=== PATIENT | male | born 1965 | race Caucasian/White ===

== ENCOUNTER → 2019-01-29 14:25 | Outpatient (CLI) | payer OTHER, SELFPAY ==
[2019-01-29 14:20] VITALS: BMI 21.7
--- NOTE | 2019-01-29 14:26 | RAD_ITS ---
STUDY: X-RAY - LEFT HAND REASON FOR EXAM: Pain. TECHNIQUE: 3 view(s) of the hand. COMPARISON: None. FINDINGS: Normal radiocarpal articulation. Normal distal radioulnar joint. Normal visualized carpal bones. Normal carpal articulations Normal carpometacarpal articulation of the thumb. Normal second through fifth carpometacarpal joints. There is chronic healed fracture deformity of the fourth metacarpal diaphysis. Normal metacarpophalangeal joint of the thumb. Normal interphalangeal joint of the thumb. Normal proximal and distal phalanges of the thumb. Normal metacarpophalangeal joints of the second through fifth fingers. Normal proximal and distal interphalangeal joints of the second through fifth fingers. Normal phalanges of the second through fifth fingers. The soft tissue structures are unremarkable. RAD/Hand Min 3 Views IMPRESSION: Chronic healed fracture deformity of the fourth metacarpal. Otherwise, unremarkable x-ray examination of the left hand. Electronically Signed: Diony Chanel MD at 16:00 EDT Tel , Service support ,
--- NOTE | 2019-01-29 14:26 | RAD_ITS ---
STUDY: X-RAY - RIGHT HAND REASON FOR EXAM: Pain. TECHNIQUE: 3 view(s) of the hand. COMPARISON: None. FINDINGS: Normal radiocarpal articulation. Normal distal radioulnar joint. Normal visualized carpal bones. Normal carpal articulations There is moderate joint space narrowing of the carpometacarpal articulation of the thumb. Normal second through fifth carpometacarpal joints. Normal metacarpi. Normal metacarpophalangeal joint of the thumb. Normal interphalangeal joint of the thumb. Normal proximal and distal phalanges of the thumb. Normal metacarpophalangeal joints of the second through fifth fingers. Normal proximal and distal interphalangeal joints of the second through fifth fingers. Normal phalanges of the second through fifth fingers. The soft tissue structures are unremarkable. RAD/Hand Min 3 Views IMPRESSION: Arthrosis of the first carpometacarpal joint. Electronically Signed: Diony Chanel MD at 15:44 EDT Tel , Service support ,
== END ==
PROVIDERS: Family Provider Internal Medicine; PCP Internal Medicine; Referring Provider Orthopaedic Surgery; Visit Provider Orthopaedic Surgery
DX: M79.644 Pain in right finger(s) (principal); M79.645 Pain in left finger(s)
CPT/HCPCS: 73130

== ENCOUNTER → 2019-10-17 09:12 | Outpatient (CLI) | payer OTHER, SELFPAY ==
[2019-10-08 16:40] VITALS: BMI 22.3
--- NOTE | 2019-10-17 09:33 | RAD_ITS ---
STUDY: X-RAY CHEST REASON FOR EXAM: Male, 54 years old. COUGH TECHNIQUE: PA and lateral views of the chest. COMPARISON: 06/22/2014 FINDINGS: The lungs are clear and expanded. There is no demonstrated pleural abnormality. Normal size heart. Normal mediastinum and yordan. Normal visualized pulmonary arteries. Normal visualized aortic arch and descending thoracic aorta. Normal visualized thoracic spine. Normal visualized ribs, clavicles, and shoulders. There is no demonstrated abnormality of the visualized soft tissue structures of the upper abdomen. RAD/Chest PA and Lateral IMPRESSION: Normal x-ray examination of the chest. Electronically Signed: Yariel Dowell MD at 17:27 EST Tel , Service support ,
[2019-10-17 09:40] LABS: Absolute Neutrophil Count 1.7 X10^3/uL (2.0-7.7); Basophil# 0.02 X10^3/uL; Basophil% 0.5 % (0-1); Eosinophil# 0.17 X10^3/uL; Hematocrit 46.2 % (40-54); Hemoglobin 15.5 g/dL (13.0-16.5); Lymphocyte % 44.3 % (19-41); Mean Corp Hgb Conc 33.5 g/dL (32-36); Mean Corpuscular Hgb 28.8 pg (27.0-32.0); Mean Corpuscular Volume 85.7 fL (80-94); Mean Platelet Vol. 9.3 fl (6.2-12.0); Monocyte# 0.49 X10^3/uL; Monocyte% 11.4 % (0-10); NRBC Flagged by Analyzer 0 % (0-5); Neutrophil % 39.6 % (47-70); Platelet Count 238 K/mm3 (150-450); RBC Distribution Width CV 12.2 % (11.6-14.6); RBC Distribution Width SD 38.3 fl (35.1-43.9); Red Blood Count 5.39 M/mm3 (4.6-6.2); White Blood Count 4.3 K/mm3 (4.4-11.0)
[2019-10-17 11:04] LABS: ALB/GLOB Ratio 0.9 RATIO (0.9-2.4); AST(SGOT) 17 U/L (15-37); Alanine Aminotransfer ALT/SGPT 27 U/L (16-61); Albumin, Serum 3.7 g/dL (3.2-5.0); Alkaline Phosphatase 80 U/L (45-117); Anion Gap 3 (5-15); BUN 22 mg/dL (7-18); BUN/Creat Ratio 24.1 RATIO (10-20); Calcium,Total 9.1 mg/dL (8.5-10.1); Chloride 106 mmol/L (98-107); Cholesterol 199 mg/dL (200); Creatinine, Serum 0.91 mg/dL (0.70-1.30); EST Glomerular Filtration Rate 91 mL/min (>60); Est Glom Filt Rate - Afr Amer 111 mL/min (>60); Glucose 89 mg/dL (74-106); High Density Lipoprotein 70 mg/dL; PSA,Total - Annual Screen 0.43 ng/mL (0.00-4.00); Potassium 4.1 mmol/L (3.5-5.1); Protein, Total 7.7 g/dL (6.4-8.2); Sodium Level 138 mmol/L (136-145); Triglycerides 68 mg/dL; Very Low Density Lipoprotein 14 mg/dL (5-40)
== END ==
PROVIDERS: PCP Internal Medicine; Referring Provider Internal Medicine; Visit Provider Internal Medicine
DX: Z00.00 Encounter for general adult medical examination without abnormal findings (principal); Z12.5 Encounter for screening for malignant neoplasm of prostate; M19.90 Unspecified osteoarthritis, unspecified site; G24.9 Dystonia, unspecified; I10 Essential (primary) hypertension; R05 Cough
CPT/HCPCS: 36415; 71046; 80053; 80061; 84153; 85025; G0103

== ENCOUNTER → 2020-02-17 10:53 | Outpatient (CLI) | payer OTHER, SELFPAY ==
[2019-10-08 16:40] VITALS: BMI 22.3
--- NOTE | 2020-02-17 12:57 | NEURO ---
NCS and/or EMG Patient Report DATE OF SERVICE: 02/17/20 Lito Vu is a 54-year-old male presents for electrodiagnostic testing of the upper limbs. He reports numbness and tingling in the hands for the past 18 months. Electrodiagnostic findings: Median motor nerve demonstrates prolonged distal latency with normal amplitude and conduction velocity bilaterally. Normal ulnar motor response bilaterally, including conduction across the elbow. Prolonged median sensory latency at the wrist bilaterally. Prolonged bilateral median palmar latency. On needle EMG, all muscles tested in the upper limb showed no evidence of denervation with normal motor unit action potentials. Electrodiagnostic impression: This is an abnormal study in the upper limbs 1. Electrodiagnostic findings demonstrate bilateral median mononeuropathy. This consistent with a moderate bilateral carpal tunnel syndrome. If there are any further questions, please do not hesitate to contact me
== END ==
PROVIDERS: PCP Internal Medicine
DX: G56.03 Carpal tunnel syndrome, bilateral upper limbs (principal)
CPT/HCPCS: 95886; 95912

== ENCOUNTER → 2020-05-02 15:48 | Outpatient (CLI) | payer OTHER, SELFPAY ==
[2020-05-02 15:09] VITALS: BMI 22.3
--- NOTE | 2020-05-02 15:49 | RAD_ITS ---
STUDY: X-RAY - RIGHT SHOULDER REASON FOR EXAM: Male, 55 years old. Right shoulder pain TECHNIQUE: 4 view(s) of the shoulder. COMPARISON: None. FINDINGS: Normal glenohumeral articulation. Normal acromioclavicular joint. Normal acromion. Normal humeral head and visualized proximal humerus. The soft tissue structures are unremarkable. Normal visualized pulmonary apex. RAD/Shoulder min 2 Views IMPRESSION: Normal x-ray examination of the shoulder. Electronically Signed: Raymond Mi DO at 23:24 EDT Tel [phone], Service support ,
== END ==
PROVIDERS: PCP Internal Medicine; Referring Provider Internal Medicine; Visit Provider Internal Medicine
DX: M25.511 Pain in right shoulder (principal)
CPT/HCPCS: 73030

== ENCOUNTER → 2020-11-05 08:35 | Outpatient (CLI) | payer OTHER, SELFPAY ==
[2020-10-20 17:07] VITALS: BMI 21.4
[2020-11-05 09:06] LABS: Absolute Lymphocyte Count 2.09 X10^3/uL (0.83-4.51); Absolute Neutrophil Count 1.8 X10^3/uL (2.0-7.7); Basophil# 0.04 X10^3/uL; Basophil% 0.9 % (0-1); Eosinophil# 0.26 X10^3/uL; Eosinophils% 5.6 % (0-5); Hematocrit 48.8 % (40-54); Hemoglobin 15.7 g/dL (13.0-16.5); Lymphocyte # 2.09 X10^3/ul (4.0); Lymphocyte % 45.2 % (19-41); Mean Corp Hgb Conc 32.2 g/dL (32-36); Mean Corpuscular Hgb 28.5 pg (27.0-32.0); Mean Corpuscular Volume 88.6 fL (80-94); Mean Platelet Vol. 9.6 fl (6.2-12.0); Monocyte% 8.7 % (0-10); NRBC Flagged by Analyzer 0 % (0-5); Neutrophil # 1.82 X10^3/uL (2.7-7.7); Neutrophil % 39.4 % (47-70); Platelet Count 251 K/mm3 (150-450); RBC Distribution Width CV 12.3 % (11.6-14.6); RBC Distribution Width SD 40.1 fl (35.1-43.9); Red Blood Count 5.51 M/mm3 (4.6-6.2); White Blood Count 4.6 K/mm3 (4.4-11.0)
[2020-11-05 09:15] LABS: Erythrocyte Sedimentation Rate 7 mm/hr (0-20)
[2020-11-05 09:40] LABS: Cholesterol 224 mg/dL (200); High Density Lipoprotein 79 mg/dL; Triglycerides 69 mg/dL; Very Low Density Lipoprotein 14 mg/dL (5-40)
[2020-11-05 09:51] LABS: ALB/GLOB Ratio 1.1 RATIO (0.9-2.4); AST(SGOT) 20 U/L (15-37); Alanine Aminotransfer ALT/SGPT 25 U/L (16-61); Alkaline Phosphatase 94 U/L (45-117); Anion Gap 5 (5-15); BUN 17 mg/dL (7-18); BUN/Creat Ratio 20.9 RATIO (10-20); CRP < 2.90 mg/L (0.0-3.0); Calcium,Total 9.2 mg/dL (8.5-10.1); Chloride 102 mmol/L (98-107); Creatinine, Serum 0.82 mg/dL (0.70-1.30); EST Glomerular Filtration Rate 104 mL/min (>60); Est Glom Filt Rate - Afr Amer 126 mL/min (>60); Globulin 3.8 g/dL (2.2-4.2); Glucose 86 mg/dL (74-106); Potassium 3.7 mmol/L (3.5-5.1); Protein, Total 7.8 g/dL (6.4-8.2); Sodium Level 138 mmol/L (136-145)
[2020-11-07 09:20] LABS: Hepatitis B Surface Antibody Non-Reactive; Hepatitis B Surface Antigen Non-Reactive (Nonreactive); Hepatitis C Antibody Non-Reactive (Nonreactive)
[2020-11-07 15:53] LABS: ANTINUCLEAR ANTIBODIES DIRECT Negative (Negative)
[2020-11-08 15:04] LABS: CCP IgG Antibodies 23 units (0-19)
== END ==
PROVIDERS: PCP Internal Medicine; Referring Provider Internal Medicine Rheumatology; Visit Provider Internal Medicine Rheumatology
DX: M06.4 Inflammatory polyarthropathy (principal); G24.9 Dystonia, unspecified; I10 Essential (primary) hypertension
CPT/HCPCS: 36415; 80053; 80061; 85025; 85652; 86038; 86140; 86200; 86431; 86706; 86803; 87340

== ENCOUNTER 2020-11-20 18:35 | Emergency (ER) | payer OTHER, SELFPAY ==
[2020-10-20 17:07] VITALS: BMI 21.4
[2020-11-20 18:37] VITALS: BP 128/87; PULSE 82; RESP 14; TEMP 36.4; O2SAT 100; BMI 20.5
--- NOTE | 2020-11-20 18:48 | RAD_ITS ---
STUDY: X-RAY CHEST REASON FOR EXAM: Male, 55 years old. cough TECHNIQUE: Frontal view of the chest COMPARISON: 17 October 2019 FINDINGS: The lungs are clear and hyper expanded. There is no demonstrated pleural abnormality. Normal size heart. Normal mediastinum and yordan. Normal visualized pulmonary arteries. Normal visualized aortic arch and descending thoracic aorta. Normal visualized thoracic spine. Normal visualized ribs, clavicles, and shoulders. There is no demonstrated abnormality of the visualized soft tissue structures of the upper abdomen. Appearance is stable since prior. RAD/Chest 1 View (Portable) IMPRESSION: No acute findings. [id number] emphysema. Electronically Signed: Inna Hennessy MD at 19:12 EDT Tel , Service support ,
--- NOTE | 2020-11-20 18:50 | ED.DCSUM_ITS ---
- ER Visit Summary Date of Service: 11/20/20 Chief Complaint: Cough History of Present Illness: The patient is a 55 M history of dystonia and prior aspiration and rheumatoid arthritis. States that he has had thick phlegm since . With recent chills. No fever. No shortness of breath. No nausea, v omiting or diarrhea. No dysuria. No chest pain. No abdominal pain. He and family want to make sure he did not develop a pneumonia. Physical Examination: Middle-aged male no acute distress. Vital signs stable afebrile. Pulse ox 100%. Family present at bedside. HEENT exam moist mucous membranes. Posterior pharynx unremarkable. No stridor. No drooling. He does have dystonia with facial twitches. Neck nontender no lymphadenopathy. Lungs clear to auscultation bilaterally. Heart regular rhythm rate about 80 no murmur. Abdomen soft nontender normal bowel sounds no peritoneal signs. Patient moving all 4 extremities. Calves are nontender without edema. Neurologically patient is awake alert with no focal motor deficits. Test Results: Portable chest x-ray 1 view interpreted by myself shows shows no acute abnormality. Chronic changes. No infiltrate. Also read by the radiologist who agrees. Repeat exam at 7:40 PM patient is doing well. I discussed chest x-ray results of both he and his significant other. He will be discharged home. Emergency Department Course and Treatment: Middle-aged male with dystonia with increased phlegm and cough. Clinically does not look septic and is afebrile. Chest x-ray being obtained. Treatment Plan: Plenty of fluids. Follow-up with his primary care physician if not improving. Return if worse. Disposition: discharge Impression: Viral URI History of dystonia History of rheumatoid arthritis This note was generated with [employer] dictation software. It may contain incorrect words, spelling, and punctuation that were not noted in review of the chart prior to signing ED Disposition - Plan for ED Patient: Referrals: Adeel Tam MD [Primary Care Provider] -
--- NOTE | 2020-11-20 19:41 | ED.DEP ---
ED Disposition - Plan for ED Patient: Disposition: Home or Assisted Living Instructions: ED Viral Syndrome (Adult) Referrals: Adeel Tam MD [Primary Care Provider] - 3-5 Days if not improving Additional Instructions: Yourr chest x-ray today was unremarkable. Follow-up use doctor if not improving. Return to emergency department feeling worse.
[2020-11-20 20:18] VITALS: BP 128/87; PULSE 82; RESP 14; RESP 16; TEMP 36.4; O2SAT 100
== END 2020-11-20 20:19 | disposition home or self-care (01) ==
PROVIDERS: Emergency Provider Emergency Medicine; PCP Internal Medicine
DX: J06.9 Acute upper respiratory infection, unspecified (principal); J43.9 Emphysema, unspecified; G24.9 Dystonia, unspecified; M06.9 Rheumatoid arthritis, unspecified
CPT/HCPCS: 71045; 99282

== ENCOUNTER → 2021-02-07 16:27 | Outpatient (CLI) | payer OTHER, SELFPAY ==
[2021-02-07 17:43] LABS: Absolute Lymphocyte Count 1.72 X10^3/uL (0.83-4.51); Absolute Neutrophil Count 2.8 X10^3/uL (2.0-7.7); Basophil# 0.03 X10^3/uL; Basophil% 0.6 % (0-1); Eosinophil# 0.13 X10^3/uL; Eosinophils% 2.5 % (0-5); Hematocrit 44.8 % (40-54); Hemoglobin 14.8 g/dL (13.0-16.5); Lymphocyte # 1.72 X10^3/ul (0.83-4.51); Lymphocyte % 32.5 % (19-41); Mean Corpuscular Hgb 28.7 pg (27.0-32.0); Mean Platelet Vol. 9.8 fl (6.2-12.0); Monocyte# 0.57 X10^3/uL; Monocyte% 10.8 % (0-10); NRBC Flagged by Analyzer 0 % (0-5); Neutrophil # 2.84 X10^3/uL (2.7-7.7); Neutrophil % 53.4 % (47-70); Platelet Count 262 K/mm3 (150-450); RBC Distribution Width CV 12.2 % (11.6-14.6); Red Blood Count 5.15 M/mm3 (4.6-6.2); White Blood Count 5.3 K/mm3 (4.4-11.0)
[2021-02-07 18:24] LABS: AST(SGOT) 16 U/L (15-37); Alanine Aminotransfer ALT/SGPT 25 U/L (16-61); Albumin, Serum 3.7 g/dL (3.2-5.0); Alkaline Phosphatase 78 U/L (45-117); Anion Gap 4 (5-15); BUN 25 mg/dL (7-18); BUN/Creat Ratio 21.4 RATIO (10-20); Chloride 108 mmol/L (98-107); Creatinine, Serum 1.17 mg/dL (0.70-1.30); EST Glomerular Filtration Rate 68 mL/min (>60); Est Glom Filt Rate - Afr Amer 83 mL/min (>60); Globulin 3.7 g/dL (2.2-4.2); Glucose 85 mg/dL (74-106); Potassium 4.2 mmol/L (3.5-5.1); Protein, Total 7.4 g/dL (6.4-8.2); Sodium Level 142 mmol/L (136-145)
== END ==
PROVIDERS: PCP Internal Medicine; Referring Provider Internal Medicine Rheumatology; Visit Provider Internal Medicine Rheumatology
DX: M06.4 Inflammatory polyarthropathy (principal); G24.9 Dystonia, unspecified
CPT/HCPCS: 36415; 80053; 85025

== ENCOUNTER → 2021-07-31 16:10 | Outpatient (CLI) | payer OTHER, SELFPAY ==
[2021-07-31 18:00] LABS: Absolute Lymphocyte Count 2.06 X10^3/uL (0.83-4.51); Basophil# 0.04 X10^3/uL; Basophil% 0.6 % (0-1); Eosinophil# 0.24 X10^3/uL; Eosinophils% 3.5 % (0-5); Hematocrit 44.7 % (40-54); Lymphocyte # 2.06 X10^3/ul (0.83-4.51); Lymphocyte % 29.6 % (19-41); Mean Corp Hgb Conc 33.6 g/dL (32-36); Mean Corpuscular Volume 86.3 fL (80-94); Monocyte% 8.6 % (0-10); NRBC Flagged by Analyzer 0 % (0-5); Neutrophil # 3.99 X10^3/uL (2.7-7.7); Neutrophil % 57.4 % (47-70); Platelet Count 264 K/mm3 (150-450); RBC Distribution Width CV 12.2 % (11.6-14.6); RBC Distribution Width SD 38.5 fl (35.1-43.9); Red Blood Count 5.18 M/mm3 (4.6-6.2)
[2021-07-31 18:14] LABS: ALB/GLOB Ratio 0.9 RATIO (0.9-2.4); AST(SGOT) 15 U/L (15-37); Alanine Aminotransfer ALT/SGPT 23 U/L (16-61); Albumin, Serum 3.6 g/dL (3.2-5.0); Alkaline Phosphatase 87 U/L (45-117); Anion Gap 5 (5-15); BUN 26 mg/dL (7-18); BUN/Creat Ratio 27.5 RATIO (10-20); Calcium,Total 10.2 mg/dL (8.5-10.1); Chloride 105 mmol/L (98-107); Creatinine, Serum 0.95 mg/dL (0.70-1.30); EST Glomerular Filtration Rate 87 mL/min (>60); Est Glom Filt Rate - Afr Amer 105 mL/min (>60); Globulin 4.1 g/dL (2.2-4.2); Glucose 78 mg/dL (74-106); Protein, Total 7.7 g/dL (6.4-8.2); Sodium Level 141 mmol/L (136-145)
== END ==
PROVIDERS: PCP Internal Medicine; Referring Provider Internal Medicine Rheumatology; Visit Provider Internal Medicine Rheumatology
DX: M06.4 Inflammatory polyarthropathy (principal); G24.9 Dystonia, unspecified; Z79.899 Other long term (current) drug therapy
CPT/HCPCS: 36415; 80053; 85025

== ENCOUNTER 2021-10-02 16:11 | Outpatient (CLI) | payer OTHER, SELFPAY ==
[2021-10-02 18:13] LABS: Absolute Lymphocyte Count 2.03 X10^3/uL (0.83-4.51); Absolute Neutrophil Count 3.5 X10^3/uL (2.0-7.7); Basophil# 0.02 X10^3/uL; Basophil% 0.3 % (0-1); Eosinophils% 4.7 % (0-5); Hematocrit 42.1 % (40-54); Hemoglobin 14.2 g/dL (13.0-16.5); Lymphocyte # 2.03 X10^3/ul (0.83-4.51); Lymphocyte % 31.8 % (19-41); Mean Corp Hgb Conc 33.7 g/dL (32-36); Mean Corpuscular Hgb 29.3 pg (27.0-32.0); Mean Platelet Vol. 9.8 fl (6.2-12.0); Monocyte# 0.52 X10^3/uL; Monocyte% 8.1 % (0-10); NRBC Flagged by Analyzer 0 % (0-5); Neutrophil # 3.49 X10^3/uL (2.7-7.7); Neutrophil % 54.6 % (47-70); Platelet Count 259 K/mm3 (150-450); RBC Distribution Width CV 12.5 % (11.6-14.6); RBC Distribution Width SD 39.4 fl (35.1-43.9); Red Blood Count 4.84 M/mm3 (4.6-6.2); White Blood Count 6.4 K/mm3 (4.4-11.0)
[2021-10-02 19:53] LABS: ALB/GLOB Ratio 0.9 RATIO (0.9-2.4); AST(SGOT) 19 U/L (15-37); Alanine Aminotransfer ALT/SGPT 23 U/L (16-61); Albumin, Serum 3.6 g/dL (3.2-5.0); Alkaline Phosphatase 73 U/L (45-117); Anion Gap 5 (5-15); BUN 21 mg/dL (7-18); BUN/Creat Ratio 25.4 RATIO (10-20); Calcium,Total 9.1 mg/dL (8.5-10.1); Chloride 105 mmol/L (98-107); Creatinine, Serum 0.83 mg/dL (0.70-1.30); EST Glomerular Filtration Rate 102 mL/min (>60); Est Glom Filt Rate - Afr Amer 123 mL/min (>60); Globulin 3.8 g/dL (2.2-4.2); Glucose 79 mg/dL (74-106); Potassium 3.7 mmol/L (3.5-5.1); Protein, Total 7.4 g/dL (6.4-8.2); Sodium Level 140 mmol/L (136-145)
== END 2021-10-02 23:59 | disposition short-term general hospital (02) ==
LOC: MTLAB 16:13
PROVIDERS: PCP Internal Medicine; Referring Provider Internal Medicine Rheumatology; Visit Provider Internal Medicine Rheumatology
DX: M06.4 Inflammatory polyarthropathy (principal); G24.9 Dystonia, unspecified; Z79.899 Other long term (current) drug therapy
CPT/HCPCS: 36415; 80053; 85025

== ENCOUNTER 2021-10-16 15:24 | Outpatient (CLI) | payer OTHER, SELFPAY ==
[2021-10-16 15:26] LABS: Bacteria 0 SEEN /hpf (None Seen); Mucous, Urine 0 SEEN /hpf (<or=2+); Red Blood Cells-Urine 0 SEEN /hpf (0-5); Squamous Epithelial Cells - UA 0 SEEN /hpf (0-5); White Blood Cells 0 SEEN /hpf (0-5)
[2021-10-16 16:41] LABS: Color, Urine Yellow (Yellow); Glucose, Dipstick Normal (Normal); Ketone-Dipstick Negative (Negative); Leukocyte Esterase-Dipstick Negative /ul (Negative); Nitrite-Dipstick Negative (Negative); Occult Blood-Urine Negative /ul (Negative); Protein-Dipstick Negative (Negative); Specific Gravity, Urine 1.025 (1.002-1.030); Urine Bilirubin Dipstick Negative (Negative); Urine Clarity Clear (Clear); Urine Urobilinogen Normal (Normal)
== END 2021-10-16 23:59 | disposition home or self-care (01) ==
LOC: LABSPEC 15:25
PROVIDERS: PCP Internal Medicine; Referring Provider Physician Assistant; Visit Provider Physician Assistant
DX: R31.9 Hematuria, unspecified (principal); R30.0 Dysuria
CPT/HCPCS: 81001; 87086

== ENCOUNTER 2021-11-11 09:31 | Outpatient (CLI) | payer OTHER, SELFPAY ==
[2021-11-11 10:11] LABS: Cholesterol 187 mg/dL (200); High Density Lipoprotein 74 mg/dL; PSA,Total - Annual Screen 0.43 ng/mL (0.00-4.00); Triglycerides 51 mg/dL; Very Low Density Lipoprotein 10 mg/dL (5-40)
== END 2021-11-11 23:59 | disposition home or self-care (01) ==
LOC: LAB 09:33
PROVIDERS: PCP Internal Medicine; Visit Provider Internal Medicine
DX: Z00.00 Encounter for general adult medical examination without abnormal findings (principal); Z12.5 Encounter for screening for malignant neoplasm of prostate; I10 Essential (primary) hypertension
CPT/HCPCS: 36415; 80061; 84153; G0103

== ENCOUNTER → 2021-12-21 | Outpatient (CLI) | payer OTHER, SELFPAY ==
[2021-12-21 17:50] LABS: Absolute Lymphocyte Count 2.06 X10^3/uL (0.83-4.51); Absolute Neutrophil Count 2.8 X10^3/uL (2.0-7.7); Basophil# 0.04 X10^3/uL; Basophil% 0.7 % (0-1); Eosinophil# 0.23 X10^3/uL; Hematocrit 43.6 % (40-54); Hemoglobin 14.5 g/dL (13.0-16.5); Lymphocyte # 2.06 X10^3/ul (0.83-4.51); Lymphocyte % 35.6 % (19-41); Mean Corp Hgb Conc 33.3 g/dL (32-36); Mean Corpuscular Hgb 29.3 pg (27.0-32.0); Mean Corpuscular Volume 88.1 fL (80-94); Mean Platelet Vol. 9.6 fl (6.2-12.0); Monocyte# 0.67 X10^3/uL; Monocyte% 11.6 % (0-10); NRBC Flagged by Analyzer 0 % (0-5); Neutrophil # 2.78 X10^3/uL (2.7-7.7); Neutrophil % 47.9 % (47-70); Platelet Count 256 K/mm3 (150-450); RBC Distribution Width CV 12.4 % (11.6-14.6); RBC Distribution Width SD 39.5 fl (35.1-43.9); Red Blood Count 4.95 M/mm3 (4.6-6.2); White Blood Count 5.8 K/mm3 (4.4-11.0)
[2021-12-21 18:29] LABS: ALB/GLOB Ratio 1.1 RATIO (0.9-2.4); AST(SGOT) 20 U/L (15-37); Alanine Aminotransfer ALT/SGPT 28 U/L (16-61); Albumin, Serum 3.8 g/dL (3.2-5.0); Alkaline Phosphatase 74 U/L (45-117); Anion Gap 3 (5-15); BUN 25 mg/dL (7-18); BUN/Creat Ratio 26.5 RATIO (10-20); Calcium,Total 8.8 mg/dL (8.5-10.1); Chloride 104 mmol/L (98-107); Creatinine, Serum 0.94 mg/dL (0.70-1.30); EST Glomerular Filtration Rate 87 mL/min (>60); Est Glom Filt Rate - Afr Amer 106 mL/min (>60); Globulin 3.5 g/dL (2.2-4.2); Glucose 80 mg/dL (74-106); Protein, Total 7.3 g/dL (6.4-8.2); Sodium Level 140 mmol/L (136-145)
== END | disposition home or self-care (01) ==
LOC: MTLAB 16:13
PROVIDERS: PCP Internal Medicine; Referring Provider Internal Medicine Rheumatology; Visit Provider Internal Medicine Rheumatology
DX: M06.4 Inflammatory polyarthropathy (principal); G24.9 Dystonia, unspecified; Z79.899 Other long term (current) drug therapy
CPT/HCPCS: 36415; 80053; 85025

== ENCOUNTER → 2022-01-16 | Outpatient (CLI) | payer OTHER, SELFPAY ==
--- NOTE | 2022-01-16 | CYSPIN_PTH ---
PATIENT: CHRIS JACKSON LOC: [facility] U#:[id number] AGE/SX: 56/M ROOM: RE01/16/[address]: Dr. Aung Loomis MD : 1965 BED: DIS: 01/16/2022 SPEC #: [id number] RECD: 01/17/22 08:41 STATUS: FANI TAMIKO #: [id number] KALEN: 01/16/22 00:[address]: Aung Loomis DEPT: CYTOLOGY RECD BY: Ramo Boyd ENTERED: 01/17/22 08:41 SP TYPE: CYSPIN FL OTHR DR: Dr. Adeel Tam MD Tissues: Urine Procedures: Pap Stain (control) Special Stain Group II Cytospin Fluid HEADER OPERATION: Not noted PRE-OP DIAGNOSIS: Hematuria TISSUE SUBMITTED: Urine for cytology DIAGNOSIS CYTOLOGY Urine for cytology (cytospin): Negative for malignant cells. See comment. SJ:cleopatra 01/17/2022 COMMENT Degenerated urothelial cells are noted. Clinical correlation and appropriate follow up are necessary. CYTOLOGY STUDY Slides are reviewed. CYTOLOGY GROSS Received is 60 ml of yellow cloudy fluid labeled with the patient's name and and designated per the requisition as urine. Submitted for cytology preparation. / cleopatra 01/16/2022 TC:5 CPT: 35016
[2022-01-16 17:01] LABS: Cytology, Body Fluid / CSF SEE PATHOLOGY REPORT
== END | disposition home or self-care (01) ==
LOC: LABSPEC 16:46
PROVIDERS: PCP Internal Medicine; Referring Provider Urology; Visit Provider Urology
DX: R31.9 Hematuria, unspecified (principal)
CPT/HCPCS: 88108; 88313

== ENCOUNTER → 2022-01-19 | Outpatient (CLI) | payer OTHER, SELFPAY ==
--- NOTE | 2022-01-19 14:50 | CT_ITS ---
STUDY: CT ABDOMEN AND PELVIS WITHOUT CONTRAST REASON FOR EXAM: Male, 56 years old. GROSS HEMATURIA RADIATION DOSAGE (If Supplied By Facility): CTDIvol = ( 5.90 ) mGy, DLP = ( 284.72 ) mGycm TECHNIQUE: Transaxial images were obtained from the dome of the diaphragm to the symphysis pubis without oral contrast, and without intravenous contrast. Sagittal and coronal images were reconstructed. Individualized dose optimization techniques were used for this CT. COMPARISON: None. FINDINGS: Mild degree of groundglass appearance in the right lower lobe. This may represent early inflammatory changes. Clinical correlation recommended. The visualized portions of the heart are within normal limits. 4.8 mm cyst in the posterior aspect of the right lobe of the liver. Tiny cyst is also seen in the anterior medial aspect of the right lobe of liver. Normal gallbladder and extrahepatic biliary system. Normal spleen. Normal pancreas. Normal bilateral adrenal glands. Normal right kidney. Punctate calculus in the upper pole calyx of the left kidney. Normal visualized stomach. Normal small intestine. Normal colon. The appendix is visualized and appears normal. There is scattered atherosclerotic calcification of the abdominal aorta, without a demonstrated aneurysm. Normal inferior vena cava. Normal retroperitoneum. Normal urinary bladder. There is enlargement of the prostate gland. It measures 3.9 cm x 4.8 cm. Central prostatic calcification is seen. Normal abdominal wall. There is retrolisthesis of L2 on L3. Heterogeneous appearance of the L2 vertebrae. This may represent hemangioma. CT/Abdomen/Pelvis without Cont IMPRESSION: Punctate calculus in the upper pole calyx of the left kidney. Prostatic calcification and enlargement. Retrolisthesis of L2 on L3 with abnormal appearance of the L2 vertebra most likely representing hemangioma. Electronically Signed: Jacob Beckman MD at 15:17 EDT ,
== END | disposition home or self-care (01) ==
LOC: CT 14:49
PROVIDERS: PCP Internal Medicine; Referring Provider Urology; Visit Provider Urology
DX: N20.0 Calculus of kidney (principal); N40.0 Benign prostatic hyperplasia without lower urinary tract symptoms; R31.0 Gross hematuria
CPT/HCPCS: 74176

== ENCOUNTER → 2022-02-14 | Outpatient (CLI) | payer OTHER, SELFPAY ==
[2022-02-14 17:31] LABS: Absolute Lymphocyte Count 2.14 X10^3/uL (0.83-4.51); Absolute Neutrophil Count 3.7 X10^3/uL (2.0-7.7); Basophil# 0.03 X10^3/uL; Basophil% 0.5 % (0-1); Eosinophil# 0.24 X10^3/uL; Eosinophils% 3.6 % (0-5); Hematocrit 43.2 % (40-54); Hemoglobin 14.6 g/dL (13.0-16.5); Lymphocyte # 2.14 X10^3/ul (0.83-4.51); Lymphocyte % 32.3 % (19-41); Mean Corp Hgb Conc 33.8 g/dL (32-36); Mean Corpuscular Hgb 30.2 pg (27.0-32.0); Mean Corpuscular Volume 89.3 fL (80-94); Mean Platelet Vol. 9.8 fl (6.2-12.0); Monocyte# 0.53 X10^3/uL; NRBC Flagged by Analyzer 0 % (0-5); Neutrophil # 3.67 X10^3/uL (2.7-7.7); Neutrophil % 55.3 % (47-70); Platelet Count 277 K/mm3 (150-450); RBC Distribution Width CV 12.2 % (11.6-14.6); RBC Distribution Width SD 39.8 fl (35.1-43.9); Red Blood Count 4.84 M/mm3 (4.6-6.2); White Blood Count 6.6 K/mm3 (4.4-11.0)
[2022-02-14 17:56] LABS: ALB/GLOB Ratio 1.1 RATIO (0.9-2.4); AST(SGOT) 19 U/L (15-37); Alanine Aminotransfer ALT/SGPT 29 U/L (16-61); Albumin, Serum 3.8 g/dL (3.2-5.0); Alkaline Phosphatase 78 U/L (45-117); Anion Gap 5 (5-15); BUN 23 mg/dL (7-18); Chloride 105 mmol/L (98-107); EST Glomerular Filtration Rate 82 mL/min (>60); Est Glom Filt Rate - Afr Amer 99 mL/min (>60); Globulin 3.6 g/dL (2.2-4.2); Glucose 94 mg/dL (74-106); Protein, Total 7.4 g/dL (6.4-8.2); Sodium Level 140 mmol/L (136-145)
== END | disposition home or self-care (01) ==
LOC: MTLAB 16:30
PROVIDERS: PCP Internal Medicine; Referring Provider Internal Medicine Rheumatology; Visit Provider Internal Medicine Rheumatology
DX: M06.4 Inflammatory polyarthropathy (principal); G24.9 Dystonia, unspecified; Z79.899 Other long term (current) drug therapy
CPT/HCPCS: 36415; 80053; 85025

== ENCOUNTER 2022-04-20 17:28 | Emergency (ER) | payer OTHER, SELFPAY ==
[2022-04-20 17:29] VITALS: BP 142/95; PULSE 85; RESP 18; TEMP 36.8; O2SAT 98; BMI 46.7
--- NOTE | 2022-04-20 18:45 | RAD_ITS ---
STUDY: X-RAY CHEST REASON FOR EXAM: Male, 57 years old. CHEST PAIN cough TECHNIQUE: XR Chest 1 View COMPARISON: 11/20/2020 FINDINGS: There is no demonstrated pleural abnormality. Normal size heart. Normal mediastinum and yordan. Normal visualized pulmonary arteries. Normal visualized aortic arch and descending thoracic aorta. Normal visualized thoracic spine. Normal visualized ribs, clavicles, and shoulders. There is no demonstrated abnormality of the visualized soft tissue structures of the upper abdomen. RAD/Chest 1 View (Portable) IMPRESSION: There are no acute findings. Electronically Signed: Jc Reyez MD at 19:24 EDT ,
[2022-04-20 19:02] VITALS: BP 135/87; PULSE 75; RESP 16; TEMP 36.4; O2SAT 98
[2022-04-20 19:07] VITALS: O2SAT 98
[2022-04-20] MEDS: Amox/Clavulanate 875 MG Tablet PO (20:11)
[2022-04-20 20:12] VITALS: BP 131/89; PULSE 74; RESP 15; O2SAT 98
--- NOTE | 2022-04-20 20:23 | ED.VIS.DYS ---
HPI History of Present Illness Chief Complaint: Cough Informant: patient and family Narrative Narrative: Patient is a 57-year-old male with history of dystonia and aspiration pneumonia presenting after an episode of aspiration this morning. He was trying to take a dissolvable ibuprofen when he aspirated one of the pills. Throughout the day he had increased phlegm and coughing. He has some discomfort on the right side of his chest. Denies any shortness of breath or difficulty breathing. Initially went to urgent care however they were concerned that he might have retained foreign body in his esophagus or trachea so they sent him to the emergency room. Patient has eaten and drink since this episode of aspiration. He has no other complaints at this time. Denies any fever or chills. [facility] Medical History Arthritis Dystonia Health care maintenance Localized swelling on hand Preventative health care Rheumatoid arthritis Home Medications ascorbic acid (vitamin C) 500 mg capsule,extended release 500 mg PO DAILY 11/03/18 [History Last Taken Unknown] turmeric root extract 500 mg capsule 500 mg PO DAILY 11/03/18 [History Last Taken Unknown] zinc 50 mg tablet 50 mg PO DAILY 11/03/18 [History Last Taken Unknown] bee pollen 550 mg capsule 2 cap PO DAILY 05/02/20 [History Last Taken Unknown] polyethylene glycol 3350 17 gram/dose oral powder (Miralax) 17 g PO .prn 10/20/20 [History Last Taken Unknown] glucosamine 750 mu-fznefrmyoou-ywq no1 644 mg-C 30 mg-santos 1 mg tablet 1 each PO DAILY 11/20/20 [History Last Taken Unknown] hydroxychloroquine 200 mg tablet 300 mg PO DAILYCM 11/20/20 [History Last Taken Unknown] trihexyphenidyl 2 mg tablet 2 mg PO .QID #360 tabs 05/11/21 [Rx Last Taken Unknown] baclofen 10 mg tablet 10 mg PO Q6H dystonia #480 tabs 08/17/21 [Rx Last Taken Unknown] amoxicillin 875 mg-potassium clavulanate 125 mg tablet 1 tab PO Q12H #14 tabs 04/20/22 [Rx Last Taken Unknown] Allergy/AdvReac Type Severity Reaction Status Date / Time No Known Allergies Allergy Verified 04/20/22 19:09 Family History Mother Cancer melanoma Hypertension Hyperlipemia Sister Breast cancer Surgical History History of carpal tunnel surgery of right wrist History of colonoscopy Hx of hemorrhoidectomy right thumb replacment Social History Smoking Status: Never smoker alcohol intake: never substance use type: does not use what type of physical activity do you participate in: bicycling frequency: 3-4 times per week ROS ROS ED Constitutional Constitutional ED: Denies chills or fever(s) Eyes Eyes: Denies change in vision ENT ENT ED: Denies rhinorrhea or sore throat Cardiovascular Cardiovascular: Denies chest pain or palpitations Respiratory/Chest Respiratory/Chest: Reports cough; Denies dyspnea or dyspnea on exertion Gastrointestinal Gastrointestinal: Denies abdominal pain, nausea or vomiting Musculoskeletal Musculoskeletal: Denies arthralgias or myalgias Integumentary Denies rash Neurologic Neurologic: Denies headache(s) or weakness Psychiatric Psychiatric: Denies anxiety Hematologic/Lymphatic Hematologic/Lymphatic: Denies easy bleeding or easy bruising EXAM Physical Exam Const Vital Signs: 04/20/22 17:29 04/20/22 19:02 04/20/22 19:07 Temperature 98.2 F 97.5 F L Temperature Source Temporal Temporal Pulse Rate 85 75 Respiratory Rate 18 16 Respiratory Effort Normal Non-Labored Respiratory Depth Normal Respiratory Pattern Normal Blood Pressure 142/95 H 135/87 H Blood Pressure Mean 110 103 Pulse Ox 98 98 Oxygen Delivery Method Room Air Room Air Room Air 04/20/22 20:12 Temperature Temperature Source Pulse Rate 74 Respiratory Rate 15 Respiratory Effort Respiratory Depth Respiratory Pattern Blood Pressure 131/89 H Blood Pressure Mean Pulse Ox 98 Oxygen Delivery Method Positive well nourished and well developed General Appearance ED: well developed and NAD HEENT Reports moist mucous membranes atraumatic Eyes PERRL and EOMs intact bilaterally Neck no lymphadenopathy and supple Resp normal respiratory effort Resp Narrative: Coarse breath sounds and rhonchi at the right base more pronounced on the left Cardio regular rate, regular rhythm and no murmurs GI non-tender and non-distended Auscultation: normoactive bowel sounds Back/Spine no CVA tenderness Neuro oriented x3 Neuro Narrative: Patient has abnormal tone and abnormal muscle movements consistent with his history of dystonia. No acute process appreciated. Sensorium / Orientation: alert Speech: Negative for speech normal Psych mental status grossly normal Skin no wounds and skin turgor normal MDM MDM MDM Narrative Medical decision making narrative: Patient is evaluated after an aspiration event. He has some increased phlegm production and chest tightness on the right side. This was a dissolvable tablet that he aspirated. He is eating and drink since. I do not think this is a retained esophageal foreign body. This does not sound like globus hystericus. Chest x-ray was read as normal however on my interpretation I do see changes concerning for right lower lobe infiltrate. Patient be covered for aspiration pneumonia. Given first dose in the emergency room. Prescription is sent. Family is agreeable this. They will follow-up with primary care doctor next week. They are given return precautions. Patient has normal O2 saturation and is afebrile. I do not think further work-up is indicated at this time. Radiography Diagnostic Testing: Clinical Impression(s) from Imaging Studies Chest X-Ray 04/20/22 18:45 IMPRESSION: There are no acute findings. Electronically Signed: Jc Reyez MD at 19:24 EDT , Discharge Plan Triage Chief Complaint: Cough ED Provider: Joelle Quintana Dx/Rx/DC Orders Clinical Impression: Aspiration pneumonia, Cough Instructions: Dysphagia Aspiration, ED Pneumonia (Adult) Prescriptions: New amoxicillin-pot clavulanate 875-125 mg tablet 1 tab PO Q12H Qty: 14 0RF No Action turmeric root extract 500 mg capsule 500 mg PO DAILY zinc 50 mg tablet 50 mg PO DAILY ascorbic acid (vitamin C) 500 mg capsule, extended release 500 mg PO DAILY bee pollen 550 mg capsule 2 cap PO DAILY polyethylene glycol 3350 [Miralax] 17 gram/dose powder 17 g PO .prn hydroxychloroquine 200 MG tablet 300 mg PO DAILYCM [id number]-santos-bosw 1 EACH tablet 1 each PO DAILY trihexyphenidyl 2 mg tablet 2 mg PO .QID Qty: 360 3RF baclofen 10 mg tablet 10 mg PO Q6H Qty: 480 2RF Rx Instructions: take 2 tablets PO every 6 hours Primary Care Provider: Eze Mon Referrals: Eze Mon DO [Primary Care Provider] - Disposition Disposition: Home, Self Care Discharge Date/Time: 04/20/22 20:13
== END 2022-04-20 20:13 | disposition home or self-care (01) ==
LOC: ED 19:58
PROVIDERS: Emergency Provider Emergency Medicine; PCP Family Medicine; Visit Provider Emergency Medicine
DX: J69.0 Pneumonitis due to inhalation of food and vomit (principal)
CPT/HCPCS: 71045; 99283

== ENCOUNTER → 2022-05-21 | Outpatient (CLI) | payer OTHER, SELFPAY ==
[2022-05-21 18:49] LABS: Absolute Lymphocyte Count 2.15 X10^3/uL (0.83-4.51); Absolute Neutrophil Count 5.8 X10^3/uL (2.0-7.7); Basophil# 0.04 X10^3/uL; Basophil% 0.4 % (0-1); Eosinophil# 0.33 X10^3/uL; Eosinophils% 3.7 % (0-5); Hematocrit 44.4 % (40-54); Hemoglobin 15.3 g/dL (13.0-16.5); Lymphocyte # 2.15 X10^3/ul (0.83-4.51); Lymphocyte % 24.2 % (19-41); Mean Corp Hgb Conc 34.5 g/dL (32-36); Mean Corpuscular Hgb 30.2 pg (27.0-32.0); Mean Corpuscular Volume 87.6 fL (80-94); Mean Platelet Vol. 9.8 fl (6.2-12.0); Monocyte# 0.57 X10^3/uL; Monocyte% 6.4 % (0-10); NRBC Flagged by Analyzer 0 % (0-5); Neutrophil # 5.77 X10^3/uL (2.7-7.7); Neutrophil % 64.9 % (47-70); Platelet Count 248 K/mm3 (150-450); RBC Distribution Width CV 12.2 % (11.6-14.6); RBC Distribution Width SD 38.6 fl (35.1-43.9); Red Blood Count 5.07 M/mm3 (4.6-6.2); White Blood Count 8.9 K/mm3 (4.4-11.0)
[2022-05-21 20:20] LABS: AST(SGOT) 26 U/L (15-37); Alanine Aminotransfer ALT/SGPT 31 U/L (16-61); Albumin, Serum 3.8 g/dL (3.2-5.0); Alkaline Phosphatase 84 U/L (45-117); Anion Gap 7 (5-15); BUN 31 mg/dL (7-18); BUN/Creat Ratio 35.6 RATIO (10-20); Calcium,Total 9.1 mg/dL (8.5-10.1); Chloride 102 mmol/L (98-107); Creatinine, Serum 0.87 mg/dL (0.70-1.30); EST Glomerular Filtration Rate 96 mL/min (>60); Est Glom Filt Rate - Afr Amer 116 mL/min (>60); Globulin 3.9 g/dL (2.2-4.2); Glucose 83 mg/dL (74-106); Potassium 3.8 mmol/L (3.5-5.1); Protein, Total 7.7 g/dL (6.4-8.2); Sodium Level 138 mmol/L (136-145)
== END | disposition home or self-care (01) ==
LOC: MTLAB 16:52
PROVIDERS: PCP Family Medicine; Referring Provider Internal Medicine Rheumatology; Visit Provider Internal Medicine Rheumatology
DX: M06.4 Inflammatory polyarthropathy (principal); G24.9 Dystonia, unspecified; Z79.899 Other long term (current) drug therapy
CPT/HCPCS: 36415; 80053; 85025

== ENCOUNTER → 2022-07-24 | Outpatient (CLI) | payer OTHER, SELFPAY ==
--- NOTE | 2022-07-24 16:41 | RAD_ITS ---
INDICATION: BACK PAIN EXAMINATION/TECHNIQUE: X-RAY - XR Spine Lumbar Min 4 Views COMPARISON: None. FINDINGS: VERTEBRAE: Vertebral body height is maintained without evidence of fracture, there is moderate multilevel degenerative change with marginal osteophyte formation. There is degenerative retrolisthesis of L2 on L3. Disc space narrowing is present at L2-3. No fracture destructive bony process. Mild facet hypertrophic changes. DISCS: Mild disc space narrowing at L2-3 with mild retrolisthesis. INCLUDED ABDOMEN: Included bowel gas pattern is non-obstructive. RAD/L/S Spine Min 4 Views IMPRESSION: 1. Mild discogenic changes most notable at L2-3. Minimal retrolisthesis L2 on L3. 2. No evidence of fracture, focal acute bony or paraspinous soft tissue abnormality. Electronically Signed: Yariel Ortega MD at 17:33 EST ,
== END | disposition home or self-care (01) ==
LOC: MTRAD 16:40
PROVIDERS: PCP Family Medicine; Referring Provider Family Medicine; Visit Provider Family Medicine
DX: M54.50 Low back pain, unspecified (principal)
CPT/HCPCS: 72110

== ENCOUNTER → 2022-08-14 | Outpatient (CLI) | payer OTHER, SELFPAY ==
[2022-08-14 18:00] LABS: Absolute Lymphocyte Count 1.88 X10^3/uL (0.83-4.51); Absolute Neutrophil Count 5.2 X10^3/uL (2.0-7.7); Basophil# 0.05 X10^3/uL; Basophil% 0.6 % (0-1); Eosinophil# 0.25 X10^3/uL; Eosinophils% 3.2 % (0-5); Hematocrit 43.2 % (40-54); Hemoglobin 14.8 g/dL (13.0-16.5); Lymphocyte # 1.88 X10^3/ul (0.83-4.51); Lymphocyte % 23.9 % (19-41); Mean Corp Hgb Conc 34.3 g/dL (32-36); Mean Corpuscular Volume 87.6 fL (80-94); Mean Platelet Vol. 9.4 fl (6.2-12.0); Monocyte# 0.54 X10^3/uL; Monocyte% 6.9 % (0-10); NRBC Flagged by Analyzer 0 % (0-5); Neutrophil # 5.15 X10^3/uL (2.7-7.7); Neutrophil % 65.3 % (47-70); Platelet Count 240 K/mm3 (150-450); RBC Distribution Width CV 12.4 % (11.6-14.6); RBC Distribution Width SD 39.7 fl (35.1-43.9); Red Blood Count 4.93 M/mm3 (4.6-6.2); White Blood Count 7.9 K/mm3 (4.4-11.0)
[2022-08-14 18:12] LABS: ALB/GLOB Ratio 1.2 RATIO (0.9-2.4); AST(SGOT) 21 U/L (15-37); Alanine Aminotransfer ALT/SGPT 27 U/L (16-61); Albumin, Serum 3.8 g/dL (3.2-5.0); Alkaline Phosphatase 81 U/L (45-117); Anion Gap 6 (5-15); BUN 25 mg/dL (7-18); BUN/Creat Ratio 26.3 RATIO (10-20); Calcium,Total 9.1 mg/dL (8.5-10.1); Chloride 104 mmol/L (98-107); Creatinine, Serum 0.95 mg/dL (0.70-1.30); EST Glomerular Filtration Rate 86 mL/min (>60); Est Glom Filt Rate - Afr Amer 105 mL/min (>60); Globulin 3.3 g/dL (2.2-4.2); Glucose 90 mg/dL (74-106); Potassium 4.1 mmol/L (3.5-5.1); Protein, Total 7.1 g/dL (6.4-8.2); Sodium Level 140 mmol/L (136-145)
== END | disposition home or self-care (01) ==
LOC: MTLAB 16:26
PROVIDERS: PCP Family Medicine; Referring Provider Internal Medicine Rheumatology; Visit Provider Internal Medicine Rheumatology
DX: M06.4 Inflammatory polyarthropathy (principal); G24.9 Dystonia, unspecified; Z79.899 Other long term (current) drug therapy
CPT/HCPCS: 36415; 80053; 85025

== ENCOUNTER 2022-10-13 06:30 | Emergency (ER) | payer OTHER, SELFPAY ==
[2022-10-13 06:30] VITALS: BP 139/81; PULSE 88; RESP 18; TEMP 36; O2SAT 98
[2022-10-13 06:31] VITALS: BP 139/81; PULSE 88; RESP 18; TEMP 36; O2SAT 95; BMI 20.8
--- NOTE | 2022-10-13 07:04 | EKG12_ITS ---
Test Reason : PALPITATIONS Blood Pressure : / mmHG Vent. Rate : 089 BPM Atrial Rate : 089 BPM P-R Int : 154 ms QRS Dur : 086 ms QT Int : 362 ms P-R-T Axes : 066 057 044 degrees QTc Int : 440 ms Normal sinus rhythm Normal ECG Confirmed by ANASTASIA YBARRA, SANDIE ([id number]), video effects editor KRISTOPHER ALCALA ([id number]) on 10/15/2022 12:24:35 PM Referred By: Confirmed By:SANDIE OCONNOR MD
--- NOTE | 2022-10-13 07:18 | EX.ED.DYSGE1 ---
HPI History of Present Illness Chief Complaint: Palpitations Informant: patient and family Onset/Context/Timing Onset: Yesterday Context: Sudden Onset Timing: Intermittent Quality: Heart racing all night long Location: Chest Current Severity: Gone Maximum Severity: Moderate Worsened by: Nothing Relieved by: Nothing Associated Symptoms Associated Symptoms: Nothing Narrative Narrative: Patient is a 57-year-old male with past medical history of segmental dystonia, lower GI bleed, rheumatoid arthritis, chronic bilateral low back pain without sciatica who presents because his heart rate has been racing all night long. His was recently diagnosed with COVID. He has no upper respiratory tract infectious symptoms. He has had no new medications or change in doses of medications. He denies headache, visual, ocular auditory symptoms. He does complain of congestion. The congestion is chronic. He denies sore throat. He denies trouble with speech compared to baseline and denies problems swallowing. He denies cardiac or respiratory symptoms other than the heart rate racing all night long. He denies abdominal pain, nausea, vomiting or diarrhea. He denies change in bowel habitus. He denies urologic symptoms. He denies history of VTE. He denies leg pain, swelling or discoloration. He denies rash. He denies myalgias or arthralgias. He is on Plaquenil for his rheumatoid arthritis. He states Dr. Henderson is no longer his physician. Dr. Eze Mon is his physician. Outside records from [facility] were reviewed. Patient had a lipid profile performed by Dr. Santiago January 18, 2018. His LDH was slightly elevated at 121. His LDL to HDL ratio is 1.89-1. Patient had a colonoscopy performed June 2011 and revealed source of lower GI bleed to be internal hemorrhoids. [facility] Medical History Arthritis Dystonia Health care maintenance Localized swelling on hand Preventative health care Rheumatoid arthritis Home Medications ascorbic acid (vitamin C) 500 mg capsule,extended release 500 mg PO DAILY 11/03/18 [History Last Taken Unknown] turmeric root extract 500 mg capsule 500 mg PO DAILY 11/03/18 [History Last Taken Unknown] zinc 50 mg tablet 50 mg PO DAILY 11/03/18 [History Last Taken Unknown] bee pollen 550 mg capsule 2 cap PO DAILY 08/31/20 [History Last Taken Unknown] polyethylene glycol 3350 17 gram/dose oral powder (Miralax) 17 g PO .prn 10/20/20 [History Last Taken Unknown] glucosamine 750 [id number] no1 644 mg-C 30 mg-santos 1 mg tablet 1 each PO DAILY 11/20/20 [History Last Taken Unknown] hydroxychloroquine 200 mg tablet 300 mg PO DAILYCM 11/20/20 [History Last Taken Unknown] trihexyphenidyl 2 mg tablet 2 mg PO .QID #360 tabs 05/11/21 [Rx Last Taken Unknown] baclofen 10 mg tablet 10 mg PO Q6H dystonia #480 tabs 08/17/21 [Rx Last Taken Unknown] amoxicillin 875 mg-potassium clavulanate 125 mg tablet 1 tab PO Q12H #14 tabs 04/20/22 [Rx Last Taken Unknown] Allergy/AdvReac Type Severity Reaction Status Date / Time No Known Allergies Allergy Verified 04/20/22 19:09 Family History Mother Cancer melanoma Hypertension Hyperlipemia Sister Breast cancer Surgical History History of carpal tunnel surgery of right wrist History of colonoscopy Hx of hemorrhoidectomy right thumb replacment Social History (Updated 10/13/22 @ 07:[address] Maynor Werner MD) household members: spouse Smoking Status: Never smoker alcohol intake: never substance use type: does not use what type of physical activity do you participate in: bicycling frequency: 3-4 times per week ROS ROS ED Constitutional Constitutional ED: Denies chills, fever(s), subjective, sweats or weight loss Eyes Eyes: Denies blurry vision, change in vision or diplopia ENT ENT ED: Denies ear pain, rhinorrhea or sore throat Cardiovascular Cardiovascular: Reports palpitations and racing heartbeat; Denies chest pain, orthopnea or paroxysmal nocturnal dyspnea Respiratory/Chest Respiratory/Chest: Denies cough, dyspnea, dyspnea on exertion, orthopnea or paroxysmal nocturnal dyspnea Gastrointestinal Gastrointestinal: Reports diarrhea; Denies abdominal pain, melena, nausea or vomiting Genitourinary Genitourinary ED: Denies dysuria, hematuria or urinary frequency Musculoskeletal Musculoskeletal: Denies arthralgias, back pain, myalgias or neck pain Integumentary Denies abscess, Abrasions or rash Neurologic Neurologic: Denies headache(s), paresthesias or weakness Psychiatric Psychiatric: Denies anxiety or depression Endocrine Endocrinology: Denies cold intolerance or heat intolerance Hematologic/Lymphatic Hematologic/Lymphatic: Reports systems reviewed and no addt'l complaints, except as documented EXAM Physical Exam Const Vital Signs: 10/13/22 06:31 10/13/22 06:30 10/13/22 07:46 Temperature 96.8 F L 96.8 F L Temperature Source Temporal Temporal Pulse Rate 88 88 75 Respiratory Rate 18 18 18 Blood Pressure 139/81 H 139/81 H 112/72 Blood Pressure Mean 100 100 85 Pulse Ox 95 98 95 Oxygen Delivery Method Room Air Room Air Room Air Positive well nourished and well developed General Appearance ED: well developed and NAD; Negative for cyanotic, diaphoretic or pallor HEENT Reports moist mucous membranes HEENT Narrative: Head is atraumatic normocephalic. Nares patent. Posterior pharynx without erythema or exudate. Uvula is midline. There is no deviation time of protrusion. Ears are normal. Eyes PERRL and EOMs intact bilaterally General Eye ED: Negative for pale conjunctiva or scleral icterus Neck no lymphadenopathy, supple and no JVD Neck Narrative: Trachea is midline. There is no carotid bruits noted. Chest Wall inspection of chest normal and palpation of chest normal Resp normal respiratory effort and clear to auscultation bilaterally Cardio regular rate, regular rhythm, S1 normal heart sound, S2 normal heart sound and no murmurs GI normal to inspection, nondistended, normoactive bowel sounds, non-tender, non-distended and no masses; Negative for hepatosplenomegaly Back/Spine no CVA tenderness Back/Spine Narrative: Inspection of the back is normal is no tenderness palpation. Neuro oriented x3, CN's II-XII intact bilaterally and no sensory deficits noted Sensorium / Orientation: alert Psych mental status grossly normal Skin no rashes or lesions noted, no wounds and skin turgor normal General Skin Exam: elasticity normal; Negative for jaundice or pallor MDM MDM MDM Narrative Medical decision making narrative: Prior records were reviewed. There is no history of coronary disease or dysrhythmia. Patient's has not seen a handhole machine operator or had an echo cardiogram in the past. He presents with palpitations. He does have a watch that monitors heart rate however he he states its not working. Patient was placed on the monitor when he arrived. Since arrival at the time of this note 0726 patient had no tachycardia or ectopy noted i.e. PACs or PVCs. He does endorse recent diarrhea. For this reason basic metabolic panel was obtained to assess for hypokalemia which may be a cause of PACs or ventricular premature beats. TSH was obtained to evaluate/screen for hyperthyroidism as a cause of palpitations. EKG was obtained per protocol. EKG was interpreted by the evening physician as normal. The EKG was reviewed by me. EKG reveals a normal sinus rhythm rate of 89. Lab Data Attestation: I reviewed the patient's lab results. Lab results narrative: MarkableBasic metabolic panel is. BUN to creatinine ratio is elevated 25-1. This is not significant. Glucose slightly elevated 113 which is not significant. CO2 anion gap are normal. TSH is normal. Patient's monitor has been reviewed. There has been no ectopy during his entire ER stay. Labs: Laboratory Results - last 24 hr 10/13/22 06:33 Sodium 139 Potassium 3.8 Chloride 103 Carbon Dioxide 27.0 Anion Gap 9 BUN 23 H Creatinine 0.91 Estim Creat Clear Calc 92.11 Est GFR (MDRD) Af Amer 109 Est GFR (MDRD) Non-Af 90 BUN/Creatinine Ratio 25.2 H Glucose 113 H Calcium 9.2 TSH 1.88 Rhythm Strip Rhythm Strip: Sinus Rhythm Rate: 82 Ectopy: None EKG Initial EKG: Attestation: I personally reviewed and interpreted this EKG as follows: Interpretation: Sinus Rhythm (Ventricular rate is 89. The EKG is normal. [place] interval is 154 ms. QRS duration 86 ms. QT duration 362 ms. [place] is normal. There are no premature beats noted.) Discharge Plan Triage Chief Complaint: Palpitations ED Provider: Maynor Werner Dx/Rx/DC Orders Clinical Impression: Heart palpitations, Dystonia, Hx of rheumatoid arthritis, Essential hypertension Instructions: ED Palpitations Prescriptions: No Action turmeric root extract 500 mg capsule 500 mg PO DAILY zinc 50 mg tablet 50 mg PO DAILY ascorbic acid (vitamin C) 500 mg capsule, extended release 500 mg PO DAILY bee pollen 550 mg capsule 2 cap PO DAILY polyethylene glycol 3350 [Miralax] 17 gram/dose powder 17 g PO .prn hydroxychloroquine 200 MG tablet 300 mg PO DAILYCM [id number]-bosw 1 EACH tablet 1 each PO DAILY amoxicillin-pot clavulanate 875-125 mg tablet 1 tab PO Q12H Qty: 14 0RF trihexyphenidyl 2 mg tablet 2 mg PO .QID Qty: 360 3RF baclofen 10 mg tablet 10 mg PO Q6H Qty: 480 2RF Rx Instructions: take 2 tablets PO every 6 hours Primary Care Provider: Eze Mon Referrals: Eze Mon, [Primary Care Provider] - 3-5 Days if not improving Disposition Disposition: Home, Self Care
[2022-10-13 07:46] VITALS: BP 112/72; PULSE 75; RESP 18; O2SAT 95
[2022-10-13 07:46] LABS: Anion Gap 9 (5-15); BUN 23 mg/dL (7-18); BUN/Creat Ratio 25.2 RATIO (10-20); Calcium,Total 9.2 mg/dL (8.5-10.1); Chloride 103 mmol/L (98-107); Creatinine, Serum 0.91 mg/dL (0.70-1.30); EST Glomerular Filtration Rate 90 mL/min (>60); Est Glom Filt Rate - Afr Amer 109 mL/min (>60); Estimated Creatinine Clearance 92.11 ml/min; Glucose 113 mg/dL (74-106); Potassium 3.8 mmol/L (3.5-5.1); Sodium Level 139 mmol/L (136-145); Thyroid Stim Hormone (TSH) 1.88 uIU/mL (0.358-3.74)
== END 2022-10-13 08:05 | disposition home or self-care (01) ==
PROVIDERS: Emergency Provider Emergency Medicine; PCP Family Medicine; Visit Provider Emergency Medicine
DX: R00.2 Palpitations (principal); M06.9 Rheumatoid arthritis, unspecified; G24.8 Other dystonia; I10 Essential (primary) hypertension; Z79.899 Other long term (current) drug therapy
CPT/HCPCS: 80048; 84443; 93005; 99284; A4216

== ENCOUNTER → 2022-11-02 | Outpatient (CLI) | payer OTHER, SELFPAY ==
[2022-11-02 17:48] LABS: Absolute Lymphocyte Count 2.31 X10^3/uL (0.83-4.51); Absolute Neutrophil Count 3.4 X10^3/uL (2.0-7.7); Basophil# 0.04 X10^3/uL; Basophil% 0.6 % (0-1); Eosinophil# 0.24 X10^3/uL; Eosinophils% 3.6 % (0-5); Hematocrit 45.1 % (40-54); Hemoglobin 15.3 g/dL (13.0-16.5); Lymphocyte # 2.31 X10^3/ul (0.83-4.51); Lymphocyte % 34.9 % (19-41); Mean Corp Hgb Conc 33.9 g/dL (32-36); Mean Corpuscular Hgb 29.9 pg (27.0-32.0); Mean Corpuscular Volume 88.1 fL (80-94); Mean Platelet Vol. 9.9 fl (6.2-12.0); Monocyte# 0.61 X10^3/uL; Monocyte% 9.2 % (0-10); NRBC Flagged by Analyzer 0 % (0-5); Neutrophil % 51.5 % (47-70); Platelet Count 222 K/mm3 (150-450); RBC Distribution Width CV 12.4 % (11.6-14.6); RBC Distribution Width SD 39.7 fl (35.1-43.9); Red Blood Count 5.12 M/mm3 (4.6-6.2); White Blood Count 6.6 K/mm3 (4.4-11.0)
[2022-11-02 18:13] LABS: ALB/GLOB Ratio 1.1 RATIO (0.9-2.4); AST(SGOT) 17 U/L (15-37); Alanine Aminotransfer ALT/SGPT 25 U/L (16-61); Albumin, Serum 3.8 g/dL (3.2-5.0); Alkaline Phosphatase 80 U/L (45-117); Anion Gap 7 (5-15); BUN 22 mg/dL (7-18); BUN/Creat Ratio 26.4 RATIO (10-20); Calcium,Total 9.5 mg/dL (8.5-10.1); Chloride 102 mmol/L (98-107); Creatinine, Serum 0.83 mg/dL (0.70-1.30); EST Glomerular Filtration Rate 101 mL/min (>60); Est Glom Filt Rate - Afr Amer 122 mL/min (>60); Globulin 3.5 g/dL (2.2-4.2); Glucose 88 mg/dL (74-106); Potassium 3.8 mmol/L (3.5-5.1); Protein, Total 7.3 g/dL (6.4-8.2); Sodium Level 139 mmol/L (136-145)
== END | disposition home or self-care (01) ==
LOC: MTLAB 16:07
PROVIDERS: PCP Family Medicine; Referring Provider Internal Medicine Rheumatology; Visit Provider Internal Medicine Rheumatology
DX: M06.4 Inflammatory polyarthropathy (principal); Z79.899 Other long term (current) drug therapy; G24.9 Dystonia, unspecified
CPT/HCPCS: 36415; 80053; 85025

== ENCOUNTER → 2022-11-22 | Outpatient (CLI) | payer OTHER, SELFPAY ==
[2022-11-22 18:39] LABS: Absolute Lymphocyte Count 1.99 X10^3/uL (0.83-4.51); Absolute Neutrophil Count 4.4 X10^3/uL (2.0-7.7); Basophil# 0.05 X10^3/uL; Basophil% 0.7 % (0-1); Eosinophil# 0.25 X10^3/uL; Eosinophils% 3.5 % (0-5); Hematocrit 44.4 % (40-54); Hemoglobin 14.7 g/dL (13.0-16.5); Lymphocyte # 1.99 X10^3/ul (0.83-4.51); Lymphocyte % 27.8 % (19-41); Mean Corp Hgb Conc 33.1 g/dL (32-36); Mean Corpuscular Hgb 29.6 pg (27.0-32.0); Mean Corpuscular Volume 89.3 fL (80-94); Mean Platelet Vol. 10.3 fl (6.2-12.0); NRBC Flagged by Analyzer 0 % (0-5); Neutrophil # 4.35 X10^3/uL (2.7-7.7); Neutrophil % 60.9 % (47-70); Platelet Count 252 K/mm3 (150-450); RBC Distribution Width CV 12.5 % (11.6-14.6); RBC Distribution Width SD 40.7 fl (35.1-43.9); Red Blood Count 4.97 M/mm3 (4.6-6.2); White Blood Count 7.2 K/mm3 (4.4-11.0)
[2022-11-22 18:48] LABS: Erythrocyte Sedimentation Rate 8 mm/hr (0-20)
[2022-11-22 19:11] LABS: CRP < 2.90 mg/L (0.0-3.0)
== END | disposition home or self-care (01) ==
LOC: BFHLAB 16:30
PROVIDERS: PCP Family Medicine; Referring Provider Family Medicine; Visit Provider Family Medicine
DX: R19.7 Diarrhea, unspecified (principal)
CPT/HCPCS: 36415; 85025; 85652; 86140

== ENCOUNTER → 2023-02-09 | Outpatient (CLI) | payer OTHER, SELFPAY ==
[2023-02-09 10:07] LABS: Absolute Lymphocyte Count 2.09 X10^3/uL (0.83-4.51); Absolute Neutrophil Count 2.5 X10^3/uL (2.0-7.7); Basophil# 0.03 X10^3/uL; Basophil% 0.6 % (0-1); Eosinophil# 0.22 X10^3/uL; Eosinophils% 4.2 % (0-5); Hematocrit 46.2 % (40-54); Hemoglobin 15.4 g/dL (13.0-16.5); Lymphocyte # 2.09 X10^3/ul (0.83-4.51); Lymphocyte % 39.7 % (19-41); Mean Corp Hgb Conc 33.3 g/dL (32-36); Mean Corpuscular Hgb 29.5 pg (27.0-32.0); Mean Corpuscular Volume 88.5 fL (80-94); Mean Platelet Vol. 9.5 fl (6.2-12.0); Monocyte# 0.44 X10^3/uL; Monocyte% 8.4 % (0-10); NRBC Flagged by Analyzer 0 % (0-5); Neutrophil # 2.47 X10^3/uL (2.7-7.7); Neutrophil % 46.9 % (47-70); Platelet Count 255 K/mm3 (150-450); RBC Distribution Width CV 12.4 % (11.6-14.6); RBC Distribution Width SD 40.3 fl (35.1-43.9); Red Blood Count 5.22 M/mm3 (4.6-6.2); White Blood Count 5.3 K/mm3 (4.4-11.0)
[2023-02-09 10:57] LABS: ALB/GLOB Ratio 0.9 RATIO (0.9-2.4); AST(SGOT) 19 U/L (15-37); Alanine Aminotransfer ALT/SGPT 21 U/L (16-61); Albumin, Serum 3.6 g/dL (3.2-5.0); Alkaline Phosphatase 80 U/L (45-117); Anion Gap 6 (5-15); BUN 18 mg/dL (7-18); BUN/Creat Ratio 22.4 RATIO (10-20); Calcium,Total 9.1 mg/dL (8.5-10.1); Chloride 103 mmol/L (98-107); Cholesterol 193 mg/dL (200); EST Glomerular Filtration Rate 105 mL/min (>60); Est Glom Filt Rate - Afr Amer 127 mL/min (>60); Globulin 3.9 g/dL (2.2-4.2); Glucose 89 mg/dL (74-106); High Density Lipoprotein 72 mg/dL; PSA,Total - Annual Screen 0.71 ng/mL (0.00-4.00); Potassium 3.7 mmol/L (3.5-5.1); Protein, Total 7.5 g/dL (6.4-8.2); Sodium Level 138 mmol/L (136-145); Triglycerides 47 mg/dL; Very Low Density Lipoprotein 9 mg/dL (5-40)
== END | disposition home or self-care (01) ==
LOC: LAB 09:29
PROVIDERS: PCP Family Medicine; Referring Provider Family Medicine; Visit Provider Family Medicine
DX: M06.4 Inflammatory polyarthropathy (principal); G24.9 Dystonia, unspecified; Z12.5 Encounter for screening for malignant neoplasm of prostate; Z79.899 Other long term (current) drug therapy
CPT/HCPCS: 36415; 80053; 80061; 84153; 85025; G0103

== ENCOUNTER → 2023-05-02 | Outpatient (CLI) | payer OTHER, SELFPAY ==
[2023-05-02 17:46] LABS: Absolute Lymphocyte Count 2.05 X10^3/uL (0.83-4.51); Absolute Neutrophil Count 3.3 X10^3/uL (2.0-7.7); Basophil# 0.03 X10^3/uL; Basophil% 0.5 % (0-1); Eosinophil# 0.27 X10^3/uL; Eosinophils% 4.3 % (0-5); Hematocrit 43.4 % (40-54); Hemoglobin 14.6 g/dL (13.0-16.5); Lymphocyte # 2.05 X10^3/ul (0.83-4.51); Lymphocyte % 32.5 % (19-41); Mean Corp Hgb Conc 33.6 g/dL (32-36); Mean Corpuscular Hgb 29.5 pg (27.0-32.0); Mean Corpuscular Volume 87.7 fL (80-94); Mean Platelet Vol. 9.6 fl (6.2-12.0); Monocyte# 0.69 X10^3/uL; NRBC Flagged by Analyzer 0 % (0-5); Neutrophil # 3.25 X10^3/uL (2.7-7.7); Neutrophil % 51.5 % (47-70); Platelet Count 232 K/mm3 (150-450); RBC Distribution Width CV 12.4 % (11.6-14.6); RBC Distribution Width SD 39.5 fl (35.1-43.9); Red Blood Count 4.95 M/mm3 (4.6-6.2); White Blood Count 6.3 K/mm3 (4.4-11.0)
[2023-05-02 18:57] LABS: ALB/GLOB Ratio 1.1 RATIO (0.9-2.4); AST(SGOT) 19 U/L (15-37); Alanine Aminotransfer ALT/SGPT 30 U/L (16-61); Albumin, Serum 3.7 g/dL (3.2-5.0); Alkaline Phosphatase 84 U/L (45-117); Anion Gap 6 (5-15); BUN 27 mg/dL (7-18); BUN/Creat Ratio 30.8 RATIO (10-20); Calcium,Total 8.9 mg/dL (8.5-10.1); Chloride 104 mmol/L (98-107); Creatinine, Serum 0.88 mg/dL (0.70-1.30); EST Glomerular Filtration Rate 94 mL/min (>60); Est Glom Filt Rate - Afr Amer 114 mL/min (>60); Globulin 3.5 g/dL (2.2-4.2); Glucose 91 mg/dL (74-106); Protein, Total 7.2 g/dL (6.4-8.2); Sodium Level 137 mmol/L (136-145)
== END | disposition home or self-care (01) ==
LOC: MTLAB 16:21
PROVIDERS: PCP Family Medicine; Visit Provider Internal Medicine Rheumatology
DX: M06.4 Inflammatory polyarthropathy (principal); Z79.899 Other long term (current) drug therapy
CPT/HCPCS: 36415; 80053; 85025

== ENCOUNTER → 2023-07-30 | Outpatient (CLI) | payer OTHER, SELFPAY ==
[2023-07-30 17:42] LABS: Absolute Lymphocyte Count 1.83 X10^3/uL (0.83-4.51); Absolute Neutrophil Count 2.7 X10^3/uL (2.0-7.7); Basophil# 0.05 X10^3/uL; Basophil% 0.9 % (0-1); Eosinophil# 0.28 X10^3/uL; Eosinophils% 5.2 % (0-5); Hematocrit 42.9 % (40-54); Lymphocyte # 1.83 X10^3/ul (0.83-4.51); Lymphocyte % 34.1 % (19-41); Mean Corp Hgb Conc 32.6 g/dL (32-36); Mean Corpuscular Hgb 29.5 pg (27.0-32.0); Mean Corpuscular Volume 90.3 fL (80-94); Mean Platelet Vol. 9.4 fl (6.2-12.0); Monocyte# 0.53 X10^3/uL; Monocyte% 9.9 % (0-10); NRBC Flagged by Analyzer 0 % (0-5); Neutrophil # 2.67 X10^3/uL (2.7-7.7); Neutrophil % 49.7 % (47-70); Platelet Count 269 K/mm3 (150-450); RBC Distribution Width CV 12.7 % (11.6-14.6); RBC Distribution Width SD 41.8 fl (35.1-43.9); Red Blood Count 4.75 M/mm3 (4.6-6.2); White Blood Count 5.4 K/mm3 (4.4-11.0)
[2023-07-30 18:06] LABS: ALB/GLOB Ratio 0.9 RATIO (0.9-2.4); AST(SGOT) 17 U/L (15-37); Alanine Aminotransfer ALT/SGPT 28 U/L (16-61); Albumin, Serum 3.5 g/dL (3.2-5.0); Alkaline Phosphatase 84 U/L (45-117); Anion Gap 6 (5-15); BUN 21 mg/dL (7-18); BUN/Creat Ratio 17.2 RATIO (10-20); Calcium,Total 8.3 mg/dL (8.5-10.1); Chloride 108 mmol/L (98-107); Creatinine, Serum 1.22 mg/dL (0.70-1.30); EST Glomerular Filtration Rate 65 mL/min (>60); Est Glom Filt Rate - Afr Amer 78 mL/min (>60); Globulin 3.7 g/dL (2.2-4.2); Glucose 91 mg/dL (74-106); Potassium 3.7 mmol/L (3.5-5.1); Protein, Total 7.2 g/dL (6.4-8.2); Sodium Level 142 mmol/L (136-145)
== END | disposition home or self-care (01) ==
LOC: MTLAB 16:12
PROVIDERS: PCP Family Medicine; Referring Provider Internal Medicine Rheumatology; Visit Provider Internal Medicine Rheumatology
DX: M06.4 Inflammatory polyarthropathy (principal); G24.9 Dystonia, unspecified; Z79.899 Other long term (current) drug therapy
CPT/HCPCS: 36415; 80053; 85025

== ENCOUNTER → 2023-10-29 | Outpatient (CLI) | payer OTHER, SELFPAY ==
[2023-10-29 18:09] LABS: Absolute Lymphocyte Count 1.59 X10^3/uL (0.83-4.51); Basophil# 0.04 X10^3/uL; Basophil% 0.6 % (0-1); Eosinophil# 0.23 X10^3/uL; Eosinophils% 3.6 % (0-5); Hematocrit 41.7 % (40-54); Hemoglobin 14.2 g/dL (13.0-16.5); Lymphocyte # 1.59 X10^3/ul (0.83-4.51); Lymphocyte % 24.7 % (19-41); Mean Corp Hgb Conc 34.1 g/dL (32-36); Mean Corpuscular Hgb 30.3 pg (27.0-32.0); Mean Corpuscular Volume 88.9 fL (80-94); Mean Platelet Vol. 9.9 fl (6.2-12.0); Monocyte# 0.52 X10^3/uL; Monocyte% 8.1 % (0-10); NRBC Flagged by Analyzer 0 % (0-5); Neutrophil # 4.03 X10^3/uL (2.7-7.7); Neutrophil % 62.7 % (47-70); Platelet Count 248 K/mm3 (150-450); RBC Distribution Width CV 12.5 % (11.6-14.6); RBC Distribution Width SD 39.9 fl (35.1-43.9); Red Blood Count 4.69 M/mm3 (4.6-6.2); White Blood Count 6.4 K/mm3 (4.4-11.0)
[2023-10-29 18:51] LABS: ALB/GLOB Ratio 1.1 RATIO (0.9-2.4); AST(SGOT) 21 U/L (15-37); Alanine Aminotransfer ALT/SGPT 30 U/L (16-61); Albumin, Serum 3.6 g/dL (3.2-5.0); Alkaline Phosphatase 78 U/L (45-117); Anion Gap 5 (5-15); BUN 24 mg/dL (7-18); BUN/Creat Ratio 26.5 RATIO (10-20); Calcium,Total 8.9 mg/dL (8.5-10.1); Chloride 109 mmol/L (98-107); EST Glomerular Filtration Rate 91 mL/min (>60); Est Glom Filt Rate - Afr Amer 110 mL/min (>60); Globulin 3.4 g/dL (2.2-4.2); Glucose 99 mg/dL (74-106); Potassium 3.6 mmol/L (3.5-5.1); Sodium Level 141 mmol/L (136-145)
== END | disposition home or self-care (01) ==
PROVIDERS: PCP Family Medicine; Referring Provider Internal Medicine Rheumatology; Visit Provider Internal Medicine Rheumatology
DX: M06.4 Inflammatory polyarthropathy (principal); G24.9 Dystonia, unspecified; Z79.899 Other long term (current) drug therapy
CPT/HCPCS: 36415; 80053; 85025

== ENCOUNTER → 2024-02-22 | Outpatient (CLI) | payer OTHER, SELFPAY ==
[2024-02-22 09:24] LABS: Absolute Lymphocyte Count 1.77 X10^3/uL (0.83-4.51); Absolute Neutrophil Count 3.5 X10^3/uL (2.0-7.7); Basophil# 0.03 X10^3/uL; Basophil% 0.5 % (0-1); Eosinophil# 0.21 X10^3/uL; Eosinophils% 3.5 % (0-5); Hematocrit 44.7 % (40-54); Hemoglobin 14.9 g/dL (13.0-16.5); Lymphocyte # 1.77 X10^3/ul (0.83-4.51); Lymphocyte % 29.8 % (19-41); Mean Corp Hgb Conc 33.3 g/dL (32-36); Mean Corpuscular Hgb 29.9 pg (27.0-32.0); Mean Corpuscular Volume 89.8 fL (80-94); Mean Platelet Vol. 9.4 fl (6.2-12.0); Monocyte# 0.46 X10^3/uL; Monocyte% 7.8 % (0-10); NRBC Flagged by Analyzer 0 % (0-5); Neutrophil # 3.45 X10^3/uL (2.7-7.7); Neutrophil % 58.2 % (47-70); Platelet Count 250 K/mm3 (150-450); RBC Distribution Width CV 12.8 % (11.6-14.6); RBC Distribution Width SD 41.3 fl (35.1-43.9); Red Blood Count 4.98 M/mm3 (4.6-6.2); White Blood Count 5.9 K/mm3 (4.4-11.0)
[2024-02-22 10:31] LABS: AST(SGOT) 23 U/L (15-37); Alanine Aminotransfer ALT/SGPT 28 U/L (16-61); Albumin, Serum 3.6 g/dL (3.2-5.0); Alkaline Phosphatase 77 U/L (45-117); Anion Gap 7 (5-15); BUN 20 mg/dL (7-18); BUN/Creat Ratio 24.5 RATIO (10-20); Calcium,Total 9.1 mg/dL (8.5-10.1); Chloride 104 mmol/L (98-107); Cholesterol 180 mg/dL (200); Creatinine, Serum 0.82 mg/dL (0.70-1.30); EST Glomerular Filtration Rate 103 mL/min (>60); Est Glom Filt Rate - Afr Amer 124 mL/min (>60); Globulin 3.6 g/dL (2.2-4.2); Glucose 88 mg/dL (74-106); High Density Lipoprotein 71 mg/dL; PSA,Total - Annual Screen 0.55 ng/mL (0.00-4.00); Potassium 3.9 mmol/L (3.5-5.1); Protein, Total 7.2 g/dL (6.4-8.2); Sodium Level 140 mmol/L (136-145); Triglycerides 61 mg/dL; Very Low Density Lipoprotein 12 mg/dL (5-40)
== END | disposition home or self-care (01) ==
LOC: LAB 08:56
PROVIDERS: PCP Family Medicine; Referring Provider Family Medicine; Visit Provider Family Medicine
DX: Z00.00 Encounter for general adult medical examination without abnormal findings (principal); M06.4 Inflammatory polyarthropathy; Z12.5 Encounter for screening for malignant neoplasm of prostate; Z79.899 Other long term (current) drug therapy
CPT/HCPCS: 36415; 80053; 80061; 84153; 85025; G0103

== ENCOUNTER → 2024-04-01 | Outpatient (CLI) | payer OTHER, SELFPAY | END | disposition home or self-care (01) | PROVIDERS: PCP Family Medicine; Referring Provider Family Medicine; Visit Provider Family Medicine | DX: Z77.120 Contact with and (suspected) exposure to mold (toxic) (principal) | CPT/HCPCS: 36415 ==

== ENCOUNTER → 2024-05-23 | Outpatient (CLI) | payer OTHER, SELFPAY ==
[2024-05-23 10:14] LABS: Absolute Lymphocyte Count 1.49 X10^3/uL (0.83-4.51); Absolute Neutrophil Count 2.4 X10^3/uL (2.0-7.7); Basophil# 0.03 X10^3/uL; Basophil% 0.6 % (0-1); Eosinophil# 0.21 X10^3/uL; Eosinophils% 4.3 % (0-5); Hematocrit 44.3 % (40-54); Hemoglobin 14.5 g/dL (13.0-16.5); Lymphocyte # 1.49 X10^3/ul (0.83-4.51); Lymphocyte % 30.4 % (19-41); Mean Corp Hgb Conc 32.7 g/dL (32-36); Mean Corpuscular Hgb 29.8 pg (27.0-32.0); Mean Corpuscular Volume 91.2 fL (80-94); Mean Platelet Vol. 9.4 fl (6.2-12.0); Monocyte# 0.76 X10^3/uL; Monocyte% 15.5 % (0-10); NRBC Flagged by Analyzer 0 % (0-5); Platelet Count 206 K/mm3 (150-450); RBC Distribution Width CV 12.8 % (11.6-14.6); Red Blood Count 4.86 M/mm3 (4.6-6.2); White Blood Count 4.9 K/mm3 (4.4-11.0)
[2024-05-23 11:00] LABS: AST(SGOT) 22 U/L (15-37); Alanine Aminotransfer ALT/SGPT 25 U/L (16-61); Albumin, Serum 3.5 g/dL (3.2-5.0); Alkaline Phosphatase 80 U/L (45-117); Anion Gap 4 (5-15); BUN 21 mg/dL (7-18); BUN/Creat Ratio 22.5 RATIO (10-20); Calcium,Total 9.1 mg/dL (8.5-10.1); Chloride 106 mmol/L (98-107); Creatinine, Serum 0.93 mg/dL (0.70-1.30); EST Glomerular Filtration Rate 88 mL/min (>60); Est Glom Filt Rate - Afr Amer 106 mL/min (>60); Globulin 3.4 g/dL (2.2-4.2); Glucose 99 mg/dL (74-106); Potassium 3.8 mmol/L (3.5-5.1); Protein, Total 6.9 g/dL (6.4-8.2); Sodium Level 139 mmol/L (136-145)
== END | disposition home or self-care (01) ==
LOC: LAB 09:24
PROVIDERS: PCP Family Medicine; Referring Provider Internal Medicine Rheumatology; Visit Provider Internal Medicine Rheumatology
DX: M06.4 Inflammatory polyarthropathy (principal); G24.9 Dystonia, unspecified; Z79.899 Other long term (current) drug therapy
CPT/HCPCS: 36415; 80053; 85025

== ENCOUNTER → 2024-08-10 | Outpatient (CLI) | payer OTHER, SELFPAY ==
[2024-08-10 17:28] LABS: Absolute Lymphocyte Count 1.88 X10^3/uL (0.83-4.51); Absolute Neutrophil Count 5.6 X10^3/uL (2.0-7.7); Basophil# 0.04 X10^3/uL; Basophil% 0.5 % (0-1); Eosinophil# 0.29 X10^3/uL; Eosinophils% 3.3 % (0-5); Hemoglobin 13.7 g/dL (13.0-16.5); Lymphocyte # 1.88 X10^3/ul (0.83-4.51); Lymphocyte % 21.6 % (19-41); Mean Corp Hgb Conc 33.4 g/dL (32-36); Mean Corpuscular Hgb 30.4 pg (27.0-32.0); Mean Corpuscular Volume 91.1 fL (80-94); Mean Platelet Vol. 9.9 fl (6.2-12.0); Monocyte# 0.84 X10^3/uL; Monocyte% 9.6 % (0-10); NRBC Flagged by Analyzer 0 % (0-5); Neutrophil # 5.62 X10^3/uL (2.7-7.7); Neutrophil % 64.5 % (47-70); Platelet Count 253 K/mm3 (150-450); RBC Distribution Width CV 12.6 % (11.6-14.6); RBC Distribution Width SD 41.3 fl (35.1-43.9); White Blood Count 8.7 K/mm3 (4.4-11.0)
[2024-08-10 19:51] LABS: AST(SGOT) 22 U/L (15-37); Alanine Aminotransfer ALT/SGPT 32 U/L (16-61); Albumin, Serum 3.6 g/dL (3.2-5.0); Alkaline Phosphatase 80 U/L (45-117); Anion Gap 4 (5-15); BUN 25 mg/dL (7-18); BUN/Creat Ratio 27.2 RATIO (10-20); Calcium,Total 9.5 mg/dL (8.5-10.1); Chloride 110 mmol/L (98-107); Creatinine, Serum 0.92 mg/dL (0.70-1.30); EST Glomerular Filtration Rate 89 mL/min (>60); Est Glom Filt Rate - Afr Amer 108 mL/min (>60); Globulin 3.6 g/dL (2.2-4.2); Glucose 97 mg/dL (74-106); Protein, Total 7.2 g/dL (6.4-8.2); Sodium Level 141 mmol/L (136-145)
== END | disposition home or self-care (01) ==
LOC: MTLAB 16:51
PROVIDERS: PCP Family Medicine; Referring Provider Internal Medicine Rheumatology; Visit Provider Internal Medicine Rheumatology
DX: M06.4 Inflammatory polyarthropathy (principal); G24.9 Dystonia, unspecified; Z79.899 Other long term (current) drug therapy
CPT/HCPCS: 36415; 80053; 85025

== ENCOUNTER → 2024-10-12 | Outpatient (CLI) | payer OTHER, SELFPAY ==
--- NOTE | 2024-10-12 16:34 | RAD_ITS ---
PROCEDURE: Lumbar spine radiographs REASON FOR EXAM: Pain TECHNIQUE: 6 views of the lumbar spine COMPARISON: None FINDINGS: See impression RAD/L/S Spine Comp/w Bending Views IMPRESSION: Mild multilevel height loss of the superior endplates favoring chronicity. Gra de 1 retrolisthesis of L1-L2 and L2-L3. Mild dextroscoliosis. [id number] multilevel disc space narrowing, greatest at L2-L3. Moderate lower lumbar facet arthrosis. Negative for abnormal motion. Sacroiliac joints are within normal limits. Reading Location: [facility]
== END | disposition home or self-care (01) ==
LOC: MTRAD 16:32
PROVIDERS: PCP Family Medicine; Referring Provider Anesthesiology Pain Medicine; Visit Provider Anesthesiology Pain Medicine
DX: M47.817 Spondylosis without myelopathy or radiculopathy, lumbosacral region (principal)
CPT/HCPCS: 72114

== ENCOUNTER → 2024-11-06 | Outpatient (CLI) | payer OTHER, SELFPAY ==
[2024-11-06 17:37] LABS: Absolute Lymphocyte Count 2.29 X10^3/uL (0.83-4.51); Absolute Neutrophil Count 3.3 X10^3/uL (2.0-7.7); Basophil# 0.06 X10^3/uL; Basophil% 0.9 % (0-1); Eosinophil# 0.21 X10^3/uL; Eosinophils% 3.2 % (0-5); Hematocrit 43.3 % (40-54); Hemoglobin 14.5 g/dL (13.0-16.5); Lymphocyte # 2.29 X10^3/ul (0.83-4.51); Lymphocyte % 35.1 % (19-41); Mean Corp Hgb Conc 33.5 g/dL (32-36); Mean Corpuscular Hgb 30.5 pg (27.0-32.0); Mean Platelet Vol. 10.1 fl (6.2-12.0); Monocyte# 0.67 X10^3/uL; Monocyte% 10.3 % (0-10); NRBC Flagged by Analyzer 0 % (0-5); Neutrophil # 3.28 X10^3/uL (2.7-7.7); Neutrophil % 50.2 % (47-70); Platelet Count 265 K/mm3 (150-450); RBC Distribution Width CV 12.8 % (11.6-14.6); RBC Distribution Width SD 42.1 fl (35.1-43.9); Red Blood Count 4.76 M/mm3 (4.6-6.2); White Blood Count 6.5 K/mm3 (4.4-11.0)
[2024-11-06 18:19] LABS: ALB/GLOB Ratio 1.5 RATIO (0.9-2.4); AST(SGOT) 25 U/L (<=37); Alanine Aminotransfer ALT/SGPT 27 U/L (<=46); Albumin, Serum 4.2 g/dL (3.4-4.8); Alkaline Phosphatase 83 U/L (40-129); Anion Gap 9 (5-15); BUN 27 mg/dL (4-19); BUN/Creat Ratio 32.3 RATIO (10-20); Calcium,Total 9.5 mg/dL (7.6-11.0); Carbon Dioxide 26.7 mmol/L (21.0-32.0); Chloride 103 mmol/L (98-108); Creatinine, Serum 0.85 mg/dL (0.70-1.20); EST Glomerular Filtration Rate 100 (>60); Globulin 2.8 g/dL (2.2-4.2); Glucose 92 mg/dL (70-99); Potassium 4.5 mmol/L (3.3-5.1); Protein, Total 7.1 g/dL (5.9-8.4); Sodium Level 139 mmol/L (133-145); Total Bilirubin 0.34 mg/dL (0.00-1.30)
== END | disposition home or self-care (01) ==
LOC: MTLAB 16:36
PROVIDERS: PCP Family Medicine; Referring Provider Internal Medicine Rheumatology; Visit Provider Internal Medicine Rheumatology
DX: M06.4 Inflammatory polyarthropathy (principal); Z79.899 Other long term (current) drug therapy
CPT/HCPCS: 36415; 80053; 85025

== ENCOUNTER → 2025-02-06 | Outpatient (CLI) | payer OTHER, SELFPAY ==
--- OUTSIDE RECORDS SUMMARY | 2025-02-06 09:13 | XMS RPT_ITS | CCD ---
Author Organization [facility] Care Team Providers Care Broadcast Checker Name Role Phone Dr. Viktor Tam Primary Care Provider [phone] Dr. Viktor Tam Referring Provider [phone] DEBORAH Miranda Attending Provider Unavailab Dr. Viktor Hardin Attending Provider [phone] Dr. Viktor Tam Primary Care Provider [phone] Dr. Viktor Tam Referring Provider [phone] Viktor Tam MD Primary Care Provider [phone] Dr. Mignon Mon Primary Care Provider [phone] Dr. Mignon Mon Referring Provider Dr. Nigel Markham Attending Provider Dr. Mignon Mon Primary Care Provider [phone] Dr. Mignon Mon Referring Provider Dr. Nigel Markham Attending Provider Viktor Tam MD Primary Care Provider [phone] MIGNON MON Primary Care Unavailable VIKTOR TAM Primary Care Unavailable QUIRINO TAMEWONGBE B Primary Care Unavailable Mignon Mon DO Primary Care Provider Viktor Tam MD Primary Care Provider [phone] Thao Moulton Attending Unavailable Thao Moulton Referring Unavailable Mignon Mon Primary Care Unavailable Thao Moulton Attending Unavailable Thao Moulton Referring Unavailable Mignon Mon Primary Care Unavailable Thao Moulton Attending Unavailable Thao Moulton Referring Unavailable Mignon Mon Primary Care Unavailable Thao Moulton Consulting Unavailable Mignon Mon Primary Care Unavailable Mignon Mon Attending Unavailable Mignon Mon Referring Unavailable Mignon Mon Primary Care Unavailable Mignon Mon Attending Unavailable Mignon Mon Referring Unavailable Mik Melo Attending Unavailable Mik Melo Referring Unavailable Mignon Mon Primary Care Unavailable Dr. Mignon Mon DO Primary Care Provider Kenney YBARRA, Dr. Osuna Attending Provider Kenney YBARRA, Dr. Osuna Referring Provider Kameron YBARRA, Dr. Houser Attending Provider Kameron YBARRA, Dr. Houser Referring Provider Medications Current Medications Medication Drug Class(es) Dates Sig (Normalized) Sig (Original) amoxicillin 875 mg / clavulanate 125 mg oral tablet (11 sources) Penicillin-class Antibacterial Start: 05-01-2024 End: 05-08-2024 take 1 tablet by mouth twice daily amoxicillin-clav ulanate potassium (AUGMENTIN) 875-125 mg per tablet Indications: Acute cough Take 1 tablet by mouth two times a day for 7 days. 14 tablet 05/01/2024 05/08/2024 Active Start: 04-20-2022 End: 05-08-2023 Amoxicillin-Pot Clavulanate 875-125 mg tablet Discontinued 1 {tbl} PO Q12H April 20, 2022 12:00am May 08, 2023 2:23pm Start: 04-20-2022 End: 05-08-2023 take 1 tablet by mouth every twelve hours Amoxicillin-Pot Clavulanate Discontinued 1 TABLET PO Q12H 2022 11:00pm May 08, 2023 1:23pm ascorbic acid 500 mg extended release oral capsule (19 sources) Vitamin C Start: 11-03-2018 take 1 capsule by mouth once daily Ascorbic Acid (Vitamin C) 500 mg capsule, extended release Active 500 mg PO DAILY November 03, 2018 1:00am take 1 tablet by mouth once nehemias y Ascorbic Acid 1,000 mg tablet Take 1,000 mg by mouth once daily. Active Comment on above: Take 1,000 mg by mike th once daily. bee pollen 550 mg oral capsule (19 sources) Start: 05-02-2020 take 1 capsule by mouth once daily Bee Pollen 550 mg capsule Active 2 NMA PO DAILY May 02, 2020 12:00am Start: 07-14-2012 Bee Pollen 580 mg cap Take 2 caps once daily 0 07/14/2012 Active Comment on above: Take 2 caps once ananda ly biotin 1 mg oral capsule (6 sources) biotin 1 mg cap Take by mouth. Active Comment on above: Take by mouth. celecoxib 200 mg oral capsule (2 sources) Nonsteroidal Anti-inflammatory Drug Start: 04-23-20 24 take 1 capsule by mouth once celecoxib (CELEBREX) 200 mg capsule Take 1 capsule by mouth every afternoon. 04/23/2024 Active diclofenac sodium 75 mg delayed release oral tablet (6 sources) Nonsteroidal Anti-inflammatory Drug Start: 06-07-20 20 take 1 tablet by mouth twice daily for pain diclofenac, EC, (VOLTAREN) 75 mg EC tablet Indications: [facility] arthritis TAKE 1 TABLET BY MOUTH TWICE DAILY FOR PAIN 60 tablet 06/07/2020 Active Comment on above: TAKE 1 TABLET BY MIKE TWICE DAILY FOR PAIN doxycycline monohydrate 100 mg oral tablet (1 source) Tetracycline-class Drug Start: 02-02-20 24 End: 02-07-20 24 take 1 tablet by mouth twice daily doxycycline monohydrate 100 mg tablet Indications: Bacterial pneumonia Take 1 tablet by mouth two times a day for 5 days. 10 tablet 0 02/02/2024 02/07/2024 Active fluticasone propionate 0.05 mg/actuat metered dose nasal spray (6 sources) Corticosteroid Start: 04-10-20 16 take 1 spray(s) nasal route once daily fluticasone (FLONASE) 50 mcg/actuation nasal spray Indications: Rhinorrhea Use 1 [place] in each nostril once daily. 1 Bottle 0 04/10/2016 Active Comment on above: Use 1 [place] in each nostril once daily. folic acid 1 mg oral tablet (2 sources) Start: 08-07-20 21 folic acid 1 mg tablet 08/07/2021 Active Absqwerc-Pdjw-Zno5-C -Santos-Bosw (12 sources) Start: 11-21-19 21 Sixkyinw-Yzux-Fhx3- C-Santos-Bosw Active 1 EACH PO DAILY November 20, 2020 6:50pm Start: 11-20-2020 Glucosam-Kb- Qtq2-E-Aawe-Bosw Active 1 EACH PO DAILY November 19, 2020 11:00pm Start: 11-20-2020 Glucosam-Kb- Bmx5-N-Pdte-Bosw Active 1 EACH PO DAILY November 20, 2020 12:00am Rcmegoum-Olst-Kdk6-C-Santos-Hakeem sw 1 EACH tablet (1 source) Start: 11-20-2020 take 1 tablet by mouth once daily Fuwxebcp-Iztl-Vza4-C-Santos-Bosw 1 EACH tablet Active 1 NMA PO DAILY November 20, 2020 12:00am hydroxychloroquine sulfate 2 00 mg oral tablet (18 sources) Antim alari al, Antir heuma tic Agent Start: 10-18-2023 hydrOXYchloroQUINE (PLAQUENI L) 200 mg tablet 10/18/2023 Active Start: 11-20-2020 Hydroxychloroq uine 200 MG tablet Active 300 mg PO DAILY WITH MEALS November 20, 2020 12:00am Start: 11-20-2020 take 300 mg by mouth once daily at mealtime Hydroxychloroquine Active 300 MG PO DAILY WITH MEALS November 19, 2020 11:00pm methotrexate 2.5 mg oral tablet (6 sources) Folate Analog Metabolic Inhibitor Start: 02-26-2022 take 6 tablets by mouth every week methotrexate 2.5 mg tablet TAKE 6 TABLETS BY MOUTH ONCE A WEEK 02/26/2022 Active Comment on above: TAKE 6 TABLETS BY [facility] ONCE A WEEK oseltamivir 75 mg oral capsule (1 source) Neuraminidase Inhibitor Start: 10-30-2023 End: 11-04-2023 take 1 capsule by mouth twice daily oseltamivir (TAMIFLU) 75 mg capsule Take 1 capsule by mouth two times a day for 5 days. 10 capsule 0 10/30/2023 11/04/2023 Active Comment on above: Take 1 capsule by [facility] two times a day for 5 days. polyethylene glycol 3350 47474 mg powder for oral solution (13 sources) Osmotic Laxative Start: 10-20-2020 Polyethylene Glycol 3350 (Miralax) 17 gram/dose powder Active 17 g PO .prn October 20, 2020 1:00am PSYLLIUM SEED, WITH DEXTROSE, (FIBER ORAL) (6 sources) PSYLLIUM SEED, WITH DEXTROSE, (FIBER ORAL) Take by mouth. Active PSYLLIUM SEED, W ITH DEXTROSE, (FIBER ORAL) Take by mouth. 0 Active Comment on above: Take by mouth. Turmeric Root Extract (13 sources) Start: 11-03-2018 take 500 mg by mouth once daily Turmeric Root Extract Active 500 MG PO DAILY November 03, 2018 3:19pm Start: 11-03-2018 take 1 capsule by mo [facility] once daily Turmeric Root Extract 500 mg capsule Active 500 mg PO DAILY November 03, 2018 1:00am Start: 11-03-2018 take 500 mg by mouth once nehemias y Turmeric Root Extract Active 500 MG PO DAILY November 03, 2018 12:00am Start: 11-03-2018 take 500 mg by mouth once nehemias y Turmeric Root Extract Active 500 MG PO DAILY November 03, 2018 1:00am Zinc (19 sources) Start: 11-03-2018 take 50 mg by mouth once daily Zinc Active 50 MG PO DAILY November 03, 2018 3:20pm Start: 11-03-2018 take 1 tablet by mouth once da elier Zinc 50 mg tablet Active 50 mg PO DAILY November 03, 2018 1:00am Start: 11-03-2018 take 50 mg by mouth once daily Zinc Active 50 MG PO DAILY November 03, 2018 12:00am Start: 11-03-2018 take 50 mg by mouth once daily Zinc Active 50 MG PO DAILY November 03, 2018 1:00am take 1 tablet by mouth once nehemias y Zinc 50 mg tab Take 50 mg by mouth once daily. Active take 1 tablet by mouth once nehemias y Zinc 50 mg tab Take 50 mg by mouth once daily. 0 Active Comment on above: Take 50 mg by mouth once daily. Zn-Pyg Wtyl-Ajksxt-Pvi Palmet (3 sources) Start: 05-08-2023 Zn-Pyg Knam-Msolue-Plj Palmet Active CAP PO May 07, 2023 11:00pm Start: 05-08-2023 Zn-Pyg Afri-Ne ttle-Saw Palmet Active CAP PO May 08, 2023 12:00am Zn-Pyg Lugb-Caybiy-Elw Palme t capsule (1 source) Start: 05-08-2023 Zn-Pyg Afri-Ne ttle-Saw Palmet capsule Active NMA PO May 08, 2023 12:00am Completed/Discontinued Medications Medication Drug Class(es) Dates Sig (Normalized) Sig (Original) 8 hr acetaminophen 650 mg extended release oral tablet (13 sources) Start: 11-03-2018 End: 10-08-2019 take 1 tablet by mouth once Acetaminophen (Arthritis Pain Relief (Acetam)) 650 mg tablet extended release Discontinued 650 mg PO ONCE November 03, 2018 1:00am October 08, 2019 5:43pm baclofen 10 mg oral tablet (20 sources) gamma-Aminobutyr ic Acid-ergic Agonist Start: 03-30-2021 End: 08-17-2021 take 2 tablets by mouth every six hours Baclofen 10 mg tablet Discontinued 10 mg PO EVERY 6 HOURS 480 March 30, 2021 10:36am August 17, 2021 10:34am take 2 tablets PO every 6 hours Start: 03-28-2021 End: 03-30-2021 take 1 tablet by mouth twice daily as needed for muscle spasms Baclofen 20 mg tablet Discontinued 20 mg PO TWICE A DAY as needed for muscle spasm 30 March 28, 2021 11:40am March 30, 2021 8:53am Start: 11-20-2020 End: 03-28-2021 take 2 tablets by mouth three times daily Baclofen 10 MG tablet Discontinued 20 mg PO THREE TIMES A DAY November 20, 2020 6:53pm March 28, 2021 11:41am Start: 11-20-2020 End: 03-28-2021 take 20 mg by mouth three times daily Baclofen Discontinued 20 MG PO THREE TIMES A DAY November 20, 2020 5:53pm March 28, 2021 10:41am Start: 01-06-2019 End: 11-20-2020 take 2 tablets by mouth every six hours Baclofen 10 mg tablet Discontinued 20 mg PO EVERY 6 HOURS 720 90 October 19, 2019 3:57pm November 20, 2020 6:53pm Start: 01-06-2019 End: 11-20-2020 take 20 mg by mouth every six hours Baclofen Discontinued 20 MG PO EVERY 6 HOURS 720 90 October 19, 2019 2:57pm November 20, 2020 5:53pm Start: 11-03-2018 End: 01-06-2019 take 1 tablet by mouth three times daily Baclofen 10 mg tablet Discontinued 10 mg PO THREE TIMES A DAY 270 November 03, 2018 3:49pm January 06, 2019 2:35pm Start: 02-04-2018 baclofen (ROMINA ESAL) 10 mg tablet Take two(2) tablet four (4) times daily (AM, noon, 7PM and bedtime) 720 tablet 5 02/04/2018 Active Comment on above: Take two(2) tablet f our (4) times daily (AM, noon, 7PM and bedtime) Iylssoifl-Txtoqimi-Qp r-Hyalur (Move Free Ultra ([place])) 40-5-3.3 mg tablet (13 sources) Start: 11-03-2018 End: 05-02-2020 Govoeaafc-Liqlyrps-Ays-Hya lur (Move Free Ultra ([place])) 40-5-3.3 mg tablet Discontinued TABLET PO November 03, 2018 3:19pm May 02, 2020 3:07pm Start: 11-03-2018 End: 05-02-2020 Gxfskbpyv-Wzxbanop-Tvn-Hyalu r (Move Free Ultra ([place])) 40-5-3.3 mg tablet Discontinued {tbl} PO November 03, 2018 1:00am May 02, 2020 3:07pm Start: 11-03-2018 End: 05-02-2020 Hadpwjfnz-Ginqfihm-Wku-Hyalu r (Move Free Ultra ([place])) 40-5-3.3 mg tablet Discontinued TABLET PO November 03, 2018 12:00am May 02, 2020 2:07pm Start: 11-03-2018 End: 05-02-2020 Fhoanzkfg-Zgjyvher-Aan-Hyalu r (Move Free Ultra ([place])) 40-5-3.3 mg tablet Discontinued TABLET PO November 03, 2018 1:00am May 02, 2020 3:07pm Ginkgo Biloba (13 sources) Start: 11-03-2018 End: 05-02-2020 take 60 mg by mouth once daily Ginkgo Biloba Discontinued 60 MG PO DAILY November 03, 2018 3:19pm May 02, 2020 3:07pm Start: 11-03-2018 End: 05-02-2020 take 1 capsule by mouth once daily Ginkgo Biloba 60 mg capsule Discontinued 60 mg PO DAILY November 03, 2018 1:00am May 02, 2020 3:07pm Start: 11-03-2018 End: 05-02-2020 take 60 mg by mouth once daily Ginkgo Biloba Discontin ued 60 MG PO DAILY November 03, 2018 12:00am May 02, 2020 2:07pm Start: 11-03-2018 End: 05-02-2020 take 60 mg by mouth once daily Ginkgo Biloba Discontin ued 60 MG PO DAILY November 03, 2018 1:00am May 02, 2020 3:07pm meloxicam 7.5 mg oral tablet (20 sources) Nonsteroidal Anti-inflammatory Drug Start: 11-03-2018 End: 10-08-2019 take 1 tablet by mouth once daily Meloxicam 7.5 mg tablet Discontinued 7.5 mg PO DAILY November 03, 2018 1:00am November 03, 2018 3:33pm psyllium 520 mg oral capsule (13 sources) Start: 11-03-2018 End: 10-20-2020 Psyllium Husk (Daily Fiber) 0.52 gram capsule Discontinued 0.52 g PO TWICE A DAY November 03, 2018 1:00am October 20, 2020 6:05pm triamcinolone acetonide 40 mg/ml injectable suspension (10 sources) Corticosteroid Start: 06-25-2019 End: 06-25-2019 Kenalog (triamcinolone acetonide) 40 mg/mL suspension for injection Discontinued 20 MG INTRAARTIC ONCE 0.5 June 25, 2019 12:49pm June 25, 2019 1:36pm Start: 01-29-2019 End: 01-29-2019 Kenalog (triamcinolone aceto nide) 40 mg/mL suspension for injection Discontinued 20 MG INTRAARTIC ONCE 0.5 January 29, 2019 2:05pm January 29, 2019 2:57pm Start: 02-13-2016 triamcinolone acetonide (KENALOG) 0.1 % cream Apply 1 application to affected area three times daily. Apply sparingly to area for rash/itching. 60 g 0 02/13/2016 Active Comment on above: Apply 1 application to affected area three times daily. Apply sparingly to area for rash/itching. trihexyphenidyl hydrochloride 2 mg oral tablet (20 sources) Start: 018 End: take 1 tablet by mouth four times daily Trihexyphenidyl 2 mg tablet Discontinued 2 mg PO .QID 360 September 12, 2020 6:36pm May 11, 2021 3:28pm Comment on above: Take 1 tablet in AM & at noon with 2 tablets at bedtime Problems Active Problems Problem Classification Problem Date Documented Date Episodic/Chronic Aspiration pneumonitis; food/vomitus (10 sources) Aspiration pneumonia; Translations: [Pneumonitis due to inhalation of food and vomit] 04-28-2022 Episodic Cardiac dysrhythmias (8 sources) Palpitations; Translations: [Palpitations] 10-13-2022 Episodic Essential hypertension (20 sources) Hypertensive disorder; Translations: [Essential (primary) hypertension] Chronic Genitourinary symptoms and ill-defined conditions (15 sources) Blood in urine; Translations: [Hematuria, unspecified] Episodic Influenza (1 source) Influenza due to Influenza A virus; Translations: [Influenza due to other identified influenza virus with other respiratory manifestations] 10-30-2023 Episodic Osteoarthritis (20 sources) Arthritis; Translations: [Unspecified osteoarthritis, unspecified site] Onset: 06-28-2016 06-28-2016 Chronic Other connective tissue disease (8 sources) H/O: rheumatoid arthritis; Translations: [Personal history of other diseases of the musculoskeletal system and connective tissue] 10-13-2022 Episodic Other connective tissue disease (1 source) Spasm; Translations: [Other muscle spasm] 05-01-2024 Episodic Other hereditary and degenerative nervous system conditions (20 sources) Dystonia; Translations: [Dystonia, unspecified] 10-13-2022 Chronic Other hereditary and degenerative nervous system conditions (3 sources) Dystonia, unspecified; Translations: [Abnormal involuntary movements] Chronic Other hereditary and degenerative nervous system conditions (6 sources) Segmental dystonia; 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 12-19-2011 Chronic Other lower respiratory disease (13 sources) Cough; Translations: [Cough] 04-28-2022 Episodic Other skin disorders (13 sources) Swelling of hand; Translations: [Localized swelling, mass and lump, unspecified upper limb] 05-04-2021 Episodic Other skin disorders (4 sources) Sebaceous cyst of skin; Translations: [Sebaceous cyst] 04-02-2023 Episodic Other skin disorders (2 sources) Sebaceous cyst; Translations: [Sebaceous cyst] 05-08-2023 Episodic Pneumonia (except that caused by tuberculosis or sexually transmitted disease) (1 source) Bacterial pneumonia; Translations: [Unspecified bacterial pneumonia] 02-02-2024 Episodic Residual codes; unclassified (13 sources) History of vaccination; Translations: [Personal history of other drug therapy] 05-18-2021 Episodic Residual codes; unclassified (2 sources) Viral syndrome; Translations: [Other general symptoms and signs] 10-30-2023 Episodic Rheumatoid arthritis and related disease (17 sources) Rheumatoid arthritis; Translations: [Rheumatoid arthritis, unspecified] Onset: 11-19-2024 Chronic Spondylosis; intervertebral disc disorders; other back problems (1 source) Spondylosis without myelopathy or radiculopathy, lumbosacral region; Translations: [Spondylosis without myelopathy or radiculopathy, lumbosacral region] Onset: 10-28-2024 Chronic Unclassified (6 sources) NO SHOW Onset: 08-02-2011 08-02-2011 Past or Other Problems Problem Classification Problem Date Documented Da te Episodic/Chronic Gastrointestinal hemorrhage (6 sources) Lower gastrointestinal hemorrhage; Translations: [Gastrointestinal hemorrhage, unspecified] Onset: 1 06-29-2011 Episodic Hemorrhoids (6 sources) Hemorrhoids; Translations: [Unspecified hemorrhoids] Onset: 1 08-03-2011 Episodic Other connective tissue disease (18 sources) Triggering of digit; Translations: [Trigger finger, right middle finger] Onset: 6 07-30-2016 Episodic Other injuries and conditions due to external causes (7 sources) Aspiration into respiratory tract; Translations: [Unspecified foreign body in respiratory tract, part unspecified causing other injury, initial encounter] Onset: 2 Episodic Other non-traumatic joint disorders (1 source) Shoulder pain; Translations: [Pain in right shoulder] Onset: 0 06-21-2020 Episodic Other non-traumatic joint disorders (5 sources) Pain in right shoulder; Translations: [Pain in joint, shoulder region] Onset: 0 06-21-2020 Episodic Residual codes; unclassified (1 source) Other general symptoms and signs; Translations: [Flu-like symptoms] Onset: 4 Episodic Residual codes; unclassified (1 source) Contact with and (suspected) exposure to mold (toxic); Translations: [Contact with and (suspected) exposure to mold (toxic)] Onset: 4 Episodic Spondylosis; intervertebral disc disorders; other back problems (6 sources) Chronic low back pain; Translations: [Chronic bilateral low back pain without sciatica] Onset: 6 01-31-2016 Episodic Unclassified (10 sources) right thumb replacment 03-22-2022 Comment on above: 03/2020 Results Test Name Value Interpretation Reference Range Facility Absolute neutrophil countOrd ered By: Thao Moulton on 11-06-2024 Neutrophils (Bld) [#/Vol] 3.3 10*3/uL 2.0-7.7 [facility] Anion gap in Serum or Plasma Ordered By: Thao Moulton on 11-06-2024 Anion gap [Moles/Vol] 9 mmol/L 5-15 [facility] BUN/creatinine ratioOrdered By: Thao Moulton on 11-06-2024 Urea nitrogen/Creatinine [Mass ratio] 32.3 mg/mg High 10-20 [facility] Basophil percentageOrdered B y: Thao Moulton on 11-06-2024 Basophils/100 WBC (Bld) 0.9 % 0-1 [facility] Bilirubin, totalOrdered By: Thao Moulton on 11-06-2024 Bilirubin [Mass/Vol] 0.34 mg/dL 0.00-1.30 [facility] CBC W/Diff, Automatedon Absolute Lymph 2.29 X10 3/uL Normal 0.83-4.51 [facility] Comment on above: Performed By: #### L 100.0100, [id number] #### [facility] [address] [place], [address] Absolute Neut 3.3 X10 3/uL Normal 2.0-7.7 [facility] Comment on above: Performed By: #### L 100.0100, [id number] #### [facility] [address] [place], [address] Basophils/100 WBC (Bld) 0.9 % Normal 0-1 [facility] Comment on above: Performed By: #### L 100.0100, [id number] #### [facility] [address] [place], [address] Eosinophils/100 WBC (Bld) 3.2 % Normal 0-5 [facility] Comment on above: Performed By: #### L 100.0100, [id number] #### [facility] [address] [place], [address] Erythrocyte distribution width (RBC) [Ratio] 12.8 % Normal 11.6-14.6 [facility] Comment on above: Performed By: #### L 100.0100, [id number] #### [facility] [address] [place], [address] Hematocrit (Bld) [Volume fraction] 43.3 % Normal 40-54 [facility] Comment on above: Performed By: #### L 100.0100, [id number] #### [facility] [address] [place], [address] Hemoglobin (Bld) [Mass/Vol] 14.5 g/dL Normal 13.0-16.5 [facility] Comment on above: Performed By: #### L 100.0100, [id number] #### [facility] [address] [place], [address] IG% 0.300 Normal 0.0-0.9 [facility] Comment on above: Result Comment: IG% - Immature Granulocytes (promyelocytes, myelocytes and metamyelocytes) > 1% indicates that a LEFT SHIFT is Present. Performed By: #### L 100.0100, [id number] #### [facility] [address] [place], [address] Lymphocytes/100 WBC (Bld) 35.1 % Normal 19-41 [facility] Comment on above: Performed By: #### L 100.0100, [id number] #### [facility] [address] [place], [address] MCH (RBC) [Entitic mass] 30.5 pg Normal 27.0-32.0 [facility] Comment on above: Performed By: #### L 100.0100, [id number] #### [facility] [address] [place], [address] MCHC (RBC) [Mass/Vol] 33.5 g/dL Normal 32-36 [facility] Comment on above: Performed By: #### L 100.0100, [id number] #### [facility] [address] [place], [address] MCV (RBC) [Entitic vol] 91.0 fL Normal 80-94 [facility] Comment on above: Performed By: #### L 100.0100, [id number] #### [facility] [address] [place], [address] Monocytes/100 WBC (Bld) 10.3 % High 0-10 [facility] Comment on above: Performed By: #### L 100.0100, [id number] #### [facility] [address] [place], [address] Neutrophils/100 WBC (Bld) 50.2 % Normal 47-70 [facility] Comment on above: Performed By: #### L 100.0100, [id number] #### [facility] [address] [place], [address] Nucleated RBC (Bld) [#/Vol] 0 10*3/uL Normal 0-5 [facility] Comment on above: Performed By: #### L 100.0100, [id number] #### [facility] [address] [place], [address] Platelet mean volume (Bld) [Entitic vol] 10.1 fL Normal 6.2-12.0 [facility] Comment on above: Performed By: #### L 100.0100, [id number] #### [facility] [address] [place], [address] Platelets (Bld) [#/Vol] 265 10*3/uL Normal 150-450 [facility] Comment on above: Performed By: #### L 100.0100, [id number] #### [facility] [address] [place], [address] RBC (Bld) [#/Vol] 4.76 10*6/uL Normal 4.6-6.2 [facility] Comment on above: Performed By: #### L 100.0100, [id number] #### [facility] [address] [place], [address] RDW SD 42.1 fl Normal 35.1-43.9 [facility] Comment on above: Performed By: #### L 100.0100, [id number] #### [facility] [address] [place], [address] WBC (Bld) [#/Vol] 6.5 10*3/uL Normal 4.4-11.0 [facility] Comment on above: Performed By: #### L 100.0100, [id number] #### [facility] [address] [place], [address] [place] dioxide, total [Moles /volume] in Central venous bloodOrdered By: Thao Moulton on 11-06-2024 CO2 [Moles/Vol] 26.7 mmol/L 21.0-32.0 [facility] Chloride assayOrdered By: Deborah Moulton on 11-06-2024 Chloride [Moles/Vol] 103 mmol/L 98-108 [facility] Comprehensive Metabolic Prof ilon 11-06-2024 Albumin [Mass/Vol] 4.2 g/dL Normal 3.4-4.8 [facility] Comment on above: Performed By: #### L 100.0100, L500.4050 #### [facility] [address] [place], [address] Albumin/Globulin [Mass ratio] 1.5 {ratio} Normal 0.9-2.4 [facility] Comment on above: Performed By: #### L 100.0100, L500.4050 #### [facility] [address] [place], [address] ALK PHOS 83 U/L Normal 40-129 [facility] Comment on above: Performed By: #### L 100.0100, L500.4050 #### [facility] [address] [place], [address] ALT [Catalytic activity/Vol] 27 U/L Normal <=46 [facility] Comment on above: Performed By: #### L 100.0100, L500.4050 #### [facility] [address] [place], [address] AST [Catalytic activity/Vol] 25 U/L Normal <=37 [facility] Comment on above: Performed By: #### L 100.0100, L500.4050 #### [facility] [address] [place], [address] Bilirubin [Mass/Vol] 0.34 mg/dL Normal 0.00-1.30 [facility] Comment on above: Performed By: #### L 100.0100, L500.4050 #### [facility] [address] [place], [address] BUN/CRE 32.3 RATIO High 10-20 [facility] Comment on above: Performed By: #### L 100.0100, L500.4050 #### [facility] [address] [place], [address] Calcium [Mass/Vol] 9.5 mg/dL Normal 7.6-11.0 [facility] Comment on above: Performed By: #### L 100.0100, L500.4050 #### [facility] [address] [place], [address] Chloride [Moles/Vol] 103 mmol/L Normal 98-108 [facility] Comment on above: Performed By: #### L 100.0100, L500.4050 #### [facility] [address] [place], [address] CO2 [Moles/Vol] 26.7 mmol/L Normal 21.0-32.0 [facility] Comment on above: Performed By: #### L 100.0100, L500.4050 #### [facility] [address] [place], [address] Creatinine [Mass/Vol] 0.85 mg/dL Normal 0.70-1.20 [facility] Comment on above: Performed By: #### L 100.0100, L500.4050 #### [facility] [address] [place], [address] GAP 9 Normal 5-15 [facility] Comment on above: Performed By: #### L 100.0100, L500.4050 #### [facility] [address] [place], [address] GFR/1.73 sq M.predicted among non-blacks MDRD (S/P/Bld) [Vol rate/Area] 100 mL/min/{1.73_m2} Normal >60 [facility] Comment on above: Result Comment: mL/m in/1.73m2 CKD-EPI Creatinine Equation (2020) Performed By: #### L 100.0100, L500.4050 #### [facility] [address] [place], [address] Globulin (S) [Mass/Vol] 2.8 g/dL Normal 2.2-4.2 [facility] Comment on above: Performed By: #### L 100.0100, L500.4050 #### [facility] [address] [place], [address] Glucose [Mass/Vol] 92 mg/dL Normal 70-99 [facility] Comment on above: Performed By: #### L 100.0100, L500.4050 #### [facility] [address] [place], [address] Potassium [Moles/Vol] 4.5 mmol/L Normal 3.3-5.1 [facility] Comment on above: Performed By: #### L 100.0100, L500.4050 #### [facility] [address] [place], [address] Sodium [Moles/Vol] 139 mmol/L Normal 133-145 [facility] Comment on above: Performed By: #### L 100.0100, L500.4050 #### [facility] [address] [place], [address] T PROT 7.1 g/dL Normal 5.9-8.4 [facility] Comment on above: Performed By: #### L 100.0100, L500.4050 #### [facility] [address] [place], [address] Urea nitrogen [Mass/Vol] 27 mg/dL High 4-19 [facility] Comment on above: Performed By: #### L 100.0100, L500.4050 #### [facility] [address] [place], [address] Eosinophil percentageOrdered By: Thao Moulton on 11-06-2024 Eosinophils/100 WBC (Bld) 3.2 % 0-5 [facility] Erythrocyte distribution wid th ratioOrdered By: Thao Moulton on 11-06-2024 Erythrocyte distribution width (RBC) [Ratio] 12.8 % 11.6-14.6 [facility] Erythrocyte distribution wid th standard deviationOrdered By: Thao Moulton on 11-06-2024 Erythrocyte distribution width (RBC) [Entitic vol] 42.1 fL 35.1-43.9 [facility] GFR/1.73 sq M.predicted noemi g non-blacks MDRD (S/P/Bld) [Vol rate/Area]Ordered By: Thao Moulton on 11-06-2024 Estimated GFR (MDRD) Non-Af Amer 100 >60 [facility] Comment on above: mL/min/1.73m2 CKD-EP I Creatinine Equation (2020) Hematocrit Auto (Bld) [Volum e fraction]Ordered By: Thao Moulton on 11-06-2024 Hematocrit (Bld) [Volume fraction] 43.3 % 40-54 [facility] Hemoglobin measurementOrdere d By: Thao Moulton on 11-06-2024 Hemoglobin (Bld) [Mass/Vol] 14.5 g/dL 13.0-16.5 [facility] Immature granulocytes/100 WB C Auto (Bld)Ordered By: Thao Moulton on 11-06-2024 Immature granulocytes/100 WBC (Bld) 0.300 % 0.0-0.9 [facility] Comment on above: IG% - Immature Granu locytes (promyelocytes, myelocytes and metamyelocytes) > 1% indicates that a LEFT SHIFT is Present. Laboratory - Chemistry and C hemistry - challengeOrdered By: Thao Moulton on 11-06-2024 AST [Catalytic activity/Vol] 25 U/L <38 [facility] Lymphocytes Auto (Unsp spec) [#/Vol]Ordered By: Thaoliset Moulton on 11-06-2024 Lymphocytes (Bld) [#/Vol] 2.29 10*3/uL 0.83-4.51 [facility] Lymphocytes/100 WBC Auto (Un sp spec)Ordered By: Thao Moulton on 11-06-2024 Lymphocytes/100 WBC (Bld) 35.1 % 19-41 [facility] MCV (mean corpuscular volume ) determinationOrdered By: Thao Moulton on 11-06-2024 MCV (RBC) [Entitic vol] 91.0 fL 80-94 [facility] Mean corpuscular hemoglobin (MCH) determinationOrdered By: Thao Moulton on 11-06-2024 MCH (RBC) [Entitic mass] 30.5 pg 27.0-32.0 [facility] Mean corpuscular hemoglobin concentration (MCHC) determinationOrdered By: Thao Moulton on 11-06-2024 MCHC (RBC) [Mass/Vol] 33.5 g/dL 32-36 [facility] Mean platelet volume determi nationOrdered By: Thao Moulton on 11-06-2024 Platelet mean volume (Bld) [Entitic vol] 10.1 fL 6.2-12.0 [facility] Monocyte percentageOrdered B y: Thao Moulton on 11-06-2024 Monocytes/100 WBC (Bld) 10.3 % High 0-10 [facility] Neutrophil percentageOrdered By: Thao Moulton on 11-06-2024 Neutrophils/100 WBC (Bld) 50.2 % 47-70 [facility] Nucleated red blood cell per centageOrdered By: Thao Moulton on 11-06-2024 Nucleated RBC/100 WBC (Bld) [Ratio] 0 % 0-5 [facility] Platelet countOrdered By: Deborah Moulton on 11-06-2024 Platelets (Bld) [#/Vol] 265 10*3/uL 150-450 [facility] Potassium (Unsp spec) [Mass/ Vol]Ordered By: Thao Moulton on 11-06-2024 Potassium [Moles/Vol] 4.5 mmol/L 3.3-5.1 [facility] RBC Auto (Bld) [#/Vol]Ordere d By: Thao Moulton on 11-06-2024 RBC (Bld) [#/Vol] 4.76 10*6/uL 4.6-6.2 [facility] Serum creatinine measurement (mass/volume)Ordered By: Thao Moulton on 11-06-2024 Creatinine [Mass/Vol] 0.85 mg/dL 0.70-1.20 [facility] Serum globulin measurementOr dered By: Thao Moulton on 11-06-2024 Globulin (S) [Mass/Vol] 2.8 g/dL 2.2-4.2 [facility] Serum glucose measurement (m ass/volume)Ordered By: Thao Moulton on 11-06-2024 Glucose [Mass/Vol] 92 mg/dL 70-99 [facility] Serum or plasma alanine soto otransferase (ALT) measurementOrdered By: Thao Moulton on 11-06-2024 ALT [Catalytic activity/Vol] 27 U/L <47 [facility] Serum or plasma albumin luzma urement (mass/volume)Ordered By: Thao Moulton on 11-06-2024 Albumin [Mass/Vol] 4.2 g/dL 3.4-4.8 [facility] Serum or plasma albumin/glob ulin mass ratioOrdered By: Thao Moulton on 11-06-2024 Albumin/Globulin [Mass ratio] 1.5 {ratio} 0.9-2.4 [facility] Serum or plasma alkaline carlee sphatase measurementOrdered By: Thao Moulton on 11-06-2024 ALP [Catalytic activity/Vol] 83 U/L 40-129 [facility] Serum or plasma calcium luzma urement (mass/volume)Ordered By: Thao Moulton on 11-06-2024 Calcium [Mass/Vol] 9.5 mg/dL 7.6-11.0 [facility] Serum or plasma urea nitroge n measurement (mass/volume)Ordered By: Thao Moulton on 11-06-2024 Urea nitrogen [Mass/Vol] 27 mg/dL High 4-19 [facility] Sodium levelOrdered By: Jose Moulton on 11-06-2024 Sodium [Moles/Vol] 139 mmol/L 133-145 [facility] Total proteinOrdered By: Agapito Moulton on 11-06-2024 Protein [Mass/Vol] 7.1 g/dL 5.9-8.4 [facility] White blood cell (WBC) count Ordered By: Thao Moulton on 11-06-2024 WBC (Bld) [#/Vol] 6.5 10*3/uL 4.4-11.0 [facility] L/S Spine Comp/w Bending Vie wson 10-12-2024 L/S Spine Comp/w Bending Views [facility] Imaging Services [address] [address] L/S Spine Comp/w Bending Views MR#: [id number] Acct: [id number] Name: LITO VU Rep #: [id number] : 1965 M 59 From: Nigel Hernadez PCP: Dr. Mignon Mon DO Status: REG CLI Study: L/S Spine Comp/w Bending Views Date of Exam: 0 10/12/24 Exam# [id number] Ordering Dr: Mik Melo MD PROCEDURE: Lumbar spine radiographs REASON FOR EXAM: Pain TECHNIQUE: 6 views of the lumbar spine COMPARISON: None FINDINGS: See impression RAD/L/S Spine Comp/w Bending Views IMPRESSION: Mild multilevel height loss of the superior endplates favoring chronicity. Grade 1 retrolisthesis of L1-L2 and L2-L3. Mild dextroscoliosis. [id number] multilevel disc space narrowing, greatest at L2-L3. Moderate lower lumbar facet arthrosis. Negative for abnormal motion. Sacroiliac joints are within normal limits. Reading Location: [facility] CC: Dr. Mki Melo MD; Dr. Mignon Mon DO Meat Soaker: Signed Normal [facility] Absolute neutrophil countOrd ered By: Thao Moulton on 08-10-2024 Neutrophils (Bld) [#/Vol] 5.6 10*3/uL 2.0-7.7 [facility] Albumin to globulin ratioOrd ered By: Thao Moulton on 08-10-2024 Albumin/Globulin [Mass ratio] 1.0 {ratio} 0.9-2.4 [facility] Basophil percentageOrdered B y: Thao Moulton on 08-10-2024 Basophils/100 WBC (Bld) 0.5 % 0-1 [facility] Bilirubin, totalOrdered By: Thao Moulton on 08-10-2024 Bilirubin [Mass/Vol] 0.30 mg/dL 0.20-1.00 [facility] Comment on above: For patients on eltr ombopag therapy, use of Dimension [place] TBIL is not recommended. Blood urea nitrogen (BUN)/cr eatinine ratioOrdered By: Thao Moulton on 08-10-2024 Urea nitrogen/Creatinine [Mass ratio] 27.2 mg/mg High 10-20 [facility] CBC W/Diff, Automatedon 12-0 Absolute Lymph 1.88 X10 3/uL Normal 0.83-4.51 [facility] Comment on above: Performed By: #### L 100.0100, L500.4050 #### [facility] Laboratory [address] [place], [address] Absolute Neut 5.6 X10 3/uL Normal 2.0-7.7 [facility] Comment on above: Performed By: #### L 100.0100, L500.4050 #### [facility] [address] [place], [address] Basophils/100 WBC (Bld) 0.5 % Normal 0-1 [facility] Comment on above: Performed By: #### L 100.0100, L500.4050 #### [facility] [address] [place], [address] Eosinophils/100 WBC (Bld) 3.3 % Normal 0-5 [facility] Comment on above: Performed By: #### L 100.0100, L500.4050 #### [facility] [address] [place], [address] Erythrocyte distribution width (RBC) [Ratio] 12.6 % Normal 11.6-14.6 [facility] Comment on above: Performed By: #### L 100.0100, L500.4050 #### [facility] [address] [place], [address] Hematocrit (Bld) [Volume fraction] 41.0 % Normal 40-54 [facility] Comment on above: Performed By: #### L 100.0100, L500.4050 #### [facility] [address] [place], [address] Hemoglobin (Bld) [Mass/Vol] 13.7 g/dL Normal 13.0-16.5 [facility] Comment on above: Performed By: #### L 100.0100, L500.4050 #### [facility] [address] [place], [address] IG% 0.500 Normal 0.0-0.9 [facility] Comment on above: Result Comment: IG% - Immature Granulocytes (promyelocytes, myelocytes and metamyelocytes) > 1% indicates that a LEFT SHIFT is Present. Performed By: #### L 100.0100, L500.4050 #### [facility] [address] [place], [address] Lymphocytes/100 WBC (Bld) 21.6 % Normal 19-41 [facility] Comment on above: Performed By: #### L 100.0100, L500.4050 #### [facility] [address] [place], [address] MCH (RBC) [Entitic mass] 30.4 pg Normal 27.0-32.0 [facility] Comment on above: Performed By: #### L 100.0100, L500.4050 #### [facility] [address] [place], [address] MCHC (RBC) [Mass/Vol] 33.4 g/dL Normal 32-36 [facility] Comment on above: Performed By: #### L 100.0100, L500.4050 #### [facility] [address] [place], [address] MCV (RBC) [Entitic vol] 91.1 fL Normal 80-94 [facility] Comment on above: Performed By: #### L 100.0100, L500.4050 #### [facility] [address] [place], [address] Monocytes/100 WBC (Bld) 9.6 % Normal 0-10 [facility] Comment on above: Performed By: #### L 100.0100, L500.4050 #### [facility] [address] [place], [address] Neutrophils/100 WBC (Bld) 64.5 % Normal 47-70 [facility] Comment on above: Performed By: #### L 100.0100, L500.4050 #### [facility] [address] [place], [address] Nucleated RBC (Bld) [#/Vol] 0 10*3/uL Normal 0-5 [facility] Comment on above: Performed By: #### L 100.0100, L500.4050 #### [facility] [address] [place], [address] Platelet mean volume (Bld) [Entitic vol] 9.9 fL Normal 6.2-12.0 [facility] Comment on above: Performed By: #### L 100.0100, L500.4050 #### [facility] [address] [place], [address] Platelets (Bld) [#/Vol] 253 10*3/uL Normal 150-450 [facility] Comment on above: Performed By: #### L 100.0100, L500.4050 #### [facility] [address] [place], [address] RBC (Bld) [#/Vol] 4.50 10*6/uL Low 4.6-6.2 [facility] Comment on above: Performed By: #### L 100.0100, L500.4050 #### [facility] [address] [place], [address] RDW SD 41.3 fl Normal 35.1-43.9 [facility] Comment on above: Performed By: #### L 100.0100, L500.4050 #### [facility] [address] [place], [address] WBC (Bld) [#/Vol] 8.7 10*3/uL Normal 4.4-11.0 [facility] Comment on above: Performed By: #### L 100.0100, L500.4050 #### [facility] [address] [place], [address] Carbon dioxide measurementOr dered By: Thao Moulton on 08-10-2024 CO2 [Moles/Vol] 27.0 mmol/L 21.0-32.0 [facility] Chloride measurementOrdered By: Thao Moulton on 08-10-2024 Chloride [Moles/Vol] 110 mmol/L High 98-107 [facility] Comprehensive Metabolic Prof ilon 08-10-2024 Albumin [Mass/Vol] 3.6 g/dL Normal 3.2-5.0 [facility] Comment on above: Performed By: #### L 100.0100, L500.4050 #### [facility] [address] [place], [address] Albumin/Globulin [Mass ratio] 1.0 {ratio} Normal 0.9-2.4 [facility] Comment on above: Performed By: #### L 100.0100, L500.4050 #### [facility] [address] [place], [address] ALK P 80 U/L Normal 45-117 [facility] Comment on above: Performed By: #### L 100.0100, L500.4050 #### [facility] [address] [place], [address] ALT [Catalytic activity/Vol] 32 U/L Normal 16-61 [facility] Comment on above: Performed By: #### L 100.0100, L500.4050 #### [facility] [address] [place], [address] AST [Catalytic activity/Vol] 22 U/L Normal 15-37 [facility] Comment on above: Performed By: #### L 100.0100, L500.4050 #### [facility] [address] [place], [address] Bilirubin [Mass/Vol] 0.30 mg/dL Normal 0.20-1.00 [facility] Comment on above: Result Comment: For patients on eltrombopag therapy, use of Dimension [place] TBIL is not recommended. Performed By: #### L 100.0100, L500.4050 #### [facility] [address] [place], [address] BUN/CRE 27.2 RATIO High 10-20 [facility] Comment on above: Performed By: #### L 100.0100, L500.4050 #### [facility] [address] [place], [address] CA,Total 9.5 mg/dL Normal 8.5-10.1 [facility] Comment on above: Performed By: #### L 100.0100, L500.4050 #### [facility] [address] [place], [address] Chloride [Moles/Vol] 110 mmol/L High 98-107 [facility] Comment on above: Performed By: #### L 100.0100, L500.4050 #### [facility] [address] [place], [address] CO2 [Moles/Vol] 27.0 mmol/L Normal 21.0-32.0 [facility] Comment on above: Performed By: #### L 100.0100, L500.4050 #### [facility] [address] [place], [address] Creatinine [Mass/Vol] 0.92 mg/dL Normal 0.70-1.30 [facility] Comment on above: Result Comment: The validity of the calculated GFR GFRAA in patients over 70 years has not been determined. Clinical correlation is essential. Performed By: #### L 100.0100, L500.4050 #### [facility] [address] [place], [address] EST GFR - AA 108 mL/min Normal >60 [facility] Comment on above: Result Comment: Afri can [place] GFR Calc Performed By: #### L 100.0100, L500.4050 #### [facility] [address] [place], [address] GAP 4 Low 5-15 [facility] Comment on above: Performed By: #### L 100.0100, L500.4050 #### [facility] [address] [place], [address] GFR/1.73 sq M.predicted among non-blacks MDRD (S/P/Bld) [Vol rate/Area] 89 mL/min/{1.73_m2} Normal >60 [facility] Comment on above: Result Comment: Non- GFR Calc Performed By: #### L 100.0100, L500.4050 #### [facility] [address] [place], [address] Globulin (S) [Mass/Vol] 3.6 g/dL Normal 2.2-4.2 [facility] Comment on above: Performed By: #### L 100.0100, L500.4050 #### [facility] [address] [place], [address] Glucose [Mass/Vol] 97 mg/dL Normal 74-106 [facility] Comment on above: Performed By: #### L 100.0100, L500.4050 #### [facility] [address] [place], [address] Potassium [Moles/Vol] 4.0 mmol/L Normal 3.5-5.1 [facility] Comment on above: Performed By: #### L 100.0100, L500.4050 #### [facility] [address] [place], [address] Sodium [Moles/Vol] 141 mmol/L Normal 136-145 [facility] Comment on above: Performed By: #### L 100.0100, L500.4050 #### [facility] [address] [place], [address] T PROT 7.2 g/dL Normal 6.4-8.2 [facility] Comment on above: Performed By: #### L 100.0100, L500.4050 #### [facility] [address] [place], [address] Urea nitrogen [Mass/Vol] 25 mg/dL High 7-18 [facility] Comment on above: Performed By: #### L 100.0100, L500.4050 #### [facility] [address] [place], [address] Eosinophil percentageOrdered By: Thao Moulton on 08-10-2024 Eosinophils/100 WBC (Bld) 3.3 % 0-5 [facility] Erythrocyte distribution wid th ratioOrdered By: Thao Moulton on 08-10-2024 Erythrocyte distribution width (RBC) [Ratio] 12.6 % 11.6-14.6 [facility] Erythrocyte distribution wid th standard deviationOrdered By: Thao Moulton on 08-10-2024 Erythrocyte distribution width (RBC) [Entitic vol] 41.3 fL 35.1-43.9 [facility] Estimated glomerular filtrat ion rate (GFR) AmericanOrdered By: Thao Moulton on 08-10-2024 Estimated GFR (MDRD) Amer 108 mL/min >60 [facility] Comment on above: GFR Calc Glomerular filtration rate ( GFR) estimationOrdered By: Thao Moulton on 08-10-2024 Estimated GFR (MDRD) Non-Af Amer 89 mL/min >60 [facility] Comment on above: Non- GFR Calc Glucose measurementOrdered B y: Thao Moulton on 08-10-2024 Glucose [Mass/Vol] 97 mg/dL 74-106 [facility] Hematocrit Auto (Bld) [Volum e fraction]Ordered By: Thao Moulton on 08-10-2024 Hematocrit (Bld) [Volume fraction] 41.0 % 40-54 [facility] Hemoglobin measurementOrdere d By: Thao Moulton on 08-10-2024 Hemoglobin (Bld) [Mass/Vol] 13.7 g/dL 13.0-16.5 [facility] Immature granulocytes/100 WB C Auto (Bld)Ordered By: Thao Moulton on 08-10-2024 Immature granulocytes/100 WBC (Bld) 0.500 % 0.0-0.9 [facility] Comment on above: IG% - Immature Granu locytes (promyelocytes, myelocytes and metamyelocytes) > 1% indicates that a LEFT SHIFT is Present. Laboratory - Chemistry and C hemistry - challengeOrdered By: Thao Moulton on 08-10-2024 AST [Catalytic activity/Vol] 22 U/L 15-37 [facility] Lymphocytes Auto (Unsp spec) [#/Vol]Ordered By: Thao Moulton on 08-10-2024 Lymphocytes (Bld) [#/Vol] 1.88 10*3/uL 0.83-4.51 [facility] Lymphocytes/100 WBC Auto (Un sp spec)Ordered By: Thao Moulton on 08-10-2024 Lymphocytes/100 WBC (Bld) 21.6 % 19-41 [facility] MCV (mean corpuscular volume ) determinationOrdered By: Thao Moulton on 08-10-2024 MCV (RBC) [Entitic vol] 91.1 fL 80-94 [facility] Mean corpuscular hemoglobin (MCH) determinationOrdered By: Thao Moulton on 08-10-2024 MCH (RBC) [Entitic mass] 30.4 pg 27.0-32.0 [facility] Mean corpuscular hemoglobin concentration (MCHC) determinationOrdered By: Thao Moulton on 08-10-2024 MCHC (RBC) [Mass/Vol] 33.4 g/dL 32-36 [facility] Mean platelet volume determi nationOrdered By: Thao Moulton on 08-10-2024 Platelet mean volume (Bld) [Entitic vol] 9.9 fL 6.2-12.0 [facility] Monocyte percentageOrdered B y: Thao Moulton on 08-10-2024 Monocytes/100 WBC (Bld) 9.6 % 0-10 [facility] Neutrophil percentageOrdered By: Thao Moulton on 08-10-2024 Neutrophils/100 WBC (Bld) 64.5 % 47-70 [facility] Nucleated red blood cell per centageOrdered By: Thao Moulton on 08-10-2024 Nucleated RBC/100 WBC (Bld) [Ratio] 0 % 0-5 [facility] Platelet countOrdered By: Deborah Moulton on 08-10-2024 Platelets (Bld) [#/Vol] 253 10*3/uL 150-450 [facility] Potassium measurementOrdered By: Thao Moulton on 08-10-2024 Potassium [Moles/Vol] 4.0 mmol/L 3.5-5.1 [facility] RBC Auto (Bld) [#/Vol]Ordere d By: Thao Moulton on 08-10-2024 RBC (Bld) [#/Vol] 4.50 10*6/uL Low 4.6-6.2 [facility] Serum anion gap measurementO rdered By: Thao Moulton on 08-10-2024 Anion gap [Moles/Vol] 4 mmol/L Low 5-15 [facility] Serum globulin measurementOr dered By: Thao Moulton on 08-10-2024 Globulin (S) [Mass/Vol] 3.6 g/dL 2.2-4.2 [facility] Serum or plasma alanine soto otransferase (ALT) measurementOrdered By: Thao Moulton on 08-10-2024 ALT [Catalytic activity/Vol] 32 U/L 16-61 [facility] Serum or plasma albumin luzma urement (mass/volume)Ordered By: Thao Moulton on 08-10-2024 Albumin [Mass/Vol] 3.6 g/dL 3.2-5.0 [facility] Serum or plasma alkaline carlee sphatase measurementOrdered By: Thao Moulton on 08-10-2024 ALP [Catalytic activity/Vol] 80 U/L 45-117 [facility] Serum or plasma calcium luzma urement (mass/volume)Ordered By: Thao Moulton on 08-10-2024 Calcium [Mass/Vol] 9.5 mg/dL 8.5-10.1 [facility] Serum or plasma creatinine m easurement (mass/volume)Ordered By: Thao Moulton on 08-10-2024 Creatinine [Mass/Vol] 0.92 mg/dL 0.70-1.30 [facility] Comment on above: The validity of the calculated GFR & GFRAA in patients over 70 years has not been determined. Clinical correlation is essential. Serum or plasma urea nitroge n measurement (mass/volume)Ordered By: Thao Moulton on 08-10-2024 Urea nitrogen [Mass/Vol] 25 mg/dL High 7-18 [facility] Sodium levelOrdered By: Jose Moulton on 08-10-2024 Sodium [Moles/Vol] 141 mmol/L 136-145 [facility] Total proteinOrdered By: Agapito Moulton on 08-10-2024 Protein [Mass/Vol] 7.2 g/dL 6.4-8.2 [facility] White blood cell (WBC) count Ordered By: Thao Moulton on 08-10-2024 WBC (Bld) [#/Vol] 8.7 10*3/uL 4.4-11.0 [facility] CBC W/Diff, Automatedon 05-04 Absolute Lymph 1.49 X10 3/uL Normal 0.83-4.51 [facility] Comment on above: Performed By: #### L 500.4050, L100.0100 #### [facility] Laboratory [address] [place], [address] Absolute Neut 2.4 X10 3/uL Normal 2.0-7.7 [facility] Comment on above: Performed By: #### L 500.4050, L100.0100 #### [facility] Laboratory [address] [place], [address] Basophils/100 WBC (Bld) 0.6 % Normal 0-1 [facility] Comment on above: Performed By: #### L 500.4050, L100.0100 #### [facility] Laboratory [address] [place], [address] Eosinophils/100 WBC (Bld) 4.3 % Normal 0-5 [facility] Comment on above: Performed By: #### L 500.4050, L100.0100 #### [facility] Laboratory [address] [place], [address] Erythrocyte distribution width (RBC) [Ratio] 12.8 % Normal 11.6-14.6 [facility] Comment on above: Performed By: #### L 500.4050, L100.0100 #### [facility] Laboratory [address] [place], [address] Hematocrit (Bld) [Volume fraction] 44.3 % Normal 40-54 [facility] Comment on above: Performed By: #### L 500.4050, L100.0100 #### [facility] Laboratory [address] [place], [address] Hemoglobin (Bld) [Mass/Vol] 14.5 g/dL Normal 13.0-16.5 [facility] Comment on above: Performed By: #### L 500.4050, L100.0100 #### [facility] Laboratory [address] [place], [address] IG% 0.200 Normal 0.0-0.9 [facility] Comment on above: Result Comment: IG% - Immature Granulocytes (promyelocytes, myelocytes and metamyelocytes) > 1% indicates that a LEFT SHIFT is Present. Performed By: #### L 500.4050, L100.0100 #### [facility] Laboratory [address] [place], [address] Lymphocytes/100 WBC (Bld) 30.4 % Normal 19-41 [facility] Comment on above: Performed By: #### L 500.4050, L100.0100 #### [facility] Laboratory [address] [place], [address] MCH (RBC) [Entitic mass] 29.8 pg Normal 27.0-32.0 [facility] Comment on above: Performed By: #### L 500.4050, L100.0100 #### [facility] Laboratory [address] [place], [address] MCHC (RBC) [Mass/Vol] 32.7 g/dL Normal 32-36 [facility] Comment on above: Performed By: #### L 500.4050, L100.0100 #### [facility] Laboratory [address] [place], [address] MCV (RBC) [Entitic vol] 91.2 fL Normal 80-94 [facility] Comment on above: Performed By: #### L 500.4050, L100.0100 #### [facility] Laboratory [address], [address] Monocytes/100 WBC (Bld) 15.5 % High 0-10 [facility] Comment on above: Performed By: #### L 500.4050, L100.0100 #### [facility] Laboratory [address], [address] Neutrophils/100 WBC (Bld) 49.0 % Normal 47-70 [facility] Comment on above: Performed By: #### L 500.4050, L100.0100 #### [facility] Laboratory [address] [place], [address] Nucleated RBC (Bld) [#/Vol] 0 10*3/uL Normal 0-5 [facility] Comment on above: Performed By: #### L 500.4050, L100.0100 #### [facility] Laboratory [address] [place], [address] Platelet mean volume (Bld) [Entitic vol] 9.4 fL Normal 6.2-12.0 [facility] Comment on above: Performed By: #### L 500.4050, L100.0100 #### [facility] Laboratory [address] [place], [address] Platelets (Bld) [#/Vol] 206 10*3/uL Normal 150-450 [facility] Comment on above: Performed By: #### L 500.4050, L100.0100 #### [facility] Laboratory [address] [place], [address] RBC (Bld) [#/Vol] 4.86 10*6/uL Normal 4.6-6.2 [facility] Comment on above: Performed By: #### L 500.4050, L100.0100 #### [facility] Laboratory [address] [place], [address] RDW SD 42.0 fl Normal 35.1-43.9 [facility] Comment on above: Performed By: #### L 500.4050, L100.0100 #### [facility] Laboratory [address] [place], [address] WBC (Bld) [#/Vol] 4.9 10*3/uL Normal 4.4-11.0 [facility] Comment on above: Performed By: #### L 500.4050, L100.0100 #### [facility] Laboratory [address] [place], [address] Comprehensive Metabolic Prof ilon 05-23-2024 Albumin [Mass/Vol] 3.5 g/dL Normal 3.2-5.0 [facility] Comment on above: Performed By: #### L 500.4050, L100.0100 #### [facility] Laboratory [address] [place], [address] Albumin/Globulin [Mass ratio] 1.0 {ratio} Normal 0.9-2.4 [facility] Comment on above: Performed By: #### L 500.4050, L100.0100 #### [facility] Laboratory [address] [place], [address] ALK P 80 U/L Normal 45-117 [facility] Comment on above: Performed By: #### L 500.4050, L100.0100 #### [facility] Laboratory [address] [place], [address] ALT [Catalytic activity/Vol] 25 U/L Normal 16-61 [facility] Comment on above: Performed By: #### L 500.4050, L100.0100 #### [facility] Laboratory [address] [place], [address] AST [Catalytic activity/Vol] 22 U/L Normal 15-37 [facility] Comment on above: Performed By: #### L 500.4050, L100.0100 #### [facility] Laboratory [address] [place], [address] Bilirubin [Mass/Vol] 0.60 mg/dL Normal 0.20-1.00 [facility] Comment on above: Result Comment: For patients on eltrombopag therapy, use of Dimension [place] TBIL is not recommended. Performed By: #### L 500.4050, L100.0100 #### [facility] Laboratory [address] [place], [address] BUN/CRE 22.5 RATIO High 10-20 [facility] Comment on above: Performed By: #### L 500.4050, L100.0100 #### [facility] Laboratory [address] [place], [address] CA,Total 9.1 mg/dL Normal 8.5-10.1 [facility] Comment on above: Performed By: #### L 500.4050, L100.0100 #### [facility] Laboratory [address] [place], [address] Chloride [Moles/Vol] 106 mmol/L Normal 98-107 [facility] Comment on above: Performed By: #### L 500.4050, L100.0100 #### [facility] Laboratory [address] [place], [address] CO2 [Moles/Vol] 29.0 mmol/L Normal 21.0-32.0 [facility] Comment on above: Performed By: #### L 500.4050, L100.0100 #### [facility] Laboratory [address] [place], [address] Creatinine [Mass/Vol] 0.93 mg/dL Normal 0.70-1.30 [facility] Comment on above: Result Comment: The validity of the calculated GFR GFRAA in patients over 70 years has not been determined. Clinical correlation is essential. Performed By: #### L 500.4050, L100.0100 #### [facility] Laboratory [address] [place], [address] EST GFR - AA 106 mL/min Normal >60 [facility] Comment on above: Result Comment: Afri can [place] GFR Calc Performed By: #### L 500.4050, L100.0100 #### [facility] Laboratory [address] [place], [address] GAP 4 Low 5-15 [facility] Comment on above: Performed By: #### L 500.4050, L100.0100 #### [facility] Laboratory [address] [place], [address] GFR/1.73 sq M.predicted among non-blacks MDRD (S/P/Bld) [Vol rate/Area] 88 mL/min/{1.73_m2} Normal >60 [facility] Comment on above: Result Comment: Non- GFR Calc Performed By: #### L 500.4050, L100.0100 #### [facility] Laboratory [address] [place], [address] Globulin (S) [Mass/Vol] 3.4 g/dL Normal 2.2-4.2 [facility] Comment on above: Performed By: #### L 500.4050, L100.0100 #### [facility] Laboratory [address] [place], [address] Glucose [Mass/Vol] 99 mg/dL Normal 74-106 [facility] Comment on above: Performed By: #### L 500.4050, L100.0100 #### [facility] Laboratory [address] [place], [address] Potassium [Moles/Vol] 3.8 mmol/L Normal 3.5-5.1 [facility] Comment on above: Performed By: #### L 500.4050, L100.0100 #### [facility] Laboratory [address] [place], [address] Sodium [Moles/Vol] 139 mmol/L Normal 136-145 [facility] Comment on above: Performed By: #### L 500.4050, L100.0100 #### [facility] Laboratory [address] [place], [address] T PROT 6.9 g/dL Normal 6.4-8.2 [facility] Comment on above: Performed By: #### L 500.4050, L100.0100 #### [facility] Laboratory [address] [place], [place], [address] Urea nitrogen [Mass/Vol] 21 mg/dL High 7-18 [facility] Comment on above: Performed By: #### L 500.4050, L100.0100 #### [facility] Laboratory [address] [place], [address] XR Chest PA and Lateralon IMPRESSION: No acute radiographic abnormality. Meat Soaker: PSCB Transcribe Date/Time: May 01 2024 10:07A Dictated by : GALO SHANKS MD This examination was interpreted and the report reviewed and electronically signed by: GALO SHANKS MD on May 01 2024 10:09AM [facility] DIVISION OF RADIOLOGY * * *Final Report* * * DATE OF EXAM: May 01 2024 10:02AM [id number] - XR CHEST 2V FRONTAL/LAT / PROCEDURE REASON: Acute cough * * * * Physician Interpretation * * * * EXAMINATION: CHEST RADIOGRAPH (2 VIEW FRONTAL & LATERAL) CLINICAL HISTORY: Acute cough MQ: XC2_6 EXAM DATE/TIME: 05/01/2024 10:02 AM COMPARISON: Chest x-ray 10/30/2023 RESULT: Lines, tubes, and devices: None. Lungs and pleura: No consolidation. No lung mass. No pleural effusion. No pneumothorax. Cardiomediastinal silhouette: Normal cardiomediastinal silhouette. Bones and soft tissues: Unremarkable. DIVISION OF RADIOLOGY Provider, [facility] - 05/01/2024 * * *Final Report* * * DATE OF EXAM: May 01 2024 10:02AM [id number] - XR CHEST 2V FRONTAL/LAT / PROCEDURE REASON: Acute cough * * * * Physician Interpretation * * * * EXAMINATION: CHEST RADIOGRAPH (2 VIEW FRONTAL & LATERAL) CLINICAL HISTORY: Acute cough MQ: XC2_6 EXAM DATE/TIME: 05/01/2024 10:02 AM COMPARISON: Chest x-ray 10/30/2023 RESULT: Lines, tubes, and devices: None. Lungs and pleura: No consolidation. No lung mass. No pleural effusion. No pneumothorax. Cardiomediastinal silhouette: Normal cardiomediastinal silhouette. Bones and soft tissues: Unremarkable. IMPRESSION IMPRESSION: No acute radiographic abnormality. Meat Soaker: PSCB Transcribe Date/Time: May 01 2024 10:07A Dictated by : GALO SHANKS MD This examination was interpreted and the report reviewed and electronically signed by: GALO SHANKS MD on May 01 2024 10:09AM EST [facility] Radiology Study observation (narrative) [facility] XR Chest PA and LateralOrder ed By: [facility] Provider on 05-01-2024 [facility] Miscellaneous Lab Procedureo n 04-09-2024 [facility] Normal [facility] Comment on above: Order Comment: DR.ST DOBBS ORDERED PSA, LIPID ORDERED CMP, CBCD Result Comment: TEST RESULTS LIMITS Allergen Profile, Mold Class Description: Levels of Specific IgE Class Description of Class ----- < 0.10 0 Negative 0.10 - 0.31 0/I Equivocal/Low 0.32 - 0.55 I Low 0.56 - 1.40 II Moderate 1.41 - 3.90 III High 3.91 - 19.00 IV Very High 19.01 - 100.00 V Very High >100.00 Very High [id number] Penicillium chrysogen <0.10 kU/L Class 0 K938-[id number] Cladosporium herbarum <0.10 kU/L Class 0 X391-QpQ Aspergillus fumigatus <0.10 kU/L Class 0 J572-ZlX Mucor racemosus <0.10 kU/L Class 0 U296-AcY Robyn albicans <0.10 kU/L Class 0 N855-AcX Alternaria alternata <0.10 kU/L Class 0 Q905-RcP Setomelanomma rostrat <0.10 kU/L Class 0 G288-UuR Fusarium proliferatum <0.10 kU/L Class 0 N367-BjD Aureobasidi pullulans <0.10 kU/L Class 0 O037-IsW Phoma betae <0.10 kU/L Class 0 T248-ErC Epicoccum purpur <0.10 kU/L Class 0 D057-TpS Stemphylium herbarum <0.10 kU/L Class 0 TESTING PERFORMED AT [facility]. ORIGINAL REPORT ON FILE IN LAB CONTAINS ADDITIONAL TEST SITE INFORMATION. Performed By: #### L 100.0100, L500.4100, L501.9910, L500.4050 #### [facility] Laboratory [address], [address] CBC W/Diff, Automatedon 02-01 Absolute Lymph 1.77 X10 3/uL Normal 0.83-4.51 [facility] Comment on above: Order Comment: DR.ST DOBBS ORDERED PSA, LIPID ORDERED CMP, CBCD Performed By: #### L 100.0100, L500.4100, L501.9910, L500.4050 #### [facility] Laboratory [address] [place], [address] Absolute Neut 3.5 X10 3/uL Normal 2.0-7.7 [facility] Comment on above: Order Comment: DR.ST DOBBS ORDERED PSA, LIPID ORDERED CMP, CBCD Performed By: #### L 100.0100, L500.4100, L501.9910, L500.4050 #### [facility] Laboratory [address] [place], [address] Basophils/100 WBC (Bld) 0.5 % Normal 0-1 [facility] Comment on above: Order Comment: DR.ST DOBBS ORDERED PSA, LIPID ORDERED CMP, CBCD Performed By: #### L 100.0100, L500.4100, L501.9910, L500.4050 #### [facility] Laboratory [address] [place], [address] Eosinophils/100 WBC (Bld) 3.5 % Normal 0-5 [facility] Comment on above: Order Comment: DR.ST DOBBS ORDERED PSA, LIPID ORDERED CMP, CBCD Performed By: #### L 100.0100, L500.4100, L501.9910, L500.4050 #### [facility] Laboratory [address] [place], [address] Erythrocyte distribution width (RBC) [Ratio] 12.8 % Normal 11.6-14.6 [facility] Comment on above: Order Comment: DR.ST DOBBS ORDERED PSA, LIPID ORDERED CMP, CBCD Performed By: #### L 100.0100, L500.4100, L501.9910, L500.4050 #### [facility] Laboratory [address] [place], [address] Hematocrit (Bld) [Volume fraction] 44.7 % Normal 40-54 [facility] Comment on above: Order Comment: DR.ST DOBBS ORDERED PSA, LIPID ORDERED CMP, CBCD Performed By: #### L 100.0100, L500.4100, L501.9910, L500.4050 #### [facility] Laboratory [address] [place], [address] Hemoglobin (Bld) [Mass/Vol] 14.9 g/dL Normal 13.0-16.5 [facility] Comment on above: Order Comment: DR.ST DOBBS ORDERED PSA, LIPID ORDERED CMP, CBCD Performed By: #### L 100.0100, L500.4100, L501.9910, L500.4050 #### [facility] Laboratory [address] [place], [address] IG% 0.200 Normal 0.0-0.9 [facility] Comment on above: Order Comment: DR.ST DOBBS ORDERED PSA, LIPID ORDERED CMP, CBCD Result Comment: IG% - Immature Granulocytes (promyelocytes, myelocytes and metamyelocytes) > 1% indicates that a LEFT SHIFT is Present. Performed By: #### L 100.0100, L500.4100, L501.9910, L500.4050 #### [facility] Laboratory [address] [place], [address] Lymphocytes/100 WBC (Bld) 29.8 % Normal 19-41 [facility] Comment on above: Order Comment: DR.ST DOBBS ORDERED PSA, LIPID ORDERED CMP, CBCD Performed By: #### L 100.0100, L500.4100, L501.9910, L500.4050 #### [facility] Laboratory [address] [place], [address] MCH (RBC) [Entitic mass] 29.9 pg Normal 27.0-32.0 [facility] Comment on above: Order Comment: DR.ST DOBBS ORDERED PSA, LIPID ORDERED CMP, CBCD Performed By: #### L 100.0100, L500.4100, L501.9910, L500.4050 #### [facility] Laboratory [address] [place], [address] MCHC (RBC) [Mass/Vol] 33.3 g/dL Normal 32-36 [facility] Comment on above: Order Comment: DR.ST DOBBS ORDERED PSA, LIPID ORDERED CMP, CBCD Performed By: #### L 100.0100, L500.4100, L501.9910, L500.4050 #### [facility] [address] [place], [address] MCV (RBC) [Entitic vol] 89.8 fL Normal 80-94 [facility] Comment on above: Order Comment: DR.ST DOBBS ORDERED PSA, LIPID ORDERED CMP, CBCD Performed By: #### L 100.0100, L500.4100, L501.9910, L500.4050 #### [facility] Laboratory [address] [place], [address] Monocytes/100 WBC (Bld) 7.8 % Normal 0-10 [facility] Comment on above: Order Comment: DR.ST DOBBS ORDERED PSA, LIPID ORDERED CMP, CBCD Performed By: #### L 100.0100, L500.4100, L501.9910, L500.4050 #### [facility] Laboratory [address] [place], [address] Neutrophils/100 WBC (Bld) 58.2 % Normal 47-70 [facility] Comment on above: Order Comment: DR.ST DOBBS ORDERED PSA, LIPID ORDERED CMP, CBCD Performed By: #### L 100.0100, L500.4100, L501.9910, L500.4050 #### [facility] [address] [place], [address] Nucleated RBC (Bld) [#/Vol] 0 10*3/uL Normal 0-5 [facility] Comment on above: Order Comment: DR.ST DOBBS ORDERED PSA, LIPID ORDERED CMP, CBCD Performed By: #### L 100.0100, L500.4100, L501.9910, L500.4050 #### [facility] [address] [place], [address] Platelet mean volume (Bld) [Entitic vol] 9.4 fL Normal 6.2-12.0 [facility] Comment on above: Order Comment: DR.ST DOBBS ORDERED PSA, LIPID ORDERED CMP, CBCD Performed By: #### L 100.0100, L500.4100, L501.9910, L500.4050 #### [facility] [address], [address] Platelets (Bld) [#/Vol] 250 10*3/uL Normal 150-450 [facility] Comment on above: Order Comment: DR.ST DOBBS ORDERED PSA, LIPID ORDERED CMP, CBCD Performed By: #### L 100.0100, L500.4100, L501.9910, L500.4050 #### [facility] [address], [address] RBC (Bld) [#/Vol] 4.98 10*6/uL Normal 4.6-6.2 [facility] Comment on above: Order Comment: DR.ST DOBBS ORDERED PSA, LIPID ORDERED CMP, CBCD Performed By: #### L 100.0100, L500.4100, L501.9910, L500.4050 #### [facility] [address] [place], [address] RDW SD 41.3 fl Normal 35.1-43.9 [facility] Comment on above: Order Comment: DR.ST DOBBS ORDERED PSA, LIPID ORDERED CMP, CBCD Performed By: #### L 100.0100, L500.4100, L501.9910, L500.4050 #### [facility] [address], [address] WBC (Bld) [#/Vol] 5.9 10*3/uL Normal 4.4-11.0 [facility] Comment on above: Order Comment: DR.ST DOBBS ORDERED PSA, LIPID ORDERED CMP, CBCD Performed By: #### L 100.0100, L500.4100, L501.9910, L500.4050 #### [facility] [address], [address] Comprehensive Metabolic Prof [facility] 06-22-2024 Albumin [Mass/Vol] 3.6 g/dL Normal 3.2-5.0 [facility] Comment on above: Order Comment: DR.ST DOBBS ORDERED PSA, LIPID ORDERED CMP, CBCD Performed By: #### L 100.0100, L500.4100, L501.9910, L500.4050 #### [facility] [address] [place], [address] Albumin/Globulin [Mass ratio] 1.0 {ratio} Normal 0.9-2.4 [facility] Comment on above: Order Comment: DR.ST DOBBS ORDERED PSA, LIPID ORDERED CMP, CBCD Performed By: #### L 100.0100, L500.4100, L501.9910, L500.4050 #### [facility] [address] [place], [address] ALK P 77 U/L Normal 45-117 [facility] Comment on above: Order Comment: DR.ST DOBBS ORDERED PSA, LIPID ORDERED CMP, CBCD Performed By: #### L 100.0100, L500.4100, L501.9910, L500.4050 #### [facility] [address] [place] [place], [address] ALT [Catalytic activity/Vol] 28 U/L Normal 16-61 [facility] Comment on above: Order Comment: DR.ST DOBBS ORDERED PSA, LIPID ORDERED CMP, CBCD Performed By: #### L 100.0100, L500.4100, L501.9910, L500.4050 #### [facility] [address], [address] AST [Catalytic activity/Vol] 23 U/L Normal 15-37 [facility] Comment on above: Order Comment: DR.ST DOBBS ORDERED PSA, LIPID ORDERED CMP, CBCD Performed By: #### L 100.0100, L500.4100, L501.9910, L500.4050 #### [facility] [address], [address] Bilirubin [Mass/Vol] 0.90 mg/dL Normal 0.20-1.00 [facility] Comment on above: Order Comment: DR.ST DOBBS ORDERED PSA, LIPID ORDERED CMP, CBCD Result Comment: For patients on eltrombopag therapy, use of Dimension [place] TBIL is not recommended. Performed By: #### L 100.0100, L500.4100, L501.9910, L500.4050 #### [facility] [address] [place], [address] BUN/CRE 24.5 RATIO High 10-20 [facility] Comment on above: Order Comment: DR.ST DOBBS ORDERED PSA, LIPID ORDERED CMP, CBCD Performed By: #### L 100.0100, L500.4100, L501.9910, L500.4050 #### [facility] [address] [place], [address] CA,Total 9.1 mg/dL Normal 8.5-10.1 [facility] Comment on above: Order Comment: DR.ST DOBBS ORDERED PSA, LIPID ORDERED CMP, CBCD Performed By: #### L 100.0100, L500.4100, L501.9910, L500.4050 #### [facility] [address] [place], [address] Chloride [Moles/Vol] 104 mmol/L Normal 98-107 [facility] Comment on above: Order Comment: DR.ST DOBBS ORDERED PSA, LIPID ORDERED CMP, CBCD Performed By: #### L 100.0100, L500.4100, L501.9910, L500.4050 #### [facility] [address] [place], [address] CO2 [Moles/Vol] 29.0 mmol/L Normal 21.0-32.0 [facility] Comment on above: Order Comment: DR.ST DOBBS ORDERED PSA, LIPID ORDERED CMP, CBCD Performed By: #### L 100.0100, L500.4100, L501.9910, L500.4050 #### [facility] [address] [place], [address] Creatinine [Mass/Vol] 0.82 mg/dL Normal 0.70-1.30 [facility] Comment on above: Order Comment: DR.ST DOBBS ORDERED PSA, LIPID ORDERED CMP, CBCD Result Comment: The validity of the calculated GFR GFRAA in patients over 70 years has not been determined. Clinical correlation is essential. Performed By: #### L 100.0100, L500.4100, L501.9910, L500.4050 #### [facility] [address] [place], [address] EST GFR - AA 124 mL/min Normal >60 [facility] Comment on above: Order Comment: DR.ST DOBBS ORDERED PSA, LIPID ORDERED CMP, CBCD Result Comment: Afri can [place]i GFR Calc Performed By: #### L 100.0100, L500.4100, L501.9910, L500.4050 #### [facility] [address] [place], [address] GAP 7 Normal 5-15 [facility] Comment on above: Order Comment: DR.ST DOBBS ORDERED PSA, LIPID ORDERED CMP, CBCD Performed By: #### L 100.0100, L500.4100, L501.9910, L500.4050 #### [facility] [address] [place], [address] GFR/1.73 sq M.predicted among non-blacks MDRD (S/P/Bld) [Vol rate/Area] 103 mL/min/{1.73_m2} Normal >60 [facility] Comment on above: Order Comment: DR.ST DOBBS ORDERED PSA, LIPID ORDERED CMP, CBCD Result Comment: Non- GFR Calc Performed By: #### L 100.0100, L500.4100, L501.9910, L500.4050 #### [facility] [address] [place], [address] Globulin (S) [Mass/Vol] 3.6 g/dL Normal 2.2-4.2 [facility] Comment on above: Order Comment: DR.ST DOBBS ORDERED PSA, LIPID ORDERED CMP, CBCD Performed By: #### L 100.0100, L500.4100, L501.9910, L500.4050 #### [facility] [address] [place], [address] Glucose [Mass/Vol] 88 mg/dL Normal 74-106 [facility] Comment on above: Order Comment: DR.ST DOBBS ORDERED PSA, LIPID ORDERED CMP, CBCD Performed By: #### L 100.0100, L500.4100, L501.9910, L500.4050 #### [facility] [address] [place], [address] Potassium [Moles/Vol] 3.9 mmol/L Normal 3.5-5.1 [facility] Comment on above: Order Comment: DR.ST DOBBS ORDERED PSA, LIPID ORDERED CMP, CBCD Performed By: #### L 100.0100, L500.4100, L501.9910, L500.4050 #### [facility] [address] [place], [address] Sodium [Moles/Vol] 140 mmol/L Normal 136-145 [facility] Comment on above: Order Comment: DR.ST DOBBS ORDERED PSA, LIPID ORDERED CMP, CBCD Performed By: #### L 100.0100, L500.4100, L501.9910, L500.4050 #### [facility] [address] [place], [address] T PROT 7.2 g/dL Normal 6.4-8.2 [facility] Comment on above: Order Comment: DR.ST DOBBS ORDERED PSA, LIPID ORDERED CMP, CBCD Performed By: #### L 100.0100, L500.4100, L501.9910, L500.4050 #### [facility] [address] [place], [address] Urea nitrogen [Mass/Vol] 20 mg/dL High 7-18 [facility] Comment on above: Order Comment: DR.ST DOBBS ORDERED PSA, LIPID ORDERED CMP, CBCD Performed By: #### L 100.0100, L500.4100, L501.9910, L500.4050 #### [facility] [address] [place], [address] Lipid Profileon 02-22-2024 Cholesterol [Mass/Vol] 180 mg/dL Normal 200 [facility] Comment on above: Order Comment: DR.ST DOBBS ORDERED PSA, LIPID ORDERED CMP, CBCD Result Comment: <200 mg/dL Desirable 200-240 mg/dL Borderline >240 mg/dL High Risk Performed By: #### L 100.0100, L500.4100, L501.9910, L500.4050 #### [facility] [address] [place], [address] Cholesterol in HDL [Mass/Vol] 71 mg/dL Normal [facility] Comment on above: Order Comment: DR.ST DOBBS ORDERED PSA, LIPID ORDERED CMP, CBCD Result Comment: The drugs N-Acetylcysteine and Metamizole may falsely depress this assay. Reference Range HDL <40 mg/dL Low HDL Cholesterol HDL >or= 60 mg/dL High HDL Cholesterol Performed By: #### L 100.0100, L500.4100, L501.9910, L500.4050 #### [facility] [address] [place], [address] Cholesterol in LDL [Mass/Vol] 97 mg/dL Normal 0-130 [facility] Comment on above: Order Comment: DR.ST DOBBS ORDERED PSA, LIPID ORDERED CMP, CBCD Performed By: #### L 100.0100, L500.4100, L501.9910, L500.4050 #### [facility] [address] [place], [address] Cholesterol in VLDL [Mass/Vol] 12 mg/dL Normal 5-40 [facility] Comment on above: Order Comment: DR.ST DOBBS ORDERED PSA, LIPID ORDERED CMP, CBCD Performed By: #### L 100.0100, L500.4100, L501.9910, L500.4050 #### [facility] [address] [place], [address] Triglyceride [Mass/Vol] 61 mg/dL Normal W [facility] Comment on above: Order Comment: DR.ST DOBBS ORDERED PSA, LIPID ORDERED CMP, CBCD Result Comment: The drugs N-Acetylcysteine and Metamizole may falsely depress this assay. Serum Triglycerides Reference Interval Normal <150 mg/dL Borderline high 150 - 199 mg/dL High 200 - 499 mg/dL Very High > or = 500 mg/dL Performed By: #### L 100.0100, L500.4100, L501.9910, L500.4050 #### [facility] [address] [place], [address] PSA,Total - Annual Screenon 02-22-2024 PSA,TOT SCREEN 0.55 ng/mL Normal 0.00-4.00 [facility] Comment on above: Order Comment: DR.ST DOBBS ORDERED PSA, LIPID ORDERED CMP, CBCD Result Comment: This test was performed using the TPSA assay method for the [employer] chemistry system. Values obtained with different assay methods cannot be used interchangably. When changing PSA assays in the course of monitoring a patient, additional sequential testing should be carried out to confirm baseline values. Performed By: #### L 100.0100, L500.4100, L501.9910, L500.4050 #### [facility] [address] [place], [address] CNOVon 02-02-2024 CNOV Office Visit ([facility] ) LITO VU ([id number]) 1965 M Date Time Provider Department 02/02/24 11:45 AM MARICEL CARSON [facility] During your visit today, we recorded the following information about you: Temperature Pulse Respiration Blood pressure 97.3 degrees 88/minute 16/minute 158/76 Weight 73 kg Maricel Carsno APRN.BLASTING WORKER 02/02/2024 11:59 AM Signed This note was created using [employer]. Subjective Lito Vu is a 58 year old male. HPI Chest congestion and cough for the last two weeks. Symptoms seem to be worsening. Pt taking OTC meds with no relief. Review of Systems Constitutional: Positive for fatigue. Negative for fever. HENT: Positive for congestion and sore throat. Respiratory: Positive for cough. Neurological: Positive for headaches. Objective BP 158/76 Pulse 88 Temp 36.3 ?C (97.3 ?F) Resp 16 Wt 73 kg (160 lb 15 oz) SpO2 98% BMI 20.66 kg/m? Physical Exam Vitals and nursing note reviewed. Constitutional: General: He is not in acute distress. Appearance: Normal appearance. He is not ill-appearing. HENT: Head: Normocephalic. Mouth/Throat: Mouth: Mucous membranes are moist. Eyes: Conjunctiva/sclera: Conjunctivae normal. Cardiovascular: Rate and Rhythm: Normal rate and regular rhythm. Pulmonary: Effort: Pulmonary effort is normal. No respiratory distress. Breath sounds: Rhonchi and rales present. Musculoskeletal: General: Normal range of motion. Cervical back: Normal range of motion. Skin: General: Skin is warm and dry. Neurological: General: No focal deficit present. Mental Status: He is alert. Psychiatric: Mood and Affect: Mood normal. Behavior: Behavior normal. Assessment and Plan ASSESSMENT/PLAN: 1. Bacterial pneumonia - ICD9: 482.9, ICD10: J15.9 As patient has coarse lung sounds and 2 weeks of worsening symptoms I am concerned about possible pneumonia. As we do not have x-ray available today patient was started on a course of doxycycline and instructed to follow-up with PCP for further evaluation and to ensure resolution of symptoms. Patient comfortable with plan. - DOXYCYCLINE MONOHYDRATE 100 MG TABLET Maricel Carson APRN.NELI Allergies As of Date: 02/02/2024 (No Known Allergies) Date Reviewed: 02/02/2024 Reviewed by: Maricel Carson APRN.BLASTING WORKER - Fully Assessed Reason for Visit: Cough [28] Cmt: Congestion x2 weeks Primary Visit Diagnosis:Bacterial pneumonia [J15.9] Order(s):doxycycline monohydrate 100 mg tabletTake 1 tablet by mouth two times a day for 5 days.Disp: 10 tabletRfl: 0 Prescriptions as of 02/02/2024 - doxycycline monohydrate 100 mg tablet Take 1 tablet by mouth two times a day for 5 days. - hydrOXYchloroQUINE (PLAQUENIL) 200 mg tablet - methotrexate 2.5 mg tablet TAKE 6 TABLETS BY MOUTH ONCE A WEEK - biotin 1 mg cap Take by mouth. - diclofenac, EC, (VOLTAREN) 75 mg EC tablet TAKE 1 TABLET BY MOUTH TWICE DAILY FOR PAIN - Zinc 50 mg tab Take 50 mg by mouth once daily. - baclofen (LIORESAL) 10 mg tablet Take two(2) tablet four (4) times daily (AM, noon, 7PM and bedtime) - trihexyphenidyl (ARTANE) 2 mg tablet Take 1 tablet in AM AND at noon with 2 tablets at bedtime - fluticasone (FLONASE) 50 mcg/actuation nasal spray Use 1 [place] in each nostril once daily. - PSYLLIUM SEED, WITH DEXTROSE, (FIBER ORAL) Take by mouth. - triamcinolone acetonide (KENALOG) 0.1 % cream Apply 1 application to affected area three times daily. Apply sparingly to area for rash/itching. - Ascorbic Acid 1,000 mg tablet Take 1,000 mg by mouth once daily. 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 Encounter Status:Closed by MARICEL CARSON on 02/02/24 [facility] CNOVon 10-30-2023 CNOV Office Visit ([facility] ) LITO VU ([id number]) 1965 M Date Time Provider Department 10/30/23 1:45 PM VALERIA HOOD [facility] During your visit today, we recorded the following information about you: Temperature Pulse Respiration Blood pressure 101.3 degrees 106/minute 19/minute 140/70 Weight 74.6 kg Valeria Hood PA 10/30/2023 2:49 PM Signed This note was created using [employer]. Subjective Lito Vu is a 58 year old male. HPI 58-year-old male presents for cough, chest congestion, fevers. Patient got up this morning and had a little bit of congestion and cough. Throughout the day at work, patient symptoms have gotten worse. His states that he has dystonia, so has difficulty coughing up phlegm. He does have history of aspiration pneumonia after choking on a pill. Patient does not recall aspirating any food or medications. He developed a fever this afternoon after work. No sick contacts. No vomiting or diarrhea. Still eating and drinking. PAST MEDICAL HISTORY Diagnosis Date Aspiration pneumonia (HCC) 2013 External hemorrhoids without mention of complication Hemorrhage of gastrointestinal tract, unspecified Segmental dystonia PAST SURGICAL HISTORY Procedure Laterality Date ARTHRP INTERPOS INTERCARPAL/METACARPAL JOINTS Right 04/15/2020 Right thumb CMC arthroplasty with LRTI and Right CTR COLONOSCOPY FLX DX W/COLLJ SPEC WHEN PFRMD 07/06/11 HEMORRHOIDECTOMY multiple PAST SURGICAL HISTORY OF Left 06/2014 excision cyst, flank ALLERGIES Patient has no known allergies. MEDICATIONS hydrOXYchloroQUINE (PLAQUENIL) 200 mg tablet methotrexate 2.5 mg tablet TAKE 6 TABLETS BY MOUTH ONCE A WEEK biotin 1 mg cap Take by mouth. Zinc 50 mg tab Take 50 mg by mouth once daily. baclofen (LIORESAL) 10 mg tablet Take two(2) tablet four (4) times daily (AM, noon, 7PM and bedtime) trihexyphenidyl (ARTANE) 2 mg tablet Take 1 tablet in AM AND at noon with 2 tablets at bedtime fluticasone (FLONASE) 50 mcg/actuation nasal spray Use 1 [place] in each nostril once daily. PSYLLIUM SEED, WITH DEXTROSE, (FIBER ORAL) Take by mouth. triamcinolone acetonide (KENALOG) 0.1 % cream Apply 1 application to affected area three times daily. Apply sparingly to area for rash/itching. Ascorbic Acid 1,000 mg tablet Take 1,000 mg by mouth once daily. Bee Pollen 580 mg cap Take 2 caps once daily diclofenac, EC, (VOLTAREN) 75 mg EC tablet TAKE 1 TABLET BY MOUTH TWICE DAILY FOR PAIN (Patient not taking: Reported on 08/22/2020 ) FAMILY HISTORY Problem Relation Age of Onset other (restless legs) Mother Social History Tobacco Use Smoking status: Never Smokeless tobacco: Never Vaping Use Vaping Use: Never used Substance Use Topics Alcohol use: No Drug use: No Review of Systems Constitutional: Positive for chills and fever. HENT: Positive for congestion. Negative for sore throat. Respiratory: Positive for cough. Negative for shortness of breath and wheezing. Gastrointestinal: Negative for diarrhea and vomiting. Objective BP 140/70 Pulse 106 Temp (!) 38.5 ?C (101.3 ?F) Resp 19 Wt 74.6 kg (164 lb 6.4 oz) SpO2 96% BMI 21.11 kg/m? Physical Exam Vitals and nursing note reviewed. Constitutional: General: He is not in acute distress. Appearance: Normal appearance. He is not toxic-appearing. HENT: Right Ear: Tympanic membrane and ear canal normal. Left Ear: Tympanic membrane and ear canal normal. Nose: Congestion present. Mouth/Throat: Mouth: Mucous membranes are moist. Eyes: Conjunctiva/sclera: Conjunctivae normal. Cardiovascular: Rate and Rhythm: Normal rate and regular rhythm. Pulmonary: Effort: Pulmonary effort is normal. Breath sounds: Examination of the right-lower field reveals rales. Examination of the left-lower field reveals rales. Rales present. Skin: General: Skin is warm and dry. Neurological: Mental Status: He is alert. Assessment and Plan ASSESSMENT/PLAN: 1. Acute cough - ICD9: 786.2, ICD10: R05.1 (primary diagnosis) -Chest x-ray no acute abnormality 2. Flu-like symptoms - ICD9: 780.99, ICD10: R68.89 - XR CHEST 2V FRONTAL/LAT-no acute abnormality - INFLUENZA AANDB MOLECULAR (POC)-positive for influenza A 3. Influenza A - ICD9: 487.1, ICD10: J10.1 -Rx for Tamiflu. -Tylenol, Motrin, fluids, rest. -If patient develops any chest pain, shortness of breath, go to ER. Diagnosis and treatment plan were discussed and questions were answered to the patient's satisfaction. Pt acknowledged understanding of concepts and follow up plan. Specific signs and symptoms that would indicate the need for higher level of care were discussed in detail warranting prompt ER evaluation. DEBORAH Rene Krislyn P, PA 10/30/2023 2:19 PM Signed [facility] PATIENT INFO INFLUENZA INTRODUCTION Influenza (commonly called the flu) (more content not included)... Normal [facility] INFLUENZA A&B MOLECULAR (POC )on 10-30-2023 Flu A (POCT) Positive Abnormal Negative [facility] Procedural Control Valid [facility] XR CHEST 2V FRONTAL/LATon XR CHEST 2V FRONTAL/LAT * * *Final Repor t* * * DATE OF EXAM: Oct 30 2023 2:33PM WOX [id number] - XR CHEST 2V FRONTAL/LAT / PROCEDURE REASON: Flu-like symptoms * * * * Physician Interpretation * * * * EXAMINATION: CHEST RADIOGRAPH (2 VIEW FRONTAL and LATERAL) CLINICAL HISTORY: Flu-like symptoms MQ: XC2_6 EXAM DATE/TIME: 10/30/2023 2:33 PM COMPARISON: Chest x-ray dated December 30, 2017 RESULT: Lines, tubes, and devices: None. Lungs and pleura: No consolidation. No lung mass. No pleural effusion. No pneumothorax. Mild elevation of the left hemidiaphragm, not substantially changed. Cardiomediastinal silhouette: Normal cardiomediastinal silhouette. Bones and soft tissues: Mild degenerative changes. IMPRESSION: No acute radiographic abnormality. Meat Soaker: ROBSON Transcribe Date/Time: Oct 30 2023 2:39P Dictated by : DAVID DEVRIES MD This examination was interpreted and the report reviewed and electronically signed by: DAVID DEVRIES MD on Oct 30 2023 2:43PM EST [id number] Normal [facility] XR Chest PA and Lateralon IMPRESSION: No acute radiographic abnormality. Meat Soaker: PSCB Transcribe Date/Time: Oct 30 2023 2:39P Dictated by : DAVID DEVRIES MD This examination was interpreted and the report reviewed and electronically signed by: DAVID DEVRIES MD on Oct 30 2023 2:43PM EST DIVISION OF RADIOLOGY * * *Final Report* * * DATE OF EXAM: Oct 30 2023 2:33PM WOX [id number] - XR CHEST 2V FRONTAL/LAT / PROCEDURE REASON: Flu-like symptoms * * * * Physician Interpretation * * * * EXAMINATION: CHEST RADIOGRAPH (2 VIEW FRONTAL & LATERAL) CLINICAL HISTORY: Flu-like symptoms MQ: XC2_6 EXAM DATE/TIME: 10/30/2023 2:33 PM COMPARISON: Chest x-ray dated December 30, 2017 RESULT: Lines, tubes, and devices: None. Lungs and pleura: No consolidation. No lung mass. No pleural effusion. No pneumothorax. Mild elevation of the left hemidiaphragm, not substantially changed. Cardiomediastinal silhouette: Normal cardiomediastinal silhouette. Bones and soft tissues: Mild degenerative changes. DIVISION OF RADIOLOGY Provider, Samanta Caitlin [facility] - 10/30/2023 * * *Final Report* * * DATE OF EXAM: Oct 30 2023 2:33PM WOX [id number] - XR CHEST 2V FRONTAL/LAT / PROCEDURE REASON: Flu-like symptoms * * * * Physician Interpretation * * * * EXAMINATION: CHEST RADIOGRAPH (2 VIEW FRONTAL & LATERAL) CLINICAL HISTORY: Flu-like symptoms MQ: XC2_6 EXAM DATE/TIME: 10/30/2023 2:33 PM COMPARISON: Chest x-ray dated December 30, 2017 RESULT: Lines, tubes, and devices: None. Lungs and pleura: No consolidation. No lung mass. No pleural effusion. No pneumothorax. Mild elevation of the left hemidiaphragm, not substantially changed. Cardiomediastinal silhouette: Normal cardiomediastinal silhouette. Bones and soft tissues: Mild degenerative changes. IMPRESSION IMPRESSION: No acute radiographic abnormality. Meat Soaker: PSCB Transcribe Date/Time: Oct 30 2023 2:39P Dictated by : DAVID DEVRIES MD This examination was interpreted and the report reviewed and electronically signed by: DAVID DEVRIES MD on Oct 30 2023 2:43PM [facility] Radiology Study observation (narrative) Gerda an [facility] [facility] XR Chest PA and LateralOrder ed By: [facility]cf Provider on 10-30-2023 [facility] Absolute lymphocyte countOrd ered By: Thao Moulton on 10-29-2023 Lymphocytes Auto (Unsp spec) [#/Vol] 1.59 10*3/uL 0.83-4.51 [facility] Automated lymphocyte count a s percentage of total leukocytesOrdered By: Thao Moulton on 10-29-2023 Lymphocytes/100 WBC Auto (Unsp spec) 24.7 % 19-41 [facility] Basophil percentageOrdered B y: Thao Moulton on 10-29-2023 Basophils/100 WBC (Bld) 0.6 % 0-1 [facility] Bilirubin [Mass/Vol] 0.50 mg/dL 0.20-1.00 [facility] Comment on above: For patients on eltr ombopag therapy, use of Dimension [place] TBIL is not recommended. Chloride [Moles/Vol] 109 mmol/L 98-107 [facility] Eosinophils/100 WBC (Bld) 3.6 % 0-5 [facility] Glucose [Mass/Vol] 99 mg/dL 74-106 [facility] Hemoglobin (Bld) [Mass/Vol] 14.2 g/dL 13.0-16.5 [facility] Monocytes/100 WBC (Bld) 8.1 % 0-10 [facility] Neutrophils (Bld) [#/Vol] 4.0 10*3/uL 2.0-7.7 [facility] Neutrophils/100 WBC (Bld) 62.7 % 47-70 [facility] Potassium [Moles/Vol] 3.6 mmol/L 3.5-5.1 [facility] Protein [Mass/Vol] 7.0 g/dL 6.4-8.2 [facility] Sodium [Moles/Vol] 141 mmol/L 136-145 [facility] WBC (Bld) [#/Vol] 6.4 10*3/uL 4.4-11.0 [facility] Determination of erythrocyte mean corpuscular volume (MCV)Ordered By: Thao Moulton on 10-29-2023 MCV (RBC) [Entitic vol] 88.9 fL 80-94 [facility] Erythrocyte distribution wid th ratioOrdered By: Thao Moulton on 10-29-2023 Erythrocyte distribution width (RBC) [Ratio] 12.5 % 11.6-14.6 [facility] Erythrocyte distribution wid th standard deviationOrdered By: Thao Moulton on 10-29-2023 Erythrocyte distribution width (RBC) [Entitic vol] 39.9 fL 35.1-43.9 [facility] Hematocrit Auto (Bld) [Volum e fraction]Ordered By: Thao Moulton on 10-29-2023 Hematocrit (Bld) [Volume fraction] 41.7 % 40-54 [facility] Immature granulocytes/100 WB C Auto (Bld)Ordered By: Thaoliset Moulton on 10-29-2023 Immature granulocytes/100 WBC (Bld) 0.300 % 0.0-0.9 [facility] Comment on above: IG% - Immature Granu locytes (promyelocytes, myelocytes and metamyelocytes) > 1% indicates that a LEFT SHIFT is Present. Laboratory - Chemistry and C hemistry - challengeOrdered By: [facility] Kenney on 10-29-2023 Albumin/Globulin [Mass ratio] 1.1 {ratio} 0.9-2.4 [facility] ALP [Catalytic activity/Vol] 78 U/L 45-117 [facility] ALT [Catalytic activity/Vol] 30 U/L 16-61 [facility] CO2 [Moles/Vol] 27.0 mmol/L 21.0-32.0 [facility] Globulin (S) [Mass/Vol] 3.4 g/dL 2.2-4.2 [facility] Urea nitrogen/Creatinine [Mass ratio] 26.5 mg/mg 10-20 [facility] Laboratory - Hematology and Cell countsOrdered By: Thaoliset Moulton on 10-29-2023 MCH (RBC) [Entitic mass] 30.3 pg 27.0-32.0 [facility] MCHC (RBC) [Mass/Vol] 34.1 g/dL 32-36 [facility] Nucleated RBC/100 WBC (Bld) [Ratio] 0 % 0-5 [facility] Platelet mean volume (Bld) [Entitic vol] 9.9 fL 6.2-12.0 [facility] Platelets (Bld) [#/Vol] 248 10*3/uL 150-450 [facility] No Panel InformationOrdered By: Thao Moulton on 10-29-2023 Estimated GFR (MDRD) Amer 110 mL/min >60 [facility] Comment on above: GFR Calc Estimated GFR (MDRD) Non-Af Amer 91 mL/min >60 [facility] Comment on above: Non- GFR Calc RBC Auto (Bld) [#/Vol]Ordere d By: Thao Moulton on 10-29-2023 RBC (Bld) [#/Vol] 4.69 10*6/uL 4.6-6.2 [facility] Serum or plasma calcium luzma urement (mass/volume)Ordered By: Thao Moulton on 10-29-2023 Calcium [Mass/Vol] 8.9 mg/dL 8.5-10.1 [facility] Serum or plasma creatinine m easurement (mass/volume)Ordered By: Thao Moulton on 10-29-2023 Creatinine [Mass/Vol] 0.90 mg/dL 0.70-1.30 [facility] Comment on above: The validity of the calculated GFR & GFRAA in patients over 70 years has not been determined. Clinical correlation is essential. Serum or plasma urea nitroge n measurement (mass/volume)Ordered By: Thao Moulton on 10-29-2023 Urea nitrogen [Mass/Vol] 24 mg/dL 7-18 [facility] Thin prep Papanicolaou smear with manual screeningOrdered By: Thao Moulton on 10-29-2023 Thin prep Papanicolaou smear with manual screening 3.6 g/dL 3.2-5.0 [facility] Thin prep Papanicolaou smear with manual screening 21 U/L 15-37 [facility] Thin prep Papanicolaou smear with manual screening 5 5-15 [facility] Absolute lymphocyte countOrd ered By: Thao Moulton on 07-30-2023 Lymphocytes Auto (Unsp spec) [#/Vol] 1.83 10*3/uL 0.83-4.51 [facility] Basophil percentageOrdered B y: Thao Moulton on 07-30-2023 Basophils/100 WBC (Bld) 0.9 % 0-1 [facility] Bilirubin [Mass/Vol] 0.30 mg/dL 0.20-1.00 [facility] Comment on above: For patients on eltr ombopag therapy, use of Dimension [place] TBIL is not recommended. Chloride [Moles/Vol] 108 mmol/L 98-107 [facility] Eosinophils/100 WBC (Bld) 5.2 % 0-5 [facility] Glucose [Mass/Vol] 91 mg/dL 74-106 [facility] Neutrophils (Bld) [#/Vol] 2.7 10*3/uL 2.0-7.7 [facility] Neutrophils/100 WBC (Bld) 49.7 % 47-70 [facility] Potassium [Moles/Vol] 3.7 mmol/L 3.5-5.1 [facility] Protein [Mass/Vol] 7.2 g/dL 6.4-8.2 [facility] Sodium [Moles/Vol] 142 mmol/L 136-145 [facility] WBC (Bld) [#/Vol] 5.4 10*3/uL 4.4-11.0 [facility] Blood erythrocytes count (nu mber/volume)Ordered By: Thao Moulton on 07-30-2023 RBC (Bld) [#/Vol] 4.75 10*6/uL 4.6-6.2 [facility] Blood hemoglobin measurement (mass/volume)Ordered By: Thao Moulton on 07-30-2023 Hemoglobin (Bld) [Mass/Vol] 14.0 g/dL 13.0-16.5 [facility] Blood lymphocytes/100 leukoc ytesOrdered By: Thao Moulton on 07-30-2023 Lymphocytes/100 WBC (Bld) 34.1 % 19-41 [facility] Blood monocytes/100 leukocyt esOrdered By: Thao Moulton on 07-30-2023 Monocytes/100 WBC (Bld) 9.9 % 0-10 [facility] Blood platelet mean volumeOr dered By: Thao Moulton on 07-30-2023 Platelet mean volume (Bld) [Entitic vol] 9.4 fL 6.2-12.0 [facility] Determination of erythrocyte mean corpuscular volume (MCV)Ordered By: Thao Moulton on 07-30-2023 MCV (RBC) [Entitic vol] 90.3 fL 80-94 [facility] Hematocrit Auto (Bld) [Volum e fraction]Ordered By: Thao Moulton on 07-30-2023 Hematocrit (Bld) [Volume fraction] 42.9 % 40-54 [facility] Laboratory - Chemistry and C hemistry - challengeOrdered By: Thao Moulton on 07-30-2023 ALP [Catalytic activity/Vol] 84 U/L 45-117 [facility] ALT [Catalytic activity/Vol] 28 U/L 16-61 [facility] CO2 [Moles/Vol] 28.0 mmol/L 21.0-32.0 [facility] Globulin (S) [Mass/Vol] 3.7 g/dL 2.2-4.2 [facility] Urea nitrogen/Creatinine [Mass ratio] 17.2 mg/mg 10-20 [facility] Laboratory - Hematology and Cell countsOrdered By: Thao Moulton on 07-30-2023 Erythrocyte distribution width (RBC) [Entitic vol] 41.8 fL 35.1-43.9 [facility] Erythrocyte distribution width (RBC) [Ratio] 12.7 % 11.6-14.6 [facility] Immature granulocytes/100 WBC (Bld) 0.200 % 0.0-0.9 [facility] Comment on above: IG% - Immature Granu locytes (promyelocytes, myelocytes and metamyelocytes) > 1% indicates that a LEFT SHIFT is Present. MCH (RBC) [Entitic mass] 29.5 pg 27.0-32.0 [facility] Nucleated RBC/100 WBC (Bld) [Ratio] 0 % 0-5 [facility] MCHC Auto (RBC) [Mass/Vol]Or dered By: Thao Moulton on 07-30-2023 MCHC (RBC) [Mass/Vol] 32.6 g/dL 32-36 [facility] No Panel InformationOrdered By: Thao Moulton on 07-30-2023 Estimated GFR (MDRD) Amer 78 mL/min >60 [facility] Comment on above: GFR Calc Estimated GFR (MDRD) Non-Af Amer 65 mL/min >60 [facility] Comment on above: Non- GFR Calc Platelets bldOrdered By: Agapito Moulton on 07-30-2023 Platelets (Bld) [#/Vol] 269 10*3/uL 150-450 [facility] Serum or plasma albumin luzma urement (mass/volume)Ordered By: Thao Moulton on 07-30-2023 Albumin [Mass/Vol] 3.5 g/dL 3.2-5.0 [facility] Serum or plasma albumin/glob ulin mass ratioOrdered By: Thao Moulton on 07-30-2023 Albumin/Globulin [Mass ratio] 0.9 {ratio} 0.9-2.4 [facility] Serum or plasma calcium luzma urement (mass/volume)Ordered By: Thao Moulton on 07-30-2023 Calcium [Mass/Vol] 8.3 mg/dL 8.5-10.1 [facility] Serum or plasma creatinine m easurement (mass/volume)Ordered By: Thao Moulton on 07-30-2023 Creatinine [Mass/Vol] 1.22 mg/dL 0.70-1.30 [facility] Comment on above: The validity of the calculated GFR & GFRAA in patients over 70 years has not been determined. Clinical correlation is essential. Serum or plasma urea nitroge n measurement (mass/volume)Ordered By: Thao Moulton on 07-30-2023 Urea nitrogen [Mass/Vol] 21 mg/dL 7-18 [facility] Thin prep Papanicolaou smear with manual screeningOrdered By: Thao Moulton on 07-30-2023 Thin prep Papanicolaou smear with manual screening 17 U/L 15-37 [facility] Thin prep Papanicolaou smear with manual screening 6 5-15 [facility] Absolute lymphocyte countOrd ered By: Thao Moulton on 05-02-2023 Lymphocytes Auto (Unsp spec) [#/Vol] 2.05 10*3/uL 0.83-4.51 [facility] Basophil percentageOrdered B y: Thao Moulton on 05-02-2023 Basophils/100 WBC (Bld) 0.5 % 0-1 [facility] Bilirubin [Mass/Vol] 0.40 mg/dL 0.20-1.00 [facility] Comment on above: For patients on eltr ombopag therapy, use of Dimension [place] TBIL is not recommended. Chloride [Moles/Vol] 104 mmol/L 98-107 [facility] Eosinophils/100 WBC (Bld) 4.3 % 0-5 [facility] Glucose [Mass/Vol] 91 mg/dL 74-106 [facility] Neutrophils (Bld) [#/Vol] 3.3 10*3/uL 2.0-7.7 [facility] Neutrophils/100 WBC (Bld) 51.5 % 47-70 [facility] Potassium [Moles/Vol] 4.0 mmol/L 3.5-5.1 [facility] Protein [Mass/Vol] 7.2 g/dL 6.4-8.2 [facility] Sodium [Moles/Vol] 137 mmol/L 136-145 [facility] WBC (Bld) [#/Vol] 6.3 10*3/uL 4.4-11.0 [facility] Blood erythrocytes count (nu mber/volume)Ordered By: Thao Moulton on 05-02-2023 RBC (Bld) [#/Vol] 4.95 10*6/uL 4.6-6.2 [facility] Blood hemoglobin measurement (mass/volume)Ordered By: Thao Moulton on 05-02-2023 Hemoglobin (Bld) [Mass/Vol] 14.6 g/dL 13.0-16.5 [facility] Blood lymphocytes/100 leukoc ytesOrdered By: Thao Moulton on 05-02-2023 Lymphocytes/100 WBC (Bld) 32.5 % 19-41 [facility] Blood monocytes/100 leukocyt esOrdered By: Thao Moulton on 05-02-2023 Monocytes/100 WBC (Bld) 11.0 % 0-10 [facility] Blood platelet mean volumeOr dered By: Thao Moulton on 05-02-2023 Platelet mean volume (Bld) [Entitic vol] 9.6 fL 6.2-12.0 [facility] Determination of erythrocyte mean corpuscular volume (MCV)Ordered By: Thao Moulton on 05-02-2023 MCV (RBC) [Entitic vol] 87.7 fL 80-94 [facility] Hematocrit Auto (Bld) [Volum e fraction]Ordered By: Thao Moulton on 05-02-2023 Hematocrit (Bld) [Volume fraction] 43.4 % 40-54 [facility] Laboratory - Chemistry and C hemistry - challengeOrdered By: Thao Moulton on 05-02-2023 ALP [Catalytic activity/Vol] 84 U/L 45-117 [facility] ALT [Catalytic activity/Vol] 30 U/L 16-61 [facility] CO2 [Moles/Vol] 27.0 mmol/L 21.0-32.0 [facility] Globulin (S) [Mass/Vol] 3.5 g/dL 2.2-4.2 [facility] Urea nitrogen/Creatinine [Mass ratio] 30.8 mg/mg 10-20 [facility] Laboratory - Hematology and Cell countsOrdered By: Thao Moulton on 05-02-2023 Erythrocyte distribution width (RBC) [Entitic vol] 39.5 fL 35.1-43.9 [facility] Erythrocyte distribution width (RBC) [Ratio] 12.4 % 11.6-14.6 [facility] Immature granulocytes/100 WBC (Bld) 0.200 % 0.0-0.9 [facility] Comment on above: IG% - Immature Granu locytes (promyelocytes, myelocytes and metamyelocytes) > 1% indicates that a LEFT SHIFT is Present. MCH (RBC) [Entitic mass] 29.5 pg 27.0-32.0 [facility] Nucleated RBC/100 WBC (Bld) [Ratio] 0 % 0-5 [facility] MCHC Auto (RBC) [Mass/Vol]Or dered By: Thao Moulton on 05-02-2023 MCHC (RBC) [Mass/Vol] 33.6 g/dL 32-36 [facility] No Panel InformationOrdered By: Thao Moulton on 05-02-2023 Estimated GFR (MDRD) Amer 114 mL/min >60 [facility] Comment on above: GFR Calc Estimated GFR (MDRD) Non-Af Amer 94 mL/min >60 [facility] Comment on above: Non- GFR Calc Platelets bldOrdered By: Agapito Moulton on 05-02-2023 Platelets (Bld) [#/Vol] 232 10*3/uL 150-450 [facility] Serum or plasma albumin luzma urement (mass/volume)Ordered By: Thao Moulton on 05-02-2023 Albumin [Mass/Vol] 3.7 g/dL 3.2-5.0 [facility] Serum or plasma albumin/glob ulin mass ratioOrdered By: Thao Moulton on 05-02-2023 Albumin/Globulin [Mass ratio] 1.1 {ratio} 0.9-2.4 [facility] Serum or plasma calcium luzma urement (mass/volume)Ordered By: Thao Moulton on 05-02-2023 Calcium [Mass/Vol] 8.9 mg/dL 8.5-10.1 [facility] Serum or plasma creatinine m easurement (mass/volume)Ordered By: Thao Moulton on 05-02-2023 Creatinine [Mass/Vol] 0.88 mg/dL 0.70-1.30 [facility] Comment on above: The validity of the calculated GFR & GFRAA in patients over 70 years has not been determined. Clinical correlation is essential. Serum or plasma urea nitroge n measurement (mass/volume)Ordered By: Thao Moulton on 05-02-2023 Urea nitrogen [Mass/Vol] 27 mg/dL 7-18 [facility] Thin prep Papanicolaou smear with manual screeningOrdered By: Thao Moulton on 05-02-2023 Thin prep Papanicolaou smear with manual screening 19 U/L 15-37 [facility] Thin prep Papanicolaou smear with manual screening 6 5-15 [facility] Absolute lymphocyte countOrd ered By: Dr. Mon on 02-09-2023 Lymphocytes Auto (Unsp spec) [#/Vol] 2.09 10*3/uL 0.83-4.51 [facility] Basophil percentageOrdered B y: Dr. Mon on 02-09-2023 Basophils/100 WBC (Bld) 0.6 % 0-1 [facility] Bilirubin [Mass/Vol] 0.70 mg/dL 0.20-1.00 [facility] Comment on above: For patients on eltr ombopag therapy, use of Dimension [place] TBIL is not recommended. Chloride [Moles/Vol] 103 mmol/L 98-107 [facility] Cholesterol [Mass/Vol] 193 mg/dL <200 [facility] Comment on above: <200 mg/dL Desirable 200-240 mg/dL Borderline >240 mg/dL High Risk Eosinophils/100 WBC (Bld) 4.2 % 0-5 [facility] Glucose [Mass/Vol] 89 mg/dL 74-106 [facility] Neutrophils (Bld) [#/Vol] 2.5 10*3/uL 2.0-7.7 [facility] Neutrophils/100 WBC (Bld) 46.9 % 47-70 [facility] Potassium [Moles/Vol] 3.7 mmol/L 3.5-5.1 [facility] Protein [Mass/Vol] 7.5 g/dL 6.4-8.2 [facility] Sodium [Moles/Vol] 138 mmol/L 136-145 [facility] Triglyceride [Mass/Vol] 47 mg/dL <199 [facility] Comment on above: The drugs N-Acetylcy steine and Metamizole may falsely depress this assay.Serum Triglycerides Reference Interval Normal <150 mg/dL Borderline high 150 - 199 mg/dL High 200 - 499 mg/dL Very High > or = 500 mg/dL WBC (Bld) [#/Vol] 5.3 10*3/uL 4.4-11.0 [facility] Blood erythrocytes count (nu mber/volume)Ordered By: Dr. Mon on 02-09-2023 RBC (Bld) [#/Vol] 5.22 10*6/uL 4.6-6.2 [facility] Blood hemoglobin measurement (mass/volume)Ordered By: Dr. Mon on 02-09-2023 Hemoglobin (Bld) [Mass/Vol] 15.4 g/dL 13.0-16.5 [facility] Blood lymphocytes/100 leukoc ytesOrdered By: Dr. Mon on 02-09-2023 Lymphocytes/100 WBC (Bld) 39.7 % 19-41 [facility] Blood monocytes/100 leukocyt esOrdered By: Dr. Mon on 02-09-2023 Monocytes/100 WBC (Bld) 8.4 % 0-10 [facility] Blood platelet mean volumeOr dered By: Dr. Mon on 02-09-2023 Platelet mean volume (Bld) [Entitic vol] 9.5 fL 6.2-12.0 [facility] Determination of erythrocyte mean corpuscular volume (MCV)Ordered By: Dr. Mon on 02-09-2023 MCV (RBC) [Entitic vol] 88.5 fL 80-94 [facility] Hematocrit Auto (Bld) [Volum e fraction]Ordered By: Dr. Mon on 02-09-2023 Hematocrit (Bld) [Volume fraction] 46.2 % 40-54 [facility] Laboratory - Chemistry and C hemistry - challengeOrdered By: Dr. Mon on 02-09-2023 ALP [Catalytic activity/Vol] 80 U/L 45-117 [facility] ALT [Catalytic activity/Vol] 21 U/L 16-61 [facility] CO2 [Moles/Vol] 29.0 mmol/L 21.0-32.0 [facility] Globulin (S) [Mass/Vol] 3.9 g/dL 2.2-4.2 [facility] Urea nitrogen/Creatinine [Mass ratio] 22.4 mg/mg 10-20 [facility] Laboratory - Hematology and Cell countsOrdered By: Dr. Mon on 02-09-2023 Erythrocyte distribution width (RBC) [Entitic vol] 40.3 fL 35.1-43.9 [facility] Erythrocyte distribution width (RBC) [Ratio] 12.4 % 11.6-14.6 [facility] Immature granulocytes/100 WBC (Bld) 0.200 % 0.0-0.9 [facility] Comment on above: IG% - Immature Granu locytes (promyelocytes, myelocytes and metamyelocytes) > 1% indicates that a LEFT SHIFT is Present. MCH (RBC) [Entitic mass] 29.5 pg 27.0-32.0 [facility] Nucleated RBC/100 WBC (Bld) [Ratio] 0 % 0-5 [facility] MCHC Auto (RBC) [Mass/Vol]Or dered By: Dr. Mon on 02-09-2023 MCHC (RBC) [Mass/Vol] 33.3 g/dL 32-36 [facility] No Panel InformationOrdered By: Dr. Mon on 02-09-2023 Estimated GFR (MDRD) Amer 127 mL/min >60 [facility] Comment on above: GFR Calc Estimated GFR (MDRD) Non-Af Amer 105 mL/min >60 [facility] Comment on above: Non- GFR Calc Prostate Specific Antigen Screen 0.71 ng/mL 0.00-4.00 [facility] Comment on above: This test was perfor med using the TPSA assay method for [email or web address] chemistry system. Values obtained with differentassay methods cannot be used interchangably.When changing PSA assays in the course of monitoring apatient, additional sequential testing should be carriedout to confirm baseline values. Platelets bldOrdered By: Dr. Mon on 02-09-2023 Platelets (Bld) [#/Vol] 255 10*3/uL 150-450 [facility] Serum or plasma albumin luzma urement (mass/volume)Ordered By: Dr. Mon on 02-09-2023 Albumin [Mass/Vol] 3.6 g/dL 3.2-5.0 [facility] Serum or plasma albumin/glob ulin mass ratioOrdered By: Dr. Mon on 02-09-2023 Albumin/Globulin [Mass ratio] 0.9 {ratio} 0.9-2.4 [facility] Serum or plasma calcium luzma urement (mass/volume)Ordered By: Dr. Mon on 02-09-2023 Calcium [Mass/Vol] 9.1 mg/dL 8.5-10.1 [facility] Serum or plasma cholesterol in HDL measurement (mass/volume)Ordered By: Dr. Mon on 02-09-2023 Cholesterol in HDL [Mass/Vol] 72 mg/dL >40 [facility] Comment on above: The drugs N-Acetylcy steine and Metamizole may falsely depress this assay. Reference Range HDL <40 mg/dL Low HDL Cholesterol HDL >or= 60 mg/dL High HDL Cholesterol Serum or plasma cholesterol in VLDL measurement (mass/volume)Ordered By: Dr. Mon on 02-09-2023 Cholesterol in VLDL [Mass/Vol] 9 mg/dL 5-40 [facility] Serum or plasma creatinine m easurement (mass/volume)Ordered By: Dr. Mon on 02-09-2023 Creatinine [Mass/Vol] 0.80 mg/dL 0.70-1.30 [facility] Comment on above: The validity of the calculated GFR & GFRAA in patients over 70 years has not been determined. Clinical correlation is essential. Serum or plasma low density lipoprotein (LDL) cholesterol measurement (mass/volume)Ordered By: Dr. Mon on 02-09-2023 Cholesterol in LDL [Mass/Vol] 112 mg/dL 0-130 [facility] Serum or plasma urea nitroge n measurement (mass/volume)Ordered By: Dr. Mon on 02-09-2023 Urea nitrogen [Mass/Vol] 18 mg/dL 7-18 [facility] Thin prep Papanicolaou smear with manual screeningOrdered By: Dr. Mon on 02-09-2023 Thin prep Papanicolaou smear with manual screening 19 U/L 15-37 [facility] Thin prep Papanicolaou smear with manual screening 6 5-15 [facility] Absolute lymphocyte countOrd ered By: Dr. Mon on 11-22-2022 Lymphocytes Auto (Unsp spec) [#/Vol] 1.99 10*3/uL 0.83-4.51 [facility] Basophil percentageOrdered B y: Dr. Mon on 11-22-2022 Basophils/100 WBC (Bld) 0.7 % 0-1 [facility] Eosinophils/100 WBC (Bld) 3.5 % 0-5 [facility] Neutrophils (Bld) [#/Vol] 4.4 10*3/uL 2.0-7.7 [facility] Neutrophils/100 WBC (Bld) 60.9 % 47-70 [facility] WBC (Bld) [#/Vol] 7.2 10*3/uL 4.4-11.0 [facility] Blood erythrocytes count (nu mber/volume)Ordered By: Dr. Mon on 11-22-2022 RBC (Bld) [#/Vol] 4.97 10*6/uL 4.6-6.2 [facility] Blood hemoglobin measurement (mass/volume)Ordered By: Dr. Mon on 11-22-2022 Hemoglobin (Bld) [Mass/Vol] 14.7 g/dL 13.0-16.5 [facility] Blood lymphocytes/100 leukoc ytesOrdered By: Dr. Mon on 11-22-2022 Lymphocytes/100 WBC (Bld) 27.8 % 19-41 [facility] Blood monocytes/100 leukocyt esOrdered By: Dr. Mon on 11-22-2022 Monocytes/100 WBC (Bld) 7.0 % 0-10 [facility] Blood platelet mean volumeOr dered By: Dr. Mon on 11-22-2022 Platelet mean volume (Bld) [Entitic vol] 10.3 fL 6.2-12.0 [facility] Determination of erythrocyte mean corpuscular volume (MCV)Ordered By: Dr. Mon on 11-22-2022 MCV (RBC) [Entitic vol] 89.3 fL 80-94 [facility] Erythrocyte sedimentation ra teOrdered By: Dr. Mon on 11-22-2022 ESR (Bld) [Velocity] 8 mm/h 0-20 [facility] Hematocrit Auto (Bld) [Volum e fraction]Ordered By: Dr. Mon on 11-22-2022 Hematocrit (Bld) [Volume fraction] 44.4 % 40-54 [facility] Laboratory - Hematology and Cell countsOrdered By: Dr. Mon on 11-22-2022 Erythrocyte distribution width (RBC) [Entitic vol] 40.7 fL 35.1-43.9 [facility] Erythrocyte distribution width (RBC) [Ratio] 12.5 % 11.6-14.6 [facility] Immature granulocytes/100 WBC (Bld) 0.100 % 0.0-0.9 [facility] Comment on above: IG% - Immature Granu locytes (promyelocytes, myelocytes and metamyelocytes) > 1% indicates that a LEFT SHIFT is Present. MCH (RBC) [Entitic mass] 29.6 pg 27.0-32.0 [facility] Nucleated RBC/100 WBC (Bld) [Ratio] 0 % 0-5 [facility] MCHC Auto (RBC) [Mass/Vol]Or dered By: Dr. Mon on 11-22-2022 MCHC (RBC) [Mass/Vol] 33.1 g/dL 32-36 [facility] Platelets bldOrdered By: Dr. Mon on 11-22-2022 Platelets (Bld) [#/Vol] 252 10*3/uL 150-450 [facility] Serum or plasma C reactive p rotein measurement (mass/volume)Ordered By: Dr. Mon on 11-22-2022 CRP [Mass/Vol] mg/L 0.0-3.0 [facility] Comment on above: C-Reactive Protein ( CRP) provides useful information for thediagnosis, therapy and monitoring of inflammatory processesand associated diseases. For the evaluation of Relative Riskfor Cardiovascular Disease, a High Sensitivity CRP (HSCRP)should be ordered. Absolute lymphocyte countOrd ered By: Dr. Moulton on 11-02-2022 Lymphocytes Auto (Unsp spec) [#/Vol] 2.31 10*3/uL 0.83-4.51 [facility] Basophil percentageOrdered B y: Dr. Moulton on 11-02-2022 Basophils/100 WBC (Bld) 0.6 % 0-1 [facility] Bilirubin [Mass/Vol] 0.40 mg/dL 0.20-1.00 [facility] Comment on above: For patients on eltr ombopag therapy, use of Dimension [place] TBIL is not recommended. Chloride [Moles/Vol] 102 mmol/L 98-107 [facility] Eosinophils/100 WBC (Bld) 3.6 % 0-5 [facility] Glucose [Mass/Vol] 88 mg/dL 74-106 [facility] Neutrophils (Bld) [#/Vol] 3.4 10*3/uL 2.0-7.7 [facility] Neutrophils/100 WBC (Bld) 51.5 % 47-70 [facility] Potassium [Moles/Vol] 3.8 mmol/L 3.5-5.1 [facility] Protein [Mass/Vol] 7.3 g/dL 6.4-8.2 [facility] Sodium [Moles/Vol] 139 mmol/L 136-145 [facility] WBC (Bld) [#/Vol] 6.6 10*3/uL 4.4-11.0 [facility] Blood erythrocytes count (nu mber/volume)Ordered By: Dr. Moulton on 11-02-2022 RBC (Bld) [#/Vol] 5.12 10*6/uL 4.6-6.2 [facility] Blood hemoglobin measurement (mass/volume)Ordered By: Dr. Moulton on 11-02-2022 Hemoglobin (Bld) [Mass/Vol] 15.3 g/dL 13.0-16.5 [facility] Blood lymphocytes/100 leukoc ytesOrdered By: Dr. Moulton on 11-02-2022 Lymphocytes/100 WBC (Bld) 34.9 % 19-41 [facility] Blood monocytes/100 leukocyt esOrdered By: Dr. Moulton on 11-02-2022 Monocytes/100 WBC (Bld) 9.2 % 0-10 [facility] Blood platelet mean volumeOr dered By: Dr. Moulton on 11-02-2022 Platelet mean volume (Bld) [Entitic vol] 9.9 fL 6.2-12.0 [facility] Determination of erythrocyte mean corpuscular volume (MCV)Ordered By: Dr. Moulton on 11-02-2022 MCV (RBC) [Entitic vol] 88.1 fL 80-94 [facility] Hematocrit Auto (Bld) [Volum e fraction]Ordered By: Dr. Moulton on 11-02-2022 Hematocrit (Bld) [Volume fraction] 45.1 % 40-54 [facility] Laboratory - Chemistry and C hemistry - challengeOrdered By: Dr. Moulton on 11-02-2022 ALP [Catalytic activity/Vol] 80 U/L 45-117 [facility] ALT [Catalytic activity/Vol] 25 U/L 16-61 [facility] CO2 [Moles/Vol] 30.0 mmol/L 21.0-32.0 [facility] Globulin (S) [Mass/Vol] 3.5 g/dL 2.2-4.2 [facility] Urea nitrogen/Creatinine [Mass ratio] 26.4 mg/mg 10-20 [facility] Laboratory - Hematology and Cell countsOrdered By: Dr. Moulton on 11-02-2022 Erythrocyte distribution width (RBC) [Entitic vol] 39.7 fL 35.1-43.9 [facility] Erythrocyte distribution width (RBC) [Ratio] 12.4 % 11.6-14.6 [facility] Immature granulocytes/100 WBC (Bld) 0.200 % 0.0-0.9 [facility] Comment on above: IG% - Immature Granu locytes (promyelocytes, myelocytes and metamyelocytes) > 1% indicates that a LEFT SHIFT is Present. MCH (RBC) [Entitic mass] 29.9 pg 27.0-32.0 [facility] Nucleated RBC/100 WBC (Bld) [Ratio] 0 % 0-5 [facility] MCHC Auto (RBC) [Mass/Vol]Or dered By: Dr. Moulton on 11-02-2022 MCHC (RBC) [Mass/Vol] 33.9 g/dL 32-36 [facility] No Panel InformationOrdered By: Dr. Moulton on 11-02-2022 Estimated GFR (MDRD) Amer 122 mL/min >60 [facility] Comment on above: GFR Calc Estimated GFR (MDRD) Non-Af Amer 101 mL/min >60 [facility] Comment on above: Non- GFR Calc Platelets bldOrdered By: Dr. Moulton on 11-02-2022 Platelets (Bld) [#/Vol] 222 10*3/uL 150-450 [facility] Serum or plasma albumin luzma urement (mass/volume)Ordered By: Dr. Moulton on 11-02-2022 Albumin [Mass/Vol] 3.8 g/dL 3.2-5.0 [facility] Serum or plasma albumin/glob ulin mass ratioOrdered By: Dr. Moulton on 11-02-2022 Albumin/Globulin [Mass ratio] 1.1 {ratio} 0.9-2.4 [facility] Serum or plasma calcium luzma urement (mass/volume)Ordered By: Dr. Moulton on 11-02-2022 Calcium [Mass/Vol] 9.5 mg/dL 8.5-10.1 [facility] Serum or plasma creatinine m easurement (mass/volume)Ordered By: Dr. Moulton on 11-02-2022 Creatinine [Mass/Vol] 0.83 mg/dL 0.70-1.30 [facility] Comment on above: The validity of the calculated GFR & GFRAA in patients over 70 years has not been determined. Clinical correlation is essential. Serum or plasma urea nitroge n measurement (mass/volume)Ordered By: Dr. Moulton on 11-02-2022 Urea nitrogen [Mass/Vol] 22 mg/dL 7-18 [facility] Thin prep Papanicolaou smear with manual screeningOrdered By: Dr. Moulton on 11-02-2022 Thin prep Papanicolaou smear with manual screening 17 U/L 15-37 [facility] Thin prep Papanicolaou smear with manual screening 7 5-15 [facility] Basophil percentageOrdered B y: Dr. Werner on 10-13-2022 Chloride [Moles/Vol] 103 mmol/L 98-107 [facility] Glucose [Mass/Vol] 113 mg/dL 74-106 [facility] Comment on above: Fasting Glucose resu lt from 100 to 125 mg/dL suggests IMPAIRED HOMEOSTASIS per A.D.A. criteria. Potassium [Moles/Vol] 3.8 mmol/L 3.5-5.1 [facility] Sodium [Moles/Vol] 139 mmol/L 136-145 [facility] Laboratory - Chemistry and C hemistry - challengeOrdered By: Dr. Werner on 10-13-2022 CO2 [Moles/Vol] 27.0 mmol/L 21.0-32.0 [facility] Urea nitrogen/Creatinine [Mass ratio] 25.2 mg/mg 10-20 [facility] No Panel InformationOrdered By: Dr. Werner on 10-13-2022 Estimated Creatinine Clearance Calc 92.11 ml/min [facility] Estimated GFR (MDRD) Amer 109 mL/min >60 [facility] Comment on above: GFR Calc Estimated GFR (MDRD) Non-Af Amer 90 mL/min >60 [facility] Comment on above: Non- GFR Calc Thyroid Stimulating Hormone (TSH) 1.88 uIU/mL 0.358-3.74 [facility] Serum or plasma calcium luzma urement (mass/volume)Ordered By: Dr. Werner on 10-13-2022 Calcium [Mass/Vol] 9.2 mg/dL 8.5-10.1 [facility] Serum or plasma creatinine m easurement (mass/volume)Ordered By: Dr. Werner on 10-13-2022 Creatinine [Mass/Vol] 0.91 mg/dL 0.70-1.30 [facility] Comment on above: The validity of the calculated GFR & GFRAA in patients over 70 years has not been determined. Clinical correlation is essential. Serum or plasma urea nitroge n measurement (mass/volume)Ordered By: Dr. Werner on 10-13-2022 Urea nitrogen [Mass/Vol] 23 mg/dL 7-18 [facility] Thin prep Papanicolaou smear with manual screeningOrdered By: Dr. Werner on 10-13-2022 Thin prep Papanicolaou smear with manual screening 9 5-15 [facility] Absolute lymphocyte countOrd ered By: Dr. Moulton on 08-14-2022 Lymphocytes Auto (Unsp spec) [#/Vol] 1.88 10*3/uL 0.83-4.51 [facility] Basophil percentageOrdered B y: Dr. Moulton on 08-14-2022 Basophils/100 WBC (Bld) 0.6 % 0-1 [facility] Bilirubin [Mass/Vol] 0.40 mg/dL 0.20-1.00 [facility] Comment on above: For patients on eltr ombopag therapy, use of Dim[place] TBIL is not recommended. Chloride [Moles/Vol] 104 mmol/L 98-107 [facility] Eosinophils/100 WBC (Bld) 3.2 % 0-5 [facility] Glucose [Mass/Vol] 90 mg/dL 74-106 [facility] Neutrophils (Bld) [#/Vol] 5.2 10*3/uL 2.0-7.7 [facility] Neutrophils/100 WBC (Bld) 65.3 % 47-70 [facility] Potassium [Moles/Vol] 4.1 mmol/L 3.5-5.1 [facility] Protein [Mass/Vol] 7.1 g/dL 6.4-8.2 [facility] Sodium [Moles/Vol] 140 mmol/L 136-145 [facility] WBC (Bld) [#/Vol] 7.9 10*3/uL 4.4-11.0 [facility] Blood erythrocytes count (nu mber/volume)Ordered By: Dr. Moulton on 08-14-2022 RBC (Bld) [#/Vol] 4.93 10*6/uL 4.6-6.2 [facility] Blood hemoglobin measurement (mass/volume)Ordered By: Dr. Moulton on 08-14-2022 Hemoglobin (Bld) [Mass/Vol] 14.8 g/dL 13.0-16.5 [facility] Blood lymphocytes/100 leukoc ytesOrdered By: Dr. Moutlon on 08-14-2022 Lymphocytes/100 WBC (Bld) 23.9 % 19-41 [facility] Blood monocytes/100 leukocyt esOrdered By: Dr. Moulton on 08-14-2022 Monocytes/100 WBC (Bld) 6.9 % 0-10 [facility] Blood platelet mean volumeOr dered By: Dr. Moulton on 08-14-2022 Platelet mean volume (Bld) [Entitic vol] 9.4 fL 6.2-12.0 [facility] Determination of erythrocyte mean corpuscular volume (MCV)Ordered By: Dr. Moulton on 08-14-2022 MCV (RBC) [Entitic vol] 87.6 fL 80-94 [facility] Hematocrit Auto (Bld) [Volum e fraction]Ordered By: Dr. Moulton on 08-14-2022 Hematocrit (Bld) [Volume fraction] 43.2 % 40-54 [facility] Laboratory - Chemistry and C hemistry - challengeOrdered By: Dr. Moulton on 08-14-2022 ALP [Catalytic activity/Vol] 81 U/L 45-117 [facility] ALT [Catalytic activity/Vol] 27 U/L 16-61 [facility] CO2 [Moles/Vol] 30.0 mmol/L 21.0-32.0 [facility] Globulin (S) [Mass/Vol] 3.3 g/dL 2.2-4.2 [facility] Urea nitrogen/Creatinine [Mass ratio] 26.3 mg/mg 10-20 [facility] Laboratory - Hematology and Cell countsOrdered By: Dr. Moulton on 08-14-2022 Erythrocyte distribution width (RBC) [Entitic vol] 39.7 fL 35.1-43.9 [facility] Erythrocyte distribution width (RBC) [Ratio] 12.4 % 11.6-14.6 [facility] Immature granulocytes/100 WBC (Bld) 0.100 % 0.0-0.9 [facility] Comment on above: IG% - Immature Granu locytes (promyelocytes, myelocytes and metamyelocytes) > 1% indicates that a LEFT SHIFT is Present. MCH (RBC) [Entitic mass] 30.0 pg 27.0-32.0 [facility] Nucleated RBC/100 WBC (Bld) [Ratio] 0 % 0-5 [facility] MCHC Auto (RBC) [Mass/Vol]Or dered By: Dr. Moulton on 08-14-2022 MCHC (RBC) [Mass/Vol] 34.3 g/dL 32-36 [facility] No Panel InformationOrdered By: Dr. Moulton on 08-14-2022 Estimated GFR (MDRD) Amer 105 mL/min >60 [facility] Comment on above: GFR Calc Estimated GFR (MDRD) Non-Af Amer 86 mL/min >60 [facility] Comment on above: Non- GFR Calc Platelets bldOrdered By: Dr. Moulton on 08-14-2022 Platelets (Bld) [#/Vol] 240 10*3/uL 150-450 [facility] Serum or plasma albumin luzma urement (mass/volume)Ordered By: Dr. Moulton on 08-14-2022 Albumin [Mass/Vol] 3.8 g/dL 3.2-5.0 [facility] Serum or plasma albumin/glob ulin mass ratioOrdered By: Dr. Moulton on 08-14-2022 Albumin/Globulin [Mass ratio] 1.2 {ratio} 0.9-2.4 [facility] Serum or plasma calcium luzma urement (mass/volume)Ordered By: Dr. Moulton on 08-14-2022 Calcium [Mass/Vol] 9.1 mg/dL 8.5-10.1 [facility] Serum or plasma creatinine m easurement (mass/volume)Ordered By: Dr. Moulton on 08-14-2022 Creatinine [Mass/Vol] 0.95 mg/dL 0.70-1.30 [facility] Comment on above: The validity of the calculated GFR & GFRAA in patients over 70 years has not been determined. Clinical correlation is essential. Serum or plasma urea nitroge n measurement (mass/volume)Ordered By: Dr. Moulton on 08-14-2022 Urea nitrogen [Mass/Vol] 25 mg/dL 7-18 [facility] Thin prep Papanicolaou smear with manual screeningOrdered By: Dr. Moulton on 08-14-2022 Thin prep Papanicolaou smear with manual screening 21 U/L 15-37 [facility] Thin prep Papanicolaou smear with manual screening 6 5-15 [facility] Absolute lymphocyte counton 05-21-2022 Lymphocytes Auto (Unsp spec) [#/Vol] 2.15 10*3/uL 0.83-4.51 [facility] Work Phone: Basophil percentageon 2021 Basophils/100 WBC (Bld) 0.4 % 0-1 [facility] Work Phone: Bilirubin [Mass/Vol] 0.50 mg/dL 0.20-1.00 [facility] Work Phone: Comment on above: For patients on eltr ombopag therapy, use of Dim[place] TBIL is not recommended. Chloride [Moles/Vol] 102 mmol/L 98-107 [facility] Work Phone: Eosinophils/100 WBC (Bld) 3.7 % 0-5 [facility] Work Phone: Glucose [Mass/Vol] 83 mg/dL 74-106 [facility] Work Phone: Neutrophils (Bld) [#/Vol] 5.8 10*3/uL 2.0-7.7 [facility] Work Phone: Neutrophils/100 WBC (Bld) 64.9 % 47-70 [facility] Work Phone: Potassium [Moles/Vol] 3.8 mmol/L 3.5-5.1 [facility] Work Phone: Protein [Mass/Vol] 7.7 g/dL 6.4-8.2 [facility] Work Phone: Sodium [Moles/Vol] 138 mmol/L 136-145 [facility] Work Phone: WBC (Bld) [#/Vol] 8.9 10*3/uL 4.4-11.0 [facility] Work Phone: Blood erythrocytes count (nu mber/volume)on 05-21-2022 RBC (Bld) [#/Vol] 5.07 10*6/uL 4.6-6.2 [facility] Work Phone: Blood hemoglobin measurement (mass/volume)on 05-21-2022 Hemoglobin (Bld) [Mass/Vol] 15.3 g/dL 13.0-16.5 [facility] Work Phone: Blood lymphocytes/100 leukoc yteson 05-21-2022 Lymphocytes/100 WBC (Bld) 24.2 % 19-41 [facility] Work Phone: Blood monocytes/100 leukocyt eson 05-21-2022 Monocytes/100 WBC (Bld) 6.4 % 0-10 [facility] Work Phone: Blood platelet mean volumeon 05-21-2022 Platelet mean volume (Bld) [Entitic vol] 9.8 fL 6.2-12.0 [facility] Work Phone: Determination of erythrocyte mean corpuscular volume (MCV)on 05-21-2022 MCV (RBC) [Entitic vol] 87.6 fL 80-94 [facility] Work Phone: Hematocrit Auto (Bld) [Volum e fraction]on 05-21-2022 Hematocrit (Bld) [Volume fraction] 44.4 % 40-54 [facility] Work Phone: Laboratory - Chemistry and C hemistry - challengeon 05-21-2022 ALP [Catalytic activity/Vol] 84 U/L 45-117 [facility] Work Phone: [phone] ALT [Catalytic activity/Vol] 31 U/L 16-61 [facility] Work Phone: [phone] [Moles/Vol] 29.0 mmol/L 21.0-32.0 [facility] Work Phone: [phone] Globulin (S) [Mass/Vol] 3.9 g/dL 2.2-4.2 [facility] Work Phone: [phone] Urea nitrogen/Creatinine [Mass ratio] 35.6 mg/mg 10-20 [facility] Work Phone: [phone] Laboratory - Hematology and Cell countson 05-21-2022 Erythrocyte distribution width (RBC) [Entitic vol] 38.6 fL 35.1-43.9 [facility] Work Phone: [phone] Erythrocyte distribution width (RBC) [Ratio] 12.2 % 11.6-14.6 [facility] Work Phone: [phone] Immature granulocytes/100 WBC (Bld) 0.400 % 0.0-0.9 [facility] Work Phone: [phone] Comment on above: IG% - Immature Granu locytes (promyelocytes, myelocytes and metamyelocytes) > 1% indicates that a LEFT SHIFT is Present. MCH (RBC) [Entitic mass] 30.2 pg 27.0-32.0 [facility] Work Phone: [phone] Nucleated RBC/100 WBC (Bld) [Ratio] 0 % 0-5 [facility] Work Phone: [phone] MCHC Auto (RBC) [Mass/Vol]on 05-21-2022 MCHC (RBC) [Mass/Vol] 34.5 g/dL 32-36 [facility] Work Phone: [phone] No Panel Informationon 05-21 Estimated GFR (MDRD) Amer 116 mL/min >60 [facility] Work Phone: Comment on above: GFR Calc Estimated GFR (MDRD) Non-Af Amer 96 mL/min >60 [facility] Work Phone: Comment on above: Non- GFR Calc Platelets bldon 05-21-2022 Platelets (Bld) [#/Vol] 248 10*3/uL 150-450 [facility] Work Phone: Serum or plasma albumin luzma urement (mass/volume)on 05-21-2022 Albumin [Mass/Vol] 3.8 g/dL 3.2-5.0 [facility] Work Phone: Serum or plasma albumin/glob ulin mass ratioon 05-21-2022 Albumin/Globulin [Mass ratio] 1.0 {ratio} 0.9-2.4 [facility] Work Phone: Serum or plasma calcium luzma urement (mass/volume)on 05-21-2022 Calcium [Mass/Vol] 9.1 mg/dL 8.5-10.1 [facility] Work Phone: Serum or plasma creatinine m easurement (mass/volume)on 05-21-2022 Creatinine [Mass/Vol] 0.87 mg/dL 0.70-1.30 [facility] Work Phone: Comment on above: The validity of the calculated GFR & GFRAA in patients over 70 years has not been determined. Clinical correlation is essential. Serum or plasma urea nitroge n measurement (mass/volume)on 05-21-2022 Urea nitrogen [Mass/Vol] 31 mg/dL 7-18 [facility] Work Phone: Thin prep Papanicolaou smear with manual screeningon 05-21-2022 Thin prep Papanicolaou smear with manual screening 26 U/L 15-37 [facility] Work Phone: Thin prep Papanicolaou smear with manual screening 7 5-15 [facility] Work Phone: Absolute lymphocyte counton 02-14-2022 Lymphocytes Auto (Unsp spec) [#/Vol] 2.14 10*3/uL 0.83-4.51 [facility] Work Phone: Basophil percentageon 2021 Basophils/100 WBC (Bld) 0.5 % 0-1 [facility] Work Phone: Bilirubin [Mass/Vol] 0.40 mg/dL 0.20-1.00 [facility] Work Phone: Comment on above: For patients on eltr ombopag therapy, use of Dimension [place] TBIL is not recommended. Chloride [Moles/Vol] 105 mmol/L 98-107 [facility] Work Phone: Eosinophils/100 WBC (Bld) 3.6 % 0-5 [facility] Work Phone: Glucose [Mass/Vol] 94 mg/dL 74-106 [facility] Work Phone: Neutrophils (Bld) [#/Vol] 3.7 10*3/uL 2.0-7.7 [facility] Work Phone: Neutrophils/100 WBC (Bld) 55.3 % 47-70 [facility] Work Phone: Potassium [Moles/Vol] 4.0 mmol/L 3.5-5.1 [facility] Work Phone: Protein [Mass/Vol] 7.4 g/dL 6.4-8.2 [facility] Work Phone: Sodium [Moles/Vol] 140 mmol/L 136-145 [facility] Work Phone: WBC (Bld) [#/Vol] 6.6 10*3/uL 4.4-11.0 [facility] Work Phone: Blood erythrocytes count (nu mber/volume)on 02-14-2022 RBC (Bld) [#/Vol] 4.84 10*6/uL 4.6-6.2 [facility] Work Phone: Blood hemoglobin measurement (mass/volume)on 02-14-2022 Hemoglobin (Bld) [Mass/Vol] 14.6 g/dL 13.0-16.5 [facility] Work Phone: Blood lymphocytes/100 leukoc yteson 02-14-2022 Lymphocytes/100 WBC (Bld) 32.3 % 19-41 [facility] Work Phone: Blood monocytes/100 leukocyt eson 02-14-2022 Monocytes/100 WBC (Bld) 8.0 % 0-10 [facility] Work Phone: Blood platelet mean volumeon 02-14-2022 Platelet mean volume (Bld) [Entitic vol] 9.8 fL 6.2-12.0 [facility] Work Phone: Determination of erythrocyte mean corpuscular volume (MCV)on 02-14-2022 MCV (RBC) [Entitic vol] 89.3 fL 80-94 [facility] Work Phone: Hematocrit Auto (Bld) [Volum e fraction]on 02-14-2022 Hematocrit (Bld) [Volume fraction] 43.2 % 40-54 [facility] Work Phone: Laboratory - Chemistry and C hemistry - challengeon 02-14-2022 ALP [Catalytic activity/Vol] 78 U/L 45-117 [facility] Work Phone: ALT [Catalytic activity/Vol] 29 U/L 16-61 [facility] Work Phone: CO2 [Moles/Vol] 30.0 mmol/L 21.0-32.0 [facility] Work Phone: [phone] Globulin (S) [Mass/Vol] 3.6 g/dL 2.2-4.2 [facility] Work Phone: [phone] Urea nitrogen/Creatinine [Mass ratio] 23.0 mg/mg 10-20 [facility] Work Phone: Laboratory - Hematology and Cell countson 02-14-2022 Erythrocyte distribution width (RBC) [Entitic vol] 39.8 fL 35.1-43.9 [facility] Work Phone: [phone] Erythrocyte distribution width (RBC) [Ratio] 12.2 % 11.6-14.6 [facility] Work Phone: [phone] Immature granulocytes/100 WBC (Bld) 0.300 % 0.0-0.9 [facility] Work Phone: [phone] Comment on above: IG% - Immature Granu locytes (promyelocytes, myelocytes and metamyelocytes) > 1% indicates that a LEFT SHIFT is Present. MCH (RBC) [Entitic mass] 30.2 pg 27.0-32.0 [facility] Work Phone: [phone] Nucleated RBC/100 WBC (Bld) [Ratio] 0 % 0-5 [facility] Work Phone: [phone] MCHC Auto (RBC) [Mass/Vol]on 02-14-2022 MCHC (RBC) [Mass/Vol] 33.8 g/dL 32-36 [facility] Work Phone: [phone] Panel Informationon 02-14 Estimated GFR (MDRD) Amer 99 mL/min >60 [facility] Work Phone: [phone] Comment on above: GFR Calc Estimated GFR (MDRD) Non-Af Amer 82 mL/min >60 [facility] Work Phone: [phone] Comment on above: Non- GFR Calc Platelets bldon 02-14-2022 Platelets (Bld) [#/Vol] 277 10*3/uL 150-450 [facility] Work Phone: [phone] Serum or plasma albumin luzma urement (mass/volume)on 02-14-2022 Albumin [Mass/Vol] 3.8 g/dL 3.2-5.0 [facility] Work Phone: [phone] Serum or plasma albumin/glob ulin mass ratioon 02-14-2022 Albumin/Globulin [Mass ratio] 1.1 {ratio} 0.9-2.4 [facility] Work Phone: [phone] Serum or plasma calcium luzma urement (mass/volume)on 02-14-2022 Calcium [Mass/Vol] 9.0 mg/dL 8.5-10.1 [facility] Work Phone: Serum or plasma creatinine m easurement (mass/volume)on 02-14-2022 Creatinine [Mass/Vol] 1.00 mg/dL 0.70-1.30 [facility] Work Phone: Comment on above: The validity of the calculated GFR & GFRAA in patients over 70 years has not been determined. Clinical correlation is essential. Serum or plasma urea nitroge n measurement (mass/volume)on 02-14-2022 Urea nitrogen [Mass/Vol] 23 mg/dL 7-18 [facility] Work Phone: [phone] Thin prep Papanicolaou smear with manual screeningon 02-14-2022 Thin prep Papanicolaou smear with manual screening 19 U/L 15-37 [facility] Work Phone: [phone] Thin prep Papanicolaou smear with manual screening 5 5-15 [facility] Work Phone: [phone] Cytology report of Body flui d Cyto stainon 01-16-2022 Cytology report Cyto stain Doc (Body fld) SEE PATHOLOGY REPORT [facility] Work Phone: [phone] Comment on above: Specimen submitted t o Anatomical Pathology Department for testing. Absolute lymphocyte counton 12-21-2021 Lymphocytes Auto (Unsp spec) [#/Vol] 2.06 10*3/uL 0.83-4.51 [facility] Work Phone: Basophil percentageon 2021 Basophils/100 WBC (Bld) 0.7 % 0-1 [facility] Work Phone: [phone] Bilirubin [Mass/Vol] 0.40 mg/dL 0.20-1.00 [facility] Work Phone: [phone] Comment on above: For patients on eltr ombopag therapy, use of Dimension [place] TBIL is not recommended. Chloride [Moles/Vol] 104 mmol/L 98-107 [facility] Work Phone: Eosinophils/100 WBC (Bld) 4.0 % 0-5 [facility] Work Phone: Glucose [Mass/Vol] 80 mg/dL 74-106 [facility] Work Phone: Neutrophils (Bld) [#/Vol] 2.8 10*3/uL 2.0-7.7 [facility] Work Phone: Neutrophils/100 WBC (Bld) 47.9 % 47-70 [facility] Work Phone: Potassium [Moles/Vol] 4.0 mmol/L 3.5-5.1 [facility]: Protein [Mass/Vol] 7.3 g/dL 6.4-8.2 [facility] Work Phone: [phone] Sodium [Moles/Vol] 140 mmol/L 136-145 [facility] Work Phone: WBC (Bld) [#/Vol] 5.8 10*3/uL 4.4-11.0 [facility] Work Phone: Blood erythrocytes count (nu mber/volume)on 12-21-2021 RBC (Bld) [#/Vol] 4.95 10*6/uL 4.6-6.2 [facility] Work Phone: Blood hemoglobin measurement (mass/volume)on 12-21-2021 Hemoglobin (Bld) [Mass/Vol] 14.5 g/dL 13.0-16.5 [facility] Work Phone: [phone] Blood lymphocytes/100 leukoc yteson 12-21-2021 Lymphocytes/100 WBC (Bld) 35.6 % 19-41 [facility] Work Phone: Blood monocytes/100 leukocyt eson 12-21-2021 Monocytes/100 WBC (Bld) 11.6 % 0-10 [facility] Work Phone: Blood platelet mean volumeon 12-21-2021 Platelet mean volume (Bld) [Entitic vol] 9.6 fL 6.2-12.0 [facility] Work Phone: Determination of erythrocyte mean corpuscular volume (MCV)on 12-21-2021 MCV (RBC) [Entitic vol] 88.1 fL 80-94 [facility] Work Phone: [phone] Hematocrit Auto (Bld) [Volum e fraction]on 12-21-2021 Hematocrit (Bld) [Volume fraction] 43.6 % 40-54 [facility] Work Phone: [phone] Laboratory - Chemistry and C hemistry - challengeon 12-21-2021 ALP [Catalytic activity/Vol] 74 U/L 45-117 [facility] Work Phone: [phone] ALT [Catalytic activity/Vol] 28 U/L 16-61 [facility] Work Phone: [phone] CO2 [Moles/Vol] 33.0 mmol/L 21.0-32.0 [facility] Work Phone: [phone] Globulin (S) [Mass/Vol] 3.5 g/dL 2.2-4.2 [facility] Work Phone: [phone] Urea nitrogen/Creatinine [Mass ratio] 26.5 mg/mg 10-20 [facility] Work Phone: [phone] Laboratory - Hematology and Cell countson 12-21-2021 Erythrocyte distribution width (RBC) [Entitic vol] 39.5 fL 35.1-43.9 [facility] Work Phone: [phone] Erythrocyte distribution width (RBC) [Ratio] 12.4 % 11.6-14.6 [facility] Work Phone: [phone] Immature granulocytes/100 WBC (Bld) 0.200 % 0.0-0.9 [facility] Work Phone: [phone] Comment on above: IG% - Immature Granu locytes (promyelocytes, myelocytes and metamyelocytes) > 1% indicates that a LEFT SHIFT is Present. MCH (RBC) [Entitic mass] 29.3 pg 27.0-32.0 [facility] Work Phone: Nucleated RBC/100 WBC (Bld) [Ratio] 0 % 0-5 [facility] Work Phone: MCHC Auto (RBC) [Mass/Vol]on 12-21-2021 MCHC (RBC) [Mass/Vol] 33.3 g/dL 32-36 [facility] Work Phone: No Panel Informationon 12-21 Estimated GFR (MDRD) Amer 106 mL/min >60 [facility] Work Phone: [phone] Comment on above: GFR Calc Estimated GFR (MDRD) Non-Af Amer 87 mL/min >60 [facility] Work Phone: [phone] Comment on above: Non- GFR Calc Platelets bldon 12-21-2021 Platelets (Bld) [#/Vol] 256 10*3/uL 150-450 [facility] Work Phone: [phone] Serum or plasma albumin luzma urement (mass/volume)on 12-21-2021 Albumin [Mass/Vol] 3.8 g/dL 3.2-5.0 [facility] Work Phone: [phone] Serum or plasma albumin/glob ulin mass ratioon 12-21-2021 Albumin/Globulin [Mass ratio] 1.1 {ratio} 0.9-2.4 [facility] Work Phone: [phone] Serum or plasma calcium luzma urement (mass/volume)on 12-21-2021 Calcium [Mass/Vol] 8.8 mg/dL 8.5-10.1 [facility] Work Phone: [phone] Serum or plasma creatinine m easurement (mass/volume)on 12-21-2021 Creatinine [Mass/Vol] 0.94 mg/dL 0.70-1.30 [facility] Work Phone: Comment on above: The validity of the calculated GFR & GFRAA in patients over 70 years has not been determined. Clinical correlation is essential. Serum or plasma urea nitroge n measurement (mass/volume)on 12-21-2021 Urea nitrogen [Mass/Vol] 25 mg/dL 7-18 [facility] Work Phone: Thin prep Papanicolaou smear with manual screeningon 12-21-2021 Thin prep Papanicolaou smear with manual screening 20 U/L 15-37 [facility] Work Phone: [phone] Thin prep Papanicolaou smear with manual screening 3 5-15 [facility] Work Phone: Basophil percentageon 2021 Cholesterol [Mass/Vol] 187 mg/dL <200 [facility] Work Phone: [phone] Comment on above: <200 mg/dL Desirable 200-240 mg/dL Borderline >240 mg/dL High Risk Triglyceride [Mass/Vol] 51 mg/dL <199 [facility] Work Phone: [phone] Comment on above: The drugs N-Acetylcy steine and Metamizole may falsely depress this assay.Serum Triglycerides Reference Interval Normal <150 mg/dL Borderline high 150 - 199 mg/dL High 200 - 499 mg/dL Very High > or = 500 mg/dL No Panel Informationon 11-11 Prostate Specific Antigen Screen 0.43 ng/mL 0.00-4.00 [facility] Work Phone: [phone] Comment on above: This test was perfor med using the TPSA assay method for [email or web address] chemistry system. Values obtained with differentassay methods cannot be used interchangably.When changing PSA assays in the course of monitoring apatient, additional sequential testing should be carriedout to confirm baseline values. Serum or plasma cholesterol in HDL measurement (mass/volume)on 11-11-2021 Cholesterol in HDL [Mass/Vol] 74 mg/dL >40 [facility] Work Phone: [phone] Comment on above: The drugs N-Acetylcy steine and Metamizole may falsely depress this assay. Reference Range HDL <40 mg/dL Low HDL Cholesterol HDL >or= 60 mg/dL High HDL Cholesterol Serum or plasma cholesterol in VLDL measurement (mass/volume)on 11-11-2021 Cholesterol in VLDL [Mass/Vol] 10 mg/dL 5-40 [facility] Work Phone: [phone] Serum or plasma low density lipoprotein (LDL) cholesterol measurement (mass/volume)on 11-11-2021 Cholesterol in LDL [Mass/Vol] 103 mg/dL 0-130 [facility] Work Phone: Basophil percentageon 2021 Basophil percentage 0 SEEN /hpf [facility] Work Phone: Bilirubin Test strip Ql (U)o n 10-16-2021 Bilirubin Ql (U) Negative Negative [facility] Work Phone: Culture, urineon 10-16-2021 Bacteria identified Cx Nom (U) Culture exhibits no growth. [facility] Work Phone: Ketones Test strip Ql (U)on 10-16-2021 Ketones Ql (U) Negative Negative [facility] Work Phone: Laboratory - Chemistry and C hemistry - challengeon 10-16-2021 Glucose Ql (U) Negative [facility] Work Phone: Ketones Ql (U) Negative [facility] Work Phone: pH (U) 5.0 [pH] [facility] Work Phone: Specific gravity (U) [Rel density] 1.010 [facility] Work Phone: Urobilinogen (U) [Mass/Vol] 0.7489981 mg/dL [facility] Work Phone: Laboratory - Hematology and Cell countson 10-16-2021 Hemoglobin Ql (U) Negative [facility] Work Phone: Laboratory - Specimen inform ationon 10-16-2021 Clarity (U) Clear [facility] Work Phone: Color (U) YELLOW [facility] Work Phone: Laboratory - Urinalysison Nitrite Ql (U) Negative [facility] Work Phone: Protein Ql (U) Negative [facility] Work Phone: Mucus LM Ql (Urine sed)on Mucus Ql (Urine sed) 0 SEEN /hpf [facility] Work Phone: Nitrite Test strip Ql (U)on 10-16-2021 Nitrite Ql (U) Negative Negative [facility] Work Phone: No Panel Informationon 10-16 Urine Leukocytes Negatve [facility] Work Phone: Protein Test strip Ql (U)on 10-16-2021 Protein Ql (U) Negative Negative [facility] Work Phone: Squamous epithelial cells de tection in urine sediment by light microscopyon 10-16-2021 Epithelial cells.squamous LM Ql (Urine sed) 0 SEEN /hpf [facility] Work Phone: Urine blood detectionon 10-03 RBC Ql (U) Negative Negative [facility] Work Phone: RBC Ql (U) 0 SEEN /hpf [facility] Work Phone: Urine clarityon 10-16-2021 Clarity (U) Clear Clear [facility] Work Phone: Urine color determinationon 10-16-2021 Color (U) Yellow Yellow [facility] Work Phone: Urine glucose detectionon Glucose Ql (U) Normal mg/dl Normal [facility] Work Phone: Urine leukocyte esterase det ection by dipstickon 10-16-2021 Leukocyte esterase Test strip Ql (U) Negative Negative [facility] Work Phone: Urine pHon 10-16-2021 pH (U) 5.0 [pH] [facility] Work Phone: Urine sediment bacteria coun t by microscopy (number/high power field)on 10-16-2021 Bacteria LM.HPF (Urine sed) [#/Area] 0 /[HPF] None Seen [facility] Work Phone: Urine specific gravity measu rementon 10-16-2021 Specific gravity (U) [Rel density] 1.025 [facility] Work Phone: Urobilinogen Auto test strip Ql (U)on 10-16-2021 Urobilinogen Ql (U) Normal mg/dl Normal [facility] Work Phone: Absolute lymphocyte counton 10-02-2021 Lymphocytes Auto (Unsp spec) [#/Vol] 2.03 10*3/uL 0.83-4.51 [facility] Work Phone: Basophil percentageon 2021 Basophils/100 WBC (Bld) 0.3 % 0-1 [facility] Work Phone: Bilirubin [Mass/Vol] 0.30 mg/dL 0.20-1.00 [facility] Work Phone: Comment on above: For patients on eltr ombopag therapy, use of Dimension [place] TBIL is not recommended. Chloride [Moles/Vol] 105 mmol/L 98-107 [facility] Work Phone: Eosinophils/100 WBC (Bld) 4.7 % 0-5 [facility] Work Phone: Glucose [Mass/Vol] 79 mg/dL 74-106 [facility] Work Phone: Neutrophils (Bld) [#/Vol] 3.5 10*3/uL 2.0-7.7 [facility] Work Phone: Neutrophils/100 WBC (Bld) 54.6 % 47-70 [facility] Work Phone: Potassium [Moles/Vol] 3.7 mmol/L 3.5-5.1 [facility] Work Phone: Protein [Mass/Vol] 7.4 g/dL 6.4-8.2 [facility] Work Phone: Sodium [Moles/Vol] 140 mmol/L 136-145 [facility] Work Phone: WBC (Bld) [#/Vol] 6.4 10*3/uL 4.4-11.0 [facility] Work Phone: Blood erythrocytes count (nu mber/volume)on 10-02-2021 RBC (Bld) [#/Vol] 4.84 10*6/uL 4.6-6.2 [facility] Work Phone: Blood hemoglobin measurement (mass/volume)on 10-02-2021 Hemoglobin (Bld) [Mass/Vol] 14.2 g/dL 13.0-16.5 [facility] Work Phone: [phone] Blood lymphocytes/100 leukoc yteson 10-02-2021 Lymphocytes/100 WBC (Bld) 31.8 % 19-41 [facility] Work Phone: [phone] Blood monocytes/100 leukocyt eson 10-02-2021 Monocytes/100 WBC (Bld) 8.1 % 0-10 [facility] Work Phone: [phone] Blood platelet mean volumeon 10-02-2021 Platelet mean volume (Bld) [Entitic vol] 9.8 fL 6.2-12.0 [facility] Work Phone: [phone] Determination of erythrocyte mean corpuscular volume (MCV)on 10-02-2021 MCV (RBC) [Entitic vol] 87.0 fL 80-94 [facility] Work Phone: [phone] Hematocrit Auto (Bld) [Volum e fraction]on 10-02-2021 Hematocrit (Bld) [Volume fraction] 42.1 % 40-54 [facility] Work Phone: [phone] Laboratory - Chemistry and C hemistry - challengeon 10-02-2021 ALP [Catalytic activity/Vol] 73 U/L 45-117 [facility] Work Phone: [phone] ALT [Catalytic activity/Vol] 23 U/L 16-61 [facility] Work Phone: [phone] CO2 [Moles/Vol] 30.0 mmol/L 21.0-32.0 [facility] Work Phone: [phone] Globulin (S) [Mass/Vol] 3.8 g/dL 2.2-4.2 [facility] Work Phone: [phone] Urea nitrogen/Creatinine [Mass ratio] 25.4 mg/mg 10-20 [facility] Work Phone: [phone] Laboratory - Hematology and Cell countson 10-02-2021 Erythrocyte distribution width (RBC) [Entitic vol] 39.4 fL 35.1-43.9 [facility] Work Phone: [phone] Erythrocyte distribution width (RBC) [Ratio] 12.5 % 11.6-14.6 [facility] Work Phone: [phone] Immature granulocytes/100 WBC (Bld) 0.500 % 0.0-0.9 [facility] Work Phone: [phone] Comment on above: IG% - Immature Granu locytes (promyelocytes, myelocytes and metamyelocytes) > 1% indicates that a LEFT SHIFT is Present. MCH (RBC) [Entitic mass] 29.3 pg 27.0-32.0 [facility] Work Phone: [phone] Nucleated RBC/100 WBC (Bld) [Ratio] 0 % 0-5 [facility] Work Phone: [phone] MCHC Auto (RBC) [Mass/Vol]on 10-02-2021 MCHC (RBC) [Mass/Vol] 33.7 g/dL 32-36 [facility] Work Phone: [phone] Panel Informationon 10-02 Estimated GFR (MDRD) Amer 123 mL/min >60 [facility] Work Phone: [phone] Comment on above: GFR Calc Estimated GFR (MDRD) Non-Af Amer 102 mL/min >60 [facility] Work Phone: [phone] Comment on above: Non- GFR Calc Platelets bldon 10-02-2021 Platelets (Bld) [#/Vol] 259 10*3/uL 150-450 [facility] Work Phone: [phone] Serum or plasma albumin luzma urement (mass/volume)on 10-02-2021 Albumin [Mass/Vol] 3.6 g/dL 3.2-5.0 [facility] Work Phone: [phone] Serum or plasma albumin/glob ulin mass ratioon 10-02-2021 Albumin/Globulin [Mass ratio] 0.9 {ratio} 0.9-2.4 [facility] Work Phone: [phone] Serum or plasma calcium luzma urement (mass/volume)on 10-02-2021 Calcium [Mass/Vol] 9.1 mg/dL 8.5-10.1 [facility] Work Phone: Serum or plasma creatinine m easurement (mass/volume)on 10-02-2021 Creatinine [Mass/Vol] 0.83 mg/dL 0.70-1.30 [facility] Work Phone: Comment on above: The validity of the calculated GFR & GFRAA in patients over 70 years has not been determined. Clinical correlation is essential. Serum or plasma urea nitroge n measurement (mass/volume)on 10-02-2021 Urea nitrogen [Mass/Vol] 21 mg/dL 7-18 [facility] Work Phone: Thin prep Papanicolaou smear with manual screeningon 10-02-2021 Thin prep Papanicolaou smear with manual screening 19 U/L 15-37 [facility] Work Phone: Thin prep Papanicolaou smear with manual screening 5 5-15 [facility] Work Phone: US ASP/INJ SHOULDER JT/BURSA RTon 01-03-2021 US ASP/INJ SHOULDER JT/BURSA RT * * *Final Report* * * DATE OF EXAM: Jan 03 2021 10:03AM U 1163 - US ASP/INJ SHOULDER JT/BURSA RT / PROCEDURE REASON: multiple diagnoses * * * * Physician Interpretation * * * * TECHNIQUE: US ASP/INJ SHOULDER JT/BURSA RT COMPARISON: MRI from 11/29/2020 CLINICAL INDICATION: Chronic right shoulder pain Chronic right shoulder pain PROCEDURE NOTE: After written informed consent for the procedure was obtained, the patient was placed in a supine position on the ultrasound table and the procedure site was localized with ultrasound imaging. After appropriate cleansing and draping, local lidocaine anesthesia was administered, using a 25-gauge needle and ultrasound guidance, access to the subacromial subdeltoid bursa was obtained. Approximately 2 cc of a mixture of 0.25% and 80 mg Kenalog were injected into the subacromial subdeltoid bursa. Needle was removed and pressure was held on the procedure site. There were no immediate complications from the procedure. Patient tolerated the procedure well. IMPRESSION: 1. Subacromial steroid injection. Meat Soaker: ROBSON Transcribe Date/Time: Jan 03 2021 10:06A Dictated by : LAWRENCE HAYDEN MD This examination was interpreted and the report reviewed and electronically signed by: LAWRENCE HAYDEN MD on Jan 03 2021 10:11AM EST [id number] [facility] CNTHERAPYon 06-02-2020 CNTHERAPY OT/PT/Speech Visit ([facility]) LITO VU ([id number]) 1965 M Date Time Provider Department 06/02/20 3:45 PM ROSEMARY WYNNE [facility] Date Time Provider Department Center 06/02/2020 3:45 PM [id number] WYNNE [facility] Reason for Visit: Occupational Therapy [504] OT Discharge [750] Primary Visit Diagnosis:Primary osteoarthritis of right hand [M19.041] Allergies As of Date: 06/02/2020 (No Known Allergies) Date Reviewed: 05/12/2020 Reviewed by: Kelvin Valdivia - Fully Assessed Prescriptions as of 06/02/2020 Sig: ZINC 50 MG TABLET Take 50 mg by mouth once nehemias* X DICLOFENAC SODIUM 75 MG TABLE* Take 1 tablet by mouth twice * Patient not taking: Reported on 06/06/2020 BACLOFEN 10 MG TABLET Take two(2) tablet four (4) t* TRIHEXYPHENIDYL 2 MG TABLET Take 1 tablet in AM AND at noon* FLUTICASONE PROPIONATE 50 MCG* Use 1 [place] in each nostril o* FIBER ORAL Take by mouth. TRIAMCINOLONE ACETONIDE 0.1 %* Apply 1 application to affect* ASCORBIC ACID (VITAMIN C) 1,0* Take 1,000 mg by mouth once d* * BEE POLLEN 580 MG CAPSULE Take 2 caps once daily Progress Notes: Rosemary Wynne 06/02/2020 4:29 PM Signed Episode Visit Count: 2 Therapist That Will Oversee The Plan Of Care: Roderick Riley Start of Care Date: 05/12/20 Onset Date: 04/15/20 Plan of Care Certification Date: 05/12/20 Next Certification Due Date: 08/11/20 Patient Identified by Name and Date of : Yes REHABILITATION AND SPORTS THERAPY OCCUPATIONAL THERAPY TREATMENT NOTE ASSESSMENT: Lito Vu demonstrated difficulty with strength and heavier use of hand. The patient will continue to benefit from continued skilled occupational therapy for exercises, modalities manual techniques PLAN FOR NEXT VISIT: progressive to more aggressive exercises as needed SUBJECTIVE: Pt reporting he does still get some soreness states he is ready to return to full duty at work Pain: Pain Pain Level: 3 Post Treatment Pain Post Treatment Pain Level: 3 OBJECTIVE MEASURES WITH LEVEL OF FUNCTION: Hand Wrist AROM: Right Limitation Strength: Drilling Rig Operator Position 2 Hand Strength R Drilling Rig Operator Position 2 (lbs): 45 lbs L Drilling Rig Operator Position 2 (lbs): 105 lbs UE AROM R Wrist Extension: 45 Degrees R Wrist Flexion: 55 Degrees Hand AROM R Thumb MP Flexion : 51 Degrees R Thumb IP Flexion : 52 Degrees TREATMENT: Therapeutic Exercise: 1: wrist flex ext deviation 2: tendon gliding 3: thumb flex ext and opposition 4: fabricated hand based thumb splint instructed in wear schedule and precautions 5: with medium soft putty household appliance mechanic, digit extension roll and digit flexion and tripod pinch 6: pt instructed to wean out of forearm splint into hand based and further out of that as able recommended splint wear continue at work 7: scar massage Skilled Intervention: Patient was educated in proper exercise technique and purpose for exercises. Provided written instruction for home exercise program to facilitate proper performance and compliance. Custom orthosis: L 3913 HFO custom w/o joints (oppon/ hand hurtado/ hand trigger/ other) Custom orthosis to provide immobilization, protection and support of Thumb CMC to promote healing and Pt practiced orthosis application, donning on/off while under OT's supervision.. Patient was instructed in care of orthosis and wearing schedule Protection only outdoors / heavy use.. Skilled Intervention: Clinical knowledge and skills required for custom orthotic fabrication and wearing schedule Billing: Dai: Therapeutic Exercise (88416): 1:1 time:35 minutes (2 units: 23-37 mins) Orthosis: Custom: L3913 HFO custom w/o joints (oppon/ hand hurtado/ hand trigger/ other) Total time / Length of visit: 40 minutes Rosemary Wynne OT/LC CHELO Silva 01/02/2021 11:46 AM Signed 01/02/2021 REHABILITATION AND SPORTS THERAPY OCCUPATIONAL THERAPY DISCONTINUANCE OF CARE Plan of Care Period: Start of Care Date: 05/12/20 Last Visit Date: 06/02/2020 Therapy Program: The following is a summary of the interventions provided for this episode of care; Therapeutic exercise, Manual therapy and Self-fci management Assessment: Based on most recent visit, patient was progressing as expected toward functional goals based on documented subjective information on progress. Unable to formally assess goal achievement due to non-compliance with therapy plan of care. Reason for Discontinuation of Care: Patient has not returned to therapy or scheduled additional follow-up appointments. CHELO Silva Annotated image of OT HAND THERAPUTTY EXERCISES PG 1 last updated by CHELO Silva on 06/02/2020 4:16 PM Annotated image of OT HAND THERAPUTTY EXERCISES PG 2 last updated by CHELO Silva on 1 (more content not included)... [facility] CNTHERAPYon 05-12-2020 CNTHERAPY OT/PT/Speech Visit (OTM[facility]) LITO VU ([id number]) 1965 M Date Time Provider Department 05/12/20 11:00 AM [facility] Provider Department Center 05/12/2020 11:00 AM [id number] WYNNE *[facility] Reason for Visit: OT EVAL [748] Primary Visit Diagnosis:Arthritis of carpometacarpal (CMC) joint of right thumb [M18.11] Allergies As of Date: 05/12/2020 (No Known Allergies) Date Reviewed: 05/12/2020 Reviewed by: Kelvin Valdivia - Fully Assessed Prescriptions as of 05/12/2020 Sig: ZINC 50 MG TABLET Take 50 mg by mouth once nehemias* DICLOFENAC SODIUM 75 MG TABLE* Take 1 tablet by mouth twice * BACLOFEN 10 MG TABLET Take two(2) tablet four (4) t* TRIHEXYPHENIDYL 2 MG TABLET Take 1 tablet in AM AND at noon* FLUTICASONE PROPIONATE 50 MCG* Use 1 [place] in each nostril o* FIBER ORAL Take by mouth. TRIAMCINOLONE ACETONIDE 0.1 %* Apply 1 application to affect* ASCORBIC ACID (VITAMIN C) 1,0* Take 1,000 mg by mouth once d* * BEE POLLEN 580 MG CAPSULE Take 2 caps once daily Progress Notes: Rosemary Wynne OT/Cesia 05/12/2020 12:30 PM Signed Episode Visit Count: 1 Therapist That Will Oversee The Plan Of Care: Roderick Riley Start of Care Date: 05/12/20 Onset Date: 04/15/20 Plan of Care Certification Date: 05/12/20 Next Certification Due Date: 08/11/20 Patient Identified by Name and Date of : Yes [facility] REHABILITATION AND SPORTS THERAPY OCCUPATIONAL THERAPY EVALUATION PLAN OF CARE: Assessment: Lito Vu presents with the diagnosis of CTR release and CMC arthroplasty. He presents with impairments of edema AROM and strength. He may benefit from skilled occupational therapy services to improve function. Prognosis: Good Good due to: current objective clinical presentation Goals for Episode of Care created on 05/12/20 through 08/11/20 Patient will report a good understanding of diagnosis and OT recommendations for progression of program. Patient will increase AROM of Right wrist , hand and finger to WNL in order to be able to improve function for basic self-care tasks and light functional tasks. Patient will independently demonstrate correct application of CUSTOM orthosis and verbalize understanding of proper wear/care. Patient will report a good understanding of edema control, scar / wound management throughout therapy plan of care to promote non-adherent / non-tender soft tissue. Planned Interventions, Frequency, and Duration: Current Frequency: 1x every other week Duration: 12 weeks Total Number of Visits Planned: 6 Planned Treatment Interventions: Custom orthosis fabrication;Prefabrica richa orthosis fitting;Therapeutic exercise;Manual therapy;Modalities;[place] f-fci managementFluidotherap y PLAN FOR NEXT VISIT: wean splint trial fluido soft sponge Patient demonstrates good understanding of plan of care and treatment. The above goals and plan of care were discussed and agreed upon by patient/family. SUBJECTIVE: Lito Vu is a 55 year old male seen today for s/p hand surgery Functional Limitations: weight bearing;gripping;pinch ing Prior Level of Function: Independent without limitations Intake Information: Prescription present Previous Treatment: None Falls Interview: No positive findings with falls interview Pain: Pain Pain Level: 6 Pain Location: Hand - Right;Wrist - Right Description: Aching Frequency: Intermittent Post Treatment Pain Post Treatment Pain Level: 4 Post Treatment Pain Location: Hand - Right;Wrist - Right Post Treatment Pain Description: Aching PROMIS Scales Higher is Better 01/31/2016 08/07/2016 GH Physical - Percentile 53 % 41 % GH Mental - Percentile 34 % 34 % T-scores: mean of general population = 50. 5 points is clinically meaningfully difference Percentiles provide an indication of how the patient's score ranks in relation to the general population. Higher percentile rankings indicate better function/quality of life. 50th percentile is the average of the general population and indicates half of respondents had a worse score. T-scores: mean of general population = 50. 5 points is clinically meaningfully difference Percentiles provide an indication of how the patient's score ranks in relation to the general population. Higher percentile rankings indicate better function/quality of life. 50th percentile is the average of the general population and indicates half of respondents had a worse score. OBJECTIVE MEASURES WITH LEVEL OF FUNCTION: Hand Skin / Wound: Scar Scar: Tender;Mild adherance Edema Location: right hand Edema Description: Mild Edema Measurements: Wrist (DWC) (cm) R Wrist (DWC) (cm): 18.8 L Wrist (DWC) (cm): 17 Wrist AROM: Right Limitation Right Hand AROM: WFL Thumb AROM: Right Limitation Sensation: Denies tingling or (more content not included)... Normal [facility] ANES POSTPROC EVALon 020 ANES POSTPROC EVAL HNO ID: [id number] Author: Gold Gomez Service: ? Author Type: Anesthesiologist Type: Anesthesia Postprocedure Evaluation Filed: 04/15/2020 5:15 PM Note Text: POST ANESTHESIA EVALUATION NOTE : 1965 Procedure Summary Date: 04/15/20 Room / Location: [place] [address] / [place] Anesthesia Start: 1453 Anesthesia Stop: 1648 Procedures: ARTHROPLASTY CARPOMETACARPAL JOINTS (Right Hand) DECOMPRESSION NERVE MEDIAN CARPAL TUNNEL (Right Wrist) Diagnosis: Primary localized osteoarthrosis of right hand Carpal tunnel syndrome on right Surgeons: Kelvin Valdivia Responsible Provider: Gold Gomez Anesthesia Type: MAC ASA Status: 3 Anesthesia Type: MAC Last vitals Vitals Value Taken Time BP 113/69 04/15/20 1700 Temp 36 ?C (96.8 ?F) 04/15/20 1700 Pulse 46 04/15/20 1700 Resp 12 04/15/20 1713 SpO2 99 % 04/15/20 1700 Post Anesthesia Patient Status Patient Evaluation: PACU. PACU/ICU Patient Condition: stable. Anticipated Disposition: phase 2 then home. Neurological Status: aware and responsive. Pulmonary Status: breathing comfortably on room air Airway Control: returned to baseline unsupported. Cardiovascular Status: stable. Pain Management: clinically adequate - multimodal analgesia pain management approach Postoperative Hydration: acceptable. Intraoperative Events: no significant anesthesia events Post Operative Nausea/Vomiting Status: Anesthetic Observations: no significant anesthetic observations Recommendation: continue current plan of care. SIGNATURE: Gold Gomez MD PATIENT NAME: Lito Vu DATE: April 15, 2020 TIME: 5:13 PM CSN: [id number] [facility] ANES PRE-OPon 04-15-2020 ANES PRE-OP HNO ID: [id number] Author: Johann Anderson Service: ? Author Type: Anesthesiologist Type: Anesthesia Preprocedure Evaluation Filed: 04/15/2020 2:44 PM Note Text: ANESTHESIOLOGY DAY OF SURGERY NOTE : 1965 Procedure(s) (LRB): ARTHROPLASTY CARPOMETACARPAL JOINTS (Right) DECOMPRESSION NERVE MEDIAN CARPAL TUNNEL (Right) Surgeon(s): Kelvin Valdivia Estimated body mass index is 21.06 kg/m? as calculated from the following: Height as of this encounter: 188 cm (6' 2). Weight as of this encounter: 74.4 kg (164 lb). Most recent hematocrit and potassium results: Hematocrit 46.7 01/18/2018 Potassium 4.3 01/18/2018 Relevant Problems CARDIO (+) Hemorrhoids Other (+) Arthritis I - PHYSICAL EVALUATION AIRWAY Patient intubated: No. Tracheostomy tube not present Mallampati: II. TM distance: >3 FB. Neck ROM: full ROM without neurological symptoms. Mouth opening: adequate. Additional exam findings: no II - ANESTHESIA PLAN ASA Score: 3 Anesthetic Plan: MAC NPO Status: adequate Monitoring plan: standard ASA. Postoperative analgesic plan: parenteral or oral opioids and multimodal analgesia. Anesthetic Risks, Benefits, Alternatives, Personnel Discussed. Consent obtained from: patient. Patient / Surrogate agrees to blood products: blood products not planned Significant changes in the patient condition since the History and Physical, not otherwise documented in primary service progress note: no. Vitals Value Taken Time BP 147/85 04/15/20 1226 Pulse Resp 16 04/15/20 1226 Temp 36.2 ?C (97.2 ?F) 04/15/20 1226 SpO2 97 % 04/15/20 1226 Facility-Administered Medications as of 04/15/2020 Medication Dose Route Frequency - lidocaine 10 mg/mL (1 %) 1-2 mg injection (XYLOCAINE) 0.1-0.2 mL INTRADERMAL PRN - lactated ringers infusion 5-30 mL/hr INTRAVENOUS CONTINUOUS - ceFAZolin iv piggyback 2 g in D5W (iso-osmotic) 100 mL (ANCEF) 2 g INTRAVENOUS Pre-Op Once - [COMPLETED] midazolam (PF) 2 mg injection (VERSED) 2 mg INTRAVENOUS ONCE Outpatient Medications as of 04/15/2020 Medication Sig - diclofenac, EC, (VOLTAREN) 75 mg EC tablet Take 1 tablet by mouth twice daily. FOR PAIN - baclofen (LIORESAL) 10 mg tablet Take two(2) tablet four (4) times daily (AM, noon, 7PM and bedtime) - trihexyphenidyl (ARTANE) 2 mg tablet Take 1 tablet in AM AND at noon with 2 tablets at bedtime - fluticasone (FLONASE) 50 mcg/actuation nasal spray Use 1 [place] in each nostril once daily. - PSYLLIUM SEED, WITH DEXTROSE, (FIBER ORAL) Take by mouth. - triamcinolone acetonide (KENALOG) 0.1 % cream Apply 1 application to affected area three times daily. Apply sparingly to area for rash/itching. - Ascorbic Acid (VITAMIN C) 1,000 mg tablet Take 1,000 mg by mouth once daily. - Bee Pollen 580 mg cap Take 2 caps once daily I have interviewed and examined the patient. I have reviewed the medical record and/or the pre-anesthesia evaluation, pertinent labs, and test results. This contains updated information obtained within 48 hours of Surgery/Procedure. SIGNATURE: Johann Anderson MD PATIENT NAME: Lito Vu DATE: April 15, 2020 TIME: 2:44 PM CSN: [id number] [facility] NURSING PROGon 04-15-2020 NURSING PROG HNO ID: [id number] Author: Alma (Rn) TOM Junior Service: ? Author Type: Registered Nurse Type: Nursing Progress Note Filed: 04/15/2020 2:53 PM Note Text: @ 1407 Pt received to PACU, via cart, for pre-op block. Placed on monitors AND O2 @ 3 liters - will observe. @ 6198 - 7804 Right infraclavicular nerve block doneb y Dr. Anderson - well tolerated by pt. VS stable. @ 1495 @ bedside - pt to OR via cart. [facility] OPERATIVE NOon 04-15-2020 OPERATIVE NO HNO ID: [id number] Author: Kelvin Valdivia Service: Orthopaedic Surgery Author Type: Physician Type: Operative Report Filed: 2020 9:37 AM Note Text: OPERATIVE/PROCEDURE REPORT LOG ID: [id number] SURGERY/PROCEDURE DATE: 04/15/2020 INCISION/PROCEDURE START TIME: 3:12 PM INCISION CLOSE/PROCEDURE END TIME: 4:40 PM SURGEON(S)/PROCEDURALI ST(S) AND PRIMARY PRODUCTS INSPECTORS(S): Surgeon(s) and Role: * Kelvin Valdivia - Primary Physician Line Maintenance: Bri Grayson SURGERY/PROCEDURE(S): 1. Right thumb, carpalmetacarpal arthroplasty with ligament reconstruction and tendon interposition. 2. Right carpal tunnel release. ANESTHESIA: Block Regional - Extremity Upper SURGERY/PROCEDURE DETAILS: PROCEDURE:? On 04/15/2020, the patient was identified in the preoperative area and? marked on the Right thumb and palm accordingly.?Patient had a regional block placed per? the anesthetic team.? Pt. Received 2 g of Ancef within one hour of incision or tourniquet. Patient was placed in a supine position and placed an arm? board on the effected limb.? A well padded tourniquet was applied and set at 250 mmHg.? An appropriate time out was conducted and all were in agreement. Signed?consent form was on the chart and images were available for viewing. The upper extremity was then exsanguinated with an Esmarch bandage and the? tourniquet was applied at 250 mmHg.? A longitudinal incision was made with in line with the third web space from 1 cm distal of the wrist crease to Reeves's cardinal line. I used Racheal Rakes to retract the soft tissues. Bipolar electrocautery was used for hemostasis. I bluntly dissected down with Littler scissors to distal edge of the transverse carpal ligament until a flash of fat was noted. I directly divided distal edge of the transverse carpal ligament with a #15 blade. Attention was then focused on the proximal portion and I used Littler scissors to bluntly dissect off the volar surface of the transverse carpal ligament. A carpal tunnel and median nerve protection guide was slid directly under the ligament for dilation and a second time for appropriate positioning, this was passed freely without any resistance. Subsequently, I selected a mini meniscotome [place] blade and slid this in the protective guide, completely dividing the transverse carpal ligament. Racheal rakes were used to view up the wound to visualize for complete release and a [place] elevator was used to palpate for complete release. I placed 2 horizontal mattress sutures for skin closure and moved to the thumb. Next, A longitudinal incision was identified over? the dorsal portion of the CMC joint.? I made the incision approximately 3 cm, centered over this.? Furthermore, an incision was marked over the FCR tendon at thelevel of the forearm. Superficial skin incision was made with a 15 blade and this was? then bluntly dissected with Littler scissors.? I was able to identify the branches of the radial? sensory nerve and these were identified and protected with retraction throughout? the case.? I then came down through the interval of the APL and EPB tendons and? came directly down to the periosteum and divided the capsule over the top of the? joint, coming down on the trapezium.? The radial artery was identified clearly in? the proximal portion of the incision and protected throughout the case with a? Ragnell retractor.? I then painstakingly dissected the soft tissues off the? trapezium and identified all the borders of the bone including the surrounding? joint spaces.? The CMC joint showed no cartilage and sclerotic surface, bone on bone appearance. Large osteophyte in the gutter between first and second metacarpal heads as well as a large piece on the most radial side of the bone. Once the soft tissues were appropriately released from the? trapezium protecting the adjacent cartilage and soft tissues, I used a? reciprocating saw to place a scored cross in the bone quartering it.? I then? finished the osteotomies with a 1/4-inch osteotome.? I then removed, in a? piecemeal fashion, the trapezium while protecting the underlying FCR tendon.? This? was identified and shown to be in continuity.? I placed a 3-0 Tevdek suture? through the volar capsule.? I then focused my attention on preparing? the site for the tendon graft.? Starting on the dorsal surface of the thumb with? my exiting point just slightly on the volar side of the base of the metacarpal,? sequential drill bits were used to fashion the tunnel for the graft and to re-create the beak ligament.? The? positioning was to my liking and the tunnel and the joint were copiously irrigated? to remove any bony debris.? I then measured 7 cm from the wrist crease over the FCR tendon and made a 1 cm incision proximally in the forearm. I dissected out the FCR tendon to be able to get a right angle retractor beneath it and separate it away from some of the mus (more content not included)... [facility] PT EDon 04-15-2020 PT ED HNO ID: [id number] Author: Ivan (Rn) TOM Zhu Service: Nursing Author Type: Registered Nurse Type: Patient Education Filed: 04/15/2020 12:36 PM Note Text: PRE OP LEARNING ASSESSMENT PROCEDURE/SURGERY: SURGERY: READINESS TO LEARN COGNITIVE ABILITY: Alert and oriented MOTIVATION TO LEARN: Interested FAMILY SUPPORT: High - Very involved in pt care PATIENT LEARNS BEST BY: Verbal Instruction FACTORS AFFECTING LEARNING: None PHYSICAL LIMITATIONS AFFECTING LEARNING: None Electronically Signed By: Ivan Zhu RN In Department: [facility] SURGERY [facility] NURSING PROGon 04-14-2020 NURSING PROG HNO ID: [id number] Author: Mary (Rn) TOM Watt Service: ? Author Type: Registered Nurse Type: Nursing Progress Note Filed: 04/14/2020 9:44 AM Note Text: PACC Nurse Progress Note History AND Physical: PACC Visit Date: 04/13/2020 Original HANDP Date: N/A ED visit Date: N/A Outside HANDP Scanned Date: N/A Labs Within Last 6 Months: Covid 04/13/2020 negative Imaging Within Last 12 Months: See chart Cardiac Testing: N/A BMI Percentile (PEDS): N/A Risk Assessment: N/A Anesthesia Review: N/A Narrative: N/A Pre-op Consideration Segmental dystonia Chart Check: COMPLETED Mary Watt RN April 14, 2020 9:42 AM [facility] HOSPon 04-07-2020 HOSP Patient:Parag Vu MRN: Height:6' 2(1.88 m) Weight:164 lb (74.39 kg) Outpatient Medications as of 04/15/20: Zinc 50 mg tab diclofenac, EC, (VOLTAREN) 75 mg EC tablet baclofen (LIORESAL) 10 mg tablet trihexyphenidyl (ARTANE) 2 mg tablet fluticasone (FLONASE) 50 mcg/actuation nasal spray PSYLLIUM SEED, WITH DEXTROSE, (FIBER ORAL) triamcinolone acetonide (KENALOG) 0.1 % cream Ascorbic Acid (VITAMIN C) 1,000 mg tablet Bee Pollen 580 mg cap Admission/Clinic Administered Medications as of 04/15/20: lidocaine 10 mg/mL (1 %) 1-2 mg injection (XYLOCAINE) lactated ringers infusion ceFAZolin iv piggyback 2 g in D5W (iso-osmotic) 100 mL (ANCEF) Problem List: LGI bleed [K92.2] NO SHOW [683689] Hemorrhoids [K64.9] 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 Surgical request completed. Madison, Please place order for COVID testing. Madison Ames PA-C 04/07/2020 2:09 PM Signed COVID test ordered. Ana Lee Ma 04/07/2020 3:19 PM Signed Patient's aware of COVID testing appointment for 04/13. Surgery confirmation letter and post op appointments mailed to patient. [facility] 04/08/2020 8:36 AM Signed Noted in [facility]. Emily Monreal Ma 04/08/2020 9:22 AM Signed Surgery and all appointments have been scheduled as requested. Progress Notes ([facility]): Sara Goetz RN 04/07/2020 9:34 AM Sign when Signing Visit AMB ROOMING INTAKE FLOWSHEET DATA Risk Screening Do you have concerns about personal safety or safety in the home?: No Pain Pain Level: 8 Pain Location: Hand-Right Description: Aching, Numbness Duration Amount of Time: 3 Duration Units: Years Frequency: Intermittent Intervention: Splinting, Medication Patient presents with: Right Hand - Follow Up Left Hand - Follow Up Discuss surgery: EMG results Pt. presents with . He continues to have pain in right hand. He works at [employer] and does shoveling and lifting. Pt. also having pain base of right thumb and wants to discuss CMC arthroplasty. He is right hand dominant. Kelvin Valdivia MD 04/07/2020 10:01 AM Sign when Signing Visit Kelvin Valdivia MD Department of Orthopaedics Orthopaedics [address] [facility] [address] Dept: [phone] Dept April 07, 2020 CHIEF COMPLAINT: Follow Up of the Right Hand, Follow Up of the Left Hand, and Discuss surgery (EMG results) HPI ASSESSMENT: M19.049 CMC arthritis (primary encounter diagnosis) G56.01 Carpal tunnel syndrome of right wrist PLAN: Mr. Lito Vu was advised as to contrast therapies and/or to take analgesics/anti-inflam matories as needed and all contraindications were reviewed. OBJECTIVE: Mr. Lito Vu is a pleasant 54 year old in no apparent distress. Gen:There were no vitals taken for this visit. nl development, {OBESE:07074::}, no deformities ENT: Normocephalic, normal hearing, moist mucosa CV: Pulses:{BP PULSES:008949}, capillary refill < 2 secs, no peripheral edema/varicosities Skin: no rash, bruising or lesions. Good turgor. Psych: cooperative and appropriate, alert and oriented x 3, good mood and affect. Musculoskeletal: Imaging: Supporting Subjective Information Below: Past Surgical History: PAST SURGICAL HISTORY Procedure Laterality Date - COLONOSCOP W/ OR W/O [facility] SPEC 07/06/11 - HEMORRHOIDECTOMY multiple - PAST SURGICAL HISTORY OF Left 06/2014 excision cyst, flank Medications: Current Outpatient Medications Medication Sig - Zinc 50 mg tab Take 50 mg by mouth once daily. - diclofenac, EC, (VOLTAREN) 75 mg EC tablet Take 1 tablet by mouth twice daily. FOR PAIN - baclofen (LIORESAL) 10 mg tablet Take two(2) tablet four (4) times daily (AM, noon, 7PM and bedtime) - trihexyphenidyl (ARTANE) 2 mg tablet Take 1 tablet in AM AND at noon with 2 tablets at bedtime - fluticasone (FLONASE) 50 mcg/actuation nasal spray Use 1 [place] in each nostril once daily. - PSYLLIUM SEED, WITH DEXTROSE, (FIBER ORAL) Take by mouth. - triamcinolone acetonide (KENALOG) 0.1 % cream Apply 1 application to affected area three times daily. Apply sparingly to area for rash/itching. - Ascorbic Acid (VITAMIN C) 1,000 mg tablet Take 1,000 mg by mouth once daily. - Bee Pollen 580 mg cap Take 2 caps once daily No current facility-administered medications for this visit. Allergies: Patient has no known bel (more content not included)... [facility] Vital Signs Date Time Vital Sign Value Performing Clinician Facility 05-01-2024 09:28-0400 Body mass index (BMI) [Ratio] 20.15 kg/m2 Sharon Stiles APRN.BLASTING WORKER Work Phone: [facility] 05-01-2024 09:28-0400 Body temperature 97.3 [degF] Sharon Stiles APRN.BLASTING WORKER Work Phone: [facility] 05-01-2024 09:28-0400 Body weight 71.2 kg Sharon Stiles APRN.BLASTING WORKER Work Phone: [facility] 05-01-2024 09:28-0400 Diastolic blood pressure 82 mm[Hg] Sharon Stiles APRN.BLASTING WORKER Work Phone: [facility] 05-01-2024 09:28-0400 Heart rate 61 /min Sharon Stiles APRN.BLASTING WORKER Work Phone: [facility] 05-01-2024 09:28-0400 Respiratory rate 18 /min Sharon Stiles APRN.BLASTING WORKER Work Phone: [facility] 05-01-2024 09:28-0400 SaO2% (BldA) [Mass fraction] 99 % Sharon Stiles APRN.BLASTING WORKER Work Phone: [facility] 05-01-2024 09:28-0400 Systolic blood pressure 142 mm[Hg] Sharon Stiles APRN.BLASTING WORKER Work Phone: [facility] 02-02-2024 11:45-0400 Body mass index (BMI) [Ratio] 20.66 kg/m2 Maricel Moomapiedad COLLET MAKING MACHINE OPERATOR.BLASTING WORKER Work Phone: [facility] 02-02-2024 11:45-0400 Body temperature 97.3 [degF] Maricel Kelomaw COLLET MAKING MACHINE OPERATOR.BLASTING WORKER Work Phone: [facility] 02-02-2024 11:45-0400 Body weight 73 kg Maricel Moomaw COLLET MAKING MACHINE OPERATOR.BLASTING WORKER Work Phone: [facility] 02-02-2024 11:45-0400 Diastolic blood pressure 76 mm[Hg] Maricel Moomaw COLLET MAKING MACHINE OPERATOR.BLASTING WORKER Work Phone: [facility] 02-02-2024 11:45-0400 Heart rate 88 /min Maricel Moomaw COLLET MAKING MACHINE OPERATOR.BLASTING WORKER Work Phone: [facility] 02-02-2024 11:45-0400 Respiratory rate 16 /min Maricel Moomaw COLLET MAKING MACHINE OPERATOR.BLASTING WORKER Work Phone: [facility] 02-02-2024 11:45-0400 SaO2% (BldA) [Mass fraction] 98 % Maricel Moomaw COLLET MAKING MACHINE OPERATOR.BLASTING WORKER Work Phone: [facility] 02-02-2024 11:45-0400 Systolic blood pressure 158 mm[Hg] Maricel Moomaw COLLET MAKING MACHINE OPERATOR.BLASTING WORKER Work Phone: [facility] 10-30-2023 13:43-0500 Body temperature 101.3 [degF] Krislyn Aberegg PA Work Phone: [facility] 10-30-2023 13:43-0500 Body weight 74.57 kg Krislyn Aberegg PA Work Phone: [facility] 10-30-2023 13:43-0500 Diastolic blood pressure 70 mm[Hg] Krislyn Aberegg PA Work Phone: [facility] 10-30-2023 13:43-0500 Heart rate 106 /min Krislyn Aberegg PA Work Phone: [facility] 10-30-2023 13:43-0500 Respiratory rate 19 /min Krislyn Aberegg PA Work Phone: [facility] 10-30-2023 13:43-0500 SaO2% (BldA) [Mass fraction] 96 % Krislyn Aberegg PA Work Phone: [facility] 10-30-2023 13:43-0500 Systolic blood pressure 140 mm[Hg] Krislyn Aberegg PA Work Phone: [facility] 05-08-2023 14:21-0400 Body height 187.[address] Mignon Mon Work Phone: [facility] 05-08-2023 14:21-0400 Body mass index (BMI) [Ratio] 20.5 kg/m2 Dr. Mignon Mon Work Phone: [facility] 05-08-2023 14:21-0400 Body weight 72.[address] Mignon Mon Work Phone: [facility] 05-08-2023 14:21-0400 Diastolic blood pressure 87 mm[Hg] Dr. Mignon Mon Work Phone: [facility] 05-08-2023 14:21-0400 Heart rate 77 /min Dr. Mignon Mon Work Phone: [facility] 05-08-2023 14:21-0400 Respiratory rate 17 /min Dr. Mignon Mon Work Phone: [facility] 05-08-2023 14:21-0400 Systolic blood pressure 128 mm[Hg] Dr. Mignon Mon Work Phone: [facility] 10-13-2022 07:46-0500 Diastolic blood pressure 72 mm[Hg] [facility] 10-13-2022 07:46-0500 Heart rate 75 /min [facility] 10-13-2022 07:46-0500 Respiratory rate 18 /min [facility] 10-13-2022 07:46-0500 SaO2% (BldA) [Mass fraction] 95 % [facility] 10-13-2022 07:46-0500 Systolic blood pressure 112 mm[Hg] [facility] 10-13-2022 06:31-0500 Body height 187.96 cm [facility] 10-13-2022 06:31-0500 Body mass index (BMI) [Ratio] 20.8 kg/m2 [facility] 10-13-2022 06:31-0500 Body temperature 96.8 [degF] [facility] 10-13-2022 06:31-0500 Body weight 73.6 kg [facility] 04-20-2022 20:12-0400 Diastolic blood pressure 89 mm[Hg] [facility] Work Phone: 04-20-2022 20:12-0400 Heart rate 74 /min [facility] Work Phone: 04-20-2022 20:12-0400 Respiratory rate 15 /min [facility] Work Phone: 04-20-2022 20:12-0400 SaO2% (BldA) [Mass fraction] 98 % [facility] Work Phone: 04-20-2022 20:12-0400 Systolic blood pressure 131 mm[Hg] [facility] Work Phone: 04-20-2022 19:02-0400 Body temperature 97.5 [degF] [facility] Work Phone: 04-20-2022 17:29-0400 Body height 187.96 cm [facility] Work Phone: 04-20-2022 17:29-0400 Body mass index (BMI) [Ratio] 46.7 kg/m2 [facility] Work Phone: 04-20-2022 17:29-0400 Body weight 165 kg [facility] Work Phone: 04-20-2022 16:53-0400 Body temperature 98.4 [degF] Donita Kay COLLET MAKING MACHINE OPERATOR.BLASTING WORKER Work Phone: [facility] 04-20-2022 16:53-0400 Body weight 74.12 kg Donita Kay COLLET MAKING MACHINE OPERATOR.BLASTING WORKER Work Phone: [facility] 04-20-2022 16:53-0400 Diastolic blood pressure 78 mm[Hg] Donita Kay COLLET MAKING MACHINE OPERATOR.BLASTING WORKER Work Phone: [facility] 04-20-2022 16:53-0400 Heart rate 71 /min Donita Kay COLLET MAKING MACHINE OPERATOR.BLASTING WORKER Work Phone: [facility] 04-20-2022 16:53-0400 Respiratory rate 18 /min Donita Kay COLLET MAKING MACHINE OPERATOR.BLASTING WORKER Work Phone: [facility] 04-20-2022 16:53-0400 SaO2% (BldA) [Mass fraction] 100 % Donita Kay COLLET MAKING MACHINE OPERATOR.BLASTING WORKER Work Phone: [facility] 04-20-2022 16:53-0400 Systolic blood pressure 126 mm[Hg] Donita Kay COLLET MAKING MACHINE OPERATOR.BLASTING WORKER Work Phone: [facility] 11-02-2021 17:05-0500 Body height 187.[address] Viktor Tam Work Phone: [facility] Work Phone: 11-02-2021 17:05-0500 Body mass index (BMI) [Ratio] 20.9 kg/m2 Dr. Viktor Tam Work Phone: [facility] Work Phone: 11-02-2021 17:05-0500 Body temperature 98 [degF] Dr. Viktor Tam Work Phone: [facility] Work Phone: 11-02-2021 17:05-0500 Body weight 73.[address] Viktor Tam Work Phone: [facility] Work Phone: 11-02-2021 17:05-0500 Diastolic blood pressure 94 mm[Hg] Dr. Viktor Tam Work Phone: [facility] Work Phone: 11-02-2021 17:05-0500 Heart rate 69 /min Dr. Viktor Tam Work Phone: [facility] Work Phone: 11-02-2021 17:05-0500 Respiratory rate 14 /min Dr. Viktor Tam Work Phone: [facility] Work Phone: 11-02-2021 17:05-0500 SaO2% (BldA) [Mass fraction] 98 % Dr. Viktor Tam Work Phone: [facility] Work Phone: 11-02-2021 17:05-0500 Systolic blood pressure 142 mm[Hg] Dr. Viktor Tam Work Phone: [facility] Work Phone: 11-02-2021 16:05-0500 Body height 187.[address] Viktor Tam Work Phone: [facility] Work Phone: 11-02-2021 16:05-0500 Body mass index (BMI) [Ratio] 20.9 kg/m2 Dr. Viktor Tam Work Phone: [facility] Work Phone: 11-02-2021 16:05-0500 Body temperature 98 [degF] Dr. Viktor Tam Work Phone: [facility] Work Phone: 11-02-2021 16:05-0500 Body weight 73.[address] Viktor Tam Work Phone: [facility] Work Phone: 11-02-2021 16:05-0500 Diastolic blood pressure 94 mm[Hg] Dr. Viktor Tam Work Phone: [facility] Work Phone: 11-02-2021 16:05-0500 Heart rate 69 /min Dr. Viktor Tam Work Phone: [facility] Work Phone: 11-02-2021 16:05-0500 Respiratory rate 14 /min Dr. Viktor Tam Work Phone: [facility] Work Phone: 11-02-2021 16:05-0500 SaO2% (BldA) [Mass fraction] 98 % Dr. Viktor Tam Work Phone: [facility] Work Phone: 11-02-2021 16:05-0500 Systolic blood pressure 142 mm[Hg] Dr. Viktor Tam Work Phone: [facility] Work Phone: 10-16-2021 13:43-0500 Body temperature 97.1 [degF] Dr. Viktor Tam Work Phone: [facility] Work Phone: 10-16-2021 13:43-0500 Body weight 74.[address] Viktor Tam Work Phone: [facility] Work Phone: 10-16-2021 13:43-0500 Diastolic blood pressure 100 mm[Hg] Dr. Viktor Tam Work Phone: [facility] Work Phone: 10-16-2021 13:43-0500 Heart rate 83 /min Dr. Viktor Tam Work Phone: [facility] Work Phone: 10-16-2021 13:43-0500 Respiratory rate 16 /min Dr. Vkitor Tam Work Phone: [facility] Work Phone: 10-16-2021 13:43-0500 SaO2% (BldA) [Mass fraction] 98 % Dr. iVktor Tam Work Phone: [facility] Work Phone: 10-16-2021 13:43-0500 Systolic blood pressure 140 mm[Hg] Dr. Viktor Tam Work Phone: [facility] Work Phone: Encounters Encounter Date Encounter Type Care Provider Facility Start: 11-06-2024 End: 11-06-[address] Mignon Mon DO Work Phone: [facility] Work Phone: Start: 11-06-2024 End: 11-06-[address] Thao Moulton MD -Laboratory, [place] Work Phone: Start: 11-06-2024 End: 11-06-2024 ambulatory [facility] Facility:[facility] Start: 10-12-2024 End: 10-12-[address] Mik Melo MD -Radiology, [place] Work Phone: Start: 10-12-2024 End: 10-12-2024 ambulatory Mik Melo Facility:[facility] Start: 08-10-2024 End: 08-10-[address] Thao Moulton MD -Laboratory, [place] Work Phone: Start: 08-10-2024 End: 08-10-2024 ambulatory [facility] Facility:[facility] Start: 05-23-2024 End: 05-23-2024 ambulatory [facility] Facility:[facility] Start: 05-01-2024 End: 05-01-2024 Subsequent hospital visit by physician [facility] Work Phone: Radiology Comment on above: Acute cough [R05.1] Start: 05-01-2024 End: 05-01-2024 Patient encounter procedure Sharon Stiles APRN.CNP Work Phone: [facility] Comment on above: Muscle spasm (Primar y Dx); Acute cough Start: 04-01-2024 End: 04-01-2024 ambulatory Mignon Mon Facility:[facility] Start: 03-04-2024 Encounter for genera l adult medical examination without abnormal findings Mignon Mon [facility] Start: 02-22-2024 End: 02-22-2024 ambulatory [facility] Facility:[facility] Start: 02-02-2024 End: 02-02-2024 ambulatory MIGNON MON Facility:[facility] Start: 02-02-2024 End: 02-02-2024 Patient encounter procedure Maricel Carson APRNAlhajiNELI Work Phone: [facility] Comment on above: Bacterial pneumonia (Primary Dx) Start: 10-30-2023 End: 10-30-2023 Subsequent hospital visit by physician [facility] Work Phone: Radiology Comment on above: Flu-like symptoms [R 68.89] Start: 10-30-2023 End: 10-30-2023 ambulatory VIKTOR AGUILARGERARDOZunilda Facility:[facility] Start: 10-30-2023 End: 10-30-2023 Patient encounter procedure Valeria Hood PA Work Phone: [facility] Comment on above: Acute cough (Primary Dx); Flu-like symptoms; Influenza A Start: 10-29-2023 End: 10-29-2023 ambulatory [facility] Work Phone: Start: 10-29-2023 End: 10-29-2023 Patient encounter procedure [facility] Work Phone: Start: 07-30-2023 End: 07-30-[address] Mignon Mon Work Phone: [facility] Work Phone: Start: 07-30-2023 End: 07-30-[address] Mignon Mon Work Phone: [facility] Work Phone: Start: 05-08-2023 End: 05-08-[address] Mignon Mon Work Phone: [facility] Work Phone: Start: 05-02-2023 End: 05-02-[address] Mignon Mon Work Phone: [facility] Work Phone: Start: 05-02-2023 End: 05-02-[address] Mignon Mon Work Phone: [facility] Work Phone: Start: 02-09-2023 End: 02-09-2023 ambulatory [facility] Work Phone: Start: 02-09-2023 End: 02-09-2023 [facility] Start: 11-22-2022 End: 11-22-2022 ambulatory [facility] Work Phone: Start: 11-22-2022 End: 11-22-2022 [facility] Start: 11-02-2022 End: 11-02-2022 ambulatory [facility] Work Phone: Start: 11-02-2022 End: 11-02-2022 Patient encounter procedure [facility] Start: 10-13-2022 End: 10-13-2022 Emergency department patient visit [facility]Emergency Department Start: 08-14-2022 End: 08-14-2022 ambulatory [facility] Work Phone: Start: 08-14-2022 End: 08-14-2022 Patient encounter procedure [facility] Start: 07-24-2022 End: 07-24-2022 ambulatory [facility] Work Phone: Start: 07-24-2022 End: 07-24-2022 [facility] Start: 05-21-2022 End: 05-21-2022 [facility] Start: 04-20-2022 End: 04-20-2022 [facility] Start: 04-20-2022 End: 04-20-2022 [facility] Work Phone: [phone] [place] [address] Comment on above: Aspiration into airw ay, initial encounter Start: 02-14-2022 End: 02-14-[address] Viktor Tam Work Phone: [facility] Start: 01-19-2022 End: 01-19-[address] Viktor Tam Work Phone: [facility] Start: 01-16-2022 End: 01-16-[address] Viktor Tam Work Phone: [facility] Start: 12-21-2021 End: 12-21-[address] Viktor Tam Work Phone: [facility] Start: 11-11-2021 End: 11-11-[address] Viktor Tam Work Phone: [facility] Start: 11-02-[address] Viktor Tam Work Phone: [facility] Start: 11-02-2021 End: 11-02-2021 Encounter for general adult medical examination without abnormal findings Dr. Viktor Tam Work Phone: [facility] Start: 11-02-2021 End: 11-02-[address] Viktor Tam Work Phone: [facility] Start: 10-16-2021 End: 10-16-[address] Viktor Tam Work Phone: [facility] Start: 10-02-2021 End: 10-02-[address] Viktor Tam Work Phone: [facility] Start: 05-04-[address] Viktor Tam Work Phone: [facility] Procedures Date Procedure Procedure Detail Performing Clinician Start: 10-12-2024 Complete x-ray serie s of lumbosacral spine including bending views Dr. Mignon Mon DO Work Phone: Start: 05-01-2024 Radiologic exam ches t 2 views Sharon Stiles COLLET MAKING MACHINE OPERATOR.BLASTING WORKER Work Phone: Start: 10-30-2023 Radiologic exam ches t 2 views Valeria CABRERA Work Phone: Start: 10-30-2023 INFLUENZA A&B MOLECU LAR (POC) Valeria CABRERA Work Phone: Start: 07-24-2022 X-ray of lumbosacral spine Start: 04-20-2022 Plain chest X-ray Start: 01-19-2022 CT of abdomen and pe lvis without contrast Dr. Viktor Tam Work Phone: Start: 10-16-[address] Catarina Tam Work Phone: Start: 01-18-2018 Lipid 1996 panel - S ana or Plasma Valeria CABRERA Work Phone: Start: 12-30-2017 Adult depression scr eening assessment Donita Kay COLLET MAKING MACHINE OPERATOR.BLASTING WORKER Work Phone: Start: 07-06-2011 Colonoscopy Donita marshall COLLET MAKING MACHINE OPERATOR.BLASTING WORKER Work Phone: Plan of Treatment Date Care Activity Detail Author Start: 05-03-2024 Influenza vaccination [facility] Start: 2024 RSV Vaccine (1 - 1-dose 60+ series) RSV Vaccine (1 - 1-dose 60+ series) [facility] Start: 09-02-2023 Behavioral Health Screening Behavioral Health Screening [facility] Start: 09-02-2023 Depression Assessment Depression Assessment [facility] Start: 05-03-2023 Influenza vaccination Influenza Vaccine (#1) [facility] Start: 01-18-2023 Lipid panel Lipid Screening [facility] Start: 01-18-2023 LIPID SCREEN LIPID SCREEN [facility] Start: 05-03-2022 Influenza vaccination INFLUENZA (#1) [facility] Start: 07-06-2021 Colonoscopy COLONOSCOPY [facility] Start: 07-06-2021 COLORECTAL CANCER SCREENING COLORECTAL CANCER SCREENING [facility] Start: 07-06-2021 Screening for malignant neoplasm of colon [facility] Start: 02-15-2021 COVID-19 VACCINE (2 - Ju risk series) COVID-19 VACCINE (2 - Ju risk series) [facility] Start: 01-18-2021 DIABETES SCREEN DIABETES SCREEN [facility] Start: 01-18-2021 Diabetes Screening Diabetes Screening [facility] Start: 2019 PROSTATE CANCER SCREENING DISCUSSION PROSTATE CANCER SCREENING DISCUSSION [facility] Start: 2019 Prostate specific antigen measurement Prostate Cancer Screening Discussion [facility] Start: 12-30-2018 Adult depression screening assessment DEPRESSION SCREENING [facility] Start: 2009 COLOGUARD (FIT-DNA) COLOGUARD (FIT-DNA) [facility] Start: [address] COLONOGRAPHY [facility] Start: 2009 FECAL OCCULT BLOOD FECAL OCCULT BLOOD [facility] Start: 2009 Screening for malignant neoplasm of colon [facility] Start: 2009 SIGMOIDOSCOPY SIGMOIDOSCOPY [facility] Start: 1983 SHINGRIX VACCINE (1 of 2) SHINGRIX VACCINE (1 of 2) [facility] Start: 1983 Urine microalbumin profile [facility] Start: 1982 Anxiety Screening Anxiety Screening [facility] Start: 1982 Depression Screening Depression Screening [facility] Start: 1982 HEPATITIS C SCREENING HEPATITIS C SCREENING [facility] Start: 1982 Hepatitis C screening Hepatitis C Screening [facility] Start: 1982 HIV SCREENING HIV SCREENING [facility] Start: 1982 HIV screening HIV Screening [facility] Start: 1970 PNEUMOCOCCAL (1 - PCV) PNEUMOCOCCAL (1 - PCV) [facility] Start: 1970 Pneumococcal vaccination Pneumococcal Vaccine (1 of 2 - PCV) [facility] Start: 1964 HEPATITIS B (1 of 3 - 3-dose series) HEPATITIS B (1 of 3 - 3-dose series) [facility] Patient Education [facility] Work Phone: Patient referral [facility] Work Phone: Immunizations Immunization Date Immunization Notes Care Provider Fa liliana 01-13-2021 Lucretia (Lymbix) Dr. Viktor Tam Work Phone: [facility] 07-01-2017 influenza virus vaccine, unspecified formulation Valeria CABRERA Work Phone: [facility] Payers Date Payer Category Payer Self-pay 2019 Unknown [id number] 2019 Unknown [id number] Self-pay SELF PAY INSURANCE [id number] Unknown [id number] Unknown [id number] [id number] Unknown [id number] Unknown [id number] [id number] Unknown [id number] [id number] Unknown [id number] [id number] Unknown [id number] [id number] Social History Date Type Detail Facility Start: 11-02-2021 End: 05-08-2023 Tobacco smoking status NHIS Unknown if ever smoked [facility] Start: 1965 Sex Assigned At Male W [facility] Start: 07-30-2016 End: 05-08-2023 Tobacco smoking status NHIS Never smoked tobacco [facility] Start: 07-30-2016 Tobacco use and exposure Smokeless tobacco non-user [facility] Start: 04-20-2022 End: 10-30-2023 Alcohol intake Current non-drinker of alcohol (finding) [facility] Start: 1965 Sex Assigned At Not on file [facility] Start: 04-10-2022 End: 04-20-2022 Exposure to SARS-CoV-2 (event) Not sure [facility] Start: 08-07-2020 End: 10-30-2023 History of Social function [facility] Start: 08-07-2020 End: 10-30-2023 Tobacco use panel [facility] Adult Depression Screening Assessment 0 [facility] Start: 11-19-2024 Sex Male (finding) [facility] Mental Status Date Assessment Result Facility 10-13-2022 Cognitive function Level Of Cons ciousness Awake;Alert;Appropriate;Follow s Commands [facility] Work Phone: Clinical Notes 04-15-2020 to 05-01-2024 Nayana Renee RT(R) - 05/01/2024 10:00 AM Sharon Dumont APRN.BLASTING WORKER - 05/01/2024 9:38 AM Maricel Jernigan APRN.BLASTING WORKER - 02/02/2024 11:50 AM Nayana Jim RT(R) - 10/30/2023 2:40 PM EST Note Date & Type Note Facility 05-01-2024 History of Present illness Narrative Radiology Service Progress Note PATIENT NAME: Lito Vu DATE OF SERVICE: May 01, 2024 TIME: 9:51 AM PATIENT IDENTITY VERIFICATION COMPLETED USING TWO (2) IDENTIFIERS: Name and Date of confirmed by patient verbally. FALL SCREENING: Has the patient had 2 falls in the last year or 1 fall with injury or currently using an Ambulatory Assistive Device (Walker, Cane, Wheelchair, Crutches, etc.)? No PATIENT GENDER DATA: Male PATIENT RELEVANT IMPLANT DATA REVIEWED: Yes PATIENT PRESENTS WITH AN IMPLANTABLE OR ATTACHED RELIGION INSTRUCTOR: No RADIOLOGY DEPARTMENT: General X-ray: Exam(s) Completed: Chest X-Ray PERIPHERAL IV DATA: Not applicable SIGNED BY: RT Dhara(R) May 01, 2024 9:51 AM documented in this encounter [facility] 05-01-2024 History of Present illness Narrative Patient came in with complaints of possible aspiration of a pill. Patient's had this happen before. Patient has had pneumonia from this in the past. Patient has dystonia so that does cause it sometimes. Patient does have a slight cough. Is also experiencing back spasms. Physical Exam Constitutional: Appearance: Normal appearance. Cardiovascular: Rate and Rhythm: Normal rate and regular rhythm. Pulmonary: Effort: Pulmonary effort is normal. Breath sounds: Wheezing (bilateral lower bases.) present. Neurological: Mental Status: He is alert. 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 MEDICATIONS celecoxib (CELEBREX) 200 mg capsule Take 1 capsule by mouth every afternoon. folic acid 1 mg tablet hydrOXYchloroQUINE (PLAQUENIL) 200 mg tablet methotrexate 2.5 mg tablet TAKE 6 TABLETS BY MOUTH ONCE A WEEK biotin 1 mg cap Take by mouth. diclofenac, EC, (VOLTAREN) 75 mg EC tablet TAKE 1 TABLET BY MOUTH TWICE DAILY FOR PAIN Zinc 50 mg tab Take 50 mg by mouth once daily. baclofen (LIORESAL) 10 mg tablet Take two(2) tablet four (4) times daily (AM, noon, 7PM and bedtime) trihexyphenidyl (ARTANE) 2 mg tablet Take 1 tablet in AM & at noon with 2 tablets at bedtime fluticasone (FLONASE) 50 mcg/actuation nasal spray Use 1 [place] in each nostril once daily. PSYLLIUM SEED, WITH DEXTROSE, (FIBER ORAL) Take by mouth. triamcinolone acetonide (KENALOG) 0.1 % cream Apply 1 application to affected area three times daily. Apply sparingly to area for rash/itching. Ascorbic Acid 1,000 mg tablet Take 1,000 mg by mouth once daily. Bee Pollen 580 mg cap Take 2 caps once daily FAMILY HISTORY Problem Relation Age of Onset other (restless legs) Mother Social History Tobacco Use Smoking status: Never Smokeless tobacco: Never Vaping Use Vaping status: Never Used Substance Use Topics Alcohol use: No Drug use: No ASSESSMENT/PLAN: 1. Muscle spasm - ICD9: 728.85, ICD10: M62.838 (primary diagnosis) 2. Acute cough - ICD9: 786.2, ICD10: R05.1 - XR CHEST 2V FRONTAL/LAT * * * * Physician Interpretation * * * * EXAMINATION: CHEST RADIOGRAPH (2 VIEW FRONTAL & LATERAL) CLINICAL HISTORY: Acute cough MQ: [id number] EXAM DATE/TIME: 05/01/2024 10:02 AM COMPARISON: Chest x-ray 10/30/2023 RESULT: Lines, tubes, and devices: None. Lungs and pleura: No consolidation. No lung mass. No pleural effusion. No pneumothorax. Cardiomediastinal silhouette: Normal cardiomediastinal silhouette. Bones and soft tissues: Unremarkable. IMPRESSION IMPRESSION: No acute radiographic abnormality. Meat Soaker: ROBSON Transcribe Date/Time: May 01 2024 10:07A Dictated by : GALO SHANKS MD Augmentin bid for 7 days Patient will call prescribing physician for the methotrexate and ask about holding it during the duration of the Augmentin. Spoke with patient's . Prescription instructions reviewed with patient as applicable. Potential red flag symptoms discussed with the patient. Reviewed appropriate action plan to take if red flag symptoms occur. Patient agreeable to treatment plan. Sharon Stiles APRN.NELI documented in this encounter [facility] 02-02-2024 Note HNO ID: [id number] Author: MARICEL CARSON APRN.CNP Service: ? Author Type: Nurse Practitioner Type: Progress Notes Filed: 02/02/2024 11:59 Note Text: This note was created using [employer]. Subjective Lito Vu is a 58 year old male. HPI Chest congestion and cough for the last two weeks. Symptoms seem to be worsening. Pt taking OTC meds with no relief. Review of Systems Constitutional: Positive for fatigue. Negative for fever. HENT: Positive for congestion and sore throat. Respiratory: Positive for cough. Neurological: Positive for headaches. Objective BP 158/76 Pulse 88 Temp 36.3 ?C (97.3 ?F) Resp 16 Wt 73 kg (160 lb 15 oz) SpO2 98% BMI 20.66 kg/m? Physical Exam Vitals and nursing note reviewed. Constitutional: General: He is not in acute distress. Appearance: Normal appearance. He is not ill-appearing. HENT: Head: Normocephalic. Mouth/Throat: Mouth: Mucous membranes are moist. Eyes: Conjunctiva/sclera: Conjunctivae normal. Cardiovascular: Rate and Rhythm: Normal rate and regular rhythm. Pulmonary: Effort: Pulmonary effort is normal. No respiratory distress. Breath sounds: Rhonchi and rales present. Musculoskeletal: General: Normal range of motion. Cervical back: Normal range of motion. Skin: General: Skin is warm and dry. Neurological: General: No focal deficit present. Mental Status: He is alert. Psychiatric: Mood and Affect: Mood normal. Behavior: Behavior normal. Assessment and Plan ASSESSMENT/PLAN: 1. Bacterial pneumonia - ICD9: 482.9, ICD10: J15.9 As patient has coarse lung sounds and 2 weeks of worsening symptoms I am concerned about possible pneumonia. As we do not have x-ray available today patient was started on a course of doxycycline and instructed to follow-up with PCP for further evaluation and to ensure resolution of symptoms. Patient comfortable with plan. - DOXYCYCLINE MONOHYDRATE 100 MG TABLET Maricel Carson APRN.BLASTING WORKER [facility] 02-02-2024 History of Present illness Narrative This note was created using [employer]. Subjective Lito Vu is a 58 year old male. HPI Chest congestion and cough for the last two weeks. Symptoms seem to be worsening. Pt taking OTC meds with no relief. Review of Systems Constitutional: Positive for fatigue. Negative for fever. HENT: Positive for congestion and sore throat. Respiratory: Positive for cough. Neurological: Positive for headaches. Objective BP 158/76 Pulse 88 Temp 36.3 C (97.3 F) Resp 16 Wt 73 kg (160 lb 15 oz) SpO2 98% BMI 20.66 kg/m Physical Exam Vitals and nursing note reviewed. Constitutional: General: He is not in acute distress. Appearance: Normal appearance. He is not ill-appearing. HENT: Head: Normocephalic. Mouth/Throat: Mouth: Mucous membranes are moist. Eyes: Conjunctiva/sclera: Conjunctivae normal. Cardiovascular: Rate and Rhythm: Normal rate and regular rhythm. Pulmonary: Effort: Pulmonary effort is normal. No respiratory distress. Breath sounds: Rhonchi and rales present. Musculoskeletal: General: Normal range of motion. Cervical back: Normal range of motion. Skin: General: Skin is warm and dry. Neurological: General: No focal deficit present. Mental Status: He is alert. Psychiatric: Mood and Affect: Mood normal. Behavior: Behavior normal. Assessment and Plan ASSESSMENT/PLAN: 1. Bacterial pneumonia - ICD9: 482.9, ICD10: J15.9 As patient has coarse lung sounds and 2 weeks of worsening symptoms I am concerned about possible pneumonia. As we do not have x-ray available today patient was started on a course of doxycycline and instructed to follow-up with PCP for further evaluation and to ensure resolution of symptoms. Patient comfortable with plan. - DOXYCYCLINE MONOHYDRATE 100 MG TABLET Maricel Carson APRN.NELI documented in this encounter [facility] 10-30-2023 History of Present illness Narrative Radiology Service Progress Note PATIENT NAME: Lito Vu DATE OF SERVICE: October 30, 2023 TIME: 2:25 PM PATIENT IDENTITY VERIFICATION COMPLETED USING TWO (2) IDENTIFIERS: Name and Date of confirmed by patient verbally. FALL SCREENING: Has the patient had 2 falls in the last year or 1 fall with injury or currently using an Ambulatory Assistive Device (Walker, Cane, Wheelchair, Crutches, etc.)? No PATIENT GENDER DATA: Male PATIENT RELEVANT IMPLANT DATA REVIEWED: Yes PATIENT PRESENTS WITH AN IMPLANTABLE OR ATTACHED RELIGION INSTRUCTOR: No RADIOLOGY DEPARTMENT: General X-ray: Exam(s) Completed: Chest X-Ray PERIPHERAL IV DATA: Not applicable SIGNED BY: RT Dhara(R) October 30, 2023 2:25 PM documented in this encounter [facility] 10-30-2023 Note HNO ID: [id number] Author: NAYANA RENEE RT(R) Service: ? Author Type: Emt/Dispatcher Type: Progress Notes Filed: 10/30/2023 14:32 Note Text: Radiology Service Progress Note PATIENT NAME: Lito Vu DATE OF SERVICE: October 30, 2023 TIME: 2:25 PM PATIENT IDENTITY VERIFICATION COMPLETED USING TWO (2) IDENTIFIERS: Name and Date of confirmed by patient verbally. FALL SCREENING: Has the patient had 2 falls in the last year or 1 fall with injury or currently using an Ambulatory Assistive Device (Walker, Cane, Wheelchair, Crutches, etc.)? No PATIENT GENDER DATA: Male PATIENT RELEVANT IMPLANT DATA REVIEWED: Yes PATIENT PRESENTS WITH AN IMPLANTABLE OR ATTACHED RELIGION INSTRUCTOR: No RADIOLOGY DEPARTMENT: General X-ray: Exam(s) Completed: Chest X-Ray PERIPHERAL IV DATA: Not applicable SIGNED BY: RT Dhara(R) October 30, 2023 2:25 PM [facility] 10-30-2023 Instructions Valeria Hood PA - 10/30/2023 2:19 PM EST [facility] PATIENT INFO INFLUENZA INTRODUCTION Influenza (commonly called the flu) is a highly contagious illness that can occur in children or adults of any age. It occurs more often in the winter months because people spend more time in close contact with one another. The flu is spread easily from ipnddz-yo-dobcwh by coughing, sneezing, or touching surfaces. Every year, complications of the flu require more than 200,000 people in the [place] to be hospitalized. Serious illness is more likely in the very young, older adults, women, and people who have certain health problems such as asthma or other forms of lung disease. There have been several widespread flu outbreaks (called pandemics), which led to the deaths of many people worldwide. These outbreaks occurred when new strains of influenza viruses formed (often from pigs or birds) and humans became infected because they had no immunity to these viruses. FLU SYMPTOMS Symptoms of seasonal flu can vary from person to person, but usually include: Fever (temperature higher than 100 F or 37.8 C) Headache and muscle aches Fatigue Cough and sore throat may also be present People with the flu usually have a fever for two to five days. This is different than fever caused by other upper respiratory viruses, which usually resolve after 24 to 48 hours. Some people have cold-like symptoms (runny nose, sore throat) during the flu while others have fever and muscle aches. Flu symptoms usually improve over two to five days, although the illness may last for a week or more. Weakness and fatigue may persist for several weeks Flu complications -- Complications of influenza occur in some people; pneumonia is the most common complication. Pneumonia is a serious infection of the lungs, and is more likely to occur in people over the age of 65, people who live in termite exterminator care facilities (nursing homes), and those with other illnesses such as diabetes or conditions affecting the heart or lungs. FLU DIAGNOSIS Influenza is usually diagnosed based on symptoms (fever, cough and muscle aches). Lab testing for influenza is performed in certain cases, such as during a new influenza outbreak in a community. FLU TREATMENT When to seek help -- Most people with the flu recover within one to two weeks without treatment. However, serious complications of the flu can occur. Call your doctor or nurse immediately if: You feel short of breath or have trouble breathing You have pain or pressure in your chest or stomach You have signs of being dehydrated, such as dizziness when standing or not passing urine You feel confused You cannot stop vomiting or you cannot drink enough fluids There are several groups of people who are at increased risk for flu complications. These include women, young children (<5 years of age, and especially <2 years of age), people ?65 years of age, and people with certain diseases such as chronic lung disease (such as asthma), heart disease, diabetes, immunosuppressing conditions (such as HIV infection or transplantation), and some other diseases. If you or your child has flu symptoms and is at increased risk of flu complications, you should call your healthcare provider. Treat symptoms -- Treating the symptoms of influenza can help you to feel better, but will not make the flu go away faster. Rest until the flu is fully resolved, especially if the illness has been severe Fluids -- Drink enough fluids so that you do not become dehydrated. One way to presiding judge if you are drinking enough is to look at the color of your urine. Normally, urine should be light yellow to nearly colorless. If you are drinking enough, you should pass urine every three to five hours. Acetaminophen (such as Tylenol and other brands) can relieve fever, headache, and muscle aches. Aspirin, and medicines that include aspirin (eg, bismuth subsalicylate; PeptoBismol), are not recommended for children under 18 because aspirin can lead to a serious disease called Rick syndrome. Cough medicines are not usually helpful; cough usually resolves without treatment. We do not recommend cough or cold medicine for children under age six years. Antiviral treatment -- Antiviral medicines can be used to treat or prevent influenza. When used as a treatment, the medicine does not eliminate flu symptoms, although it can reduce the severity and duration of symptoms by about one day. Not every person with influenza needs an antiviral medicine; the decision is based upon your risk of developing complications of influenza. Antiviral treatment is most effective for seasonal influenza when it is taken within the first 48 hours of flu symptoms. Side effects -- Zanamivir and oseltamivir can cause mild side effects, including nausea and vomiting; zanamivir, which is inhaled, can cause difficulty breathing in some cases. Most people are able to continue the medicine despite the side effects. Antibiotics -- Antibiotics are NOT useful for treating viral illnesses such as influenza. Antibiotics should only used if there is a bacterial complication of the flu such as bacterial pneumonia, ear infection, or sinusitis. Antibiotics can cause side effects and lead to development of antibiotic resistance. documented in this encounter [facility] 10-30-2023 Note HNO ID: [id number] Author: VALERIA HOOD PA Service: ? Author Type: Physician Line Maintenance Type: Progress Notes Filed: 10/30/2023 14:49 Note Text: This note was created using [employer]. Subjective Lito Vu is a 58 year old male. HPI 58-year-old male presents for cough, chest congestion, fevers. Patient got up this morning and had a little bit of congestion and cough. Throughout the day at work, patient symptoms have gotten worse. His states that he has dystonia, so has difficulty coughing up phlegm. He does have history of aspiration pneumonia after choking on a pill. Patient does not recall aspirating any food or medications. He developed a fever this afternoon after work. No sick contacts. No vomiting or diarrhea. Still eating and drinking. PAST MEDICAL HISTORY Diagnosis Date Aspiration pneumonia (HCC) 2013 External hemorrhoids without mention of complication Hemorrhage of gastrointestinal tract, unspecified Segmental dystonia PAST SURGICAL HISTORY Procedure Laterality Date ARTHRP INTERPOS INTERCARPAL/METACARPAL JOINTS Right 04/15/2020 Right thumb CMC arthroplasty with LRTI and Right CTR COLONOSCOPY FLX DX W/COLLJ SPEC WHEN PFRMD 07/06/11 HEMORRHOIDECTOMY multiple PAST SURGICAL HISTORY OF Left 06/2014 excision cyst, flank ALLERGIES Patient has no known allergies. MEDICATIONS hydrOXYchloroQUINE (PLAQUENIL) 200 mg tablet methotrexate 2.5 mg tablet TAKE 6 TABLETS BY MOUTH ONCE A WEEK biotin 1 mg cap Take by mouth. Zinc 50 mg tab Take 50 mg by mouth once daily. baclofen (LIORESAL) 10 mg tablet Take two(2) tablet four (4) times daily (AM, noon, 7PM and bedtime) trihexyphenidyl (ARTANE) 2 mg tablet Take 1 tablet in AM AND at noon with 2 tablets at bedtime fluticasone (FLONASE) 50 mcg/actuation nasal spray Use 1 [place] in each nostril once daily. PSYLLIUM SEED, WITH DEXTROSE, (FIBER ORAL) Take by mouth. triamcinolone acetonide (KENALOG) 0.1 % cream Apply 1 application to affected area three times daily. Apply sparingly to area for rash/itching. Ascorbic Acid 1,000 mg tablet Take 1,000 mg by mouth once daily. Bee Pollen 580 mg cap Take 2 caps once daily diclofenac, EC, (VOLTAREN) 75 mg EC tablet TAKE 1 TABLET BY MOUTH TWICE DAILY FOR PAIN (Patient not taking: Reported on 08/22/2020 ) FAMILY HISTORY Problem Relation Age of Onset other (restless legs) Mother Social History Tobacco Use Smoking status: Never Smokeless tobacco: Never Vaping Use Vaping Use: Never used Substance Use Topics Alcohol use: No Drug use: No Review of Systems Constitutional: Positive for chills and fever. HENT: Positive for congestion. Negative for sore throat. Respiratory: Positive for cough. Negative for shortness of breath and wheezing. Gastrointestinal: Negative for diarrhea and vomiting. Objective BP 140/70 Pulse 106 Temp (!) 38.5 ?C (101.3 ?F) Resp 19 Wt 74.6 kg (164 lb 6.4 oz) SpO2 96% BMI 21.11 kg/m? Physical Exam Vitals and nursing note reviewed. Constitutional: General: He is not in acute distress. Appearance: Normal appearance. He is not toxic-appearing. HENT: Right Ear: Tympanic membrane and ear canal normal. Left Ear: Tympanic membrane and ear canal normal. Nose: Congestion present. Mouth/Throat: Mouth: Mucous membranes are moist. Eyes: Conjunctiva/sclera: Conjunctivae normal. Cardiovascular: Rate and Rhythm: Normal rate and regular rhythm. Pulmonary: Effort: Pulmonary effort is normal. Breath sounds: Examination of the right-lower field reveals rales. Examination of the left-lower field reveals rales. Rales present. Skin: General: Skin is warm and dry. Neurological: Mental Status: He is alert. Assessment and Plan ASSESSMENT/PLAN: 1. Acute cough - ICD9: 786.2, ICD10: R05.1 (primary diagnosis) -Chest x-ray no acute abnormality 2. Flu-like symptoms - ICD9: 780.99, ICD10: R68.89 - XR CHEST 2V FRONTAL/LAT-no acute abnormality - INFLUENZA AANDB MOLECULAR (POC)-positive for influenza A 3. Influenza A - ICD9: 487.1, ICD10: J10.1 -Rx for Tamiflu. -Tylenol, Motrin, fluids, rest. -If patient develops any chest pain, shortness of breath, go to ER. Diagnosis and treatment plan were discussed and questions were answered to the patient's satisfaction. Pt acknowledged understanding of concepts and follow up plan. Specific signs and symptoms that would indicate the need for higher level of care were discussed in detail warranting prompt ER evaluation. DEBORAH Rene [facility] 10-30-2023 History of Present illness Narrative This note was created using [employer]. Subjective Lito Vu is a 58 year old male. HPI 58-year-old male presents for cough, chest congestion, fevers. Patient got up this morning and had a little bit of congestion and cough. Throughout the day at work, patient symptoms have gotten worse. His states that he has dystonia, so has difficulty coughing up phlegm. He does have history of aspiration pneumonia after choking on a pill. Patient does not recall aspirating any food or medications. He developed a fever this afternoon after work. No sick contacts. No vomiting or diarrhea. Still eating and drinking. PAST MEDICAL HISTORY Diagnosis Date Aspiration pneumonia (HCC) 2013 External hemorrhoids without mention of complication Hemorrhage of gastrointestinal tract, unspecified Segmental dystonia PAST SURGICAL HISTORY Procedure Laterality Date ARTHRP INTERPOS INTERCARPAL/METACARPAL JOINTS Right 04/15/2020 Right thumb CMC arthroplasty with LRTI and Right CTR COLONOSCOPY FLX DX W/COLLJ SPEC WHEN PFRMD 07/06/11 HEMORRHOIDECTOMY multiple PAST SURGICAL HISTORY OF Left 06/2014 excision cyst, flank ALLERGIES Patient has no known allergies. MEDICATIONS hydrOXYchloroQUINE (PLAQUENIL) 200 mg tablet methotrexate 2.5 mg tablet TAKE 6 TABLETS BY MOUTH ONCE A WEEK biotin 1 mg cap Take by mouth. Zinc 50 mg tab Take 50 mg by mouth once daily. baclofen (LIORESAL) 10 mg tablet Take two(2) tablet four (4) times daily (AM, noon, 7PM and bedtime) trihexyphenidyl (ARTANE) 2 mg tablet Take 1 tablet in AM & at noon with 2 tablets at bedtime fluticasone (FLONASE) 50 mcg/actuation nasal spray Use 1 [place] in each nostril once daily. PSYLLIUM SEED, WITH DEXTROSE, (FIBER ORAL) Take by mouth. triamcinolone acetonide (KENALOG) 0.1 % cream Apply 1 application to affected area three times daily. Apply sparingly to area for rash/itching. Ascorbic Acid 1,000 mg tablet Take 1,000 mg by mouth once daily. Bee Pollen 580 mg cap Take 2 caps once daily diclofenac, EC, (VOLTAREN) 75 mg EC tablet TAKE 1 TABLET BY MOUTH TWICE DAILY FOR PAIN (Patient not taking: Reported on 08/22/2020 ) FAMILY HISTORY Problem Relation Age of Onset other (restless legs) Mother Social History Tobacco Use Smoking status: Never Smokeless tobacco: Never Vaping Use Vaping Use: Never used Substance Use Topics Alcohol use: No Drug use: No Review of Systems Constitutional: Positive for chills and fever. HENT: Positive for congestion. Negative for sore throat. Respiratory: Positive for cough. Negative for shortness of breath and wheezing. Gastrointestinal: Negative for diarrhea and vomiting. Objective BP 140/70 Pulse 106 Temp (!) 38.5 C (101.3 F) Resp 19 Wt 74.6 kg (164 lb 6.4 oz) SpO2 96% BMI 21.11 kg/m Physical Exam Vitals and nursing note reviewed. Constitutional: General: He is not in acute distress. Appearance: Normal appearance. He is not toxic-appearing. HENT: Right Ear: Tympanic membrane and ear canal normal. Left Ear: Tympanic membrane and ear canal normal. Nose: Congestion present. Mouth/Throat: Mouth: Mucous membranes are moist. Eyes: Conjunctiva/sclera: Conjunctivae normal. Cardiovascular: Rate and Rhythm: Normal rate and regular rhythm. Pulmonary: Effort: Pulmonary effort is normal. Breath sounds: Examination of the right-lower field reveals rales. Examination of the left-lower field reveals rales. Rales present. Skin: General: Skin is warm and dry. Neurological: Mental Status: He is alert. Assessment and Plan ASSESSMENT/PLAN: 1. Acute cough - ICD9: 786.2, ICD10: R05.1 (primary diagnosis) -Chest x-ray no acute abnormality 2. Flu-like symptoms - ICD9: 780.99, ICD10: R68.89 - XR CHEST 2V FRONTAL/LAT-no acute abnormality - INFLUENZA A&B MOLECULAR (POC)-positive for influenza A 3. Influenza A - ICD9: 487.1, ICD10: J10.1 -Rx for Tamiflu. -Tylenol, Motrin, fluids, rest. -If patient develops any chest pain, shortness of breath, go to ER. Diagnosis and treatment plan were discussed and questions were answered to the patient's satisfaction. Pt acknowledged understanding of concepts and follow up plan. Specific signs and symptoms that would indicate the need for higher level of care were discussed in detail warranting prompt ER evaluation. DEBORAH Rene documented in this encounter [facility] 04-20-2022 History of Present illness Narrative Patient presents with for aspiration of pill. States early this morning he took his pills he felt it stuck in there ROS and HPI limited related to his history of dystonia. Concerns for possible retained FB and would benefit from imaging, which is not available at time of exam. BP 126/78 Pulse 71 Temp 36.9 C (98.4 F) Resp 18 Wt 74.1 kg (163 lb 6.4 oz) SpO2 100% BMI 20.98 kg/m documented in this encounter [facility] 01-02-2021 Note HNO ID: [id number] Author: Rosemary Wynne OT/L Service: ? Author Type: Occupational Therapist Type: Progress Notes Filed: 01/02/2021 11:46 AM Note Text: 01/02/2021 REHABILITATION AND SPORTS THERAPY OCCUPATIONAL THERAPY DISCONTINUANCE OF CARE Plan of Care Period: Start of Care Date: 05/12/20 Last Visit Date: 06/02/2020 Therapy Program: The following is a summary of the interventions provided for this episode of care; Therapeutic exercise, Manual therapy and Self-fci management Assessment: Based on most recent visit, patient was progressing as expected toward functional goals based on documented subjective information on progress. Unable to formally assess goal achievement due to non-compliance with therapy plan of care. Reason for Discontinuation of Care: Patient has not returned to therapy or scheduled additional follow-up appointments. Rosemary Wynne OT/[facility] 06-02-2020 Note HNO ID: [id number] Author: Rosemary Wynne Service: ? Author Type: Occupational Therapist Type: Progress Notes Filed: 06/02/2020 4:29 PM Note Text: Episode Visit Count: 2 Therapist That Will Oversee The Plan Of Care: Roderick Riley Start of Care Date: 05/12/20 Onset Date: 04/15/20 Plan of Care Certification Date: 05/12/20 Next Certification Due Date: 08/11/20 Patient Identified by Name and Date of : Yes REHABILITATION AND SPORTS THERAPY OCCUPATIONAL THERAPY TREATMENT NOTE ASSESSMENT: Lito Vu demonstrated difficulty with strength and heavier use of hand. The patient will continue to benefit from continued skilled occupational therapy for exercises, modalities manual techniques PLAN FOR NEXT VISIT: progressive to more aggressive exercises as needed SUBJECTIVE: Pt reporting he does still get some soreness states he is ready to return to full duty at work Pain: Pain Pain Level: 3 Post Treatment Pain Post Treatment Pain Level: 3 OBJECTIVE MEASURES WITH LEVEL OF FUNCTION: Hand Wrist AROM: Right Limitation Strength: Drilling Rig Operator Position 2 Hand Strength R Drilling Rig Operator Position 2 (lbs): 45 lbs L Drilling Rig Operator Position 2 (lbs): 105 lbs UE AROM R Wrist Extension: 45 Degrees R Wrist Flexion: 55 Degrees Hand AROM R Thumb MP Flexion : 51 Degrees R Thumb IP Flexion : 52 Degrees TREATMENT: Therapeutic Exercise: 1: wrist flex ext deviation 2: tendon gliding 3: thumb flex ext and opposition 4: fabricated hand based thumb splint instructed in wear schedule and precautions 5: with medium soft putty household appliance mechanic, digit extension roll and digit flexion and tripod pinch 6: pt instructed to wean out of forearm splint into hand based and further out of that as able recommended splint wear continue at work 7: scar massage Skilled Intervention: Patient was educated in proper exercise technique and purpose for exercises. Provided written instruction for home exercise program to facilitate proper performance and compliance. Custom orthosis: L 3913 HFO custom w/o joints (oppon/ hand hurtado/ hand trigger/ other) Custom orthosis to provide immobilization, protection and support of Thumb CMC to promote healing and Pt practiced orthosis application, donning on/off while under OT's supervision.. Patient was instructed in care of orthosis and wearing schedule Protection only outdoors / heavy use.. Skilled Intervention: Clinical knowledge and skills required for custom orthotic fabrication and wearing schedule Billing: Dai: Therapeutic Exercise (16862): 1:1 time:35 minutes (2 units: 23-37 mins) Orthosis: Custom: L3913 HFO custom w/o joints (oppon/ hand hurtado/ hand trigger/ other) Total time / Length of visit: 40 minutes Rosemary Wynne OT/[facility] 05-12-2020 Note HNO ID: [id number] Author: Rosemary Wynne Service: ? Author Type: Occupational Therapist Type: Progress Notes Filed: 05/12/2020 12:30 PM Note Text: Episode Visit Count: 1 Therapist That Will Oversee The Plan Of Care: Roderick Riley Start of Care Date: 05/12/20 Onset Date: 04/15/20 Plan of Care Certification Date: 05/12/20 Next Certification Due Date: 08/11/20 Patient Identified by Name and Date of : Yes [facility] OCCUPATIONAL THERAPY EVALUATION PLAN OF CARE: Assessment: Lito Vu presents with the diagnosis of CTR release and CMC arthroplasty. He presents with impairments of edema AROM and strength. He may benefit from skilled occupational therapy services to improve function. Prognosis: Good Good due to: current objective clinical presentation Goals for Episode of Care created on 05/12/20 through 08/11/20 Patient will report a good understanding of diagnosis and OT recommendations for progression of program. Patient will increase AROM of Right wrist , hand and finger to WNL in order to be able to improve function for basic self-care tasks and light functional tasks. Patient will independently demonstrate correct application of CUSTOM orthosis and verbalize understanding of proper wear/care. Patient will report a good understanding of edema control, scar / wound management throughout therapy plan of care to promote non-adherent / non-tender soft tissue. Planned Interventions, Frequency, and Duration: Current Frequency: 1x every other week Duration: 12 weeks Total Number of Visits Planned: 6 Planned Treatment Interventions: Custom orthosis fabrication;Prefabricated orthosis fitting;Therapeutic exercise;Manual therapy;Modalities;Self-fci managementFluidotherapy PLAN FOR NEXT VISIT: wean splint trial fluido soft sponge Patient demonstrates good understanding of plan of care and treatment. The above goals and plan of care were discussed and agreed upon by patient/family. SUBJECTIVE: Lito Vu is a 55 year old male seen today for s/p hand surgery Functional Limitations: weight bearing;gripping;pinching Prior Level of Function: Independent without limitations Intake Information: Prescription present Previous Treatment: None Falls Interview: No positive findings with falls interview Pain: Pain Pain Level: 6 Pain Location: Hand - Right;Wrist - Right Description: Aching Frequency: Intermittent Post Treatment Pain Post Treatment Pain Level: 4 Post Treatment Pain Location: Hand - Right;Wrist - Right Post Treatment Pain Description: Aching PROMIS Scales Higher is Better 01/31/2016 08/07/2016 GH Physical - Percentile 53 % 41 % GH Mental - Percentile 34 % 34 % T-scores: mean of general population = 50. 5 points is clinically meaningfully difference Percentiles provide an indication of how the patient's score ranks in relation to the general population. Higher percentile rankings indicate better function/quality of life. 50th percentile is the average of the general population and indicates half of respondents had a worse score. T-scores: mean of general population = 50. 5 points is clinically meaningfully difference Percentiles provide an indication of how the patient's score ranks in relation to the general population. Higher percentile rankings indicate better function/quality of life. 50th percentile is the average of the general population and indicates half of respondents had a worse score. OBJECTIVE MEASURES WITH LEVEL OF FUNCTION: Hand Skin / Wound: Scar Scar: Tender;Mild adherance Edema Location: right hand Edema Description: Mild Edema Measurements: Wrist (DWC) (cm) R Wrist (DWC) (cm): 18.8 L Wrist (DWC) (cm): 17 Wrist AROM: Right Limitation Right Hand AROM: WFL Thumb AROM: Right Limitation Sensation: Denies tingling or numbness UE AROM R Forearm Supination: 90 Degrees R Forearm Pronation: 80 Degrees R Wrist Extension: 35 Degrees R Wrist Flexion: 35 Degrees Right Hand AROM: WFL Thumb AROM: Right Limitation Hand AROM R Thumb MP Flexion : 15 Degrees R Thumb IP Flexion : 52 Degrees R Thumb Radial Abduction: 75 Degrees R Thumb Palmar Abduction: 70 Degrees Education: Education Learning Preferences: Demonstration;Explanation;Printed Materials;Performance Barriers: None Learning/educational needs: Procedure / Surgery;Home exercise program;Plan of Care;Brace Fit Education Provided: Yes, see treatment interventions for education provided Education Provided To: Patient Education Mode/Type: Demonstration;Explanation/Discussion; Literature/Printed Materials Response to Education/Teach Back: States/Identifies;Return Demonstration;Requires Review/Additional Education TREATMENT: Evaluation Evaluation Therapeutic Exercise: 1: wrist flex ext deviation 2: tendon gliding 3: thumb flex ext and opposition 4: fabricated fore (more content not included)... [facility] 04-15-2020 Note HNO ID: [id number] Author: Johann Anderson Service: ? Author Type: Anesthesiologist Type: Anesthesia Procedure Notes Filed: 04/15/2020 2:38 PM Note Text: ANESTHESIOLOGY PROCEDURE NOTE Peripheral Nerve Block General Information Procedure Start Time/Medication Administration: 04/15/2020 2:29 PM Procedure End time: 04/15/2020 2:34 PM Patient location during procedure: pre-op Timeout Performed Pre-procedure: timeout performed Consent Obtained: Yes Patient identity confirmed: arm band Reason for block: post-op pain management/at surgeon's request Staffing Anesthesiologist: Johann Anderson Performed by: anesthesiologist Preparation Sterility Preparation: hand hygiene performed prior to procedure, surgical cap used, mask used, sterile drape used during line insertion, skin prep agent completely dried prior to procedure Site Prep: Chloraprep Pre-Procedure Neuro Exam Location: RUE Sensory: intact Motor: intact Procedure Details Patient Position: supine Monitoring: Pulse OX, EKG and NIBP Block Type Upper Extremity: brachial plexus Approach: infraclavicular Laterality: right Injection Technique: single-shot Ultrasound Guided: Yes Image in Chart: yes Local Infiltration: Yes Needle Needle Gauge: 22 G Needle Length: 51 mm Needle Localization: ultrasound Assessment Injection assessment: negative aspiration, no paresthesia on injection, incremental injection and local visualized surrounding nerve on ultrasound Post-Procedure Neuro Exam Expected Regional Anesthesia: Yes Medications Administered Bupivacaine (PF) 0.5 % (5 mg/mL) injection, 20 mL dexamethasone sodium phosphate injection (DECADRON), 8 mg SIGNATURE: Johann Anderson MD PATIENT NAME: Lito Vu DATE: April 15, 2020 TIME: 2:36 PM CSN: [id number] [facility] Discharge summary Note Date/Time October 13, 2022 7:28am [facility] Medical Records Department [address] [place] [address] Emergency Department Summary 10/13/22 MR#: [id number] Acct: [id number] Name: LITO VU Rep #:[id number] : 1965 57 From: Maynor Werner MD PCP: Dr. Mignon Mon, Status:REG ER Location: ED HPI History of Present Illness Chief Complaint: Palpitations Informant: patient and family Onset/Context/Timing Onset: Yesterday Context: Sudden Onset Timing: Intermittent Quality: Heart racing all night long Location: Chest Current Severity: Gone Maximum Severity: Moderate Worsened by: Nothing Relieved by: Nothing Associated Symptoms Associated Symptoms: Nothing Narrative Narrative: Patient is a 57-year-old male with past medical history of segmental dystonia, lower GI bleed, rheumatoid arthritis, chronic bilateral low back pain without sciatica who presents because his heart rate has been racing all night long. His was recently diagnosed with COVID. He has no upper respiratory tract infectious symptoms. He has had no new medications or change in doses of medications. He denies headache, visual, ocular auditory symptoms. He does complain of congestion. The congestion is chronic. He denies sore throat. He denies trouble with speech compared to baseline and denies problems swallowing. He denies cardiac or respiratory symptoms other than the heart rate racing all night long. He denies abdominal pain, nausea, vomiting or diarrhea. He denies change in bowel habitus. He denies urologic symptoms. He denies history of VTE. He denies leg pain, swelling or discoloration. He denies rash. He deniesmyalgias or arthralgias. He is on Plaquenil for his rheumatoid arthritis. He states Dr. Henderson is no longer his physician. Dr. Mignon Mon is his physician. Outside records from [facility] were reviewed. Patient had a lipid profile performed by Dr. Santiago January 18, 2018. His LDH was slightly elevated at 121. His LDL to HDL ratio is 1.89-1. Patient had a colonoscopy performed June 2011 and revealed source of lower GI bleed to be internal hemorrhoids. [facility] Medical History Arthritis Dystonia Health care maintenance Localized swelling on hand Preventative health care Rheumatoid arthritis Home Medications ascorbic acid (vitamin C) 500 mg capsule,extended release 500 mg PO DAILY 11/03/18 [History Last Taken Unknown] turmeric root extract 500 mg capsule 500 mg PO DAILY 11/03/18 [History Last Taken Unknown] zinc 50 mg tablet 50 mg PO DAILY 11/03/18 [History Last Taken Unknown] bee pollen 550 mg capsule 2 cap PO DAILY 05/02/20 [History Last Taken Unknown] polyethylene glycol 3350 17 gram/dose oral powder (Miralax) 17 g PO .prn 10/20/20 [History Last Taken Unknown] glucosamine 750 [id number]-fcy no1 644 mg-C 30 mg-santos 1 mg tablet 1 each PODAILY 11/20/20 [History Last Taken Unknown] hydroxychloroquine 200 mg tablet 300 mg PO DAILYCM 11/20/20 [History Last Taken Unknown] trihexyphenidyl 2 mg tablet 2 mg PO .QID #360 tabs 05/11/21 [Rx Last Taken Unknown] baclofen 10 mg tablet 10 mg PO Q6H dystonia #480 tabs 08/17/21 [Rx Last Taken Unknown] amoxicillin 875 mg-potassium clavulanate 125 mg tablet 1 tab PO Q12H #14 tabs 04/20/22 [Rx Last Taken Unknown] Allergy/AdvReac Type Severity Reaction Status Date / Time No Known Allergies Allergy Verified 04/20/22 19:09 Family History Mother Cancer melanoma Hypertension Hyperlipemia Sister Breast cancer Surgical History History of carpal tunnel surgery of right wrist History of colonoscopy Hx of hemorrhoidectomy right thumb replacment Social History (Updated 10/13/22 @ 07:[address] Maynor Werner MD) household members: spouse Smoking Status: Never smoker alcohol intake: never substance use type: does not use what type of physical activity do you participate in: bicycling frequency: 3-4 times per week ROS ROS ED Constitutional Constitutional ED: Denies chills, fever(s), subjective, sweats or weight loss Eyes Eyes: Denies blurry vision, change in vision or diplopia ENT ENT ED: Denies ear pain, rhinorrhea or sore throat Cardiovascular Cardiovascular: Reports palpitations and racing heartbeat; Denies chest pain, orthopnea or paroxysmal nocturnal dyspnea Respiratory/Chest Respiratory/Chest: Denies cough, dyspnea, dyspnea on exertion, orthopnea or paroxysmal nocturnal dyspnea Gastrointestinal Gastrointestinal: Reports diarrhea; Denies abdominal pain, melena, nausea or vomiting Genitourinary Genitourinary ED: Denies dysuria, hematuria or urinary frequency Musculoskeletal Musculoskeletal: Denies arthralgias, back pain, myalgias or neck pain Integumentary Denies abscess, Abrasions or rash Neurologic Neurologic: Denies headache(s), paresthesias or weakness Psychiatric Psychiatric: Denies anxiety or depression Endocrine Endocrinology: Denies cold intolerance or heat intolerance Hematologic/Lymphatic Hematologic/Lymphatic: Reports systems reviewed and no addt'l complaints, exceptas documented EXAM Physical Exam Const Vital Signs: 10/13/22 06:31 10/13/22 06:30 10/13/22 07:46 Temperature 96.8 F L 96.8 F L Temperature Source Temporal Temporal Pulse Rate 88 88 75 Respiratory Rate 18 18 18 Blood Pressure 139/81 H 139/81 H 112/72 Blood Pressure Mean 100 100 85 Pulse Ox 95 98 95 Oxygen Delivery Method Room Air Room Air Room Air Positive well nourished and well developed General Appearance ED: well developed and NAD; Negative for cyanotic, diaphoretic or pallor HEENT Reports moist mucous membranes HEENT Narrative: Head is atraumatic normocephalic. Nares patent. Posterior pharynx without erythema or exudate. Uvula is midline. There is no deviation time of protrusion. Ears are normal. Eyes PERRL and EOMs intact bilaterally General Eye ED: Negative for pale conjunctiva or scleral icterus Neck no lymphadenopathy, supple and no JVD Neck Narrative: Trachea is midline. There is no carotid bruits noted. Chest Wall inspection of chest normal and palpation of chest normal Resp normal respiratory effort and clear to auscultation bilaterally Cardio regular rate, regular rhythm, S1 normal heart sound, S2 normal heart sound and no murmurs GI normal to inspection, nondistended, normoactive bowel sounds, non-tender, non-distended and no masses; Negative for hepatosplenomegaly Back/Spine no CVA tenderness Back/Spine Narrative: Inspection of the back is normal is no tenderness palpation. Neuro oriented x3, CN's II-XII intact bilaterally and no sensory deficits noted Sensorium / Orientation: alert Psych mental status grossly normal Skin no rashes or lesions noted, no wounds and skin turgor normal General Skin Exam: elasticity normal; Negative for jaundice or pallor MDM MDM MDM Narrative Medical decision making narrative: Prior records were reviewed. There is no history of coronary disease or dysrhythmia. Patient's has not seen a radio officer or had an echo cardiogram inthe past. He presents with palpitations. He does have a watch that monitors heart rate however he he states its not working. Patient was placed on the monitor when he arrived. Since arrival at the time of this note 0726 patient had no tachycardia or ectopy noted i.e. PACs or PVCs. He does endorse recent diarrhea. For this reason basic metabolic panel was obtained to assess for hypokalemia which may be a cause of PACs or ventricular premature beats. TSH was obtained to evaluate/screen for hyperthyroidism as a cause of palpitations. EKG was obtained per protocol. EKG was interpreted by the evening physician as normal. The EKG was reviewed by me. EKG reveals a normal sinus rhythm rate of 89. Lab Data Attestation: I reviewed the patient's lab results. Lab results narrative: MignonableBasic metabolic panel is. BUN to creatinine ratio is elevated 25-1. This is not significant. Glucose slightly elevated 113 which is not significant. CO2 anion gap are normal. TSH is normal. Patient's monitor has been reviewed. There has been no ectopy during his entire ER stay. Labs: Laboratory Results - last 24 hr 10/13/22 06:33 Sodium 139 Potassium 3.8 Chloride 103 Carbon Dioxide 27.0 Anion Gap 9 BUN 23 H Creatinine 0.91 Estim Creat Clear Calc 92.11 Est GFR (MDRD) Af Amer 109 Est GFR (MDRD) Non-Af 90 BUN/Creatinine Ratio 25.2 H Glucose 113 H Calcium 9.2 TSH 1.88 Rhythm Strip Rhythm Strip: Sinus Rhythm Rate: 82 Ectopy: None EKG Initial EKG: Attestation: I personally reviewed and interpreted this EKG as follows: Interpretation: Sinus Rhythm (Ventricular rate is 89. The EKG is normal. MO interval is 154 ms. QRS duration 86 ms. QT duration 362 ms. [place] is normal. There are no premature beats noted.) Discharge Plan Triage Chief Complaint: Palpitations ED Provider: Maynor Werner Dx/Rx/DC Orders Clinical Impression: Heart palpitations, Dystonia, Hx of rheumatoid arthritis, Essential hypertension Instructions: ED Palpitations Prescriptions: No Action turmeric root extract 500 mg capsule 500 mg PO DAILY zinc 50 mg tablet 50 mg PO DAILY ascorbic acid (vitamin C) 500 mg capsule, extended release 500 mg PO DAILY bee pollen 550 mg capsule 2 cap PO DAILY polyethylene glycol 3350 [Miralax] 17 gram/dose powder 17 g PO .prn hydroxychloroquine 200 MG tablet 300 mg PO DAILYCM omfbjybh-qejk-ffs1-C-santos-bosw 1 EACH tablet 1 each PO DAILY amoxicillin-pot clavulanate 875-125 mg tablet 1 tab PO Q12H Qty: 14 0RF trihexyphenidyl 2 mg tablet 2 mg PO .QID Qty: 360 3RF baclofen 10 mg tablet 10 mg PO Q6H Qty: 480 2RF Rx Instructions: take 2 tablets PO every 6 hours Primary Care Provider: Mignon Mon Referrals: Mignon Mon, DO [Primary Care Provider] - 3-5 Days if not improving Disposition Disposition: Home, Self Care What to do if you have Problems For any increased pain, shortness of breath, bleeding, nausea or vomiting, chestpain, or any unexpected problems, contact your Primary Care Provider. Call [facility] ([phone]) or report to the closest Emergency Room. Call 911 if necessary. 10/13/22 0753 <Electronically signed by Maynor Werner MD> Cosigner Signature (if applicable): CC: Dr. Mignon Mon, DO ~ Signed [facility] Work Phone: Evaluation note* Diagnosis Onset Date Resolution Status Hematuria acute Health care maintenance acut e Dystonia chronic Hypertension chronic Rheumatoid arthritis chronic [facility] Work Phone: Evaluation note* Diagnosis Onset Date Resolution Status Health care maintenance acut e Dystonia chronic Hypertension chronic Rheumatoid arthritis chronic [facility] Work Phone: Evaluation note* Diagnosis Aspiration into airway, initial encounter documented in this encounter [facility] noteNo assessment information availableWSelect [facility] Work Phone: Evaluation note* Diagnosis Onset Date Resolution Status Sebaceous cyst acute [facility] Work Phone: Evaluation note* Diagnosis Acute cough- Primary Flu-like symptoms Other general symptoms Influenza A Influenza with other respiratory manifestations [facility] Diagnosis Bacterial pneumonia- Primary Bacterial pneumonia, unspecified documented in this encounter [facility] note* Diagnosis Pre-operative examination- Primary Preoperative examination, unspecified Osteoarthritis of right hand, 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 Muscle spasm- Primary Spasm of muscle Acute cough Acute cough documented in this encounter [facility] note* Diagnosis Pre-operative examination- Primary Preoperative examination, unspecified Osteoarthritis of right hand, 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 Acute cough documented in this encounter [facility] note* Diagnosis Pre-operative examination- Primary Preoperative examination, unspecified Osteoarthritis of right hand, 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 Flu-like symptoms Other general symptoms documented in this encounter [facility] for referral (narrative)No reason for referral information availableWSelect [facility] [place] Work Phone: Summary Purpose Family History Relationship Condition Age at Onset Recorded Date/T joann mother Malignant neoplasm Unknown Hypertension Unknown Hyperlipidemia Unknown sister Malignant neoplasm of breast Unknown Advance Directives Advance Directive Response Recorded Date/ Time Living Will Yes November 20, 2020 6:46pm Power of Support Clerk Yes November 20 6:46pm Advance Directive Response Recorded Date/ Time Living Will No April 20 6:06pm Power of Support Clerk Yes April 20 6:06pm Name of Medical Power of Support Clerk VANI GOMES- April 20, 2022 6:06pm Advance Directive Response Recorded Date/ Time Living Will No April 20 6:06pm Power of Support Clerk Yes April 20 6:06pm Advance Directive Response Recorded Date/ Time Living Will No October 13 023 6:34am Power of Support Clerk No October 13, 2022 6:34am Advance Directive Response Recorded Date/ Time Living Will No October 13 023 7:34am Power of Support Clerk No October 13, 2022 7:34am Chief Complaint and Reason for Visit Chief Complaint ARTHRITIS/PAIN- COPY PCP ? UTI 6 M FU eorder Reason for Visit Hematuria Health care maintenance Dystonia Hypertension Rheumatoid arthritis Chief Complaint ARTHRITIS/PAIN- COPY PCP ? UTI 6 M FU eorder GROSS HEMATURIA Reason for Visit Hematuria Health care maintenance Dystonia Hypertension Rheumatoid arthritis Chief Complaint 6 M FU eorder GROSS HEMATURIA Reason for Visit Health care maintena nce Dystonia Hypertension Rheumatoid arthritis Chief Complaint COUGH STANDING ORDER BACK PAIN Chief Complaint STANDING ORDER BACK PAIN S/O- PAIN COPY PCP Chief Complaint BACK PAIN S/O- PAIN COPY PCP palpitations Chief Complaint BACK PAIN S/O- PAIN COPY PCP palpitations S/O- PAIN - COPY PCP Chief Complaint S/O- PAIN COPY PCP palpitations S/O- PAIN - COPY PCP Chief Complaint S/O- PAIN - COPY PCP 2 DRS/ 2 ORDERS Chief Complaint 2 DRS/ 2 ORDERS S/O SELF REFERRED CYST ON SHOULDER Reason for Visit Sebaceous cyst Chief Complaint S/O SELF REFERRED CYST ON SHOULDER S/O- PAIN- COPY PCP Reason for Visit Sebaceous cyst Chief Complaint S/O- PAIN- COPY PCP S/O- PAIN- COPY PCP Chief Complaint Admit Date S/O- PAIN COPY PCP August 10, 2024 4 :50pm LUMBAR SPINE October 12, 2024 4:31pm S/O- PAIN COPY PCP November 06, 2024 4:35 pm Additional Source Comments (unrecognized sect ion and content) No Status Records FoundNo Status Records FoundNo Status Records Found INFORMATION SOURCE (unrecogn ized section and content) DATE CREATED AUTHOR 01/03/2021 [facility] DATE CREATED AUTHOR AUTHOR'S ORGANIZ ATION 02/02/2024 [facility] DATE CREATED AUTHOR AUTHOR'S ORGANIZ ATION 11/21/2024 [facility] Goals (unrecognized section and content) Goals may be documented in a n alternate sectionGoals may be documented in an alternate sectionGoals may be documented in an alternate sectionGoals may be documented in an alternate sectionGoals may be documented in an alternate sectionGoals may be documented in an alternate sectionGoals may be documented in an alternate sectionGoals may be documented in an alternate sectionGoals may be documented in an alternate sectionGoals may be documented in an alternate sectionGoals may be documented in an alternate sectionGoals may be documented in an alternate sectionGoals may be documented in an alternate section Source Comments (unrecognize d section and content) In the event this informatio n is protected by the Federal Confidentiality of Alcohol and Drug Abuse Patient Records regulations: The Federal rules restrict any use of the information to criminally investigate or prosecute any alcohol or drug abuse patient.[facility] the event this information is protected by the Federal Confidentiality of Alcohol and Drug Abuse Patient Records regulations: The Federal rules restrict any use of the information to criminally investigate or prosecute any alcohol or drug abuse patient.[facility] the event this information is protected by the Federal Confidentiality of Alcohol and Drug Abuse Patient Records regulations: The Federal rules restrict any use of the information to criminally investigate or prosecute any alcohol or drug abuse patient.[facility] the event this information is protected by the Federal Confidentiality of Alcohol and Drug Abuse Patient Records regulations: The Federal rules restrict any use of the information to criminally investigate or prosecute any alcohol or drug abuse patient.[facility] the event this information is protected by the Federal Confidentiality of Alcohol and Drug Abuse Patient Records regulations: The Federal rules restrict any use of the information to criminally investigate or prosecute any alcohol or drug abuse patient.[facility] the event this information is protected by the Federal Confidentiality of Alcohol and Drug Abuse Patient Records regulations: The Federal rules restrict any use of the information to criminally investigate or prosecute any alcohol or drug abuse patient.[facility] Reason for Visit (unrecogniz ed section and content) Reason Comments Follow Up Pt reported swallowi ng pills (Advil gel caps AM) cough, denied chest pain, SOB Specialty Diagnoses / Procedures Referred By Ryan t Referred To Contact Internal Medicine / [facility] Diagnoses Aspiration into airway aspirated when he took pills Procedures OFFICE/OUTPATIENT NEW MODERATE MDM 45-59 MINUTES NEW SAME DAY [facility] [address] [place] [address] Referral ID Status Reason Start Date Expiration Date Visits Re quested Visits Authorized [id number] Closed 04/20/2022 09/01/2022 1 1 Reason Comments Cough Fever, congestion, b arvind aches started this morning Reason Comments Cough Congestion x2 weeks Reason Comments Pain Choked on Celebrex c apsule at 0530 this morning, feels upper back spasms, denies SOB or chest pain Specialty Diagnoses / Procedures Referred By Ryan zepeda Referred To Contact Radiology / [facility] Diagnoses Acute cough Acute cough [R05.1] Procedures RADIOLOGIC EXAM CHEST 2 VIEWS XR CHEST Sharon Stiles APRN.[employer] WORKER [address] [place] [address] Radio [facility] [address] [place] [address] Referral ID Status Reason Start Date Expiration Date Visits Re quested Visits Authorized [id number] Closed 05/01/2024 09/01/2024 1 1 Care Teams (unrecognized sec tion and content) Broadcast Checker Relationship Specialty Start Date End Date Viktor Tam MD PCP - General Internal Medicine 10/09/19 Team Status: Active Member Role Status Dates Dr. Janice Martin , DO Family Provider Active Dr. Mignon Mon , DO Primary Care Provider Active Team Status: Inactive Member Role Status Dates Dr. Mignon Mon , DO Primary Care Prov ider, Attending Provider, Referring Provider Active Team Status: Inactive Member Role Status Dates Dr. Mignon Mon , DO Primary Care Provider Active Dr. Thao Moulton MD Attending Provider, Referring Provider Active Team Status: Inactive Member Role Status Dates Dr. Mignon Mon , DO Primary Care Provider Active Dr. Maynor Werner MD Emergency Provider Active Team Status: Inactive Member Role Status Dates Dr. Mignon Mon , DO Primary Care Provider Active Dr. Maynor Werner MD Attending Provider, Emergency Provi davida Active Team Status: Inactive Member Role Status Dates Dr. Mignon Mon , DO Primary Care Prov ider, Attending Provider, Referring Provider Active Dr. Thao Moulton MD Other Provider Active Team Status: Inactive Member Role Status Dates Dr. Mignon Mon DO Primary Care Provider, Referrin g Provider Active Dr. Nigel Markham MD Attending Provider Active Team Status: Inactive Member Role Status Dates Dr. Mignon Mon , DO Primary Care Provider Active Dr. Taho Moulton MD Attending Provider Active Broadcast Checker Relationship Specialty Start Date End Date Viktor Tam MD PCP - General Internal Medicine 10/09/19 Broadcast Checker Relationship Specialty Start Date End Date ElieserMignon terrazasDO [address] [place] [address] PCP - General Family Medicine 02/02/24 Broadcast Checker Relationship Specialty Start Date End Date ElieserMignon dobbsDO [address] [place] [address] PCP - General Family Medicine 02/02/24 Broadcast Checker Relationship Specialty Start Date End Date Elieser, Mignon [place] DO [address] [place] [address] PCP - General Family Medicine 02/02/24 Broadcast Checker Relationship Specialty Start Date End Date Viktor Tam MD PCP - General Internal Medicine 10/09/19 02/01/24 Team Status: Inactive Member Role Status Dates Dr. Mignon Mon DO Primary Care Provider Active Start: August 10, 2024 End: August 10, 2024 Dr. Thao Moulton MD Attending Provider Active Start: August 10, 2024 End: August 10, 2024 Dr. Thao Moulton MD Referring Provider Active Start: August 10, 2024 End: August 10, 2024 Team Status: Inactive Member Role Status Dates Dr. Mignon Mon DO Primary Care Provider Active Start: October 12, 2024 End: October 12, 2024 Dr. Mik Melo MD Attending Provider Active Start: October 12, 2024 End: October 12, 2024 Dr. Mik Melo MD Referring Provider Active Start: October 12, 2024 End: October 12, 2024 Team Status: Inactive Member Role Status Dates Dr. Mignon Mon DO Primary Care Provider Active Start: November 06, 2024 End: November 06, 2024 Dr. Thao Moulton MD Attending Provider Active Start: November 06, 2024 End: November 06, 2024 Dr. Thao Moulton MD Referring Provider Active Start: November 06, 2024 End: November 06, 2024 FOR RECORDS PERTAINING TO PATIENTS WHO ARE OR HAVE BEEN ENROLLED IN A CHEMICAL DEPENDENCY/SUBSTANCEABUSE PROGRAM, SOME INFORMATION MAY BE OMITTED. This clinical summary was aggregated from multiple sources. Caution should be exercised in using it in the provision of clinical care. This summary normalizes information from multiple sources, and as a consequence, information in this document may materially change the coding, format and clinical context of patient data. In addition, data may be omitted in some cases. CLINICAL DECISIONS SHOULD BE BASED ON THE PRIMARY CLINICAL RECORDS. [employer] [facility]. provides no warranty or guarantee of the accuracy or completeness of information in this document.
[2025-02-06 09:36] LABS: Absolute Neutrophil Count 5.8 X10^3/uL (2.0-7.7); Basophil# 0.05 X10^3/uL; Basophil% 0.6 % (0-1); Eosinophil# 0.16 X10^3/uL; Eosinophils% 1.9 % (0-5); Hematocrit 44.7 % (40-54); Hemoglobin 15.1 g/dL (13.0-16.5); Lymphocyte % 21.4 % (19-41); Mean Corp Hgb Conc 33.8 g/dL (32-36); Mean Corpuscular Hgb 30.6 pg (27.0-32.0); Mean Corpuscular Volume 90.5 fL (80-94); Mean Platelet Vol. 9.6 fl (6.2-12.0); Monocyte# 0.58 X10^3/uL; Monocyte% 6.9 % (0-10); NRBC Flagged by Analyzer 0 % (0-5); Neutrophil % 68.8 % (47-70); Platelet Count 264 K/mm3 (150-450); RBC Distribution Width CV 12.5 % (11.6-14.6); RBC Distribution Width SD 40.3 fl (35.1-43.9); Red Blood Count 4.94 M/mm3 (4.6-6.2); White Blood Count 8.4 K/mm3 (4.4-11.0)
[2025-02-06 10:14] LABS: ALB/GLOB Ratio 1.2 RATIO (0.9-2.4); AST(SGOT) 26 U/L (<=37); Alanine Aminotransfer ALT/SGPT 30 U/L (<=46); Albumin, Serum 4.1 g/dL (3.4-4.8); Alkaline Phosphatase 88 U/L (40-129); Anion Gap 10 (5-15); BUN 19 mg/dL (4-19); BUN/Creat Ratio 20.9 RATIO (10-20); Calcium,Total 9.3 mg/dL (7.6-11.0); Carbon Dioxide 26.8 mmol/L (21.0-32.0); Chloride 102 mmol/L (98-108); Creatinine, Serum 0.92 mg/dL (0.70-1.20); EST Glomerular Filtration Rate 95 (>60); Globulin 3.5 g/dL (2.2-4.2); Glucose 93 mg/dL (70-99); Protein, Total 7.6 g/dL (5.9-8.4); Sodium Level 139 mmol/L (133-145); Total Bilirubin 0.66 mg/dL (0.00-1.30)
[2025-02-06 10:15] LABS: Cholesterol 201 mg/dL (<=200); High Density Lipoprotein 70 mg/dL; Low Density Lipoprotein Calc. 119 mg/dL; Triglycerides 57 mg/dL; Very Low Density Lipoprotein 11 mg/dL (5-40); cholesterol:hdl ratio screen 2.86
== END | disposition home or self-care (01) ==
LOC: LAB 09:06
PROVIDERS: PCP Family Medicine; Referring Provider Internal Medicine Rheumatology; Visit Provider Internal Medicine Rheumatology
DX: Z00.00 Encounter for general adult medical examination without abnormal findings (principal); M06.4 Inflammatory polyarthropathy; Z79.899 Other long term (current) drug therapy
CPT/HCPCS: 36415; 80053; 80061; 85025

== ENCOUNTER → 2025-02-27 | Outpatient (CLI) | payer OTHER, SELFPAY ==
--- OUTSIDE RECORDS SUMMARY | 2025-02-27 07:17 | XMS RPT_ITS | CCD ---
Author Organization [facility] Care Team Providers Care Plugman Name Role Phone Dr. Viktor Tam Primary Care Provider [phone] Dr. Viktor Tam Referring Provider [phone] DEBORAH Miranda Attending Provider Unavailab Dr. Viktor Hardin Attending Provider [phone] Dr. Viktor Tam Primary Care Provider [phone] Dr. Viktor Tam Referring Provider [phone] Viktor Tam MD Primary Care Provider [phone] Dr. Mignon Mon Primary Care Provider Dr. Mignon Mon Referring Provider Dr. Nigel Markham Attending Provider Dr. Mignon Mon Primary Care Provider Dr. Mignon Mon Referring Provider Dr. Nigel Markham Attending Provider Viktor Tam MD Primary Care Provider MIGNON MON Primary Care Unavailable VIKTOR TAM Primary Care Unavailable VIKTOR TAM Primary Care Unavailable Mignon Mon DO Primary Care Provider Viktor Tam MD Primary Care Provider Dr. Mignon Mon DO Primary Care Provider Dr. Thao Moulton MD Attending Provider Kenney YBARRA, Dr. Osuna Referring Provider Kameron YBARRA, Dr. Houser Attending Provider Kameron YBARRA, Dr. Houser Referring Provider Dr. Mginon Mon DO Primary Care Provider [phone] Kenney YBARRA, Dr. Osuna Attending Provider Kenney YBARRA, Dr. Osuna Referring Provider ElieserMignon dobbs Primary Care Unavailable Vellanki, Thao Attending Unavailable Vellanki, Thao Referring Unavailable Elieser, Mignon Primary Care Unavailable Vellanki, Thao Attending Unavailable Vellanki, Thao Referring Unavailable Vellanki, Thao Attending Unavailable Elieser, Mignon Primary Care Unavailable Vellanki, Thao Referring Unavailable Elieser, Mignon Attending Unavailable Elieser, Mignon Primary Care Unavailable Mik Melo Attending Unavailable Mik Melo Referring Unavailable Elieser, Mignon Primary Care Unavailable Elieser, Mignon Attending Unavailable Vellanki, Thao Consulting Unavailable Elieser, Mignon Referring Unavailable Elieser, Mignon Primary Care Unavailable Elieser, Mignon Attending Unavailable Elieser, Mignon Referring Unavailable Elieser, Mignon Primary Care Unavailable Vellanki, Thao Referring Unavailable Elieser, Mignon Primary Care Unavailable Vellansuresh, Thao Attending Unavailable Medications Current Medications Medication Drug Class(es) Dates Sig (Normalized) Sig (Original) amoxicillin 875 mg / clavulanate 125 mg oral tablet (12 sources) Penicillin-class Antibacterial Start: 05-01-2024 End: 05-08-2024 [...] Amoxicillin-Pot Clavulanate Discontinued 1 TABLET PO Q12H 14 2022 11:00pm May 08, 2023 1:23pm ascorbic acid 500 mg extended release oral capsule (20 sources) Vitamin C Start: 11-03-2018 take 1 capsule by mouth once daily Ascorbic Acid (Vitamin C) 500 mg capsule, extended release Active 500 mg PO DAILY November 03, 2018 1:00am take 1 tablet by mouth once nehemias y Ascorbic Acid 1,000 mg tablet Take 1,000 mg by mouth once daily. Active Comment on above: Take 1,000 mg by mounika once daily. bee pollen 550 mg oral capsule (20 sources) Start: 05-02-2020 take 1 capsule by [...] Comment on above: TAKE 1 TABLET BY [facility] TWICE DAILY FOR PAIN doxycycline monohydrate 100 [...] mcg/actuation nasal spray Indications: Rhinorrhea Use 1 [place] in each nostril once daily. 1 Bottle 0 04/10/2016 Active Comment on above: Use 1 [place] in each nostril once daily. folic acid 1 mg oral tablet (2 sources) Start: 08-07-20 folic acid 1 mg tablet 08/07/2021 Active Jufkgmym-Xeei-Frl3-C -Santos-Bosw (12 sources) Start: 11-21-19 Gywnxsyj-Zlpf-Ndv7- C-Santos-Bosw Active 1 EACH PO DAILY November 20, 2020 6:50pm Start: 11-20-2020 Glucosam-Kb- Urb6-D-Mtsy-Bosw Active 1 EACH PO DAILY November 19, 2020 11:00pm Start: 11-20-2020 Glucosam-Kb- Tpm9-H-Mmac-Bosw Active 1 EACH PO DAILY November 20, 2020 12:00am Unqogdeh-Ydyy-Rhm5-C-Santos-Hakeem sw 1 EACH tablet (2 sources) Start: 11-20-2020 take 1 tablet by mouth once daily Jszlojhl-Rdsy-Fvc4-C-Santos-Bosw 1 EACH tablet Active 1 NMA PO DAILY November 20, 2020 12:00am hydroxychloroquine sulfate 2 00 mg oral tablet (19 sources) Antim alari al, Antir pravinuma tic Agent Start: 10-18-2023 hydrOXYchloroQUINE (PLAQUENI L) [...] Comment on above: TAKE 6 TABLETS BY [facility] ONCE A WEEK oseltamivir 75 mg oral capsule (1 source) Neuraminidase Inhibitor Start: 10-30-2023 End: 11-04-2023 take 1 capsule by mouth twice daily oseltamivir (TAMIFLU) 75 mg capsule Take 1 capsule by mouth two times a day for 5 days. 10 capsule 0 10/30/2023 11/04/2023 Active Comment on above: Take 1 capsule by mo ut two times a day for 5 days. polyethylene glycol 3350 89307 mg powder for oral solution (14 sources) Osmotic Laxative Start: 10-20-2020 Polyethylene Glycol 3350 (Miralax) 17 gram/dose powder Active 17 g PO .prn October 20, 2020 1:00am PSYLLIUM SEED, WITH DEXTROSE, (FIBER ORAL) (6 sources) PSYLLIUM SEED, WITH DEXTROSE, (FIBER ORAL) Take by mouth. Active PSYLLIUM SEED, W ITH DEXTROSE, (FIBER ORAL) Take by mouth. 0 Active Comment on above: Take by mouth. Turmeric Root Extract (14 sources) Start: 11-03-2018 take 500 mg by mouth once daily Turmeric Root Extract Active 500 MG PO DAILY November 03, 2018 3:19pm Start: 11-03-2018 take 1 capsule by mo [facility] once daily Turmeric Root Extract 500 mg capsule Active 500 mg PO DAILY November 03, 2018 1:00am Start: 11-03-2018 take 500 mg by mouth once nehemias y Turmeric Root Extract Active 500 MG PO DAILY November 03, 2018 12:00am Start: 11-03-2018 take 500 mg by mouth once nehemias y Turmeric Root Extract Active 500 MG PO DAILY November 03, 2018 1:00am Zinc (20 sources) Start: 11-03-2018 take 50 mg by [...] 50 mg by mouth once daily. Zn-Pyg Sule-Ycizxo-Cot Palmet (3 sources) Start: 05-08-2023 Zn-Pyg Rydy-Eudldn-Ose Palmet Active CAP PO May 07, 2023 11:00pm Start: 05-08-2023 Zn-Pyg Afri-Ne ttle-Saw Palmet Active CAP PO May 08, 2023 12:00am Zn-Pyg Qndt-Nkmtvk-Sei Palme t capsule (2 sources) Start: 05-08-2023 Zn-Pyg Afri-Ne ttle-Saw Palmet capsule Active NMA PO May 08, 2023 12:00am Completed/Discontinued Medications Medication Drug Class(es) Dates Sig (Normalized) Sig (Original) 8 hr acetaminophen 650 mg extended release oral tablet (14 sources) Start: 11-03-2018 End: 10-08-2019 take 1 [...] times daily (AM, noon, 7PM and bedtime) Kcgoqcsbk-Ansepvoh-Ry r-Hyalur (Move Free Ultra (Lizella)) 40-5-3.3 mg tablet (14 sources) Start: 11-03-2018 End: 05-02-2020 Dlugzcjnk-Vaejqncm-Ouz-Hya lur (Move Free Ultra (Lizella)) 40-5-3.3 mg tablet Discontinued TABLET PO November 03, 2018 3:19pm May 02, 2020 3:07pm Start: 11-03-2018 End: 05-02-2020 Mgiuhhwsb-Nvmdcpsc-Ods-Hyalu r (Move Free Ultra (Lizella)) 40-5-3.3 mg tablet Discontinued {tbl} PO November 03, 2018 1:00am May 02, 2020 3:07pm Start: 11-03-2018 End: 05-02-2020 Vndsjcodw-Dhrmpcyg-Qvd-Hyalu r (Move Free Ultra (Lizella)) 40-5-3.3 mg tablet Discontinued TABLET PO November 03, 2018 12:00am May 02, 2020 2:07pm Start: 11-03-2018 End: 05-02-2020 Rfmfhxfut-Kaehppyh-Lqr-Hyalu r (Move Free Ultra (Lizella)) 40-5-3.3 mg tablet Discontinued TABLET PO November 03, 2018 1:00am May 02, 2020 3:07pm Ginkgo Biloba (14 sources) Start: 11-03-2018 End: 05-02-2020 take 60 [...] 2018 3:33pm psyllium 520 mg oral capsule (14 sources) Start: 11-03-2018 End: 10-20-2020 Psyllium Husk [...] 2 mg oral tablet (20 sources) Start: End: take 1 tablet by mouth four times daily Trihexyphenidyl 2 mg tablet Discontinued 2 mg PO .QID 360 September 12, 2020 6:36pm May 11, 2021 3:28pm Comment on above: Take 1 tablet in AM & at noon with 2 tablets at bedtime Problems Active Problems Problem Classification Problem Date Documented Date Episodic/Chronic Aspiration pneumonitis; food/vomitus (11 sources) Aspiration pneumonia; Translations: [Pneumonitis due to inhalation of food and vomit] 04-28-2022 Episodic Cardiac dysrhythmias (9 sources) Palpitations; Translations: [Palpitations] 10-13-2022 Episodic Essential hypertension (20 sources) Hypertensive disorder; Translations: [Essential (primary) hypertension] Chronic Genitourinary symptoms and ill-defined conditions (16 sources) Blood in urine; Translations: [Hematuria, unspecified] Episodic Influenza (1 source) Influenza due to Influenza A virus; Translations: [Influenza due to other identified influenza virus with other respiratory manifestations] 10-30-2023 Episodic Osteoarthritis (20 sources) Arthritis; Translations: [Unspecified osteoarthritis, unspecified site] Onset: 06-28-2016 06-28-2016 Chronic Other connective tissue disease (9 sources) H/O: rheumatoid arthritis; Translations: [Personal history [...] 12-19-2011 12-19-2011 Chronic Other lower respiratory disease (14 sources) Cough; Translations: [Cough] 04-28-2022 Episodic Other screening for suspected conditions (not mental disorders or infectious disease) (1 source) Encounter for screening for malignant neoplasm of prostate; Translations: [Encounter for screening for malignant neoplasm of prostate] Onset: 02-06-2025 Episodic Other skin disorders (14 sources) Swelling of hand; Translations: [Localized swelling, mass and lump, unspecified upper limb] 05-04-2021 Episodic Other skin disorders (5 sources) Sebaceous cyst of skin; Translations: [Sebaceous cyst] 04-02-2023 Episodic Other skin disorders (2 sources) Sebaceous cyst; Translations: [Sebaceous cyst] 05-08-2023 Episodic Pneumonia (except that caused by tuberculosis or sexually transmitted disease) (1 source) Bacterial pneumonia; Translations: [Unspecified bacterial pneumonia] 02-02-2024 Episodic Residual codes; unclassified (14 sources) History of vaccination; Translations: [Personal history of other drug therapy] 05-18-2021 Episodic Residual codes; unclassified (2 sources) Viral syndrome; Translations: [Other general symptoms and signs] 10-30-2023 Episodic Rheumatoid arthritis and related disease (18 sources) Rheumatoid arthritis; Translations: [Rheumatoid arthritis, unspecified] [...] without sciatica] Onset: 6 01-31-2016 Episodic Unclassified (11 sources) right thumb replacment 03-22-2022 Comment on above: 03/2020 Results Test Name Value Interpretation Reference Range Facility Absolute lymphocyte countOrd ered By: Thao Moulton on 02-06-2025 Lymphocytes Auto (Unsp spec) [#/Vol] 1.80 10*3/uL 0.83-4.51 [facility] Absolute neutrophil countOrd ered By: Thao Moulton on 02-06-2025 Neutrophils (Bld) [#/Vol] 5.8 10*3/uL 2.0-7.7 [facility] Anion gap in Serum or Plasma Ordered By: Thao Moulton on 02-06-2025 Anion gap [Moles/Vol] 10 mmol/L 5-15 [facility] Automated lymphocyte count a s percentage of total leukocytesOrdered By: Thao Moulton on 02-06-2025 Lymphocytes/100 WBC Auto (Unsp spec) 21.4 % - [facility] BUN/creatinine ratioOrdered By: Thao Moulton on 02-06-2025 Urea nitrogen/Creatinine [Mass ratio] 20.9 mg/mg High 10- [facility] Basophil percentageOrdered B y: Thao Moulton on 02-06-2025 Basophils/100 WBC (Bld) 0.6 % 0-1 [facility] Bilirubin, totalOrdered By: Thao Kenney on 02-06-2025 Bilirubin [Mass/Vol] 0.66 mg/dL 0.00-1.30 [facility] CBC W/Diff, Automatedon Absolute Lymph 1.80 X10 3/uL Normal 0.83-4.51 [facility] Comment on above: Performed By: #### L 100.0100, L500.4050 #### [facility] [address] [place], [address] Absolute Neut 5.8 X10 3/uL Normal 2.0-7.7 [facility] Comment on above: Performed By: #### L 100.0100, L500.4050 #### [facility] [address] [place], [address] Basophils/100 WBC (Bld) 0.6 % Normal 0-1 [facility] Comment on above: Performed By: #### L 100.0100, [id number] #### [facility] [address] [place], [address] Eosinophils/100 WBC (Bld) 1.9 % Normal 0-5 [facility] Comment on above: Performed By: #### L 100.0100, [id number] #### [facility] [address] [place], [address] Erythrocyte distribution width (RBC) [Ratio] 12.5 % Normal 11.6-14.6 [facility] Comment on above: Performed By: #### L 100.0100, L500.4050 #### [facility] [address] [place], [address] Hematocrit (Bld) [Volume fraction] 44.7 % Normal 40-54 [facility] Comment on above: Performed By: #### L 100.0100, L500.4050 #### [facility] [address] [place], [address] Hemoglobin (Bld) [Mass/Vol] 15.1 g/dL Normal 13.0-16.5 [facility] Comment on above: Performed By: #### L 100.0100, L500.4050 #### [facility] [address] [place], [address] IG% 0.400 Normal 0.0-0.9 [facility] Comment on above: Result Comment: IG% - Immature Granulocytes (promyelocytes, myelocytes and metamyelocytes) > 1% indicates that a LEFT SHIFT is Present. Performed By: #### L 100.0100, L500.4050 #### [facility] [address] [place], [address] Lymphocytes/100 WBC (Bld) 21.4 % Normal 19-41 [facility] Comment on above: Performed By: #### L 100.0100, L500.4050 #### [facility] [address] [place], [address] MCH (RBC) [Entitic mass] 30.6 pg Normal 27.0-32.0 [facility] Comment on above: Performed By: #### L 100.0100, [id number] #### [facility] [address] [place], [address] MCHC (RBC) [Mass/Vol] 33.8 g/dL Normal 32-36 [facility] Comment on above: Performed By: #### L 100.0100, L500.4050 #### [facility] [address] [place], [address] MCV (RBC) [Entitic vol] 90.5 fL Normal 80-94 [facility] Comment on above: Performed By: #### L 100.0100, L500.4050 #### [facility] [address] [place], [address] Monocytes/100 WBC (Bld) 6.9 % Normal 0-10 [facility] Comment on above: Performed By: #### L 100.0100, L500.4050 #### [facility] [address] [place], [address] Neutrophils/100 WBC (Bld) 68.8 % Normal 47-70 [facility] Comment on above: Performed By: #### L 100.0100, L500.4050 #### [facility] [address] [place], [address] Nucleated RBC (Bld) [#/Vol] 0 10*3/uL Normal 0-5 [facility] Comment on above: Performed By: #### L 100.0100, L500.4050 #### [facility] [address] [place], [address] Platelet mean volume (Bld) [Entitic vol] 9.6 fL Normal 6.2-12.0 [facility] Comment on above: Performed By: #### L 100.0100, L500.4050 #### [facility] [address] [place], [address] Platelets (Bld) [#/Vol] 264 10*3/uL Normal 150-450 [facility] Comment on above: Performed By: #### L 100.0100, L500.4050 #### [facility] [address] [place], [address] RBC (Bld) [#/Vol] 4.94 10*6/uL Normal 4.6-6.[address] [facility] Comment on above: Performed By: #### L 100.0100, L500.4050 #### [facility] [address] [place], [address] RDW SD 40.3 fl Normal 35.1-43.9 [facility] Comment on above: Performed By: #### L 100.0100, L500.4050 #### [facility] [address] [place], [address] WBC (Bld) [#/Vol] 8.4 10*3/uL Normal 4.4-11.0 [facility] Comment on above: Performed By: #### L 100.0100, L500.4050 #### [facility] [address] [place], [address] Calculated very low density lipoprotein (VLDL) cholesterol measurementOrdered By: Mignon Mon on 02-06-2025 Calculated very low density lipoprotein (VLDL) cholesterol measurement 11 mg/dL 5-40 [facility] Carbon dioxide, total [Moles /volume] in Central venous bloodOrdered By: Thao Moulton on 02-06-2025 CO2 [Moles/Vol] 26.8 mmol/L 21.0-32.0 [facility] Chloride assayOrdered By: Deborah Moulton on 02-06-2025 Chloride [Moles/Vol] 102 mmol/L 98-108 [facility] Comprehensive Metabolic Prof ilon 02-06-2025 Albumin [Mass/Vol] 4.1 g/dL Normal 3.4-4.8 [facility] Comment on above: Performed By: #### L 100.0100, L500.4100, L501.9910, L500.4050 #### [facility] [address] [place], [address] Albumin/Globulin [Mass ratio] 1.2 {ratio} Normal 0.9-2.4 [facility] Comment on above: Performed By: #### L 100.0100, L500.4100, L501.9910, L500.4050 #### [facility] [address] [place], [address] ALK PHOS 88 U/L Normal 40-129 [facility] Comment on above: Performed By: #### L 100.0100, L500.4100, L501.9910, L500.4050 #### [facility] [address] [place], [address] ALT [Catalytic activity/Vol] 30 U/L Normal <=46 [facility] Comment on above: Performed By: #### L 100.0100, L500.4100, L501.9910, L500.4050 #### [facility] [address] [place], [address] AST [Catalytic activity/Vol] 26 U/L Normal <=37 [facility] Comment on above: Performed By: #### L 100.0100, L500.4100, L501.9910, L500.4050 #### [facility] [address] [place], [address] Bilirubin [Mass/Vol] 0.66 mg/dL Normal 0.00-1.30 [facility] Comment on above: Performed By: #### L 100.0100, L500.4100, L501.9910, L500.4050 #### [facility] [address] [place], [address] BUN/CRE 20.9 RATIO High 10-20 [facility] Comment on above: Performed By: #### L 100.0100, L500.4100, L501.9910, L500.4050 #### [facility] [address] [place], [address] Calcium [Mass/Vol] 9.3 mg/dL Normal 7.6-11.0 [facility] Comment on above: Performed By: #### L 100.0100, L500.4100, L501.9910, L500.4050 #### [facility] [address] [place], [address] Chloride [Moles/Vol] 102 mmol/L Normal 98-108 [facility] Comment on above: Performed By: #### L 100.0100, L500.4100, L501.9910, L500.4050 #### [facility] [address] [place], [address] CO2 [Moles/Vol] 26.8 mmol/L Normal 21.0-32.0 [facility] Comment on above: Performed By: #### L 100.0100, L500.4100, L501.9910, L500.4050 #### [facility] [address] [place], [address] Creatinine [Mass/Vol] 0.92 mg/dL Normal 0.70-1.20 [facility] Comment on above: Performed By: #### L 100.0100, L500.4100, L501.9910, L500.4050 #### [facility] [address] [place], [address] GAP 10 Normal 5-15 [facility] Comment on above: Performed By: #### L 100.0100, L500.4100, L501.9910, L500.4050 #### [facility] [address] [place], [address] GFR/1.73 sq M.predicted among non-blacks MDRD (S/P/Bld) [Vol rate/Area] 95 mL/min/{1.73_m2} Normal >60 [facility] Comment on above: Result Comment: mL/m in/1.73m2 CKD-EPI Creatinine Equation (2020) Performed By: #### L 100.0100, L500.4100, L501.9910, L500.4050 #### [facility] [address] [place], [address] Globulin (S) [Mass/Vol] 3.5 g/dL Normal 2.2-4.2 [facility] Comment on above: Performed By: #### L 100.0100, L500.4100, L501.9910, L500.4050 #### [facility] [address] [place], [address] Glucose [Mass/Vol] 93 mg/dL Normal 70-99 [facility] Comment on above: Performed By: #### L 100.0100, L500.4100, L501.9910, L500.4050 #### [facility] [address] [place], [address] Potassium [Moles/Vol] 4.0 mmol/L Normal 3.3-5.1 [facility] Comment on above: Performed By: #### L 100.0100, L500.4100, L501.9910, L500.4050 #### [facility] [address] [place], [address] Sodium [Moles/Vol] 139 mmol/L Normal 133-145 [facility] Comment on above: Performed By: #### L 100.0100, L500.4100, L501.9910, L500.4050 #### [facility] [address] [place], [address] T PROT 7.6 g/dL Normal 5.9-8.4 [facility] Comment on above: Performed By: #### L 100.0100, L500.4100, L501.9910, L500.4050 #### [facility] [address] [place], [address] Urea nitrogen [Mass/Vol] 19 mg/dL Normal 4-19 [facility] Comment on above: Performed By: #### L 100.0100, L500.4100, L501.9910, L500.4050 #### [facility] [address] [place], [address] Eosinophil percentageOrdered By: Thao Moulton on 02-06-2025 Eosinophils/100 WBC (Bld) 1.9 % 0-5 [facility] Erythrocyte distribution wid th ratioOrdered By: Thao Moulton on 02-06-2025 Erythrocyte distribution width (RBC) [Ratio] 12.5 % 11.6-14.6 [facility] Erythrocyte distribution wid th standard deviationOrdered By: Thao Moulton on 02-06-2025 Erythrocyte distribution width (RBC) [Ratio] 40.3 fl 35.1-43.9 [facility] Glomerular filtration rate ( GFR) estimation/1.73 sq m using serum, plasma, or whole bOrdered By: Thao Moulton on 02-06-2025 GFR/1.73 sq M.predicted among non-blacks MDRD (S/P/Bld) [Vol rate/Area] 95 mL/min/{1.73_m2} >60 [facility] Comment on above: mL/min/1.73m2 CKD-EP I Creatinine Equation (2020) Hematocrit Auto (Bld) [Volum e fraction]Ordered By: Thao Moulton on 02-06-2025 Hematocrit (Bld) [Volume fraction] 44.7 % 40-54 [facility] Hemoglobin measurementOrdere d By: Thao Moulton on 02-06-2025 Hemoglobin (Bld) [Mass/Vol] 15.1 g/dL 13.0-16.5 [facility] Immature granulocytes/100 WB C Auto (Bld)Ordered By: Thao Moulton on 02-06-2025 Immature granulocytes/100 WBC (Bld) 0.400 % 0.0-0.9 [facility] Comment on above: IG% - Immature Granu locytes (promyelocytes, myelocytes and metamyelocytes) > 1% indicates that a LEFT SHIFT is Present. LDL calc ser/plasOrdered By: Mignon Mon on 02-06-2025 Cholesterol in LDL [Mass/Vol] 119 mg/dL [facility] Comment on above: Lsqhuhigtd=016-788 m g/dL & Higher Sxof=233 mg/dL or greater Laboratory - Chemistry and C hemistry - challengeOrdered By: Thao Moulton on 02-06-2025 AST [Catalytic activity/Vol] 26 U/L <38 [facility] Lipid Profileon 02-06-2025 CHOL:HDL 2.86 Normal [facility] Comment on above: Performed By: #### L 500.4100 #### [facility] [address] [place], [address] Cholesterol [Mass/Vol] 201 mg/dL Normal <=200 [facility] Comment on above: Result Comment: Chol esterol level, Desirable <200 mg/dL Borderline high cholesterol 200-239 mg/dL High cholesterol >=240 mg/dL Recommendations of the NCEP Adult Treatment Panel for the following risk-cutoff thresholds for the [place] population. Performed By: #### L 500.4100 #### [facility] [address] [place], [address] Cholesterol in HDL [Mass/Vol] 70 mg/dL Normal [facility] Comment on above: Result Comment: Geovanna onal Cholesterol Education Program (NCEP) guidelines: <40 mg/dL: Low HDL-cholesterol (major risk factor for CHD) >= 60 mg/dL: High HDL-cholesterol (negative risk factor for CHD) HDL-cholesterol is affected by a number of factors, e.g. smoking, exercise, hormones, sex and age. Performed By: #### L 500.4100 #### [facility] [address] [place], [address] Cholesterol in LDL [Mass/Vol] 119 mg/dL Normal [facility] Comment on above: Result Comment: Bord uanbjl=282-433 mg/dL Higher Rrwx=075 mg/dL or greater Performed By: #### L 500.4100 #### [facility] [address] [place], [address] Cholesterol in VLDL [Mass/Vol] 11 mg/dL Normal 5-40 [facility] Comment on above: Performed By: #### L 500.4100 #### [facility] [address] [place], [address] Triglyceride [Mass/Vol] 57 mg/dL Normal [facility] Comment on above: Result Comment: The drugs N-Acetylcysteine and Metamizole may falsely depress this assay. Normal range: <150 mg/dL Borderline High: 150-199 mg/dL High: 200-499 mg/dL Very High: >500 mg/dL Performed By: #### L 500.4100 #### [facility] [place] [place], [address] MCV (mean corpuscular volume ) determinationOrdered By: Thao Moulton on 02-06-2025 MCV (RBC) [Entitic vol] 90.5 fL 80-94 [facility] Mean corpuscular hemoglobin (MCH) determinationOrdered By: Thao Moulton on 02-06-2025 MCH (RBC) [Entitic mass] 30.6 pg 27.0-32.0 [facility] Mean corpuscular hemoglobin concentration (MCHC) determinationOrdered By: Thao Moulton on 02-06-2025 MCHC (RBC) [Mass/Vol] 33.8 g/dL 32-36 [facility] Mean platelet volume determi nationOrdered By: Thao Moulton on 02-06-2025 Platelet mean volume (Bld) [Entitic vol] 9.6 fL 6.2-12.0 [facility] Monocyte percentageOrdered B y: Thao Moulton on 02-06-2025 Monocytes/100 WBC (Bld) 6.9 % 0-10 [facility] Neutrophil percentageOrdered By: Thao Moulton on 02-06-2025 Neutrophils/100 WBC (Bld) 68.8 % 47-70 [facility] Nucleated red blood cell per centageOrdered By: Thao Moulton on 02-06-2025 Nucleated RBC/100 WBC (Bld) [Ratio] 0 % 0-5 [facility] Platelet countOrdered By: Deborah Moulton on 02-06-2025 Platelets (Bld) [#/Vol] 264 10*3/uL 150-450 [facility] Potassium measurement (mass/ volume)Ordered By: Thao Moulton on 02-06-2025 Potassium (Unsp spec) [Mass/Vol] 4.0 mmol/L 3.3-5.1 [facility] RBC Auto (Bld) [#/Vol]Ordere d By: Thao Moulton on 02-06-2025 RBC (Bld) [#/Vol] 4.94 10*6/uL 4.6-6.[address] [facility] Screening total cholesterol/ high density lipoprotein (HDL) cholesterol ratioOrdered By: Mignon Mon on 02-06-2025 Cholesterol.total/Choles terol in HDL [Mass ratio] 2.86 {ratio} [facility] Serum creatinine measurement (mass/volume)Ordered By: Thao Moulton on 02-06-2025 Creatinine [Mass/Vol] 0.92 mg/dL 0.70-1.20 [facility] Serum globulin measurementOr dered By: Thao Moulton on 02-06-2025 Globulin (S) [Mass/Vol] 3.5 g/dL 2.2-4.2 [facility] Serum glucose measurement (m ass/volume)Ordered By: Thao Moulton on 02-06-2025 Glucose [Mass/Vol] 93 mg/dL 70-99 [facility] Serum or plasma alanine soto otransferase (ALT) measurementOrdered By: Thao Moulton on 02-06-2025 ALT [Catalytic activity/Vol] 30 U/L <47 [facility] Serum or plasma albumin luzma urement (mass/volume)Ordered By: Thao Moulton on 02-06-2025 Albumin [Mass/Vol] 4.1 g/dL 3.4-4.8 [facility] Serum or plasma albumin/glob ulin mass ratioOrdered By: Thao Moulton on 02-06-2025 Albumin/Globulin [Mass ratio] 1.2 {ratio} 0.9-2.4 [facility] Serum or plasma alkaline carlee sphatase measurementOrdered By: Thao Moulton on 02-06-2025 ALP [Catalytic activity/Vol] 88 U/L 40-129 [facility] Serum or plasma calcium luzma urement (mass/volume)Ordered By: Thao Moulton on 02-06-2025 Calcium [Mass/Vol] 9.3 mg/dL 7.6-11.0 [facility] Serum or plasma cholesterol in HDL measurement (mass/volume)Ordered By: Mignon Mon on 02-06-2025 Cholesterol in HDL [Mass/Vol] 70 mg/dL >40 [facility] Comment on above: National Cholesterol Education Program (NCEP) guidelines:<40 mg/dL: Low HDL-cholesterol (major risk factor for CHD)>= 60 mg/dL: High HDL-cholesterol (negative risk factor for CHD)HDL-cholesterol is affected by a number of factors, e.g. smoking, exercise, hormones, sex and age. Serum or plasma cholesterol measurement (mass/volume)Ordered By: Mignon Mon on 02-06-2025 Cholesterol [Mass/Vol] 201 mg/dL <201 [facility] Comment on above: Cholesterol level, D esirable <200 mg/dLBorderline high cholesterol 200-239 mg/dLHigh cholesterol >=240 mg/dLRecommendations of the NCEP Adult Treatment Panel for the following risk-cutoff thresholds for the [place] population. Serum or plasma urea nitroge n measurement (mass/volume)Ordered By: Thao Moulton on 02-06-2025 Urea nitrogen [Mass/Vol] 19 mg/dL 4-19 [facility] Sodium levelOrdered By: Jose Moulton on 02-06-2025 Sodium [Moles/Vol] 139 mmol/L 133-145 [facility] Total proteinOrdered By: Agapito Moulton on 02-06-2025 Protein [Mass/Vol] 7.6 g/dL 5.9-8.4 [facility] Triglycerides measurementOrd ered By: Mignon Mon on 02-06-2025 Triglyceride [Mass/Vol] 57 mg/dL <199 [facility] Comment on above: The drugs N-Acetylcy steine and Metamizole may falsely depress this assay. Normal range: <150 mg/dLBorderline High: 150-199 mg/dLHigh: 200-499 mg/dLVery High: >500 mg/dL White blood cell (WBC) count Ordered By: Thao Moulton on 02-06-2025 WBC (Bld) [#/Vol] 8.4 10*3/uL 4.4-11.0 [facility] Absolute lymphocyte countOrd ered By: Thao Moulton on 11-06-2024 Lymphocytes Auto (Unsp spec) [#/Vol] 2.29 10*3/uL 0.83-4.51 [facility] Absolute neutrophil countOrd ered By: Thao Moulton on 11-06-2024 Neutrophils (Bld) [#/Vol] 3.3 10*3/uL 2.0-7.7 [facility] Anion gap in Serum or Plasma Ordered By: Thao Moulton on 11-06-2024 Anion gap [Moles/Vol] 9 mmol/L 5-15 [facility] Automated lymphocyte count a s percentage of total leukocytesOrdered By: Thao Moulton on 11-06-2024 Lymphocytes/100 WBC Auto (Unsp spec) 35.1 % - [facility] BUN/creatinine ratioOrdered By: Thaoliset Moulton on 11-06-2024 Urea nitrogen/Creatinine [Mass ratio] 32.3 mg/mg High 10- [facility] Basophil percentageOrdered B y: Thao Moulton on 11-06-2024 Basophils/100 WBC (Bld) 0.9 % 0-1 [facility] Bilirubin, totalOrdered By: Thao Moulton on 11-06-2024 Bilirubin [Mass/Vol] 0.34 mg/dL 0.00-1.30 [facility] CBC W/Diff, Automatedon Absolute Lymph 2.29 X10 3/uL Normal 0.83-4.51 [facility] Comment on above: Performed By: #### L 100.0100, L500.4050 #### [facility] [address] [place], [address] Absolute Neut 3.3 X10 3/uL Normal 2.0-7.7 [facility] Comment on above: Performed By: #### L 100.0100, L500.4050 #### [facility] [address] [place], [address] Basophils/100 WBC (Bld) 0.9 % Normal 0-1 [facility] Comment on above: Performed By: #### L 100.0100, L500.4050 #### [facility] [address] [place], [address] Eosinophils/100 WBC (Bld) 3.2 % Normal 0-5 [facility] Comment on above: Performed By: #### L 100.0100, L500.4050 #### [facility] [address] [place], [address] Erythrocyte distribution width (RBC) [Ratio] 12.8 % Normal 11.6-14.6 [facility] Comment on above: Performed By: #### L 100.0100, L500.4050 #### [facility] [address] [place], [address] Hematocrit (Bld) [Volume fraction] 43.3 % Normal 40-54 [facility] Comment on above: Performed By: #### L 100.0100, L500.4050 #### [facility] [address] [place], [address] Hemoglobin (Bld) [Mass/Vol] 14.5 g/dL Normal 13.0-16.5 [facility] Comment on above: Performed By: #### L 100.0100, L500.4050 #### [facility] [address] [place], [address] IG% 0.300 Normal 0.0-0.9 [facility] Comment on above: Result Comment: IG% - Immature Granulocytes (promyelocytes, myelocytes and metamyelocytes) > 1% indicates that a LEFT SHIFT is Present. Performed By: #### L 100.0100, L500.4050 #### [facility] [address] [place], [address] Lymphocytes/100 WBC (Bld) 35.1 % Normal 19-41 [facility] Comment on above: Performed By: #### L 100.0100, L500.4050 #### [facility] [address] [place], [address] MCH (RBC) [Entitic mass] 30.5 pg Normal 27.0-32.0 [facility] Comment on above: Performed By: #### L 100.0100, L500.4050 #### [facility] [address] [place], [address] MCHC (RBC) [Mass/Vol] 33.5 g/dL Normal 32-36 [facility] Comment on above: Performed By: #### L 100.0100, L500.4050 #### [facility] [address] [place] [address] MCV (RBC) [Entitic vol] 91.0 fL Normal 80-94 [facility] Comment on above: Performed By: #### L 100.0100, L500.4050 #### [facility] [address] [place], [address] Monocytes/100 WBC (Bld) 10.3 % High 0-10 [facility] Comment on above: Performed By: #### L 100.0100, L500.4050 #### [facility] [address] [place], [address] Neutrophils/100 WBC (Bld) 50.2 % Normal 47-70 [facility] Comment on above: Performed By: #### L 100.0100, L500.4050 #### [facility] [address] [place], [address] Nucleated RBC (Bld) [#/Vol] 0 10*3/uL Normal 0-5 [facility] Comment on above: Performed By: #### L 100.0100, L500.4050 #### [facility] [address] [place], [address] Platelet mean volume (Bld) [Entitic vol] 10.1 fL Normal 6.2-12.0 [facility] Comment on above: Performed By: #### L 100.0100, L500.4050 #### [facility] [address] [place], [address] Platelets (Bld) [#/Vol] 265 10*3/uL Normal 150-450 [facility] Comment on above: Performed By: #### L 100.0100, L500.4050 #### [facility] [address] [place], [address] RBC (Bld) [#/Vol] 4.76 10*6/uL Normal 4.6-6.[address] [facility] Comment on above: Performed By: #### L 100.0100, L500.4050 #### [facility] [address] [place], [address] RDW SD 42.1 fl Normal 35.1-43.9 [facility] Comment on above: Performed By: #### L 100.0100, L500.4050 #### [facility] [address] [place], [address] WBC (Bld) [#/Vol] 6.5 10*3/uL Normal 4.4-11.0 [facility] Comment on above: Performed By: #### L 100.0100, L500.4050 #### [facility] [address] [place], [address] Carbon dioxide, total [Moles /volume] in Central venous bloodOrdered By: Thao Moulton on 11-06-2024 CO2 [Moles/Vol] 26.7 mmol/L 21.0-32.0 [facility] Chloride assayOrdered By: Deborah Moulton on 11-06-2024 Chloride [Moles/Vol] 103 mmol/L 98-108 [facility] Comprehensive Metabolic Prof ilon 11-06-2024 Albumin [Mass/Vol] 4.2 g/dL Normal 3.4-4.8 [facility] Comment on above: Performed By: #### L 100.0100, L500.4050 #### [facility] [address] [place], [address] Albumin/Globulin [Mass ratio] 1.5 {ratio} Normal 0.9-2.4 [facility] Comment on above: Performed By: #### L 100.0100, L500.4050 #### [facility] [address] [place], [address] ALK PHOS 83 U/L Normal 40-129 [facility] Comment on above: Performed By: #### L 100.0100, L500.4050 #### [facility] [address] [place], [address] ALT [Catalytic activity/Vol] 27 U/L Normal <=46 [facility] Comment on above: Performed By: #### L 100.0100, L500.4050 #### [facility] [address] [place], [address] AST [Catalytic activity/Vol] 25 U/L Normal <=37 [facility] Comment on above: Performed By: #### L 100.0100, L500.4050 #### [facility] [address] [place], [address] Bilirubin [Mass/Vol] 0.34 mg/dL Normal 0.00-1.30 [facility] Comment on above: Performed By: #### L 100.0100, L500.4050 #### [facility] [address] [place], [address] BUN/CRE 32.3 RATIO High 10-20 [facility] Comment on above: Performed By: #### L 100.0100, L500.4050 #### [facility] [address] [place], [address] Calcium [Mass/Vol] 9.5 mg/dL Normal 7.6-11.0 [facility] Comment on above: Performed By: #### L 100.0100, L500.4050 #### [facility] [address] [place], [address] Chloride [Moles/Vol] 103 mmol/L Normal 98-108 [facility] Comment on above: Performed By: #### L 100.0100, L500.4050 #### [facility] [address] [place], [address] CO2 [Moles/Vol] 26.7 mmol/L Normal 21.0-32.0 [facility] Comment on above: Performed By: #### L 100.0100, L500.4050 #### [facility] [address] [place], [address] Creatinine [Mass/Vol] 0.85 mg/dL Normal 0.70-1.20 [facility] Comment on above: Performed By: #### L 100.0100, L500.4050 #### [facility] [address] [place], [address] GAP 9 Normal 5-15 [facility] Comment on above: Performed By: #### L 100.0100, L500.4050 #### [facility] [address] [place], [address] GFR/1.73 sq M.predicted among non-blacks MDRD (S/P/Bld) [Vol rate/Area] 100 mL/min/{1.73_m2} Normal >60 [facility] Comment on above: Result Comment: mL/m in/1.73m2 CKD-EPI Creatinine Equation (2020) Performed By: #### L 100.0100, L500.4050 #### [facility] [address] [place], [address] Globulin (S) [Mass/Vol] 2.8 g/dL Normal 2.2-4.2 [facility] Comment on above: Performed By: #### L 100.0100, L500.4050 #### [facility] [address] [place], [address] Glucose [Mass/Vol] 92 mg/dL Normal 70-99 [facility] Comment on above: Performed By: #### L 100.0100, L500.4050 #### [facility] [address] [place], [address] Potassium [Moles/Vol] 4.5 mmol/L Normal 3.3-5.1 [facility] Comment on above: Performed By: #### L 100.0100, L500.4050 #### [facility] [address] [place], [address] Sodium [Moles/Vol] 139 mmol/L Normal 133-145 [facility] Comment on above: Performed By: #### L 100.0100, L500.4050 #### [facility] [address] [place], [address] T PROT 7.1 g/dL Normal 5.9-8.4 [facility] Comment on above: Performed By: #### L 100.0100, L500.4050 #### [facility] [address] [place], [address] Urea nitrogen [Mass/Vol] 27 mg/dL High 4-19 [facility] Comment on above: Performed By: #### L 100.0100, L500.4050 #### [facility] [address] [place], [address] Eosinophil percentageOrdered By: Thao Moulton on 11-06-2024 Eosinophils/100 WBC (Bld) 3.2 % 0-5 [facility] Erythrocyte distribution wid th ratioOrdered By: Thao Moulton on 11-06-2024 Erythrocyte distribution width (RBC) [Ratio] 12.8 % 11.6-14.6 [facility] Erythrocyte distribution wid th standard deviationOrdered By: Thao Moulton on 11-06-2024 Erythrocyte distribution width (RBC) [Entitic vol] 42.1 fL 35.1-43.9 [facility] Erythrocyte distribution width (RBC) [Ratio] 42.1 fl 35.1-43.9 [facility] GFR/1.73 sq M.predicted noemi g non-blacks MDRD (S/P/Bld) [Vol rate/Area]Ordered By: Thao Moulton on 11-06-2024 Estimated GFR (MDRD) Non-Af Amer 100 >60 [facility] Comment on above: mL/min/1.73m2 CKD-EP I Creatinine Equation (2020) Glomerular filtration rate ( GFR) estimation/1.73 sq m using serum, plasma, or whole bOrdered By: Thao Moulton on 11-06-2024 GFR/1.73 sq M.predicted among non-blacks MDRD (S/P/Bld) [Vol rate/Area] 100 mL/min/{1.73_m2} >60 [facility] Comment on above: mL/min/1.73m2 CKD-EP I Creatinine Equation (2020) Hematocrit Auto (Bld) [Volum e fraction]Ordered By: Thao Moulton on 11-06-2024 Hematocrit (Bld) [Volume fraction] 43.3 % 40-54 [facility] Hemoglobin measurementOrdere d By: Thao Moulton on 11-06-2024 Hemoglobin (Bld) [Mass/Vol] 14.5 g/dL 13.0-16.5 [facility] Immature granulocytes/100 WB C Auto (Bld)Ordered By: Thao Moulton on 11-06-2024 Immature granulocytes/100 WBC (Bld) 0.300 % 0.0-0.9 [facility] Comment on above: IG% - Immature Granu locytes (promyelocytes, myelocytes and metamyelocytes) > 1% indicates that a LEFT SHIFT is Present. Laboratory - Chemistry and C hemistry - challengeOrdered By: Thao Moulton on 11-06-2024 AST [Catalytic activity/Vol] 25 U/L <38 [facility] Lymphocytes Auto (Unsp spec) [#/Vol]Ordered By: Thao Moulton on 11-06-2024 Lymphocytes (Bld) [#/Vol] 2.29 10*3/uL 0.83-4.51 [facility] Lymphocytes/100 WBC Auto (Un sp spec)Ordered By: Thao Moulton on 11-06-2024 Lymphocytes/100 WBC (Bld) 35.1 % 19-41 [facility] MCV (mean corpuscular volume ) determinationOrdered By: Thao Moulton on 11-06-2024 MCV (RBC) [Entitic vol] 91.0 fL 80-94 [facility] Mean corpuscular hemoglobin (MCH) determinationOrdered By: Thao Moulton on 11-06-2024 MCH (RBC) [Entitic mass] 30.5 pg 27.0-32.0 [facility] Mean corpuscular hemoglobin concentration (MCHC) determinationOrdered By: Thao Moulton on 11-06-2024 MCHC (RBC) [Mass/Vol] 33.5 g/dL 32-36 [facility] Mean platelet volume determi nationOrdered By: Thao Moulton on 11-06-2024 Platelet mean volume (Bld) [Entitic vol] 10.1 fL 6.2-12.0 [facility] Monocyte percentageOrdered B y: Thao Moulton on 11-06-2024 Monocytes/100 WBC (Bld) 10.3 % High 0-10 [facility] Neutrophil percentageOrdered By: Thao Moulton on 11-06-2024 Neutrophils/100 WBC (Bld) 50.2 % 47-70 [facility] Nucleated red blood cell per centageOrdered By: Thao Moulton on 11-06-2024 Nucleated RBC/100 WBC (Bld) [Ratio] 0 % 0-5 [facility] Platelet countOrdered By: Deborah Moulton on 11-06-2024 Platelets (Bld) [#/Vol] 265 10*3/uL 150-450 [facility] Potassium (Unsp spec) [Mass/ Vol]Ordered By: Thao Moulton on 11-06-2024 Potassium [Moles/Vol] 4.5 mmol/L 3.3-5.1 [facility] Potassium measurement (mass/ volume)Ordered By: Thao Moulton on 11-06-2024 Potassium (Unsp spec) [Mass/Vol] 4.5 mmol/L 3.3-5.1 [facility] RBC Auto (Bld) [#/Vol]Ordere d By: Thao Moulton on 11-06-2024 RBC (Bld) [#/Vol] 4.76 10*6/uL 4.6-6.[address] [facility] Serum creatinine measurement (mass/volume)Ordered By: Thao Moulton on 11-06-2024 Creatinine [Mass/Vol] 0.85 mg/dL 0.70-1.20 [facility] Serum globulin measurementOr dered By: Thao Moulton on 11-06-2024 Globulin (S) [Mass/Vol] 2.8 g/dL 2.2-4.2 [facility] Serum glucose measurement (m ass/volume)Ordered By: Thao Moulton on 11-06-2024 Glucose [Mass/Vol] 92 mg/dL 70-99 [facility] Serum or plasma alanine soto otransferase (ALT) measurementOrdered By: Thao Moulton on 11-06-2024 ALT [Catalytic activity/Vol] 27 U/L <47 [facility] Serum or plasma albumin luzma urement (mass/volume)Ordered By: Thao Moulton on 11-06-2024 Albumin [Mass/Vol] 4.2 g/dL 3.4-4.8 [facility] Serum or plasma albumin/glob ulin mass ratioOrdered By: Thao Moulton on 11-06-2024 Albumin/Globulin [Mass ratio] 1.5 {ratio} 0.9-2.4 [facility] Serum or plasma alkaline carlee sphatase measurementOrdered By: Thao Moulton on 11-06-2024 ALP [Catalytic activity/Vol] 83 U/L 40-129 [facility] Serum or plasma calcium luzma urement (mass/volume)Ordered By: Thao Moulton on 11-06-2024 Calcium [Mass/Vol] 9.5 mg/dL 7.6-11.0 [facility] Serum or plasma urea nitroge n measurement (mass/volume)Ordered By: Thao Moulton on 11-06-2024 Urea nitrogen [Mass/Vol] 27 mg/dL High 4-19 [facility] Sodium levelOrdered By: Jose Moulton on 11-06-2024 Sodium [Moles/Vol] 139 mmol/L 133-145 [facility] Total proteinOrdered By: Agapito Moulton on 11-06-2024 Protein [Mass/Vol] 7.1 g/dL 5.9-8.4 [facility] White blood cell (WBC) count Ordered By: Thao Moulton on 11-06-2024 WBC (Bld) [#/Vol] 6.5 10*3/uL 4.4-11.0 [facility] L/S Spine Comp/w Bending Vie wson 10-12-2024 L/S Spine Comp/w Bending Views [facility] [address] [place] [address] L/S Spine Comp/w Bending Views MR#: [id number] Acct: [id number] Name: LITO VU Rep #: [id number] : 1965 M 59 From: Nigel Hernadez PCP: Dr. Mignon Mon DO Status: REG CLI Study: L/S Spine Comp/w Bending Views Date of Exam: 0 10/12/24 Exam# [id number] Ordering Dr: Mik Melo MD PROCEDURE: Lumbar spine radiographs REASON FOR EXAM: Pain TECHNIQUE: 6 views of the lumbar spine COMPARISON: None FINDINGS: See impression RAD/L/S Spine Comp/w Bending Views IMPRESSION: Mild multilevel height loss of the superior endplates favoring chronicity. Grade 1 retrolisthesis of L1-L2 and L2-L3. Mild dextroscoliosis. Wyfg-sz-kfjynmaf multilevel disc space narrowing, greatest at L2-L3. Moderate lower lumbar facet arthrosis. Negative for abnormal motion. Sacroiliac joints are within normal limits. Reading Location: [facility] CC: Dr. Mik Melo MD; Dr. Mignon Mon DO Bit Grinder: Signed Normal [facility] Absolute neutrophil countOrd ered By: Thao Moulton on 08-10-2024 Neutrophils (Bld) [#/Vol] 5.6 10*3/uL 2.0-7.7 [facility] Albumin to globulin ratioOrd ered By: Thao Moulton on 08-10-2024 Albumin/Globulin [Mass ratio] 1.0 {ratio} 0.9-2.4 [facility] Basophil percentageOrdered B y: Thao Moulton on 08-10-2024 Basophils/100 WBC (Bld) 0.5 % 0-1 [facility] Bilirubin, totalOrdered By: Thao Moulton on 08-10-2024 Bilirubin [Mass/Vol] 0.30 mg/dL 0.20-1.00 [facility] Comment on above: For patients on eltr ombopag therapy, use of Dimension [place] TBIL is not recommended. Blood urea nitrogen (BUN)/cr eatinine ratioOrdered By: Thao Moulton on 08-10-2024 Urea nitrogen/Creatinine [Mass ratio] 27.2 mg/mg High 10-20 [facility] CBC W/Diff, Automatedon 12- Absolute Lymph 1.88 X10 3/uL Normal 0.83-4.51 [facility] Comment on above: Performed By: #### L 100.0100, L500.4100, L501.9910, L500.4050 #### [facility] [address] [place], [address] Absolute Neut 5.6 X10 3/uL Normal 2.0-7.7 [facility] Comment on above: Performed By: #### L 100.0100, L500.4100, L501.9910, L500.4050 #### [facility] [address] [place], [address] Basophils/100 WBC (Bld) 0.5 % Normal 0-1 [facility] Comment on above: Performed By: #### L 100.0100, L500.4100, L501.9910, L500.4050 #### [facility] [address] [place], [address] Eosinophils/100 WBC (Bld) 3.3 % Normal 0-5 [facility] Comment on above: Performed By: #### L 100.0100, L500.4100, L501.9910, L500.4050 #### [facility] [address] [place], [address] Erythrocyte distribution width (RBC) [Ratio] 12.6 % Normal 11.6-14.6 [facility] Comment on above: Performed By: #### L 100.0100, L500.4100, L501.9910, L500.4050 #### [facility] [address] [place], [address] Hematocrit (Bld) [Volume fraction] 41.0 % Normal 40-54 [facility] Comment on above: Performed By: #### L 100.0100, L500.4100, L501.9910, L500.4050 #### [facility] [address] [place], [address] Hemoglobin (Bld) [Mass/Vol] 13.7 g/dL Normal 13.0-16.5 [facility] Comment on above: Performed By: #### L 100.0100, L500.4100, L501.9910, L500.4050 #### [facility] [address] [place], [address] IG% 0.500 Normal 0.0-0.9 [facility] Comment on above: Result Comment: IG% - Immature Granulocytes (promyelocytes, myelocytes and metamyelocytes) > 1% indicates that a LEFT SHIFT is Present. Performed By: #### L 100.0100, L500.4100, L501.9910, L500.4050 #### [facility] [address] [place], [address] Lymphocytes/100 WBC (Bld) 21.6 % Normal 19-41 [facility] Comment on above: Performed By: #### L 100.0100, L500.4100, L501.9910, L500.4050 #### [facility] [address] [place], [address] MCH (RBC) [Entitic mass] 30.4 pg Normal 27.0-32.0 [facility] Comment on above: Performed By: #### L 100.0100, L500.4100, L501.9910, L500.4050 #### [facility] [address] [place], [address] MCHC (RBC) [Mass/Vol] 33.4 g/dL Normal 32-36 [facility] Comment on above: Performed By: #### L 100.0100, L500.4100, L501.9910, L500.4050 #### [facility] [address] [place], [address] MCV (RBC) [Entitic vol] 91.1 fL Normal 80-94 [facility] Comment on above: Performed By: #### L 100.0100, L500.4100, L501.9910, L500.4050 #### [facility] [address] [place], [address] Monocytes/100 WBC (Bld) 9.6 % Normal 0-10 [facility] Comment on above: Performed By: #### L 100.0100, L500.4100, L501.9910, L500.4050 #### [facility] [address] [place], [address] Neutrophils/100 WBC (Bld) 64.5 % Normal 47-70 [facility] Comment on above: Performed By: #### L 100.0100, L500.4100, L501.9910, L500.4050 #### [facility] [address] [place], [address] Nucleated RBC (Bld) [#/Vol] 0 10*3/uL Normal 0-5 [facility] Comment on above: Performed By: #### L 100.0100, L500.4100, L501.9910, L500.4050 #### [facility] [address] [place], [address] Platelet mean volume (Bld) [Entitic vol] 9.9 fL Normal 6.2-12.0 [facility] Comment on above: Performed By: #### L 100.0100, L500.4100, L501.9910, L500.4050 #### [facility] [address] [place], [address] Platelets (Bld) [#/Vol] 253 10*3/uL Normal 150-450 [facility] Comment on above: Performed By: #### L 100.0100, L500.4100, L501.9910, L500.4050 #### [facility] [address] [place], [address] RBC (Bld) [#/Vol] 4.50 10*6/uL Low 4.6-6.[address] [facility] Comment on above: Performed By: #### L 100.0100, L500.4100, L501.9910, L500.4050 #### [facility] [address] [place], [address] RDW SD 41.3 fl Normal 35.1-43.9 [facility] Comment on above: Performed By: #### L 100.0100, L500.4100, L501.9910, L500.4050 #### [facility] [address] [place], [address] WBC (Bld) [#/Vol] 8.7 10*3/uL Normal 4.4-11.0 [facility] Comment on above: Performed By: #### L 100.0100, L500.4100, L501.9910, L500.4050 #### [facility] [address] [place], [address] Carbon dioxide measurementOr dered By: Thao Moulton on 08-10-2024 CO2 [Moles/Vol] 27.0 mmol/L 21.0-32.0 [facility] Chloride measurementOrdered By: Thao Moulton on 08-10-2024 Chloride [Moles/Vol] 110 mmol/L High 98-107 [facility] Comprehensive Metabolic Prof ilon 08-10-2024 Albumin [Mass/Vol] 3.6 g/dL Normal 3.2-5.0 [facility] Comment on above: Performed By: #### L 100.0100, L500.4100, L501.9910, L500.4050 #### [facility] [address] [place], [address] Albumin/Globulin [Mass ratio] 1.0 {ratio} Normal 0.9-2.4 [facility] Comment on above: Performed By: #### L 100.0100, L500.4100, L501.9910, L500.4050 #### [facility] [address] [place], [address] ALK P 80 U/L Normal 45-117 [facility] Comment on above: Performed By: #### L 100.0100, L500.4100, L501.9910, L500.4050 #### [facility] [address] [place], [address] ALT [Catalytic activity/Vol] 32 U/L Normal 16-61 [facility] Comment on above: Performed By: #### L 100.0100, L500.4100, L501.9910, L500.4050 #### [facility] [address] [place], [address] AST [Catalytic activity/Vol] 22 U/L Normal 15-37 [facility] Comment on above: Performed By: #### L 100.0100, L500.4100, L501.9910, L500.4050 #### [facility] [address] [place], [address] Bilirubin [Mass/Vol] 0.30 mg/dL Normal 0.20-1.00 [facility] Comment on above: Result Comment: For patients on eltrombopag therapy, use of Dimension [place] TBIL is not recommended. Performed By: #### L 100.0100, L500.4100, L501.9910, L500.4050 #### [facility] [address] [place], [address] BUN/CRE 27.2 RATIO High 10-20 [facility] Comment on above: Performed By: #### L 100.0100, L500.4100, L501.9910, L500.4050 #### [facility] [address] [place], [address] CA,Total 9.5 mg/dL Normal 8.5-10.1 [facility] Comment on above: Performed By: #### L 100.0100, L500.4100, L501.9910, L500.4050 #### [facility] [address] [place], [address] Chloride [Moles/Vol] 110 mmol/L High 98-107 [facility] Comment on above: Performed By: #### L 100.0100, L500.4100, L501.9910, L500.4050 #### [facility] [address] [place], [address] CO2 [Moles/Vol] 27.0 mmol/L Normal 21.0-32.0 [facility] Comment on above: Performed By: #### L 100.0100, L500.4100, L501.9910, L500.4050 #### [facility] [address] [place], [address] Creatinine [Mass/Vol] 0.92 mg/dL Normal 0.70-1.30 [facility] Comment on above: Result Comment: The validity of the calculated GFR GFRAA in patients over 70 years has not been determined. Clinical correlation is essential. Performed By: #### L 100.0100, L500.4100, L501.9910, L500.4050 #### [facility] [address] [place], [address] EST GFR - AA 108 mL/min Normal >60 [facility] Comment on above: Result Comment: Afri can [place] GFR Calc Performed By: #### L 100.0100, L500.4100, L501.9910, L500.4050 #### [facility] [address] [place], [address] GAP 4 Low 5-15 [facility] Comment on above: Performed By: #### L 100.0100, L500.4100, L501.9910, L500.4050 #### [facility] [address] [place], [address] GFR/1.73 sq M.predicted among non-blacks MDRD (S/P/Bld) [Vol rate/Area] 89 mL/min/{1.73_m2} Normal >60 [facility] Comment on above: Result Comment: Non- GFR Calc Performed By: #### L 100.0100, L500.4100, L501.9910, L500.4050 #### [facility] [address] [place], [address] Globulin (S) [Mass/Vol] 3.6 g/dL Normal 2.2-4.2 [facility] Comment on above: Performed By: #### L 100.0100, L500.4100, L501.9910, L500.4050 #### [facility] [address] [place], [address] Glucose [Mass/Vol] 97 mg/dL Normal 74-106 [facility] Comment on above: Performed By: #### L 100.0100, L500.4100, L501.9910, L500.4050 #### [facility] [address] [place], [address] Potassium [Moles/Vol] 4.0 mmol/L Normal 3.5-5.1 [facility] Comment on above: Performed By: #### L 100.0100, L500.4100, L501.9910, L500.4050 #### [facility] [address] [place], [address] Sodium [Moles/Vol] 141 mmol/L Normal 136-145 [facility] Comment on above: Performed By: #### L 100.0100, L500.4100, L501.9910, L500.4050 #### [facility] [address] [place], [address] T PROT 7.2 g/dL Normal 6.4-8.2 [facility] Comment on above: Performed By: #### L 100.0100, L500.4100, L501.9910, L500.4050 #### [facility] [address] [place], [address] Urea nitrogen [Mass/Vol] 25 mg/dL High 7-18 [facility] Comment on above: Performed By: #### L 100.0100, L500.4100, L501.9910, L500.4050 #### [facility] [address] [place], [address] Eosinophil percentageOrdered By: Thao Moulton on 08-10-2024 Eosinophils/100 WBC (Bld) 3.3 % 0-5 [facility] Erythrocyte distribution wid th ratioOrdered By: Thao Moulton on 08-10-2024 Erythrocyte distribution width (RBC) [Ratio] 12.6 % 11.6-14.6 [facility] Erythrocyte distribution wid th standard deviationOrdered By: Thao Moulton on 08-10-2024 Erythrocyte distribution width (RBC) [Entitic vol] 41.3 fL 35.1-43.9 [facility] Estimated glomerular filtrat ion rate (GFR) AmericanOrdered By: Thao Moulton on 08-10-2024 Estimated GFR (MDRD) Amer 108 mL/min >60 [facility] Comment on above: GFR Calc Glomerular filtration rate ( GFR) estimationOrdered By: Thao Moulton on 08-10-2024 Estimated GFR (MDRD) Non-Af Amer 89 mL/min >60 [facility] Comment on above: Non- GFR Calc Glucose measurementOrdered B y: Thao Moulton on 08-10-2024 Glucose [Mass/Vol] 97 mg/dL 74-106 [facility] Hematocrit Auto (Bld) [Volum e fraction]Ordered By: Thao Moulton on 08-10-2024 Hematocrit (Bld) [Volume fraction] 41.0 % 40-54 [facility] Hemoglobin measurementOrdere d By: Thao Moulton on 08-10-2024 Hemoglobin (Bld) [Mass/Vol] 13.7 g/dL 13.0-16.5 [facility] Immature granulocytes/100 WB C Auto (Bld)Ordered By: Thao Moulton on 08-10-2024 Immature granulocytes/100 WBC (Bld) 0.500 % 0.0-0.9 [facility] Comment on above: IG% - Immature Granu locytes (promyelocytes, myelocytes and metamyelocytes) > 1% indicates that a LEFT SHIFT is Present. Laboratory - Chemistry and C hemistry - challengeOrdered By: Thao Moulton on 08-10-2024 AST [Catalytic activity/Vol] 22 U/L 15-37 [facility] Lymphocytes Auto (Unsp spec) [#/Vol]Ordered By: Thao Moulton on 08-10-2024 Lymphocytes (Bld) [#/Vol] 1.88 10*3/uL 0.83-4.51 [facility] Lymphocytes/100 WBC Auto (Un sp spec)Ordered By: Thao Moulton on 08-10-2024 Lymphocytes/100 WBC (Bld) 21.6 % 19-41 [facility] MCV (mean corpuscular volume ) determinationOrdered By: Thao Moulton on 08-10-2024 MCV (RBC) [Entitic vol] 91.1 fL 80-94 [facility] Mean corpuscular hemoglobin (MCH) determinationOrdered By: Thao Moulton on 08-10-2024 MCH (RBC) [Entitic mass] 30.4 pg 27.0-32.0 [facility] Mean corpuscular hemoglobin concentration (MCHC) determinationOrdered By: Thao Moulton on 08-10-2024 MCHC (RBC) [Mass/Vol] 33.4 g/dL 32-36 [facility] Mean platelet volume determi nationOrdered By: Thao Moulton on 08-10-2024 Platelet mean volume (Bld) [Entitic vol] 9.9 fL 6.2-12.0 [facility] Monocyte percentageOrdered B y: Thao Moulton on 08-10-2024 Monocytes/100 WBC (Bld) 9.6 % 0-10 [facility] Neutrophil percentageOrdered By: Thao Moulton on 08-10-2024 Neutrophils/100 WBC (Bld) 64.5 % 47-70 [facility] Nucleated red blood cell per centageOrdered By: Thao Moulton on 08-10-2024 Nucleated RBC/100 WBC (Bld) [Ratio] 0 % 0-5 [facility] Platelet countOrdered By: Deborah Moulton on 08-10-2024 Platelets (Bld) [#/Vol] 253 10*3/uL 150-450 [facility] Potassium measurementOrdered By: Thao Moulton on 08-10-2024 Potassium [Moles/Vol] 4.0 mmol/L 3.5-5.1 [facility] RBC Auto (Bld) [#/Vol]Ordere d By: Thao Moulton on 08-10-2024 RBC (Bld) [#/Vol] 4.50 10*6/uL Low 4.6-6.[address] [facility] Serum anion gap measurementO rdered By: Thao Moulton on 08-10-2024 Anion gap [Moles/Vol] 4 mmol/L Low 5-15 [facility] Serum globulin measurementOr dered By: Thao Moulton on 08-10-2024 Globulin (S) [Mass/Vol] 3.6 g/dL 2.2-4.2 [facility] Serum or plasma alanine soto otransferase (ALT) measurementOrdered By: Thao Moulton on 08-10-2024 ALT [Catalytic activity/Vol] 32 U/L 16-61 [facility] Serum or plasma albumin luzma urement (mass/volume)Ordered By: Thao Moulton on 08-10-2024 Albumin [Mass/Vol] 3.6 g/dL 3.2-5.0 [facility] Serum or plasma alkaline carlee sphatase measurementOrdered By: Thao Moulton on 08-10-2024 ALP [Catalytic activity/Vol] 80 U/L 45-117 [facility] Serum or plasma calcium luzma urement (mass/volume)Ordered By: Thao Moulton on 08-10-2024 Calcium [Mass/Vol] 9.5 mg/dL 8.5-10.1 [facility] Serum or plasma creatinine m easurement (mass/volume)Ordered By: Thao Moulton on 08-10-2024 Creatinine [Mass/Vol] 0.92 mg/dL 0.70-1.30 [facility] Comment on above: The validity of the calculated GFR & GFRAA in patients over 70 years has not been determined. Clinical correlation is essential. Serum or plasma urea nitroge n measurement (mass/volume)Ordered By: Thao Moulton on 08-10-2024 Urea nitrogen [Mass/Vol] 25 mg/dL High 7-18 [facility] Sodium levelOrdered By: Jose Moulton on 08-10-2024 Sodium [Moles/Vol] 141 mmol/L 136-145 [facility] Total proteinOrdered By: Agapito Moulton on 08-10-2024 Protein [Mass/Vol] 7.2 g/dL 6.4-8.2 [facility] White blood cell (WBC) count Ordered By: Thao Moulton on 08-10-2024 WBC (Bld) [#/Vol] 8.7 10*3/uL 4.4-11.0 [facility] CBC W/Diff, Automatedon 05-04 Absolute Lymph 1.49 X10 3/uL Normal 0.83-4.51 [facility] Comment on above: Performed By: #### L 500.4050, L100.0100 #### [facility] [address] [place], [address] Absolute Neut 2.4 X10 3/uL Normal 2.0-7.7 [facility] Comment on above: Performed By: #### L 500.4050, L100.0100 #### [facility] [address] [place], [address] Basophils/100 WBC (Bld) 0.6 % Normal 0-1 [facility] Comment on above: Performed By: #### L 500.4050, L100.0100 #### [facility] [address] [place], [address] Eosinophils/100 WBC (Bld) 4.3 % Normal 0-5 [facility] Comment on above: Performed By: #### L 500.4050, L100.0100 #### [facility] [address] [place], [address] Erythrocyte distribution width (RBC) [Ratio] 12.8 % Normal 11.6-14.6 [facility] Comment on above: Performed By: #### L 500.4050, L100.0100 #### [facility] [address] [place], [address] Hematocrit (Bld) [Volume fraction] 44.3 % Normal 40-54 [facility] Comment on above: Performed By: #### L 500.4050, L100.0100 #### [facility] [address] [place], [address] Hemoglobin (Bld) [Mass/Vol] 14.5 g/dL Normal 13.0-16.5 [facility] Comment on above: Performed By: #### L 500.4050, L100.0100 #### [facility] [address] [place], [address] IG% 0.200 Normal 0.0-0.9 [facility] Comment on above: Result Comment: IG% - Immature Granulocytes (promyelocytes, myelocytes and metamyelocytes) > 1% indicates that a LEFT SHIFT is Present. Performed By: #### L 500.4050, L100.0100 #### [facility] [address] [place], [address] Lymphocytes/100 WBC (Bld) 30.4 % Normal 19-41 [facility] Comment on above: Performed By: #### L 500.4050, L100.0100 #### [facility] [address] [place], [address] MCH (RBC) [Entitic mass] 29.8 pg Normal 27.0-32.0 [facility] Comment on above: Performed By: #### L 500.4050, L100.0100 #### [facility] [address] [place], [address] MCHC (RBC) [Mass/Vol] 32.7 g/dL Normal 32-36 [facility] Comment on above: Performed By: #### L 500.4050, L100.0100 #### [facility] [address] [place], [address] MCV (RBC) [Entitic vol] 91.2 fL Normal 80-94 [facility] Comment on above: Performed By: #### L 500.4050, L100.0100 #### [facility] [address] [place], [address] Monocytes/100 WBC (Bld) 15.5 % High 0-10 [facility] Comment on above: Performed By: #### L 500.4050, L100.0100 #### [facility] [address] [place], [address] Neutrophils/100 WBC (Bld) 49.0 % Normal 47-70 [facility] Comment on above: Performed By: #### L 500.4050, L100.0100 #### [facility] [address] [place], [address] Nucleated RBC (Bld) [#/Vol] 0 10*3/uL Normal 0-5 [facility] Comment on above: Performed By: #### L 500.4050, L100.0100 #### [facility] [address] [place], [address] Platelet mean volume (Bld) [Entitic vol] 9.4 fL Normal 6.2-12.0 [facility] Comment on above: Performed By: #### L 500.4050, L100.0100 #### [facility] [address] [place], [address] Platelets (Bld) [#/Vol] 206 10*3/uL Normal 150-450 [facility] Comment on above: Performed By: #### L 500.4050, L100.0100 #### [facility] [address] [place], [address] RBC (Bld) [#/Vol] 4.86 10*6/uL Normal 4.6-6.[address] [facility] Comment on above: Performed By: #### L 500.4050, L100.0100 #### [facility] [address] [place], [address] RDW SD 42.0 fl Normal 35.1-43.9 [facility] Comment on above: Performed By: #### L 500.4050, L100.0100 #### [facility] [address] [place], [address] WBC (Bld) [#/Vol] 4.9 10*3/uL Normal 4.4-11.0 [facility] Comment on above: Performed By: #### L 500.4050, L100.0100 #### [facility] [address] [place], [address] Comprehensive Metabolic Prof rion 05-23-2024 Albumin [Mass/Vol] 3.5 g/dL Normal 3.2-5.0 [facility] Comment on above: Performed By: #### L 500.4050, L100.0100 #### [facility] [address] [place], [address] Albumin/Globulin [Mass ratio] 1.0 {ratio} Normal 0.9-2.4 [facility] Comment on above: Performed By: #### L 500.4050, L100.0100 #### [facility] [address] [place], [address] ALK P 80 U/L Normal 45-117 [facility] Comment on above: Performed By: #### L 500.4050, L100.0100 #### [facility] [address] [place], [address] ALT [Catalytic activity/Vol] 25 U/L Normal 16-61 [facility] Comment on above: Performed By: #### L 500.4050, L100.0100 #### [facility] [address] [place], [address] AST [Catalytic activity/Vol] 22 U/L Normal 15-37 [facility] Comment on above: Performed By: #### L 500.4050, L100.0100 #### [facility] [address] [place], [address] Bilirubin [Mass/Vol] 0.60 mg/dL Normal 0.20-1.00 [facility] Comment on above: Result Comment: For patients on eltrombopag therapy, use of Dimension [place] TBIL is not recommended. Performed By: #### L 500.4050, L100.0100 #### [facility] [address] [place], [address] BUN/CRE 22.5 RATIO High 10-20 [facility] Comment on above: Performed By: #### L 500.4050, L100.0100 #### [facility] [address] [place], [address] CA,Total 9.1 mg/dL Normal 8.5-10.1 [facility] Comment on above: Performed By: #### L 500.4050, L100.0100 #### [facility] [address] [place], [address] Chloride [Moles/Vol] 106 mmol/L Normal 98-107 [facility] Comment on above: Performed By: #### L 500.4050, L100.0100 #### [facility] [address] [place], [address] CO2 [Moles/Vol] 29.0 mmol/L Normal 21.0-32.0 [facility] Comment on above: Performed By: #### L 500.4050, L100.0100 #### [facility] [address] [place], [address] Creatinine [Mass/Vol] 0.93 mg/dL Normal 0.70-1.30 [facility] Comment on above: Result Comment: The validity of the calculated GFR GFRAA in patients over 70 years has not been determined. Clinical correlation is essential. Performed By: #### L 500.4050, L100.0100 #### [facility] [address] [place], [address] EST GFR - AA 106 mL/min Normal >60 [facility] Comment on above: Result Comment: Afri can [place] GFR Calc Performed By: #### L 500.4050, L100.0100 #### [facility] [address] [place], [address] GAP 4 Low 5-15 [facility] Comment on above: Performed By: #### L 500.4050, L100.0100 #### [facility] [address] [place], [address] GFR/1.73 sq M.predicted among non-blacks MDRD (S/P/Bld) [Vol rate/Area] 88 mL/min/{1.73_m2} Normal >60 [facility] Comment on above: Result Comment: Non- GFR Calc Performed By: #### L 500.4050, L100.0100 #### [facility] [address] [place], [address] Globulin (S) [Mass/Vol] 3.4 g/dL Normal 2.2-4.2 [facility] Comment on above: Performed By: #### L 500.4050, L100.0100 #### [facility] [address] [place], [address] Glucose [Mass/Vol] 99 mg/dL Normal 74-106 [facility] Comment on above: Performed By: #### L 500.4050, L100.0100 #### [facility] [address] [place], [address] Potassium [Moles/Vol] 3.8 mmol/L Normal 3.5-5.1 [facility] Comment on above: Performed By: #### L 500.4050, L100.0100 #### [facility] [address] [place], [address] Sodium [Moles/Vol] 139 mmol/L Normal 136-145 [facility] Comment on above: Performed By: #### L 500.4050, L100.0100 #### [facility] [address] [place], [address] T PROT 6.9 g/dL Normal 6.4-8.2 [facility] Comment on above: Performed By: #### L 500.4050, L100.0100 #### [facility] [address] [place], [address] Urea nitrogen [Mass/Vol] 21 mg/dL High 7-18 [facility] Comment on above: Performed By: #### L 500.4050, L100.0100 #### [facility] [address] [place], [address] XR Chest PA and Lateralon IMPRESSION: No acute radiographic abnormality. [facility] Transcribe Date/Time: May 01 2024 10:07A Dictated by : GALO SHANKS MD This examination was interpreted and the report reviewed and electronically signed by: GALO SHANKS MD on May 01 2024 10:09AM [facility] DIVISION OF RADIOLOGY * * *Final [...] soft tissues: Unremarkable. DIVISION OF RADIOLOGY Provider, [facility] Caitlin [facility] - 05/01/2024 * * *Final Report* [...] Unremarkable. IMPRESSION IMPRESSION: No acute radiographic abnormality. Bit Grinder: [facility] Transcribe Date/Time: May 01 2024 10:07A Dictated by : GALO SHANKS MD This examination was interpreted and the report reviewed and electronically signed by: GALO SHANKS MD on May 01 2024 10:09AM EST [facility] Radiology Study observation (narrative) [facility] XR Chest PA and LateralOrder ed By: [facility] Provider on 05-01-2024 [facility] Miscellaneous Lab Procedureo n 04-09-2024 [facility] LAB TEST Normal [facility] Comment on above: Order Comment: [...] 100.00 V Very High >100.00 Very High [id number]-[id number] Penicillium chrysogen <0.10 kU/L Class 0 V204-OrF Cladosporium herbarum <0.10 kU/L Class 0 O340-PtY Aspergillus fumigatus <0.10 kU/L Class 0 X727-GvR Mucor racemosus <0.10 kU/L Class 0 T828-UqR Robyn albicans <0.10 kU/L Class 0 Z997-AcP Alternaria alternata <0.10 kU/L Class 0 R688-KyJ Setomelanomma rostrat <0.10 kU/L Class 0 O220-IlD Fusarium proliferatum <0.10 kU/L Class 0 T972-FdS Aureobasidi pullulans <0.10 kU/L Class 0 Q650-GkQ Phoma betae <0.10 kU/L Class 0 R769-FtN Epicoccum purpur <0.10 kU/L Class 0 S723-RbG Stemphylium herbarum <0.10 kU/L Class 0 TESTING PERFORMED AT [facility]. ORIGINAL REPORT ON FILE IN LAB CONTAINS ADDITIONAL TEST SITE INFORMATION. Performed By: #### L 100.0100, L500.4100, L501.9910, L500.4050 #### [facility] [address] [place], [place], [id number] CBC W/Diff, Automatedon 06-2 Absolute Lymph 1.77 X10 3/uL Normal 0.83-4.51 [facility] Comment on above: Order Comment: DR.ST DOBBS ORDERED PSA, LIPID ORDERED CMP, CBCD Performed By: #### L 100.0100, L500.4100, L501.9910, L500.4050 #### [facility] [address] [place], [place], [id number] Absolute Neut 3.5 X10 3/uL Normal 2.0-7.7 [facility] Comment on above: Order Comment: DR.ST DOBBS ORDERED PSA, LIPID ORDERED CMP, CBCD Performed By: #### L 100.0100, L500.4100, L501.9910, L500.4050 #### [facility] [address] [place], [address] Basophils/100 WBC (Bld) 0.5 % Normal 0-1 [facility] Comment on above: Order Comment: DR.ST DOBBS ORDERED PSA, LIPID ORDERED CMP, CBCD Performed By: #### L 100.0100, L500.4100, L501.9910, L500.4050 #### [facility] [address] [place], [address] Eosinophils/100 WBC (Bld) 3.5 % Normal 0-5 [facility] Comment on above: Order Comment: DR.ST DOBBS ORDERED PSA, LIPID ORDERED CMP, CBCD Performed By: #### L 100.0100, L500.4100, L501.9910, L500.4050 #### [facility] [address] [place], [address] Erythrocyte distribution width (RBC) [Ratio] 12.8 % Normal 11.6-14.6 [facility] Comment on above: Order Comment: DR.ST DOBBS ORDERED PSA, LIPID ORDERED CMP, CBCD Performed By: #### L 100.0100, L500.4100, L501.9910, L500.4050 #### [facility] [address] [place], [address] Hematocrit (Bld) [Volume fraction] 44.7 % Normal 40-54 [facility] Comment on above: Order Comment: DR.ST DOBBS ORDERED PSA, LIPID ORDERED CMP, CBCD Performed By: #### L 100.0100, L500.4100, L501.9910, L500.4050 #### [facility] [address] [place], [address] Hemoglobin (Bld) [Mass/Vol] 14.9 g/dL Normal 13.0-16.5 [facility] Comment on above: Order Comment: DR.ST DOBBS ORDERED PSA, LIPID ORDERED CMP, CBCD Performed By: #### L 100.0100, L500.4100, L501.9910, L500.4050 #### [facility] [address] [place], [address] IG% 0.200 Normal 0.0-0.9 [facility] Comment on above: Order Comment: DR.ST DOBBS ORDERED PSA, LIPID ORDERED CMP, CBCD Result Comment: IG% - Immature Granulocytes (promyelocytes, myelocytes and metamyelocytes) > 1% indicates that a LEFT SHIFT is Present. Performed By: #### L 100.0100, L500.4100, L501.9910, L500.4050 #### [facility] [address] [place], [address] Lymphocytes/100 WBC (Bld) 29.8 % Normal 19-41 [facility] Comment on above: Order Comment: DR.ST DOBBS ORDERED PSA, LIPID ORDERED CMP, CBCD Performed By: #### L 100.0100, L500.4100, L501.9910, L500.4050 #### [facility] [address] [place], [address] MCH (RBC) [Entitic mass] 29.9 pg Normal 27.0-32.0 [facility] Comment on above: Order Comment: DR.ST DOBBS ORDERED PSA, LIPID ORDERED CMP, CBCD Performed By: #### L 100.0100, L500.4100, L501.9910, L500.4050 #### [facility] [address] [place], [address] MCHC (RBC) [Mass/Vol] 33.3 g/dL Normal 32-36 [facility] Comment on above: Order Comment: DR.ST DOBBS ORDERED PSA, LIPID ORDERED CMP, CBCD Performed By: #### L 100.0100, L500.4100, L501.9910, L500.4050 #### [facility] [address] [place], [address] MCV (RBC) [Entitic vol] 89.8 fL Normal 80-94 [facility] Comment on above: Order Comment: DR.ST DOBBS ORDERED PSA, LIPID ORDERED CMP, CBCD Performed By: #### L 100.0100, L500.4100, L501.9910, L500.4050 #### [facility] [address] [place], [address] Monocytes/100 WBC (Bld) 7.8 % Normal 0-10 [facility] Comment on above: Order Comment: DR.ST DOBBS ORDERED PSA, LIPID ORDERED CMP, CBCD Performed By: #### L 100.0100, L500.4100, L501.9910, L500.4050 #### [facility] [address] [place], [address] Neutrophils/100 WBC (Bld) 58.2 % Normal 47-70 [facility] Comment on above: Order Comment: DR.ST DOBBS ORDERED PSA, LIPID ORDERED CMP, CBCD Performed By: #### L 100.0100, L500.4100, L501.9910, L500.4050 #### [facility] [address] [place], [address] Nucleated RBC (Bld) [#/Vol] 0 10*3/uL Normal 0-5 [facility] Comment on above: Order Comment: DR.ST DOBBS ORDERED PSA, LIPID ORDERED CMP, CBCD Performed By: #### L 100.0100, L500.4100, L501.9910, L500.4050 #### [facility] [address] [place], [address] Platelet mean volume (Bld) [Entitic vol] 9.4 fL Normal 6.2-12.0 [facility] Comment on above: Order Comment: DR.ST DOBBS ORDERED PSA, LIPID ORDERED CMP, CBCD Performed By: #### L 100.0100, L500.4100, L501.9910, L500.4050 #### [facility] [address] [place], [address] Platelets (Bld) [#/Vol] 250 10*3/uL Normal 150-450 [facility] Comment on above: Order Comment: DR.ST DOBBS ORDERED PSA, LIPID ORDERED CMP, CBCD Performed By: #### L 100.0100, L500.4100, L501.9910, L500.4050 #### [facility] [address] [place], [address] RBC (Bld) [#/Vol] 4.98 10*6/uL Normal 4.6-6.[address] [facility] Comment on above: Order Comment: DR.ST DOBBS ORDERED PSA, LIPID ORDERED CMP, CBCD Performed By: #### L 100.0100, L500.4100, L501.9910, L500.4050 #### [facility] [address] [place], [address] RDW SD 41.3 fl Normal 35.1-43.9 [facility] Comment on above: Order Comment: DR.ST DOBBS ORDERED PSA, LIPID ORDERED CMP, CBCD Performed By: #### L 100.0100, L500.4100, L501.9910, L500.4050 #### [facility] [address] [place], [address] WBC (Bld) [#/Vol] 5.9 10*3/uL Normal 4.4-11.0 [facility] Comment on above: Order Comment: DR.ST DOBBS ORDERED PSA, LIPID ORDERED CMP, CBCD Performed By: #### L 100.0100, L500.4100, L501.9910, L500.4050 #### [facility] [address] [place], [address] Comprehensive Metabolic Prof ilon 02-22-2024 Albumin [Mass/Vol] 3.6 g/dL Normal 3.2-5.0 [facility] Comment on above: Order Comment: DR.ST DOBBS ORDERED PSA, LIPID ORDERED CMP, CBCD Performed By: #### L 100.0100, L500.4100, L501.9910, L500.4050 #### [facility] [address] [place], [address] Albumin/Globulin [Mass ratio] 1.0 {ratio} Normal 0.9-2.4 [facility] Comment on above: Order Comment: DR.ST DOBBS ORDERED PSA, LIPID ORDERED CMP, CBCD Performed By: #### L 100.0100, L500.4100, L501.9910, L500.4050 #### [facility] [address] [place], [address] ALK P 77 U/L Normal 45-117 [facility] Comment on above: Order Comment: DR.ST DOBBS ORDERED PSA, LIPID ORDERED CMP, CBCD Performed By: #### L 100.0100, L500.4100, L501.9910, L500.4050 #### [facility] [address] [place], [address] ALT [Catalytic activity/Vol] 28 U/L Normal 16-61 [facility] Comment on above: Order Comment: DR.ST DOBBS ORDERED PSA, LIPID ORDERED CMP, CBCD Performed By: #### L 100.0100, L500.4100, L501.9910, L500.4050 #### [facility] [address] [place], [address] AST [Catalytic activity/Vol] 23 U/L Normal 15-37 [facility] Comment on above: Order Comment: DR.ST DOBBS ORDERED PSA, LIPID ORDERED CMP, CBCD Performed By: #### L 100.0100, L500.4100, L501.9910, L500.4050 #### [facility] [address] [place], [address] Bilirubin [Mass/Vol] 0.90 mg/dL Normal 0.20-1.00 [facility] Comment on above: Order Comment: DR.ST DOBBS ORDERED PSA, LIPID ORDERED CMP, CBCD Result Comment: For patients on eltrombopag therapy, use of Dimension [place] TBIL is not recommended. Performed By: #### L 100.0100, L500.4100, L501.9910, L500.4050 #### [facility] [address] [place], [address] BUN/CRE 24.5 RATIO High 10-20 [facility] Comment on above: Order Comment: DR.ST DOBBS ORDERED PSA, LIPID ORDERED CMP, CBCD Performed By: #### L 100.0100, L500.4100, L501.9910, L500.4050 #### [facility] [address] [place], [address] CA,Total 9.1 mg/dL Normal 8.5-10.1 [facility] Comment on above: Order Comment: DR.ST DOBBS ORDERED PSA, LIPID ORDERED CMP, CBCD Performed By: #### L 100.0100, L500.4100, L501.9910, L500.4050 #### [facility] [address] [place], [address] Chloride [Moles/Vol] 104 mmol/L Normal 98-107 [facility] Comment on above: Order Comment: DR.ST DOBBS ORDERED PSA, LIPID ORDERED CMP, CBCD Performed By: #### L 100.0100, L500.4100, L501.9910, L500.4050 #### [facility] [address] [place], [address] CO2 [Moles/Vol] 29.0 mmol/L Normal 21.0-32.0 [facility] Comment on above: Order Comment: DR.ST DOBBS ORDERED PSA, LIPID ORDERED CMP, CBCD Performed By: #### L 100.0100, L500.4100, L501.9910, L500.4050 #### [facility] [address] [place], [address] Creatinine [Mass/Vol] 0.82 mg/dL Normal 0.70-1.30 [facility] Comment on above: Order Comment: DR.ST DOBBS ORDERED PSA, LIPID ORDERED CMP, CBCD Result Comment: The validity of the calculated GFR GFRAA in patients over 70 years has not been determined. Clinical correlation is essential. Performed By: #### L 100.0100, L500.4100, L501.9910, L500.4050 #### [facility] [address] [place], [address] EST GFR - AA 124 mL/min Normal >60 [facility] Comment on above: Order Comment: DR.ST DOBBS ORDERED PSA, LIPID ORDERED CMP, CBCD Result Comment: Afri can [place] GFR Calc Performed By: #### L 100.0100, L500.4100, L501.9910, L500.4050 #### [facility] [address] [place], [address] GAP 7 Normal 5-15 [facility] Comment on above: Order Comment: DR.ST DOBBS ORDERED PSA, LIPID ORDERED CMP, CBCD Performed By: #### L 100.0100, L500.4100, L501.9910, L500.4050 #### [facility] [address] [place], [address] GFR/1.73 sq M.predicted among non-blacks MDRD (S/P/Bld) [Vol rate/Area] 103 mL/min/{1.73_m2} Normal >60 [facility] Comment on above: Order Comment: DR.ST DOBBS ORDERED PSA, LIPID ORDERED CMP, CBCD Result Comment: Non- GFR Calc Performed By: #### L 100.0100, L500.4100, L501.9910, L500.4050 #### [facility] [address] [place], [address] Globulin (S) [Mass/Vol] 3.6 g/dL Normal 2.2-4.2 [facility] Comment on above: Order Comment: DR.ST DOBBS ORDERED PSA, LIPID ORDERED CMP, CBCD Performed By: #### L 100.0100, L500.4100, L501.9910, L500.4050 #### [facility] [address] [place], [address] Glucose [Mass/Vol] 88 mg/dL Normal 74-106 [facility] Comment on above: Order Comment: DR.ST DOBBS ORDERED PSA, LIPID ORDERED CMP, CBCD Performed By: #### L 100.0100, L500.4100, L501.9910, L500.4050 #### [facility] [address] [place], [address] Potassium [Moles/Vol] 3.9 mmol/L Normal 3.5-5.1 [facility] Comment on above: Order Comment: DR.ST DOBBS ORDERED PSA, LIPID ORDERED CMP, CBCD Performed By: #### L 100.0100, L500.4100, L501.9910, L500.4050 #### [facility] [address] [place], [address] Sodium [Moles/Vol] 140 mmol/L Normal 136-145 [facility] Comment on above: Order Comment: DR.ST DOBBS ORDERED PSA, LIPID ORDERED CMP, CBCD Performed By: #### L 100.0100, L500.4100, L501.9910, L500.4050 #### [facility] [address] [place], [address] T PROT 7.2 g/dL Normal 6.4-8.2 [facility] Comment on above: Order Comment: DR.ST DOBBS ORDERED PSA, LIPID ORDERED CMP, CBCD Performed By: #### L 100.0100, L500.4100, L501.9910, L500.4050 #### [facility] [address] [place], [address] Urea nitrogen [Mass/Vol] 20 mg/dL High 7-18 [facility] Comment on above: Order Comment: DR.ST DOBBS ORDERED PSA, LIPID ORDERED CMP, CBCD Performed By: #### L 100.0100, L500.4100, L501.9910, L500.4050 #### [facility] [address] [place], [address] Lipid Profileon 02-22-2024 Cholesterol [Mass/Vol] 180 mg/dL Normal 200 [facility] Comment on above: Order Comment: DR.ST DOBBS ORDERED PSA, LIPID ORDERED CMP, CBCD Result Comment: <200 mg/dL Desirable 200-240 mg/dL Borderline >240 mg/dL High Risk Performed By: #### L 100.0100, L500.4100, L501.9910, L500.4050 #### [facility] [address] [place], [address] Cholesterol in HDL [Mass/Vol] 71 mg/dL Normal [facility] Comment on above: Order Comment: DR.ST DOBBS ORDERED PSA, LIPID ORDERED CMP, CBCD Result Comment: The drugs N-Acetylcysteine and Metamizole may falsely depress this assay. Reference Range HDL <40 mg/dL Low HDL Cholesterol HDL >or= 60 mg/dL High HDL Cholesterol Performed By: #### L 100.0100, L500.4100, L501.9910, L500.4050 #### [facility] [address] [place], [address] Cholesterol in LDL [Mass/Vol] 97 mg/dL Normal 0-130 [facility] Comment on above: Order Comment: DR.ST DOBBS ORDERED PSA, LIPID ORDERED CMP, CBCD Performed By: #### L 100.0100, L500.4100, L501.9910, L500.4050 #### [facility] [address] [place], [address] Cholesterol in VLDL [Mass/Vol] 12 mg/dL Normal 5-40 [facility] Comment on above: Order Comment: DR.ST DOBBS ORDERED PSA, LIPID ORDERED CMP, CBCD Performed By: #### L 100.0100, L500.4100, L501.9910, L500.4050 #### [facility] [address] [place], [address] Triglyceride [Mass/Vol] 61 mg/dL Normal [facility] Comment on above: Order Comment: DR.ST DOBBS ORDERED PSA, LIPID ORDERED CMP, CBCD Result Comment: The drugs N-Acetylcysteine and Metamizole may falsely depress this assay. Serum Triglycerides Reference Interval Normal <150 mg/dL Borderline high 150 - 199 mg/dL High 200 - 499 mg/dL Very High > or = 500 mg/dL Performed By: #### L 100.0100, L500.4100, L501.9910, L500.4050 #### [facility] [address] [place], [address] PSA,Total - Annual Screenon 02-22-2024 PSA,TOT SCREEN 0.55 ng/mL Normal 0.00-4.00 [facility] Comment on above: Order Comment: DR.ST DOBBS ORDERED PSA, LIPID ORDERED CMP, CBCD Result Comment: This test was performed using the TPSA assay method for the [employer] chemistry system. Values obtained with different assay methods cannot be used interchangably. When changing PSA assays in the course of monitoring a patient, additional sequential testing should be carried out to confirm baseline values. Performed By: #### L 100.0100, L500.4100, L501.9910, L500.4050 #### [facility] [address] [place], [address] CNOVon 02-02-2024 CNOV Office Visit (RUSTTR ) LITO VU ([id number]) 1965 M Date Time Provider Department 02/02/24 11:45 AM MARICEL CARSON [facility] During your visit today, we recorded the following information about you: Temperature Pulse Respiration Blood pressure 97.3 degrees 88/minute 16/minute 158/76 Weight 73 kg Maricel Carson APRN.TAX CLERK 02/02/2024 11:59 AM Signed This note was created using [email or web address]. Subjective Lito Vu is a 58 year [...] Date Reviewed: 02/02/2024 Reviewed by: Maricel Carson APRN.TAX CLERK - Fully Assessed Reason for Visit: Cough [...] (FLONASE) 50 mcg/actuation nasal spray Use 1 [place] in each nostril once daily. 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 Subjective Lito Vu is a 58 year [...] (FLONASE) 50 mcg/actuation nasal spray Use 1 [place] in each nostril once daily. PSYLLIUM SEED, [...] the flu) (more content not included)... Normal [facility] INFLUENZA A&B MOLECULAR (POC )on 10-30-2023 Flu A (POCT) Positive Abnormal Negative [facility] Procedural Control Valid [facility] [...] degenerative changes. IMPRESSION: No acute radiographic abnormality. Bit Grinder: PSCB Transcribe Date/Time: Oct 30 2023 2:39P Dictated by : DAVID DEVRIES MD This examination was interpreted and the report reviewed and electronically signed by: DAVID DEVRIES MD on Oct 30 2023 2:43PM EST [id number] Normal [facility] XR Chest PA and Lateralon IMPRESSION: No acute radiographic abnormality. Bit Grinder: ROBSON Transcribe Date/Time: Oct 30 2023 2:39P Dictated by : DAVID DEVRIES MD This examination was interpreted and the report reviewed and electronically signed by: DAVID DEVRIES MD on Oct 30 2023 2:43PM [facility] DIVISION OF RADIOLOGY * * *Final [...] Mild degenerative changes. DIVISION OF RADIOLOGY Provider, [facility] Caitlin [facility] - 10/30/2023 * * *Final Report* * [...] changes. IMPRESSION IMPRESSION: No acute radiographic abnormality. Bit Grinder: [employer] Transcribe Date/Time: Oct 30 2023 2:39P Dictated by : DAVID DEVRIES MD This examination was interpreted and the report reviewed and electronically signed by: DAVID DEVRIES MD on Oct 30 2023 2:43PM EST [facility] Radiology Study observation (narrative) Gerda an [facility] XR Chest PA and LateralOrder ed By: [facility] Provider on 10-30-2023 [facility] Absolute lymphocyte countOrd ered By: Thao Moulton on 10-29-2023 Lymphocytes Auto (Unsp spec) [#/Vol] 1.59 10*3/uL 0.83-4.51 [facility] Automated lymphocyte count a s percentage of total leukocytesOrdered By: Thao Moulton on 10-29-2023 Lymphocytes/100 WBC Auto (Unsp spec) 24.7 % 19-41 [facility] Basophil percentageOrdered B y: Thao Moulton on 10-29-2023 Basophils/100 WBC (Bld) 0.6 % 0-1 [facility] Bilirubin [Mass/Vol] 0.50 mg/dL 0.20-1.00 [facility] Comment on above: For patients on eltr ombopag therapy, use of Dimension [place] TBIL is not recommended. Chloride [Moles/Vol] 109 mmol/L 98-107 [facility] Eosinophils/100 WBC (Bld) 3.6 % 0-5 [facility] Glucose [Mass/Vol] 99 mg/dL 74-106 [facility] Hemoglobin (Bld) [Mass/Vol] 14.2 g/dL 13.0-16.5 [facility] Monocytes/100 WBC (Bld) 8.1 % 0-10 [facility] Neutrophils (Bld) [#/Vol] 4.0 10*3/uL 2.0-7.7 [facility] Neutrophils/100 WBC (Bld) 62.7 % 47-70 [facility] Potassium [Moles/Vol] 3.6 mmol/L 3.5-5.1 [facility] Protein [Mass/Vol] 7.0 g/dL 6.4-8.2 [facility] Sodium [Moles/Vol] 141 mmol/L 136-145 [facility] WBC (Bld) [#/Vol] 6.4 10*3/uL 4.4-11.0 [facility] Determination of erythrocyte mean corpuscular volume (MCV)Ordered By: Thao Moulton on 10-29-2023 MCV (RBC) [Entitic vol] 88.9 fL 80-94 [facility] Erythrocyte distribution wid th ratioOrdered By: Thao Moulton on 10-29-2023 Erythrocyte distribution width (RBC) [Ratio] 12.5 % 11.6-14.6 [facility] Erythrocyte distribution wid th standard deviationOrdered By: Thao Moulton on 10-29-2023 Erythrocyte distribution width (RBC) [Entitic vol] 39.9 fL 35.1-43.9 [facility] Hematocrit Auto (Bld) [Volum e fraction]Ordered By: Thaoliset Moulton on 10-29-2023 Hematocrit (Bld) [Volume fraction] 41.7 % 40-54 [facility] Immature granulocytes/100 WB C Auto (Bld)Ordered By: Thao Moulton on 10-29-2023 Immature granulocytes/100 WBC (Bld) 0.300 % 0.0-0.9 [facility] Comment on above: IG% - Immature Granu locytes (promyelocytes, myelocytes and metamyelocytes) > 1% indicates that a LEFT SHIFT is Present. Laboratory - Chemistry and C hemistry - challengeOrdered By: Thao Moulton on 10-29-2023 Albumin/Globulin [Mass ratio] 1.1 {ratio} 0.9-2.4 [facility] ALP [Catalytic activity/Vol] 78 U/L 45-117 [facility] ALT [Catalytic activity/Vol] 30 U/L 16-61 [facility] CO2 [Moles/Vol] 27.0 mmol/L 21.0-32.0 [facility] Globulin (S) [Mass/Vol] 3.4 g/dL 2.2-4.2 [facility] Urea nitrogen/Creatinine [Mass ratio] 26.5 mg/mg 10-20 [facility] - Hematology and Cell countsOrdered By: Thao Moulton on 10-29-2023 MCH (RBC) [Entitic mass] 30.3 pg 27.0-32.0 [facility] MCHC (RBC) [Mass/Vol] 34.1 g/dL 32-36 [facility] Nucleated RBC/100 WBC (Bld) [Ratio] 0 % 0-5 [facility] Platelet mean volume (Bld) [Entitic vol] 9.9 fL 6.2-12.0 [facility] Platelets (Bld) [#/Vol] 248 10*3/uL 150-450 [facility] No Panel InformationOrdered By: Thao Moulton on 10-29-2023 Estimated GFR (MDRD) Amer 110 mL/min >60 [facility] Comment on above: GFR Calc Estimated GFR (MDRD) Non-Af Amer 91 mL/min >60 [facility] Comment on above: Non- GFR Calc RBC Auto (Bld) [#/Vol]Ordere d By: Thao Moulton on 10-29-2023 RBC (Bld) [#/Vol] 4.69 10*6/uL 4.6-6.[address] [facility] Serum or plasma calcium luzma urement (mass/volume)Ordered By: Thao Moulton on 10-29-2023 Calcium [Mass/Vol] 8.9 mg/dL 8.5-10.1 [facility] Serum or plasma creatinine m easurement (mass/volume)Ordered By: Thao Moulton on 10-29-2023 Creatinine [Mass/Vol] 0.90 mg/dL 0.70-1.30 [facility] Comment on above: The validity of the calculated GFR & GFRAA in patients over 70 years has not been determined. Clinical correlation is essential. Serum or plasma urea nitroge n measurement (mass/volume)Ordered By: Thao Moulton on 10-29-2023 Urea nitrogen [Mass/Vol] 24 mg/dL 7-18 [facility] Thin prep Papanicolaou smear with manual screeningOrdered By: Thao Moulton on 10-29-2023 Thin prep Papanicolaou smear with manual screening 3.6 g/dL 3.2-5.0 [facility] Thin prep Papanicolaou smear with manual screening 21 U/L 15-37 [facility] Thin prep Papanicolaou smear with manual screening 5 5-15 [facility] Absolute lymphocyte countOrd ered By: Thao Moulton on 07-30-2023 Lymphocytes Auto (Unsp spec) [#/Vol] 1.83 10*3/uL 0.83-4.51 [facility] Basophil percentageOrdered B y: Thao Moulton on 07-30-2023 Basophils/100 WBC (Bld) 0.9 % 0-1 [facility] Bilirubin [Mass/Vol] 0.30 mg/dL 0.20-1.00 [facility] Comment on above: For patients on eltr ombopag therapy, use of Dimension [place] TBIL is not recommended. Chloride [Moles/Vol] 108 mmol/L 98-107 [facility] Eosinophils/100 WBC (Bld) 5.2 % 0-5 [facility] Glucose [Mass/Vol] 91 mg/dL 74-106 [facility] Neutrophils (Bld) [#/Vol] 2.7 10*3/uL 2.0-7.7 [facility] Neutrophils/100 WBC (Bld) 49.7 % 47-70 [facility] Potassium [Moles/Vol] 3.7 mmol/L 3.5-5.1 [facility] Protein [Mass/Vol] 7.2 g/dL 6.4-8.2 [facility] Sodium [Moles/Vol] 142 mmol/L 136-145 [facility] WBC (Bld) [#/Vol] 5.4 10*3/uL 4.4-11.0 [facility] Blood erythrocytes count (nu mber/volume)Ordered By: Thao Moulton on 07-30-2023 RBC (Bld) [#/Vol] 4.75 10*6/uL 4.6-6.[address] [facility] Blood hemoglobin measurement (mass/volume)Ordered By: Thao Moulton on 07-30-2023 Hemoglobin (Bld) [Mass/Vol] 14.0 g/dL 13.0-16.5 [facility] Blood lymphocytes/100 leukoc ytesOrdered By: Thao Moulton on 07-30-2023 Lymphocytes/100 WBC (Bld) 34.1 % 19-41 [facility] Blood monocytes/100 leukocyt esOrdered By: Thao Moulton on 07-30-2023 Monocytes/100 WBC (Bld) 9.9 % 0-10 [facility] Blood platelet mean volumeOr dered By: Thao Moulton on 07-30-2023 Platelet mean volume (Bld) [Entitic vol] 9.4 fL 6.2-12.0 [facility] Determination of erythrocyte mean corpuscular volume (MCV)Ordered By: Thao Moulton on 07-30-2023 MCV (RBC) [Entitic vol] 90.3 fL 80-94 [facility] Hematocrit Auto (Bld) [Volum e fraction]Ordered By: [facility] on 07-30-2023 Hematocrit (Bld) [Volume fraction] 42.9 % 40-54 [facility] Laboratory - Chemistry and C hemistry - challengeOrdered By: Thaoliset Moulton on 07-30-2023 ALP [Catalytic activity/Vol] 84 U/L 45-117 [facility] ALT [Catalytic activity/Vol] 28 U/L 16-61 [facility] CO2 [Moles/Vol] 28.0 mmol/L 21.0-32.0 [facility] Globulin (S) [Mass/Vol] 3.7 g/dL 2.2-4.2 [facility] Urea nitrogen/Creatinine [Mass ratio] 17.2 mg/mg 10-20 [facility] - Hematology and Cell countsOrdered By: Thaoliset Moulton on 07-30-2023 Erythrocyte distribution width (RBC) [Entitic vol] 41.8 fL 35.1-43.9 [facility] Erythrocyte distribution width (RBC) [Ratio] 12.7 % 11.6-14.6 [facility] Immature granulocytes/100 WBC (Bld) 0.200 % 0.0-0.9 [facility] Comment on above: IG% - Immature Granu locytes (promyelocytes, myelocytes and metamyelocytes) > 1% indicates that a LEFT SHIFT is Present. MCH (RBC) [Entitic mass] 29.5 pg 27.0-32.0 [facility] Nucleated RBC/100 WBC (Bld) [Ratio] 0 % 0-5 [facility] MCHC Auto (RBC) [Mass/Vol]Or dered By: Thao Moulton on 07-30-2023 MCHC (RBC) [Mass/Vol] 32.6 g/dL 32-36 [facility] No Panel InformationOrdered By: Thao Moulton on 07-30-2023 Estimated GFR (MDRD) Amer 78 mL/min >60 [facility] Comment on above: GFR Calc Estimated GFR (MDRD) Non-Af Amer 65 mL/min >60 [facility] Comment on above: Non- GFR Calc Platelets bldOrdered By: Agapito Moulton on 07-30-2023 Platelets (Bld) [#/Vol] 269 10*3/uL 150-450 [facility] Serum or plasma albumin luzma urement (mass/volume)Ordered By: Thao Moulton on 07-30-2023 Albumin [Mass/Vol] 3.5 g/dL 3.2-5.0 [facility] Serum or plasma albumin/glob ulin mass ratioOrdered By: Thao Moulton on 07-30-2023 Albumin/Globulin [Mass ratio] 0.9 {ratio} 0.9-2.4 [facility] Serum or plasma calcium luzma urement (mass/volume)Ordered By: Thao Moulton on 07-30-2023 Calcium [Mass/Vol] 8.3 mg/dL 8.5-10.1 [facility] Serum or plasma creatinine m easurement (mass/volume)Ordered By: Thao Moulton on 07-30-2023 Creatinine [Mass/Vol] 1.22 mg/dL 0.70-1.30 [facility] Comment on above: The validity of the calculated GFR & GFRAA in patients over 70 years has not been determined. Clinical correlation is essential. Serum or plasma urea nitroge n measurement (mass/volume)Ordered By: Thao Moulton on 07-30-2023 Urea nitrogen [Mass/Vol] 21 mg/dL 7-18 [facility] Thin prep Papanicolaou smear with manual screeningOrdered By: Thao Moulton on 07-30-2023 Thin prep Papanicolaou smear with manual screening 17 U/L 15-37 [facility] Thin prep Papanicolaou smear with manual screening 6 5-15 [facility] Absolute lymphocyte countOrd ered By: Thao Moulton on 05-02-2023 Lymphocytes Auto (Unsp spec) [#/Vol] 2.05 10*3/uL 0.83-4.51 [facility] Basophil percentageOrdered B y: Thao Moulton on 05-02-2023 Basophils/100 WBC (Bld) 0.5 % 0-1 [facility] Bilirubin [Mass/Vol] 0.40 mg/dL 0.20-1.00 [facility] Comment on above: For patients on eltr ombopag therapy, use of Dimension [place] TBIL is not recommended. Chloride [Moles/Vol] 104 mmol/L 98-107 [facility] Eosinophils/100 WBC (Bld) 4.3 % 0-5 [facility] Glucose [Mass/Vol] 91 mg/dL 74-106 [facility] Neutrophils (Bld) [#/Vol] 3.3 10*3/uL 2.0-7.7 [facility] Neutrophils/100 WBC (Bld) 51.5 % 47-70 [facility] Potassium [Moles/Vol] 4.0 mmol/L 3.5-5.1 [facility] Protein [Mass/Vol] 7.2 g/dL 6.4-8.2 [facility] Sodium [Moles/Vol] 137 mmol/L 136-145 [facility] WBC (Bld) [#/Vol] 6.3 10*3/uL 4.4-11.0 [facility] Blood erythrocytes count (nu mber/volume)Ordered By: Thao Moulton on 05-02-2023 RBC (Bld) [#/Vol] 4.95 10*6/uL 4.6-6.[address] [facility] Blood hemoglobin measurement (mass/volume)Ordered By: Thao Moulton on 05-02-2023 Hemoglobin (Bld) [Mass/Vol] 14.6 g/dL 13.0-16.5 [facility] Blood lymphocytes/100 leukoc ytesOrdered By: Thao Moulton on 05-02-2023 Lymphocytes/100 WBC (Bld) 32.5 % 19-41 [facility] Blood monocytes/100 leukocyt esOrdered By: Thao Moulton on 05-02-2023 Monocytes/100 WBC (Bld) 11.0 % 0-10 [facility] Blood platelet mean volumeOr dered By: Thao Moulton on 05-02-2023 Platelet mean volume (Bld) [Entitic vol] 9.6 fL 6.2-12.0 [facility] Determination of erythrocyte mean corpuscular volume (MCV)Ordered By: Thao Moulton on 05-02-2023 MCV (RBC) [Entitic vol] 87.7 fL 80-94 [facility] Hematocrit Auto (Bld) [Volum e fraction]Ordered By: [facility] on 05-02-2023 Hematocrit (Bld) [Volume fraction] 43.4 % 40-54 [facility] Laboratory - Chemistry and C hemistry - challengeOrdered By: Thao Moulton on 05-02-2023 ALP [Catalytic activity/Vol] 84 U/L 45-117 [facility] ALT [Catalytic activity/Vol] 30 U/L 16-61 [facility] CO2 [Moles/Vol] 27.0 mmol/L 21.0-32.0 [facility] Globulin (S) [Mass/Vol] 3.5 g/dL 2.2-4.2 [facility] Urea nitrogen/Creatinine [Mass ratio] 30.8 mg/mg 10-20 [facility] Laboratory - Hematology and Cell countsOrdered By: Thao Moulton on 05-02-2023 Erythrocyte distribution width (RBC) [Entitic vol] 39.5 fL 35.1-43.9 [facility] Erythrocyte distribution width (RBC) [Ratio] 12.4 % 11.6-14.6 [facility] Immature granulocytes/100 WBC (Bld) 0.200 % 0.0-0.9 [facility] Comment on above: IG% - Immature Granu locytes (promyelocytes, myelocytes and metamyelocytes) > 1% indicates that a LEFT SHIFT is Present. MCH (RBC) [Entitic mass] 29.5 pg 27.0-32.0 [facility] Nucleated RBC/100 WBC (Bld) [Ratio] 0 % 0-5 [facility] MCHC Auto (RBC) [Mass/Vol]Or dered By: Thao Moulton on 05-02-2023 MCHC (RBC) [Mass/Vol] 33.6 g/dL 32-36 [facility] No Panel InformationOrdered By: Thao Moulton on 05-02-2023 Estimated GFR (MDRD) Amer 114 mL/min >60 [facility] Comment on above: GFR Calc Estimated GFR (MDRD) Non-Af Amer 94 mL/min >60 [facility] Comment on above: Non- GFR Calc Platelets bldOrdered By: Agapito Moulton on 05-02-2023 Platelets (Bld) [#/Vol] 232 10*3/uL 150-450 [facility] Serum or plasma albumin luzma urement (mass/volume)Ordered By: Thao Moulton on 05-02-2023 Albumin [Mass/Vol] 3.7 g/dL 3.2-5.0 [facility] Serum or plasma albumin/glob ulin mass ratioOrdered By: Thao Moulton on 05-02-2023 Albumin/Globulin [Mass ratio] 1.1 {ratio} 0.9-2.4 [facility] Serum or plasma calcium luzma urement (mass/volume)Ordered By: Thao Moulton on 05-02-2023 Calcium [Mass/Vol] 8.9 mg/dL 8.5-10.1 [facility] Serum or plasma creatinine m easurement (mass/volume)Ordered By: Thao Moulton on 05-02-2023 Creatinine [Mass/Vol] 0.88 mg/dL 0.70-1.30 [facility] Comment on above: The validity of the calculated GFR & GFRAA in patients over 70 years has not been determined. Clinical correlation is essential. Serum or plasma urea nitroge n measurement (mass/volume)Ordered By: Thao Moulton on 05-02-2023 Urea nitrogen [Mass/Vol] 27 mg/dL 7-18 [facility] Thin prep Papanicolaou smear with manual screeningOrdered By: Thao Moulton on 05-02-2023 Thin prep Papanicolaou smear with manual screening 19 U/L 15-37 [facility] Thin prep Papanicolaou smear with manual screening 6 5-15 [facility] Absolute lymphocyte countOrd ered By: Dr. Mon on 02-09-2023 Lymphocytes Auto (Unsp spec) [#/Vol] 2.09 10*3/uL 0.83-4.51 [facility] Basophil percentageOrdered B y: Dr. Mon on 02-09-2023 Basophils/100 WBC (Bld) 0.6 % 0-1 [facility] Bilirubin [Mass/Vol] 0.70 mg/dL 0.20-1.00 [facility] Comment on above: For patients on eltr ombopag therapy, use of Dimension [place] TBIL is not recommended. Chloride [Moles/Vol] 103 mmol/L 98-107 [facility] Cholesterol [Mass/Vol] 193 mg/dL <200 [facility] Comment on above: <200 mg/dL Desirable 200-240 mg/dL Borderline >240 mg/dL High Risk Eosinophils/100 WBC (Bld) 4.2 % 0-5 [facility] Glucose [Mass/Vol] 89 mg/dL 74-106 [facility] Neutrophils (Bld) [#/Vol] 2.5 10*3/uL 2.0-7.7 [facility] Neutrophils/100 WBC (Bld) 46.9 % 47-70 [facility] Potassium [Moles/Vol] 3.7 mmol/L 3.5-5.1 [facility] Protein [Mass/Vol] 7.5 g/dL 6.4-8.2 [facility] Sodium [Moles/Vol] 138 mmol/L 136-145 [facility] Triglyceride [Mass/Vol] 47 mg/dL <199 [facility] Comment on above: The drugs N-Acetylcy steine and Metamizole may falsely depress this assay.Serum Triglycerides Reference Interval Normal <150 mg/dL Borderline high 150 - 199 mg/dL High 200 - 499 mg/dL Very High > or = 500 mg/dL WBC (Bld) [#/Vol] 5.3 10*3/uL 4.4-11.0 [facility] Blood erythrocytes count (nu mber/volume)Ordered By: Dr. Mon on 02-09-2023 RBC (Bld) [#/Vol] 5.22 10*6/uL 4.6-6.[address] [facility] Blood hemoglobin measurement (mass/volume)Ordered By: Dr. Mon on 02-09-2023 Hemoglobin (Bld) [Mass/Vol] 15.4 g/dL 13.0-16.5 [facility] Blood lymphocytes/100 leukoc ytesOrdered By: Dr. Mon on 02-09-2023 Lymphocytes/100 WBC (Bld) 39.7 % 19-41 [facility] Blood monocytes/100 leukocyt esOrdered By: Dr. Mon on 02-09-2023 Monocytes/100 WBC (Bld) 8.4 % 0-10 [facility] Blood platelet mean volumeOr dered By: Dr. Mon on 02-09-2023 Platelet mean volume (Bld) [Entitic vol] 9.5 fL 6.2-12.0 [facility] Determination of erythrocyte mean corpuscular volume (MCV)Ordered By: Dr. Mon on 02-09-2023 MCV (RBC) [Entitic vol] 88.5 fL 80-94 [facility] Hematocrit Auto (Bld) [Volum e fraction]Ordered By: Dr. Mon on 02-09-2023 Hematocrit (Bld) [Volume fraction] 46.2 % 40-54 [facility] Laboratory - Chemistry and C hemistry - challengeOrdered By: Dr. Mon on 02-09-2023 ALP [Catalytic activity/Vol] 80 U/L 45-117 [facility] ALT [Catalytic activity/Vol] 21 U/L 16-61 [facility] CO2 [Moles/Vol] 29.0 mmol/L 21.0-32.0 [facility] Globulin (S) [Mass/Vol] 3.9 g/dL 2.2-4.2 [facility] Urea nitrogen/Creatinine [Mass ratio] 22.4 mg/mg 10-20 [facility] Laboratory - Hematology and Cell countsOrdered By: Dr. Mon on 02-09-2023 Erythrocyte distribution width (RBC) [Entitic vol] 40.3 fL 35.1-43.9 [facility] Erythrocyte distribution width (RBC) [Ratio] 12.4 % 11.6-14.6 [facility] Immature granulocytes/100 WBC (Bld) 0.200 % 0.0-0.9 [facility] Comment on above: IG% - Immature Granu locytes (promyelocytes, myelocytes and metamyelocytes) > 1% indicates that a LEFT SHIFT is Present. MCH (RBC) [Entitic mass] 29.5 pg 27.0-32.0 [facility] Nucleated RBC/100 WBC (Bld) [Ratio] 0 % 0-5 [facility] MCHC Auto (RBC) [Mass/Vol]Or dered By: Dr. Mon on 02-09-2023 MCHC (RBC) [Mass/Vol] 33.3 g/dL 32-36 [facility] No Panel InformationOrdered By: Dr. Mon on 02-09-2023 Estimated GFR (MDRD) Amer 127 mL/min >60 [facility] Comment on above: GFR Calc Estimated GFR (MDRD) Non-Af Amer 105 mL/min >60 [facility] Comment on above: Non- GFR Calc Prostate Specific Antigen Screen 0.71 ng/mL 0.00-4.00 [facility] Comment on above: This test was perfor med using the TPSA assay method for the[employer] chemistry system. Values obtained with differentassay methods cannot be used interchangably.When changing PSA assays in the course of monitoring apatient, additional sequential testing should be carriedout to confirm baseline values. Platelets bldOrdered By: Dr. Mon on 02-09-2023 Platelets (Bld) [#/Vol] 255 10*3/uL 150-450 [facility] Serum or plasma albumin luzma urement (mass/volume)Ordered By: Dr. Mon on 02-09-2023 Albumin [Mass/Vol] 3.6 g/dL 3.2-5.0 [facility] Serum or plasma albumin/glob ulin mass ratioOrdered By: Dr. Mon on 02-09-2023 Albumin/Globulin [Mass ratio] 0.9 {ratio} 0.9-2.4 [facility] Serum or plasma calcium luzma urement (mass/volume)Ordered By: Dr. Mon on 02-09-2023 Calcium [Mass/Vol] 9.1 mg/dL 8.5-10.1 [facility] Serum or plasma cholesterol in HDL measurement (mass/volume)Ordered By: Dr. Mon on 02-09-2023 Cholesterol in HDL [Mass/Vol] 72 mg/dL >40 [facility] Comment on above: The drugs N-Acetylcy steine and Metamizole may falsely depress this assay. Reference Range HDL <40 mg/dL Low HDL Cholesterol HDL >or= 60 mg/dL High HDL Cholesterol Serum or plasma cholesterol in VLDL measurement (mass/volume)Ordered By: Dr. Mon on 02-09-2023 Cholesterol in VLDL [Mass/Vol] 9 mg/dL 5-40 [facility] Serum or plasma creatinine m easurement (mass/volume)Ordered By: Dr. Mon on 02-09-2023 Creatinine [Mass/Vol] 0.80 mg/dL 0.70-1.30 [facility] Comment on above: The validity of the calculated GFR & GFRAA in patients over 70 years has not been determined. Clinical correlation is essential. Serum or plasma low density lipoprotein (LDL) cholesterol measurement (mass/volume)Ordered By: Dr. Mon on 02-09-2023 Cholesterol in LDL [Mass/Vol] 112 mg/dL 0-130 [facility] Serum or plasma urea nitroge n measurement (mass/volume)Ordered By: Dr. Mon on 02-09-2023 Urea nitrogen [Mass/Vol] 18 mg/dL 7-18 [facility] Thin prep Papanicolaou smear with manual screeningOrdered By: Dr. Mon on 02-09-2023 Thin prep Papanicolaou smear with manual screening 19 U/L 15-37 [facility] Thin prep Papanicolaou smear with manual screening 6 5-15 [facility] Absolute lymphocyte countOrd ered By: Dr. Mon on 11-22-2022 Lymphocytes Auto (Unsp spec) [#/Vol] 1.99 10*3/uL 0.83-4.51 [facility] Basophil percentageOrdered B y: Dr. Mon on 11-22-2022 Basophils/100 WBC (Bld) 0.7 % 0-1 [facility] Eosinophils/100 WBC (Bld) 3.5 % 0-5 [facility] Neutrophils (Bld) [#/Vol] 4.4 10*3/uL 2.0-7.7 [facility] Neutrophils/100 WBC (Bld) 60.9 % 47-70 [facility] WBC (Bld) [#/Vol] 7.2 10*3/uL 4.4-11.0 [facility] Blood erythrocytes count (nu mber/volume)Ordered By: Dr. Mon on 11-22-2022 RBC (Bld) [#/Vol] 4.97 10*6/uL 4.6-6.[address] [facility] Blood hemoglobin measurement (mass/volume)Ordered By: Dr. Mon on 11-22-2022 Hemoglobin (Bld) [Mass/Vol] 14.7 g/dL 13.0-16.5 [facility] Blood lymphocytes/100 leukoc ytesOrdered By: Dr. Mon on 11-22-2022 Lymphocytes/100 WBC (Bld) 27.8 % 19-41 [facility] Blood monocytes/100 leukocyt esOrdered By: Dr. Mon on 11-22-2022 Monocytes/100 WBC (Bld) 7.0 % 0-10 [facility] Blood platelet mean volumeOr dered By: Dr. Mon on 11-22-2022 Platelet mean volume (Bld) [Entitic vol] 10.3 fL 6.2-12.0 [facility] Determination of erythrocyte mean corpuscular volume (MCV)Ordered By: Dr. Mon on 11-22-2022 MCV (RBC) [Entitic vol] 89.3 fL 80-94 [facility] Erythrocyte sedimentation ra teOrdered By: Dr. Mon on 11-22-2022 ESR (Bld) [Velocity] 8 mm/h 0-20 [facility] Hematocrit Auto (Bld) [Volum e fraction]Ordered By: Dr. Mon on 11-22-2022 Hematocrit (Bld) [Volume fraction] 44.4 % 40-54 [facility] Laboratory - Hematology and Cell countsOrdered By: Dr. Mon on 11-22-2022 Erythrocyte distribution width (RBC) [Entitic vol] 40.7 fL 35.1-43.9 [facility] Erythrocyte distribution width (RBC) [Ratio] 12.5 % 11.6-14.6 [facility] Immature granulocytes/100 WBC (Bld) 0.100 % 0.0-0.9 [facility] Comment on above: IG% - Immature Granu locytes (promyelocytes, myelocytes and metamyelocytes) > 1% indicates that a LEFT SHIFT is Present. MCH (RBC) [Entitic mass] 29.6 pg 27.0-32.0 [facility] Nucleated RBC/100 WBC (Bld) [Ratio] 0 % 0-5 [facility] MCHC Auto (RBC) [Mass/Vol]Or dered By: Dr. Mon on 11-22-2022 MCHC (RBC) [Mass/Vol] 33.1 g/dL 32-36 [facility] Platelets bldOrdered By: Dr. Mon on 11-22-2022 Platelets (Bld) [#/Vol] 252 10*3/uL 150-450 [facility] Serum or plasma C reactive p rotein measurement (mass/volume)Ordered By: Dr. Mon on 11-22-2022 CRP [Mass/Vol] mg/L 0.0-3.0 [facility] Comment on above: C-Reactive Protein ( CRP) provides useful information for thediagnosis, therapy and monitoring of inflammatory processesand associated diseases. For the evaluation of Relative Riskfor Cardiovascular Disease, a High Sensitivity CRP (HSCRP)should be ordered. Absolute lymphocyte countOrd ered By: Dr. Moulton on 11-02-2022 Lymphocytes Auto (Unsp spec) [#/Vol] 2.31 10*3/uL 0.83-4.51 [facility] Basophil percentageOrdered B y: Dr. Moulton on 11-02-2022 Basophils/100 WBC (Bld) 0.6 % 0-1 [facility] Bilirubin [Mass/Vol] 0.40 mg/dL 0.20-1.00 [facility] Comment on above: For patients on eltr ombopag therapy, use of Dimension [place] TBIL is not recommended. Chloride [Moles/Vol] 102 mmol/L 98-107 [facility] Eosinophils/100 WBC (Bld) 3.6 % 0-5 [facility] Glucose [Mass/Vol] 88 mg/dL 74-106 [facility] Neutrophils (Bld) [#/Vol] 3.4 10*3/uL 2.0-7.7 [facility] Neutrophils/100 WBC (Bld) 51.5 % 47-70 [facility] Potassium [Moles/Vol] 3.8 mmol/L 3.5-5.1 [facility] Protein [Mass/Vol] 7.3 g/dL 6.4-8.2 [facility] Sodium [Moles/Vol] 139 mmol/L 136-145 [facility] WBC (Bld) [#/Vol] 6.6 10*3/uL 4.4-11.0 [facility] Blood erythrocytes count (nu mber/volume)Ordered By: Dr. Moulton on 11-02-2022 RBC (Bld) [#/Vol] 5.12 10*6/uL 4.6-6.[address] [facility] Blood hemoglobin measurement (mass/volume)Ordered By: Dr. Moulton on 11-02-2022 Hemoglobin (Bld) [Mass/Vol] 15.3 g/dL 13.0-16.5 [facility] Blood lymphocytes/100 leukoc ytesOrdered By: Dr. Moulton on 11-02-2022 Lymphocytes/100 WBC (Bld) 34.9 % 19-41 [facility] Blood monocytes/100 leukocyt esOrdered By: Dr. Moulton on 11-02-2022 Monocytes/100 WBC (Bld) 9.2 % 0-10 [facility] Blood platelet mean volumeOr dered By: Dr. Moulton on 11-02-2022 Platelet mean volume (Bld) [Entitic vol] 9.9 fL 6.2-12.0 [facility] Determination of erythrocyte mean corpuscular volume (MCV)Ordered By: Dr. Moulton on 11-02-2022 MCV (RBC) [Entitic vol] 88.1 fL 80-94 [facility] Hematocrit Auto (Bld) [Volum e fraction]Ordered By: Dr. Moulton on 11-02-2022 Hematocrit (Bld) [Volume fraction] 45.1 % 40-54 [facility] Laboratory - Chemistry and C hemistry - challengeOrdered By: Dr. Moulton on 11-02-2022 ALP [Catalytic activity/Vol] 80 U/L 45-117 [facility] ALT [Catalytic activity/Vol] 25 U/L 16-61 [facility] CO2 [Moles/Vol] 30.0 mmol/L 21.0-32.0 [facility] Globulin (S) [Mass/Vol] 3.5 g/dL 2.2-4.2 [facility] Urea nitrogen/Creatinine [Mass ratio] 26.4 mg/mg 10-20 [facility] Laboratory - Hematology and Cell countsOrdered By: Dr. Moulton on 11-02-2022 Erythrocyte distribution width (RBC) [Entitic vol] 39.7 fL 35.1-43.9 [facility] Erythrocyte distribution width (RBC) [Ratio] 12.4 % 11.6-14.6 [facility] Immature granulocytes/100 WBC (Bld) 0.200 % 0.0-0.9 [facility] Comment on above: IG% - Immature Granu locytes (promyelocytes, myelocytes and metamyelocytes) > 1% indicates that a LEFT SHIFT is Present. MCH (RBC) [Entitic mass] 29.9 pg 27.0-32.0 [facility] Nucleated RBC/100 WBC (Bld) [Ratio] 0 % 0-5 [facility] MCHC Auto (RBC) [Mass/Vol]Or dered By: Dr. Moulton on 11-02-2022 MCHC (RBC) [Mass/Vol] 33.9 g/dL 32-36 [facility] No Panel InformationOrdered By: Dr. Moulton on 11-02-2022 Estimated GFR (MDRD) Amer 122 mL/min >60 [facility] Comment on above: GFR Calc Estimated GFR (MDRD) Non-Af Amer 101 mL/min >60 [facility] Comment on above: Non- GFR Calc Platelets bldOrdered By: Dr. Moulton on 11-02-2022 Platelets (Bld) [#/Vol] 222 10*3/uL 150-450 [facility] Serum or plasma albumin luzma urement (mass/volume)Ordered By: Dr. Moulton on 11-02-2022 Albumin [Mass/Vol] 3.8 g/dL 3.2-5.0 [facility] Serum or plasma albumin/glob ulin mass ratioOrdered By: Dr. Moulton on 11-02-2022 Albumin/Globulin [Mass ratio] 1.1 {ratio} 0.9-2.4 [facility] Serum or plasma calcium luzma urement (mass/volume)Ordered By: Dr. Moulton on 11-02-2022 Calcium [Mass/Vol] 9.5 mg/dL 8.5-10.1 [facility] Serum or plasma creatinine m easurement (mass/volume)Ordered By: Dr. Moulton on 11-02-2022 Creatinine [Mass/Vol] 0.83 mg/dL 0.70-1.30 [facility] Comment on above: The validity of the calculated GFR & GFRAA in patients over 70 years has not been determined. Clinical correlation is essential. Serum or plasma urea nitroge n measurement (mass/volume)Ordered By: Dr. Moulton on 11-02-2022 Urea nitrogen [Mass/Vol] 22 mg/dL 7-18 [facility] Thin prep Papanicolaou smear with manual screeningOrdered By: Dr. Moulton on 11-02-2022 Thin prep Papanicolaou smear with manual screening 17 U/L 15-37 [facility] Thin prep Papanicolaou smear with manual screening 7 5-15 [facility] Basophil percentageOrdered B y: Dr. Werner on 10-13-2022 Chloride [Moles/Vol] 103 mmol/L 98-107 [facility] Glucose [Mass/Vol] 113 mg/dL 74-106 [facility] Comment on above: Fasting Glucose resu lt from 100 to 125 mg/dL suggests IMPAIRED HOMEOSTASIS per A.D.A. criteria. Potassium [Moles/Vol] 3.8 mmol/L 3.5-5.1 [facility] Sodium [Moles/Vol] 139 mmol/L 136-145 [facility] Laboratory - Chemistry and C hemistry - challengeOrdered By: Dr. Werner on 10-13-2022 CO2 [Moles/Vol] 27.0 mmol/L 21.0-32.0 [facility] Urea nitrogen/Creatinine [Mass ratio] 25.2 mg/mg 10-20 [facility] No Panel InformationOrdered By: Dr. Werner on 10-13-2022 Estimated Creatinine Clearance Calc 92.11 ml/min [facility] Estimated GFR (MDRD) Amer 109 mL/min >60 [facility] Comment on above: GFR Calc Estimated GFR (MDRD) Non-Af Amer 90 mL/min >60 [facility] Comment on above: Non- GFR Calc Thyroid Stimulating Hormone (TSH) 1.88 uIU/mL 0.358-3.74 [facility] Serum or plasma calcium luzma urement (mass/volume)Ordered By: Dr. Werner on 10-13-2022 Calcium [Mass/Vol] 9.2 mg/dL 8.5-10.1 [facility] Serum or plasma creatinine m easurement (mass/volume)Ordered By: Dr. Werner on 10-13-2022 Creatinine [Mass/Vol] 0.91 mg/dL 0.70-1.30 [facility] Comment on above: The validity of the calculated GFR & GFRAA in patients over 70 years has not been determined. Clinical correlation is essential. Serum or plasma urea nitroge n measurement (mass/volume)Ordered By: Dr. Werner on 10-13-2022 Urea nitrogen [Mass/Vol] 23 mg/dL 7-18 [facility] Thin prep Papanicolaou smear with manual screeningOrdered By: Dr. Werner on 10-13-2022 Thin prep Papanicolaou smear with manual screening 9 5-15 [facility] Absolute lymphocyte countOrd ered By: Dr. Moulton on 08-14-2022 Lymphocytes Auto (Unsp spec) [#/Vol] 1.88 10*3/uL 0.83-4.51 [facility] Basophil percentageOrdered B y: Dr. Moulton on 08-14-2022 Basophils/100 WBC (Bld) 0.6 % 0-1 [facility] Bilirubin [Mass/Vol] 0.40 mg/dL 0.20-1.00 [facility] Comment on above: For patients on eltr ombopag therapy, use of Dimension [place] TBIL is not recommended. Chloride [Moles/Vol] 104 mmol/L 98-107 [facility] Eosinophils/100 WBC (Bld) 3.2 % 0-5 [facility] Glucose [Mass/Vol] 90 mg/dL 74-106 [facility] Neutrophils (Bld) [#/Vol] 5.2 10*3/uL 2.0-7.7 [facility] Neutrophils/100 WBC (Bld) 65.3 % 47-70 [facility] Potassium [Moles/Vol] 4.1 mmol/L 3.5-5.1 [facility] Protein [Mass/Vol] 7.1 g/dL 6.4-8.2 [facility] Sodium [Moles/Vol] 140 mmol/L 136-145 [facility] WBC (Bld) [#/Vol] 7.9 10*3/uL 4.4-11.0 [facility] Blood erythrocytes count (nu mber/volume)Ordered By: Dr. Moulton on 08-14-2022 RBC (Bld) [#/Vol] 4.93 10*6/uL 4.6-6.[address] [facility] Blood hemoglobin measurement (mass/volume)Ordered By: Dr. Moulton on 08-14-2022 Hemoglobin (Bld) [Mass/Vol] 14.8 g/dL 13.0-16.5 [facility] Blood lymphocytes/100 leukoc ytesOrdered By: Dr. Moulton on 08-14-2022 Lymphocytes/100 WBC (Bld) 23.9 % 19-41 [facility] Blood monocytes/100 leukocyt esOrdered By: Dr. Moulton on 08-14-2022 Monocytes/100 WBC (Bld) 6.9 % 0-10 [facility] Blood platelet mean volumeOr dered By: Dr. Moulton on 08-14-2022 Platelet mean volume (Bld) [Entitic vol] 9.4 fL 6.2-12.0 [facility] Determination of erythrocyte mean corpuscular volume (MCV)Ordered By: Dr. Moulton on 08-14-2022 MCV (RBC) [Entitic vol] 87.6 fL 80-94 [facility] Hematocrit Auto (Bld) [Volum e fraction]Ordered By: Dr. Moulton on 08-14-2022 Hematocrit (Bld) [Volume fraction] 43.2 % 40-54 [facility] Laboratory - Chemistry and C hemistry - challengeOrdered By: Dr. Moulton on 08-14-2022 ALP [Catalytic activity/Vol] 81 U/L 45-117 [facility] ALT [Catalytic activity/Vol] 27 U/L 16-61 [facility] CO2 [Moles/Vol] 30.0 mmol/L 21.0-32.0 [facility] Globulin (S) [Mass/Vol] 3.3 g/dL 2.2-4.2 [facility] Urea nitrogen/Creatinine [Mass ratio] 26.3 mg/mg 10-20 [facility] Laboratory - Hematology and Cell countsOrdered By: Dr. Moulton on 08-14-2022 Erythrocyte distribution width (RBC) [Entitic vol] 39.7 fL 35.1-43.9 [facility] Erythrocyte distribution width (RBC) [Ratio] 12.4 % 11.6-14.6 [facility] Immature granulocytes/100 WBC (Bld) 0.100 % 0.0-0.9 [facility] Comment on above: IG% - Immature Granu locytes (promyelocytes, myelocytes and metamyelocytes) > 1% indicates that a LEFT SHIFT is Present. MCH (RBC) [Entitic mass] 30.0 pg 27.0-32.0 [facility] Nucleated RBC/100 WBC (Bld) [Ratio] 0 % 0-5 [facility] MCHC Auto (RBC) [Mass/Vol]Or dered By: Dr. Moulton on 08-14-2022 MCHC (RBC) [Mass/Vol] 34.3 g/dL 32-36 [facility] No Panel InformationOrdered By: Dr. Moulton on 08-14-2022 Estimated GFR (MDRD) Amer 105 mL/min >60 [facility] Comment on above: GFR Calc Estimated GFR (MDRD) Non-Af Amer 86 mL/min >60 [facility] Comment on above: Non- GFR Calc Platelets bldOrdered By: Dr. Moulton on 08-14-2022 Platelets (Bld) [#/Vol] 240 10*3/uL 150-450 [facility] Serum or plasma albumin luzma urement (mass/volume)Ordered By: Dr. Moulton on 08-14-2022 Albumin [Mass/Vol] 3.8 g/dL 3.2-5.0 [facility] Serum or plasma albumin/glob ulin mass ratioOrdered By: Dr. Moulton on 08-14-2022 Albumin/Globulin [Mass ratio] 1.2 {ratio} 0.9-2.4 [facility] Serum or plasma calcium luzma urement (mass/volume)Ordered By: Dr. Moulton on 08-14-2022 Calcium [Mass/Vol] 9.1 mg/dL 8.5-10.1 [facility] Serum or plasma creatinine m easurement (mass/volume)Ordered By: Dr. Moulton on 08-14-2022 Creatinine [Mass/Vol] 0.95 mg/dL 0.70-1.30 [facility] Comment on above: The validity of the calculated GFR & GFRAA in patients over 70 years has not been determined. Clinical correlation is essential. Serum or plasma urea nitroge n measurement (mass/volume)Ordered By: Dr. Moulton on 08-14-2022 Urea nitrogen [Mass/Vol] 25 mg/dL 7-18 [facility] Thin prep Papanicolaou smear with manual screeningOrdered By: Dr. Moulton on 08-14-2022 Thin prep Papanicolaou smear with manual screening 21 U/L 15-37 [facility] Thin prep Papanicolaou smear with manual screening 6 5-15 [facility] Absolute lymphocyte counton 05-21-2022 Lymphocytes Auto (Unsp spec) [#/Vol] 2.15 10*3/uL 0.83-4.51 [facility] Work Phone: Basophil percentageon 2021 Basophils/100 WBC (Bld) 0.4 % 0-1 [facility] Work Phone: Bilirubin [Mass/Vol] 0.50 mg/dL 0.20-1.00 [facility] Work Phone: Comment on above: For patients on eltr ombopag therapy, use of Dimension [place] TBIL is not recommended. Chloride [Moles/Vol] 102 mmol/L 98-107 [facility] Work Phone: Eosinophils/100 WBC (Bld) 3.7 % 0-5 [facility] Work Phone: Glucose [Mass/Vol] 83 mg/dL 74-106 [facility] Work Phone: Neutrophils (Bld) [#/Vol] 5.8 10*3/uL 2.0-7.7 [facility] Work Phone: Neutrophils/100 WBC (Bld) 64.9 % 47-70 [facility] Work Phone: Potassium [Moles/Vol] 3.8 mmol/L 3.5-5.1 [facility] Work Phone: Protein [Mass/Vol] 7.7 g/dL 6.4-8.2 [facility] Work Phone: Sodium [Moles/Vol] 138 mmol/L 136-145 [facility] Work Phone: WBC (Bld) [#/Vol] 8.9 10*3/uL 4.4-11.0 [facility] Work Phone: Blood erythrocytes count (nu mber/volume)on 05-21-2022 RBC (Bld) [#/Vol] 5.07 10*6/uL 4.6-6.[address] [facility] Work Phone: Blood hemoglobin measurement (mass/volume)on 05-21-2022 Hemoglobin (Bld) [Mass/Vol] 15.3 g/dL 13.0-16.5 [facility] Work Phone: Blood lymphocytes/100 leukoc yteson 05-21-2022 Lymphocytes/100 WBC (Bld) 24.2 % 19-41 [facility] Work Phone: Blood monocytes/100 leukocyt eson 05-21-2022 Monocytes/100 WBC (Bld) 6.4 % 0-10 [facility] Work Phone: Blood platelet mean volumeon 05-21-2022 Platelet mean volume (Bld) [Entitic vol] 9.8 fL 6.2-12.0 [facility] Work Phone: [phone] Determination of erythrocyte mean corpuscular volume (MCV)on 05-21-2022 MCV (RBC) [Entitic vol] 87.6 fL 80-94 [facility] Work Phone: [phone] Hematocrit Auto (Bld) [Volum e fraction]on 05-21-2022 Hematocrit (Bld) [Volume fraction] 44.4 % 40-54 [facility] Work Phone: [phone] Laboratory - Chemistry and C hemistry - challengeon 05-21-2022 ALP [Catalytic activity/Vol] 84 U/L 45-117 [facility] Work Phone: [phone] ALT [Catalytic activity/Vol] 31 U/L 16-61 [facility] Work Phone: [phone] CO2 [Moles/Vol] 29.0 mmol/L 21.0-32.0 [facility] Work Phone: [phone] Globulin (S) [Mass/Vol] 3.9 g/dL 2.2-4.2 [facility] Work Phone: [phone] Urea nitrogen/Creatinine [Mass ratio] 35.6 mg/mg 10-20 [facility] Work Phone: [phone] Laboratory - Hematology and Cell countson 05-21-2022 Erythrocyte distribution width (RBC) [Entitic vol] 38.6 fL 35.1-43.9 [facility] Work Phone: [phone] Erythrocyte distribution width (RBC) [Ratio] 12.2 % 11.6-14.6 [facility] Work Phone: [phone] Immature granulocytes/100 WBC (Bld) 0.400 % 0.0-0.9 [facility] Work Phone: [phone] Comment on above: IG% - Immature Granu locytes (promyelocytes, myelocytes and metamyelocytes) > 1% indicates that a LEFT SHIFT is Present. MCH (RBC) [Entitic mass] 30.2 pg 27.0-32.0 [facility] Work Phone: Nucleated RBC/100 WBC (Bld) [Ratio] 0 % 0-5 [facility] Work Phone: MCHC Auto (RBC) [Mass/Vol]on 05-21-2022 MCHC (RBC) [Mass/Vol] 34.5 g/dL 32-36 [facility] Work Phone: No Panel Informationon 05-21 Estimated GFR (MDRD) Amer 116 mL/min >60 [facility] Work Phone: Comment on above: GFR Calc Estimated GFR (MDRD) Non-Af Amer 96 mL/min >60 [facility] Work Phone: Comment on above: Non- GFR Calc Platelets bldon 05-21-2022 Platelets (Bld) [#/Vol] 248 10*3/uL 150-450 [facility] Work Phone: Serum or plasma albumin luzma urement (mass/volume)on 05-21-2022 Albumin [Mass/Vol] 3.8 g/dL 3.2-5.0 [facility] Work Phone: Serum or plasma albumin/glob ulin mass ratioon 05-21-2022 Albumin/Globulin [Mass ratio] 1.0 {ratio} 0.9-2.4 [facility] Work Phone: Serum or plasma calcium luzma urement (mass/volume)on 05-21-2022 Calcium [Mass/Vol] 9.1 mg/dL 8.5-10.1 [facility] Work Phone: Serum or plasma creatinine m easurement (mass/volume)on 05-21-2022 Creatinine [Mass/Vol] 0.87 mg/dL 0.70-1.30 [facility] Work Phone: Comment on above: The validity of the calculated GFR & GFRAA in patients over 70 years has not been determined. Clinical correlation is essential. Serum or plasma urea nitroge n measurement (mass/volume)on 05-21-2022 Urea nitrogen [Mass/Vol] 31 mg/dL 7-18 [facility] Work Phone: Thin prep Papanicolaou smear with manual screeningon 05-21-2022 Thin prep Papanicolaou smear with manual screening 26 U/L 15-37 [facility] Work Phone: Thin prep Papanicolaou smear with manual screening 7 5-15 [facility] Work Phone: Absolute lymphocyte counton 02-14-2022 Lymphocytes Auto (Unsp spec) [#/Vol] 2.14 10*3/uL 0.83-4.51 [facility] Work Phone: Basophil percentageon 2021 Basophils/100 WBC (Bld) 0.5 % 0-1 [facility] Work Phone: Bilirubin [Mass/Vol] 0.40 mg/dL 0.20-1.00 [facility] Work Phone: Comment on above: For patients on eltr ombopag therapy, use of Dimension [place] TBIL is not recommended. Chloride [Moles/Vol] 105 mmol/L 98-107 [facility] Work Phone: Eosinophils/100 WBC (Bld) 3.6 % 0-5 [facility] Work Phone: Glucose [Mass/Vol] 94 mg/dL 74-106 [facility] Work Phone: Neutrophils (Bld) [#/Vol] 3.7 10*3/uL 2.0-7.7 [facility] Work Phone: Neutrophils/100 WBC (Bld) 55.3 % 47-70 [facility] Work Phone: Potassium [Moles/Vol] 4.0 mmol/L 3.5-5.1 [facility] Work Phone: Protein [Mass/Vol] 7.4 g/dL 6.4-8.2 [facility] Work Phone: Sodium [Moles/Vol] 140 mmol/L 136-145 [facility] Work Phone: WBC (Bld) [#/Vol] 6.6 10*3/uL 4.4-11.0 [facility] Work Phone: Blood erythrocytes count (nu mber/volume)on 02-14-2022 RBC (Bld) [#/Vol] 4.84 10*6/uL 4.6-6.2 [facility]: Blood hemoglobin measurement (mass/volume)on 02-14-2022 Hemoglobin (Bld) [Mass/Vol] 14.6 g/dL 13.0-16.5 [facility] Work Phone: Blood lymphocytes/100 leukoc yteson 02-14-2022 Lymphocytes/100 WBC (Bld) 32.3 % 19-41 [facility] Work Phone: Blood monocytes/100 leukocyt eson 02-14-2022 Monocytes/100 WBC (Bld) 8.0 % 0-10 [facility] Work Phone: Blood platelet mean volumeon 02-14-2022 Platelet mean volume (Bld) [Entitic vol] 9.8 fL 6.2-12.0 [facility] Work Phone: Determination of erythrocyte mean corpuscular volume (MCV)on 02-14-2022 MCV (RBC) [Entitic vol] 89.3 fL 80-94 [facility] Work Phone: Hematocrit Auto (Bld) [Volum e fraction]on 02-14-2022 Hematocrit (Bld) [Volume fraction] 43.2 % 40-54 [facility] Work Phone: Laboratory - Chemistry and C hemistry - challengeon 02-14-2022 ALP [Catalytic activity/Vol] 78 U/L 45-117 [facility] Work Phone: ALT [Catalytic activity/Vol] 29 U/L 16-61 [facility] Work Phone: CO2 [Moles/Vol] 30.0 mmol/L 21.0-32.0 [facility] Work Phone: [phone] Globulin (S) [Mass/Vol] 3.6 g/dL 2.2-4.2 [facility] Work Phone: [phone] Urea nitrogen/Creatinine [Mass ratio] 23.0 mg/mg 10-20 [facility] Work Phone: [phone] Laboratory - Hematology and Cell countson 02-14-2022 Erythrocyte distribution width (RBC) [Entitic vol] 39.8 fL 35.1-43.9 [facility] Work Phone: [phone] Erythrocyte distribution width (RBC) [Ratio] 12.2 % 11.6-14.6 [facility] Work Phone: [phone] Immature granulocytes/100 WBC (Bld) 0.300 % 0.0-0.9 [facility] Work Phone: [phone] Comment on above: IG% - Immature Granu locytes (promyelocytes, myelocytes and metamyelocytes) > 1% indicates that a LEFT SHIFT is Present. MCH (RBC) [Entitic mass] 30.2 pg 27.0-32.0 [facility] Work Phone: [phone] Nucleated RBC/100 WBC (Bld) [Ratio] 0 % 0-5 [facility] Work Phone: [phone] MCHC Auto (RBC) [Mass/Vol]on 02-14-2022 MCHC (RBC) [Mass/Vol] 33.8 g/dL 32-36 [facility] Work Phone: [phone] Panel Informationon 02-14 Estimated GFR (MDRD) Amer 99 mL/min >60 [facility] Work Phone: [phone] Comment on above: GFR Calc Estimated GFR (MDRD) Non-Af Amer 82 mL/min >60 [facility] Work Phone: [phone] Comment on above: Non- GFR Calc Platelets bldon 02-14-2022 Platelets (Bld) [#/Vol] 277 10*3/uL 150-450 [facility] Work Phone: [phone] Serum or plasma albumin luzma urement (mass/volume)on 02-14-2022 Albumin [Mass/Vol] 3.8 g/dL 3.2-5.0 [facility] Work Phone: [phone] Serum or plasma albumin/glob ulin mass ratioon 02-14-2022 Albumin/Globulin [Mass ratio] 1.1 {ratio} 0.9-2.4 [facility] Work Phone: Serum or plasma calcium luzma urement (mass/volume)on 02-14-2022 Calcium [Mass/Vol] 9.0 mg/dL 8.5-10.1 [facility] Work Phone: [phone] Serum or plasma creatinine m easurement (mass/volume)on 02-14-2022 Creatinine [Mass/Vol] 1.00 mg/dL 0.70-1.30 [facility] Work Phone: Comment on above: The validity of the calculated GFR & GFRAA in patients over 70 years has not been determined. Clinical correlation is essential. Serum or plasma urea nitroge n measurement (mass/volume)on 02-14-2022 Urea nitrogen [Mass/Vol] 23 mg/dL 7-18 [facility] Work Phone: [phone] Thin prep Papanicolaou smear with manual screeningon 02-14-2022 Thin prep Papanicolaou smear with manual screening 19 U/L 15-37 [facility] Work Phone: [phone] Thin prep Papanicolaou smear with manual screening 5 5-15 [facility] Work Phone: [phone] Cytology report of Body flui d Cyto stainon 01-16-2022 Cytology report Cyto stain Doc (Body fld) SEE PATHOLOGY REPORT [facility] Work Phone: Comment on above: Specimen submitted t o Anatomical Pathology Department for testing. Absolute lymphocyte counton 12-21-2021 Lymphocytes Auto (Unsp spec) [#/Vol] 2.06 10*3/uL 0.83-4.51 [facility] Work Phone: Basophil percentageon 2021 Basophils/100 WBC (Bld) 0.7 % 0-1 [facility] Work Phone: Bilirubin [Mass/Vol] 0.40 mg/dL 0.20-1.00 [facility] Work Phone: Comment on above: For patients on eltr ombopag therapy, use of Dimension [place] TBIL is not recommended. Chloride [Moles/Vol] 104 mmol/L 98-107 [facility] Work Phone: Eosinophils/100 WBC (Bld) 4.0 % 0-5 [facility] Work Phone: Glucose [Mass/Vol] 80 mg/dL 74-106 [facility] Work Phone: Neutrophils (Bld) [#/Vol] 2.8 10*3/uL 2.0-7.7 [facility] Work Phone: Neutrophils/100 WBC (Bld) 47.9 % 47-70 [facility] Work Phone: Potassium [Moles/Vol] 4.0 mmol/L 3.5-5.1 [facility] Work Phone: Protein [Mass/Vol] 7.3 g/dL 6.4-8.2 [facility] Work Phone: Sodium [Moles/Vol] 140 mmol/L 136-145 [facility] Work Phone: WBC (Bld) [#/Vol] 5.8 10*3/uL 4.4-11.0 [facility] Work Phone: Blood erythrocytes count (nu mber/volume)on 12-21-2021 RBC (Bld) [#/Vol] 4.95 10*6/uL 4.6-6.[address] [facility] Work Phone: Blood hemoglobin measurement (mass/volume)on 12-21-2021 Hemoglobin (Bld) [Mass/Vol] 14.5 g/dL 13.0-16.5 [facility] Work Phone: Blood lymphocytes/100 leukoc yteson 12-21-2021 Lymphocytes/100 WBC (Bld) 35.6 % 19-41 [facility] Work Phone: Blood monocytes/100 leukocyt eson 12-21-2021 Monocytes/100 WBC (Bld) 11.6 % 0-10 [facility] Work Phone: Blood platelet mean volumeon 12-21-2021 Platelet mean volume (Bld) [Entitic vol] 9.6 fL 6.2-12.0 [facility] Work Phone: Determination of erythrocyte mean corpuscular volume (MCV)on 12-21-2021 MCV (RBC) [Entitic vol] 88.1 fL 80-94 [facility] Work Phone: Hematocrit Auto (Bld) [Volum e fraction]on 12-21-2021 Hematocrit (Bld) [Volume fraction] 43.6 % 40-54 [facility] Work Phone: Laboratory - Chemistry and C hemistry - challengeon 12-21-2021 ALP [Catalytic activity/Vol] 74 U/L 45-117 [facility] Work Phone: ALT [Catalytic activity/Vol] 28 U/L 16-61 [facility] Work Phone: CO2 [Moles/Vol] 33.0 mmol/L 21.0-32.0 [facility] Work Phone: Globulin (S) [Mass/Vol] 3.5 g/dL 2.2-4.2 [facility] Work Phone: Urea nitrogen/Creatinine [Mass ratio] 26.5 mg/mg 10-20 [facility] Work Phone: Laboratory - Hematology and Cell countson 12-21-2021 Erythrocyte distribution width (RBC) [Entitic vol] 39.5 fL 35.1-43.9 [facility] Work Phone: Erythrocyte distribution width (RBC) [Ratio] 12.4 % 11.6-14.6 [facility] Work Phone: Immature granulocytes/100 WBC (Bld) 0.200 % 0.0-0.9 [facility] Work Phone: Comment on above: IG% - Immature Granu locytes (promyelocytes, myelocytes and metamyelocytes) > 1% indicates that a LEFT SHIFT is Present. MCH (RBC) [Entitic mass] 29.3 pg 27.0-32.0 [facility] Work Phone: Nucleated RBC/100 WBC (Bld) [Ratio] 0 % 0-5 [facility] Work Phone: [phone] MCHC Auto (RBC) [Mass/Vol]on 12-21-2021 MCHC (RBC) [Mass/Vol] 33.3 g/dL 32-36 [facility] Work Phone: No Panel Informationon 12-21 Estimated GFR (MDRD) Amer 106 mL/min >60 [facility] Work Phone: Comment on above: GFR Calc Estimated GFR (MDRD) Non-Af Amer 87 mL/min >60 [facility] Work Phone: Comment on above: Non- GFR Calc Platelets bldon 12-21-2021 Platelets (Bld) [#/Vol] 256 10*3/uL 150-450 [facility] Work Phone: [phone] Serum or plasma albumin luzma urement (mass/volume)on 12-21-2021 Albumin [Mass/Vol] 3.8 g/dL 3.2-5.0 [facility] Work Phone: [phone] Serum or plasma albumin/glob ulin mass ratioon 12-21-2021 Albumin/Globulin [Mass ratio] 1.1 {ratio} 0.9-2.4 [facility] Work Phone: [phone] Serum or plasma calcium luzma urement (mass/volume)on 12-21-2021 Calcium [Mass/Vol] 8.8 mg/dL 8.5-10.1 [facility] Work Phone: [phone] Serum or plasma creatinine m easurement (mass/volume)on 12-21-2021 Creatinine [Mass/Vol] 0.94 mg/dL 0.70-1.30 [facility] Work Phone: Comment on above: The validity of the calculated GFR & GFRAA in patients over 70 years has not been determined. Clinical correlation is essential. Serum or plasma urea nitroge n measurement (mass/volume)on 12-21-2021 Urea nitrogen [Mass/Vol] 25 mg/dL 7-18 [facility] Work Phone: Thin prep Papanicolaou smear with manual screeningon 12-21-2021 Thin prep Papanicolaou smear with manual screening 20 U/L 15-37 [facility] Work Phone: Thin prep Papanicolaou smear with manual screening 3 5-15 [facility] Work Phone: Basophil percentageon 2021 Cholesterol [Mass/Vol] 187 mg/dL <200 [facility] Work Phone: Comment on above: <200 mg/dL Desirable 200-240 mg/dL Borderline >240 mg/dL High Risk Triglyceride [Mass/Vol] 51 mg/dL <199 [facility] Work Phone: Comment on above: The drugs N-Acetylcy steine and Metamizole may falsely depress this assay.Serum Triglycerides Reference Interval Normal <150 mg/dL Borderline high 150 - 199 mg/dL High 200 - 499 mg/dL Very High > or = 500 mg/dL No Panel Informationon 11-11 Prostate Specific Antigen Screen 0.43 ng/mL 0.00-4.00 [facility] Work Phone: Comment on above: This test was perfor med using the TPSA assay method [facility]. Values obtained with differentassay methods cannot be used interchangably.When changing PSA assays in the course of monitoring apatient, additional sequential testing should be carriedout to confirm baseline values. Serum or plasma cholesterol in HDL measurement (mass/volume)on 11-11-2021 Cholesterol in HDL [Mass/Vol] 74 mg/dL >40 [facility] Work Phone: Comment on above: The drugs N-Acetylcy steine and Metamizole may falsely depress this assay. Reference Range HDL <40 mg/dL Low HDL Cholesterol HDL >or= 60 mg/dL High HDL Cholesterol Serum or plasma cholesterol in VLDL measurement (mass/volume)on 11-11-2021 Cholesterol in VLDL [Mass/Vol] 10 mg/dL 5-40 [facility] Work Phone: Serum or plasma low density lipoprotein (LDL) cholesterol measurement (mass/volume)on 11-11-2021 Cholesterol in LDL [Mass/Vol] 103 mg/dL 0-130 [facility] Work Phone: Basophil percentageon 2021 Basophil percentage 0 SEEN /hpf [facility] Work Phone: Bilirubin Test strip Ql (U)o n 10-16-2021 Bilirubin Ql (U) Negative Negative [facility] Work Phone: Culture, urineon 10-16-2021 Bacteria identified Cx Nom (U) Culture exhibits no growth. [facility] Work Phone: Ketones Test strip Ql (U)on 10-16-2021 Ketones Ql (U) Negative Negative [facility] Work Phone: Laboratory - Chemistry and C hemistry - challengeon 10-16-2021 Glucose Ql (U) Negative [facility] Work Phone: Ketones Ql (U) Negative [facility] Work Phone: pH (U) 5.0 [pH] [facility] Work Phone: Specific gravity (U) [Rel density] 1.010 [facility] Work Phone: Urobilinogen (U) [Mass/Vol] 0.5348077 mg/dL [facility] Work Phone: Laboratory - Hematology and Cell countson 10-16-2021 Hemoglobin Ql (U) Negative [facility] Work Phone: Laboratory - Specimen inform ationon 10-16-2021 Clarity (U) Clear [facility] Work Phone: Color (U) YELLOW [facility] Work Phone: Laboratory - Urinalysison Nitrite Ql (U) Negative [facility] Work Phone: Protein Ql (U) Negative [facility] Work Phone: Mucus LM Ql (Urine sed)on Mucus Ql (Urine sed) 0 SEEN /hpf [facility] Work Phone: Nitrite Test strip Ql (U)on 10-16-2021 Nitrite Ql (U) Negative Negative [facility] Work Phone: No Panel Informationon 10-16 Urine Leukocytes Negatve [facility] Work Phone: Protein Test strip Ql (U)on 10-16-2021 Protein Ql (U) Negative Negative [facility] Work Phone: Squamous epithelial cells de tection in urine sediment by light microscopyon 10-16-2021 Epithelial cells.squamous LM Ql (Urine sed) 0 SEEN /hpf [facility] Work Phone: Urine blood detectionon 10-03 RBC Ql (U) Negative Negative [facility] Work Phone: RBC Ql (U) 0 SEEN /hpf [facility] Work Phone: Urine clarityon 10-16-2021 Clarity (U) Clear Clear [facility] Work Phone: Urine color determinationon 10-16-2021 Color (U) Yellow Yellow [facility] Work Phone: Urine glucose detectionon Glucose Ql (U) Normal mg/dl Normal [facility] Work Phone: Urine leukocyte esterase det ection by dipstickon 10-16-2021 Leukocyte esterase Test strip Ql (U) Negative Negative [facility] Work Phone: Urine pHon 10-16-2021 pH (U) 5.0 [pH] [facility] Work Phone: Urine sediment bacteria coun t by microscopy (number/high power field)on 10-16-2021 Bacteria LM.HPF (Urine sed) [#/Area] 0 /[HPF] None Seen [facility] Work Phone: Urine specific gravity measu rementon 10-16-2021 Specific gravity (U) [Rel density] 1.025 [facility] Work Phone: Urobilinogen Auto test strip Ql (U)on 10-16-2021 Urobilinogen Ql (U) Normal mg/dl Normal [facility] Work Phone: Absolute lymphocyte counton 10-02-2021 Lymphocytes Auto (Unsp spec) [#/Vol] 2.03 10*3/uL 0.83-4.51 [facility] Work Phone: Basophil percentageon 2021 Basophils/100 WBC (Bld) 0.3 % 0-1 [facility] Work Phone: Bilirubin [Mass/Vol] 0.30 mg/dL 0.20-1.00 [facility] Work Phone: Comment on above: For patients on eltr ombopag therapy, use of Dimension [place] TBIL is not recommended. Chloride [Moles/Vol] 105 mmol/L 98-107 [facility] Work Phone: Eosinophils/100 WBC (Bld) 4.7 % 0-5 [facility] Work Phone: Glucose [Mass/Vol] 79 mg/dL 74-106 [facility] Work Phone: Neutrophils (Bld) [#/Vol] 3.5 10*3/uL 2.0-7.7 [facility] Work Phone: Neutrophils/100 WBC (Bld) 54.6 % 47-70 [facility] Work Phone: Potassium [Moles/Vol] 3.7 mmol/L 3.5-5.1 [facility] Work Phone: Protein [Mass/Vol] 7.4 g/dL 6.4-8.2 [facility] Work Phone: Sodium [Moles/Vol] 140 mmol/L 136-145 [facility] Work Phone: [phone] WBC (Bld) [#/Vol] 6.4 10*3/uL 4.4-11.0 [facility] Work Phone: [phone] Blood erythrocytes count (nu mber/volume)on 10-02-2021 RBC (Bld) [#/Vol] 4.84 10*6/uL 4.6-6.2 [facility]: [phone] Blood hemoglobin measurement (mass/volume)on 10-02-2021 Hemoglobin (Bld) [Mass/Vol] 14.2 g/dL 13.0-16.5 [facility] Work Phone: [phone] Blood lymphocytes/100 leukoc yteson 10-02-2021 Lymphocytes/100 WBC (Bld) 31.8 % 19-41 [facility] Work Phone: [phone] Blood monocytes/100 leukocyt eson 10-02-2021 Monocytes/100 WBC (Bld) 8.1 % 0-10 [facility] Work Phone: [phone] Blood platelet mean volumeon 10-02-2021 Platelet mean volume (Bld) [Entitic vol] 9.8 fL 6.2-12.0 [facility] Work Phone: [phone] Determination of erythrocyte mean corpuscular volume (MCV)on 10-02-2021 MCV (RBC) [Entitic vol] 87.0 fL 80-94 [facility] Work Phone: [phone] Hematocrit Auto (Bld) [Volum e fraction]on 10-02-2021 Hematocrit (Bld) [Volume fraction] 42.1 % 40-54 [facility] Work Phone: [phone] Laboratory - Chemistry and C hemistry - challengeon 10-02-2021 ALP [Catalytic activity/Vol] 73 U/L 45-117 [facility] Work Phone: [phone] ALT [Catalytic activity/Vol] 23 U/L 16-61 [facility] Work Phone: [phone] CO2 [Moles/Vol] 30.0 mmol/L 21.0-32.0 [facility] Work Phone: [phone] Globulin (S) [Mass/Vol] 3.8 g/dL 2.2-4.2 [facility] Work Phone: [phone] Urea nitrogen/Creatinine [Mass ratio] 25.4 mg/mg 10-20 [facility] Work Phone: [phone] Laboratory - Hematology and Cell countson 10-02-2021 Erythrocyte distribution width (RBC) [Entitic vol] 39.4 fL 35.1-43.9 [facility] Work Phone: [phone] Erythrocyte distribution width (RBC) [Ratio] 12.5 % 11.6-14.6 [facility] Work Phone: [phone] Immature granulocytes/100 WBC (Bld) 0.500 % 0.0-0.9 [facility] Work Phone: [phone] Comment on above: IG% - Immature Granu locytes (promyelocytes, myelocytes and metamyelocytes) > 1% indicates that a LEFT SHIFT is Present. MCH (RBC) [Entitic mass] 29.3 pg 27.0-32.0 [facility] Work Phone: [phone] Nucleated RBC/100 WBC (Bld) [Ratio] 0 % 0-5 [facility] Work Phone: [phone] MCHC Auto (RBC) [Mass/Vol]on 10-02-2021 MCHC (RBC) [Mass/Vol] 33.7 g/dL 32-36 [facility] Work Phone: [phone] No Panel Informationon 10-02 Estimated GFR (MDRD) Amer 123 mL/min >60 [facility] Work Phone: [phone] Comment on above: GFR Calc Estimated GFR (MDRD) Non-Af Amer 102 mL/min >60 [facility] Work Phone: [phone] Comment on above: Non- GFR Calc Platelets bldon 10-02-2021 Platelets (Bld) [#/Vol] 259 10*3/uL 150-450 [facility] Work Phone: Serum or plasma albumin luzma urement (mass/volume)on 10-02-2021 Albumin [Mass/Vol] 3.6 g/dL 3.2-5.0 [facility] Work Phone: Serum or plasma albumin/glob ulin mass ratioon 10-02-2021 Albumin/Globulin [Mass ratio] 0.9 {ratio} 0.9-2.4 [facility] Work Phone: Serum or plasma calcium luzma urement (mass/volume)on 10-02-2021 Calcium [Mass/Vol] 9.1 mg/dL 8.5-10.1 [facility] [facility] Work Phone: Serum or plasma creatinine m easurement (mass/volume)on 10-02-2021 Creatinine [Mass/Vol] 0.83 mg/dL 0.70-1.30 [facility] Work Phone: Comment on above: The validity of the calculated GFR & GFRAA in patients over 70 years has not been determined. Clinical correlation is essential. Serum or plasma urea nitroge n measurement (mass/volume)on 10-02-2021 Urea nitrogen [Mass/Vol] 21 mg/dL 7-18 [facility] Work Phone: Thin prep Papanicolaou smear with manual screeningon 10-02-2021 Thin prep Papanicolaou smear with manual screening 19 U/L 15-37 [facility] Work Phone: Thin prep Papanicolaou smear with manual screening 5 5-15 [facility] Work Phone: [phone] US ASP/INJ SHOULDER JT/BURSA RTon 01-03-2021 US ASP/INJ SHOULDER JT/BURSA RT * * *Final Report* * * DATE OF EXAM: Jan 03 2021 10:03AM OTTO 1163 - US ASP/INJ SHOULDER JT/BURSA RT [...] procedure well. IMPRESSION: 1. Subacromial steroid injection. Bit Grinder: ROBSON Transcribe Date/Time: Jan 03 2021 10:06A Dictated by : LAWRENCE HAYDEN MD This examination was interpreted and the report reviewed and electronically signed by: LAWRENCE HAYDEN MD on Jan 03 2021 10:11AM EST [id number] [facility] CNTHERAPYon 06-02-2020 CNTHERAPY OT/PT/Speech Visit ([facility]) LITO VU ([id number]) 1965 M Date Time Provider Department 06/02/20 3:45 PM ROSEMARY WYNNE [facility] Date Time Provider Department Center 06/02/2020 3:45 PM [id number] WYNNE [facility] Reason for Visit: Occupational Therapy [504] OT [...] noon* FLUTICASONE PROPIONATE 50 MCG* Use 1 [place] in each nostril o* FIBER ORAL Take by mouth. TRIAMCINOLONE ACETONIDE 0.1 %* Apply 1 application to affect* ASCORBIC ACID (VITAMIN C) 1,0* Take 1,000 mg by mouth once d* * BEE POLLEN 580 MG CAPSULE Take 2 caps once daily Progress Notes: Rosemary Wynne 06/02/2020 4:29 PM Signed Episode Visit Count: 2 Therapist That Will Oversee The Plan Of Care: Roderick Rosemary Start of Care Date: 05/12/20 Onset Date: [...] FUNCTION: Hand Wrist AROM: Right Limitation Strength: Cleaning Porter Position 2 Hand Strength R Cleaning Porter Position 2 (lbs): 45 lbs L Cleaning Porter Position 2 (lbs): 105 lbs UE AROM [...] and precautions 5: with medium soft putty brand director, digit extension roll and digit flexion and [...] custom orthotic fabrication and wearing schedule Billing: [place]: Therapeutic Exercise (85977): 1:1 time:35 minutes (2 units: 23-37 mins) Orthosis: Custom: [id number] HFO custom w/o joints (oppon/ hand hurtado/ hand trigger/ other) Total time / Length of visit: 40 minutes Rosemary Wynne OT/[facility] CHELO Sivla 01/02/2021 11:46 AM Signed 01/02/2021 REHABILITATION AND SPORTS THERAPY OCCUPATIONAL THERAPY DISCONTINUANCE OF CARE Plan of Care Period: Start of Care Date: 05/12/20 Last Visit Date: 06/02/2020 Therapy Program: The following is a summary of the interventions provided for this episode of care; Therapeutic exercise, Manual therapy and Self-half-way management Assessment: Based on most recent visit, [...] 2 last updated by CHELO Silva on (more content not included)... Normal [facility] CNTHERAPYon 05-12-2020 CNTHERAPY OT/PT/Speech Visit ([facility]) LITO VU ([id number]) 1965 M Date Time Provider Department 05/12/20 11:00 AM ROSEMARY WYNNE () [facility] Date Time Provider Department Center 05/12/2020 11:00 AM [id number] WYNNE [facility] Reason for Visit: OT EVAL [...] noon* FLUTICASONE PROPIONATE 50 MCG* Use 1 [place] in each nostril o* FIBER ORAL Take by mouth. TRIAMCINOLONE ACETONIDE 0.1 %* Apply 1 application to affect* ASCORBIC ACID (VITAMIN C) 1,0* Take 1,000 mg by mouth once d* * BEE POLLEN 580 MG CAPSULE Take 2 caps once daily Progress Notes: CHELO Silva 05/12/2020 12:30 PM Signed Episode Visit Count: 1 Therapist That Will Oversee The Plan Of Care: Roderick Riley Start of Care Date: 05/12/20 Onset Date: 04/15/20 Plan of Care Certification Date: 05/12/20 Next Certification Due Date: 08/11/20 Patient Identified by Name and Date of : Yes [facility] REHABILITATION AND SPORTS THERAPY OCCUPATIONAL THERAPY EVALUATION [...] orthosis fabrication;Prefabrica richa orthosis fitting;Therapeutic exercise;Manual therapy;Modalities;Alexandria f-half-way managementFluidotherap y PLAN FOR NEXT VISIT: wean [...] Denies tingling or (more content not included)... [facility] ANES POSTPROC EVALon 020 ANES POSTPROC EVAL HNO ID: [id number] Author: Gold Gomez Service: ? Author Type: Anesthesiologist Type: Anesthesia Postprocedure Evaluation Filed: 04/15/2020 5:15 PM Note Text: POST ANESTHESIA EVALUATION NOTE : 1965 Procedure Summary Date: 04/15/20 Room / Location: [place] [address] / [place] OR Anesthesia Start: 1453 Anesthesia Stop: 1648 [...] April 15, 2020 TIME: 5:13 PM CSN: [id number] [facility] ANES PRE-OPon 04-15-2020 ANES PRE-OP HNO ID: [id number] Author: Johann Anderson Service: ? Author Type: [...] (FLONASE) 50 mcg/actuation nasal spray Use 1 [place] in each nostril once daily. - PSYLLIUM [...] April 15, 2020 TIME: 2:44 PM CSN: [id number] [facility] NURSING PROGon 04-15-2020 NURSING PROG HNO ID: [id number] Author: Alma (Rn) TOM Junior Service: ? Author Type: Registered Nurse Type: Nursing Progress Note Filed: 04/15/2020 2:53 PM Note Text: @ 1407 Pt received to PACU, via cart, for pre-op block. Placed on monitors AND O2 @ 3 liters - will observe. @ 1429 - 1431 Right infraclavicular nerve block doneb y Dr. Anderson - well tolerated by pt. VS stable. @ 6489 @ bedside - pt to OR via cart. [facility] OPERATIVE NOon 04-15-2020 OPERATIVE NO HNO ID: [id number] Author: Kelvin Valdivia Service: Orthopaedic Surgery Author Type: Physician Type: Operative Report Filed: 2020 9:37 AM Note Text: OPERATIVE/PROCEDURE REPORT LOG ID: [id number] SURGERY/PROCEDURE DATE: 04/15/2020 INCISION/PROCEDURE START TIME: 3:12 PM INCISION CLOSE/PROCEDURE END TIME: 4:40 PM SURGEON(S)/PROCEDURALI ST(S) AND CERTIFIED PROSTHETIST(S): Surgeon(s) and Role: * Kelvin Valdivia - Primary Physician Bullet Casting Operator: Bri Grayson SURGERY/PROCEDURE(S): 1. Right thumb, carpalmetacarpal [...] resistance. Subsequently, I selected a mini meniscotome [place] blade and slid this in the protective guide, completely dividing the transverse carpal ligament. Racheal rakes were used to view up the wound to visualize for complete release and a [place] elevator was used to palpate for complete [...] of the mus (more content not included)... [facility] PT EDon 04-15-2020 PT ED HNO ID: [id number] Author: Ivan BuchananRn) TOM Zhu Service: Nursing Author Type: Registered [...] Signed By: Ivan Zhu RN In Department: [facility] SURGERY [facility] NURSING PROGon 04-14-2020 NURSING PROG HNO ID: [id number] Author: Mary BuchananRn) TOM Watt Service: ? 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 Sole [facility] 04/08/2020 8:36 AM Signed Noted in [place]. Emily Monreal Ma 04/08/2020 9:22 AM Signed Surgery and all appointments have been scheduled as requested. Progress Notes ([facility]): Sara Goetz RN 04/07/2020 9:34 [...] pain in right hand. 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 Pt. also having pain base of right thumb and wants to discuss CMC arthroplasty. He is right hand dominant. Kelvin Valdivia MD 04/07/2020 10:01 AM Sign when Signing Visit Kelvin Valdivia MD Department of Orthopaedics Orthopaedics [address] [place] [address] Dept: [phone] Dept April 07, 2020 CHIEF COMPLAINT: Follow [...] vitals taken for this visit. nl development, {OBESE:43113::}, no deformities ENT: Normocephalic, normal hearing, moist mucosa CV: Pulses:{BP PULSES:140668}, capillary refill < 2 secs, no peripheral edema/varicosities Skin: no rash, bruising or lesions. Good turgor. Psych: cooperative and appropriate, alert and oriented x 3, good mood and affect. Musculoskeletal: Imaging: Supporting Subjective Information Below: Past Surgical History: PAST SURGICAL HISTORY Procedure Laterality Date - COLONOSCOP W/ OR W/O [facility] SPEC 07/06/11 - HEMORRHOIDECTOMY multiple [...] (FLONASE) 50 mcg/actuation nasal spray Use 1 [place] in each nostril once daily. - PSYLLIUM [...] known bel (more content not included)... Normal [facility] Vital Signs Date Time Vital Sign Value Performing Clinician Facility 05-01-2024 09:28-0400 Body mass index (BMI) [Ratio] 20.15 kg/m2 Sharon Stiles APRN.CNP Work Phone: [facility] 05-01-2024 09:28-0400 Body temperature 97.3 [degF] Sharon Stiles APRN.TAX CLERK Work Phone: [facility] 05-01-2024 09:28-0400 Body weight 71.2 kg Sharon Stiles APRN.TAX CLERK Work Phone: [facility] 05-01-2024 09:28-0400 Diastolic blood pressure 82 mm[Hg] Sharon Stiles APRN.TAX CLERK Work Phone: [facility] 05-01-2024 09:28-0400 Heart rate 61 /min Sharon Stiles APRN.TAX CLERK Work Phone: [facility] 05-01-2024 09:28-0400 Respiratory rate 18 /min Sharon Stiles APRN.TAX CLERK Work Phone: [facility] 05-01-2024 09:28-0400 SaO2% (BldA) [Mass fraction] 99 % Sharon Stiles APRN.TAX CLERK Work Phone: [facility] 05-01-2024 09:28-0400 Systolic blood pressure 142 mm[Hg] Sharon Stiles APRN.TAX CLERK Work Phone: [facility] 02-02-2024 11:45-0400 Body mass index (BMI) [Ratio] 20.66 kg/m2 Maricel Moomaw BEESWAX BLEACHER.TAX CLERK Work Phone: [facility] 02-02-2024 11:45-0400 Body temperature 97.3 [degF] Maricel Moomaw BEESWAX BLEACHER.TAX CLERK Work Phone: [facility] 02-02-2024 11:45-0400 Body weight 73 kg Maricel Moomaw BEESWAX BLEACHER.TAX CLERK Work Phone: [facility] 02-02-2024 11:45-0400 Diastolic blood pressure 76 mm[Hg] Maricel Moomaw BEESWAX BLEACHER.TAX CLERK Work Phone: [facility] 02-02-2024 11:45-0400 Heart rate 88 /min Maricel Moomaw BEESWAX BLEACHER.TAX CLERK Work Phone: [facility] 02-02-2024 11:45-0400 Respiratory rate 16 /min Maricel Moomaw BEESWAX BLEACHER.TAX CLERK Work Phone: [facility] 02-02-2024 11:45-0400 SaO2% (BldA) [Mass fraction] 98 % Maricel Moomaw [employer]ESWAX BLEACHER.TAX CLERK Work Phone: [facility] 02-02-2024 11:45-0400 Systolic blood pressure 158 mm[Hg] Maricel Moomaw [employer]ESWAX BLEACHER.TAX CLERK Work Phone: [facility] 10-30-2023 13:43-0500 Body temperature 101.3 [degF] Krislyn Aberegg PA Work Phone: [facility] 10-30-2023 13:43-0500 Body weight 74.57 kg Krislyn Aberegg PA Work Phone: [facility] 10-30-2023 13:43-0500 Diastolic blood pressure 70 mm[Hg] Krislyn Aberegg PA Work Phone: [facility] 10-30-2023 13:43-0500 Heart rate 106 /min Krislyn Aberegg PA Work Phone: [facility] 10-30-2023 13:43-0500 Respiratory rate 19 /min Krislyn Aberegg PA Work Phone: [facility] 10-30-2023 13:43-0500 SaO2% (BldA) [Mass fraction] 96 % Valeria marc PA Work Phone: [facility] 10-30-2023 13:43-0500 Systolic blood pressure 140 mm[Hg] Valeria Hood PA Work Phone: [facility] 05-08-2023 14:21-0400 Body height 187.[address] Mignon Mon Work Phone: [facility] 05-08-2023 14:21-0400 Body mass index (BMI) [Ratio] 20.5 kg/m2 Dr. Mignon Mon Work Phone: [facility] 05-08-2023 14:21-0400 Body weight 72.[address] Mignon Mon Work Phone: [facility] 05-08-2023 14:21-0400 Diastolic blood pressure 87 mm[Hg] Dr. Mignon Mon Work Phone: [facility] 05-08-2023 14:21-0400 Heart rate 77 /min Dr. Mignon Mon Work Phone: [facility] 05-08-2023 14:21-0400 Respiratory rate 17 /min Dr. Mignon Mon Work Phone: [facility] 05-08-2023 14:21-0400 Systolic blood pressure 128 mm[Hg] Dr. Mignon Mon Work Phone: [facility] 10-13-2022 07:46-0500 Diastolic blood pressure 72 mm[Hg] [facility] 10-13-2022 07:46-0500 Heart rate 75 /min [facility] 10-13-2022 07:46-0500 Respiratory rate 18 /min [facility] 10-13-2022 07:46-0500 SaO2% (BldA) [Mass fraction] 95 % [facility] 10-13-2022 07:46-0500 Systolic blood pressure 112 mm[Hg] [facility] 10-13-2022 06:31-0500 Body height 187.96 cm [facility] 10-13-2022 06:31-0500 Body mass index (BMI) [Ratio] 20.8 kg/m2 [facility] 10-13-2022 06:31-0500 Body temperature 96.8 [degF] [facility] 10-13-2022 06:31-0500 Body weight 73.6 kg [facility] 04-20-2022 20:12-0400 Diastolic blood pressure 89 mm[Hg] [facility] Work Phone: 04-20-2022 20:12-0400 Heart rate 74 /min [facility] Work Phone: 04-20-2022 20:12-0400 Respiratory rate 15 /min [facility] Work Phone: 04-20-2022 20:12-0400 SaO2% (BldA) [Mass fraction] 98 % [facility] Work Phone: 04-20-2022 20:12-0400 Systolic blood pressure 131 mm[Hg] [facility] Work Phone: 04-20-2022 19:02-0400 Body temperature 97.5 [degF] [facility] Work Phone: 04-20-2022 17:29-0400 Body height 187.96 cm [facility] Work Phone: 04-20-2022 17:29-0400 Body mass index (BMI) [Ratio] 46.7 kg/m2 [facility] Work Phone: 04-20-2022 17:29-0400 Body weight 165 kg [facility] Work Phone: 04-20-2022 16:53-0400 Body temperature 98.4 [degF] Donita Kay APRN.CNP Work Phone: [facility] 04-20-2022 16:53-0400 Body weight 74.12 kg Donita Kay BEESWAX BLEACHER.TAX CLERK Work Phone: [facility] 04-20-2022 16:53-0400 Diastolic blood pressure 78 mm[Hg] Donita Kay BEESWAX BLEACHER.TAX CLERK Work Phone: [facility] 04-20-2022 16:53-0400 Heart rate 71 /min Donita Kay BEESWAX BLEACHER.TAX CLERK Work Phone: [facility] 04-20-2022 16:53-0400 Respiratory rate 18 /min Donita Kay BEESWAX BLEACHER.TAX CLERK Work Phone: [facility] 04-20-2022 16:53-0400 SaO2% (BldA) [Mass fraction] 100 % Donita Kay BEESWAX BLEACHER.TAX CLERK Work Phone: [facility] 04-20-2022 16:53-0400 Systolic blood pressure 126 mm[Hg] Donita Kay [employer]ESWA[employer] BLEACHER.TAX CLERK Work Phone: [facility] 11-02-2021 17:05-0500 Body height 187.[address] Viktor Tam Work Phone: [facility] Work Phone: 11-02-2021 17:05-0500 Body mass index (BMI) [Ratio] 20.9 kg/m2 Dr. Viktor Tam Work Phone: [facility] Work Phone: 11-02-2021 17:05-0500 Body temperature 98 [degF] Dr. Viktor Tam Work Phone: [facility] Work Phone: 11-02-2021 17:05-0500 Body weight 73.[address] Viktor Tam Work Phone: [facility] Work Phone: 11-02-2021 17:05-0500 Diastolic blood pressure 94 mm[Hg] Dr. Viktor Tam Work Phone: [facility] Work Phone: 11-02-2021 17:05-0500 Heart rate 69 /min Dr. Viktor Tam Work Phone: [facility] Work Phone: 11-02-2021 17:05-0500 Respiratory rate 14 /min Dr. Viktor Tam Work Phone: [facility] Work Phone: 11-02-2021 17:05-0500 SaO2% (BldA) [Mass fraction] 98 % Dr. Viktor Tam Work Phone: [facility] Work Phone: 11-02-2021 17:05-0500 Systolic blood pressure 142 mm[Hg] Dr. Viktor Tam Work Phone: [facility] Work Phone: 11-02-2021 16:05-0500 Body height 187.[address] Viktor Tam Work Phone: [facility] Work Phone: 11-02-2021 16:05-0500 Body mass index (BMI) [Ratio] 20.9 kg/m2 Dr. Viktor Tam Work Phone: [facility] Work Phone: 11-02-2021 16:05-0500 Body temperature 98 [degF] Dr. Viktor Tam Work Phone: [facility] Work Phone: 11-02-2021 16:05-0500 Body weight 73.[address] Viktor Tam Work Phone: [facility] Work Phone: 11-02-2021 16:05-0500 Diastolic blood pressure 94 mm[Hg] Dr. Viktor Tam Work Phone: [facility] Work Phone: 11-02-2021 16:05-0500 Heart rate 69 /min Dr. Viktor Tam Work Phone: [facility] Work Phone: 11-02-2021 16:05-0500 Respiratory rate 14 /min Dr. Viktor Tam Work Phone: [facility] Work Phone: 11-02-2021 16:05-0500 SaO2% (BldA) [Mass fraction] 98 % Dr. Viktor Tam Work Phone: [facility] Work Phone: 11-02-2021 16:05-0500 Systolic blood pressure 142 mm[Hg] Dr. Viktor Tam Work Phone: [facility] Work Phone: 10-16-2021 13:43-0500 Body temperature 97.1 [degF] Dr. Viktor Tam Work Phone: [facility] Work Phone: 10-16-2021 13:43-0500 Body weight 74.[address] Viktor Tam Work Phone: [facility] Work Phone: 10-16-2021 13:43-0500 Diastolic blood pressure 100 mm[Hg] Dr. Viktor Tam Work Phone: [facility] Work Phone: 10-16-2021 13:43-0500 Heart rate 83 /min Dr. Viktor Tam Work Phone: [facility] Work Phone: 10-16-2021 13:43-0500 Respiratory rate 16 /min Dr. Viktor Tam Work Phone: [facility] Work Phone: 10-16-2021 13:43-0500 SaO2% (BldA) [Mass fraction] 98 % Dr. Viktor Tam Work Phone: [facility] Work Phone: 10-16-2021 13:43-0500 Systolic blood pressure 140 mm[Hg] Dr. Viktor Tam Work Phone: [facility] Work Phone: Encounters Encounter Date Encounter Type Care Provider Facility Start: 02-21-2025 ambulatory Mignon Mon Facility: [facility] Start: 02-10-2025 Encounter for genera l adult medical examination without abnormal findings Thao Moulton [facility] Start: 02-06-2025 End: 02-06-[address] Mignon Mon DO Work Phone: [facility] Work Phone: Start: 02-06-2025 End: 02-06-[address] Thao Moulton MD -Laboratory Work Phone: Start: 02-06-2025 End: 02-06-2025 ambulatory Thao Moulton Facility:[facility] Start: 11-06-2024 End: 11-06-[address] Mignon Mon DO Work Phone: [facility] Work Phone: Start: 11-06-2024 End: 11-06-[address] Thao Moulton MD -Laboratory, [place] Work Phone: Start: 11-06-2024 End: 11-06-2024 ambulatory Mignon Mon Facility:[facility] Start: 10-12-2024 End: 10-12-[address] Mik Melo MD -Radiology, [place] Work Phone: Start: 10-12-2024 End: 10-12-2024 ambulatory Mik Melo Facility:[facility] Start: 08-10-2024 End: 08-10-[address] Thao Moulton MD -Laboratory, [place] Work Phone: Start: 08-10-2024 End: 08-10-2024 ambulatory [facility] Facility:[facility] Start: 05-23-2024 End: 05-23-2024 ambulatory Thao Moulton Facility:[facility] Start: 05-01-2024 End: 05-01-2024 Subsequent hospital visit by physician Xr [facility] Work Phone: Radiology Comment on above: Acute cough [R05.1] Start: 05-01-2024 End: 05-01-2024 Patient encounter procedure Sharon Stiles APRN.TAX CLERK Work Phone: [facility] Comment on above: Muscle spasm (Primar y Dx); Acute cough Start: 04-01-2024 End: 04-01-2024 [facility] Facility:[facility] Start: 02-22-2024 End: 02-22-2024 [facility] Facility:[facility] Start: 02-02-2024 End: 02-02-2024 ambulatory [facility] Facility:[facility] Start: 02-02-2024 End: 02-02-2024 Patient encounter procedure Maricel Carson APRN.TAX CLERK Work Phone: [facility] Comment on above: Bacterial pneumonia (Primary Dx) Start: 10-30-2023 End: 10-30-2023 Subsequent hospital visit by physician [facility] Work Phone: Radiology Comment on above: Flu-like symptoms [R 68.89] Start: 10-30-2023 End: 10-30-2023 ambulatory VIKTOR TAM Facility:[facility] Start: 10-30-2023 End: 10-30-2023 Patient encounter procedure Valeria CABRERA Work Phone: [facility] Comment on above: Acute cough (Primary Dx); Flu-like symptoms; Influenza A Start: 10-29-2023 End: 10-29-2023 ambulatory [facility] Work Phone: Start: 10-29-2023 End: 10-29-2023 Patient encounter procedure [facility] Work Phone: Start: 07-30-2023 End: 07-30-[address] Mignon Mon Work Phone: [facility] Work Phone: Start: 07-30-2023 End: 07-30-[address] Mignon Mon Work Phone: [facility] Work Phone: Start: 05-08-2023 End: 05-08-[address] Mignon Mon Work Phone: [facility] Work Phone: Start: 05-02-2023 End: 05-02-[address] Mignon Mon Work Phone: [facility] Work Phone: Start: 05-02-2023 End: 05-02-[address] Mignon Mon Work Phone: [facility] Work Phone: Start: 02-09-2023 End: 02-09-2023 ambulatory [facility] Work Phone: Start: 02-09-2023 End: 02-09-2023 Patient encounter procedure [facility] Start: 11-22-2022 End: 11-22-2022 ambulatory [facility] Work Phone: Start: 11-22-2022 End: 11-22-2022 Patient encounter procedure [facility] Start: 11-02-2022 End: 11-02-2022 ambulatory [facility] Work Phone: Start: 11-02-2022 End: 11-02-2022 Patient encounter procedure [facility] Start: 10-13-2022 End: 10-13-2022 [facility] Start: 08-14-2022 End: 08-14-2022 ambulatory [facility] Work Phone: Start: 08-14-2022 End: 08-14-2022 Patient encounter procedure [facility] Start: 07-24-2022 End: 07-24-2022 ambulatory [facility] Work Phone: Start: 07-24-2022 End: 07-24-2022 [facility] Start: 05-21-2022 End: 05-21-2022 [facility] Start: 04-20-2022 End: 04-20-2022 [facility] Start: 04-20-2022 End: 04-20-2022 Patient encounter procedure Donita Kay APRN.[facility] Work Phone: [facility] Comment on above: Aspiration into airw ay, initial encounter Start: 02-14-2022 End: 02-14-[address] Viktor Tam Work Phone: [facility] Start: 01-19-2022 End: 01-19-[address] Viktor Tam Work Phone: [facility]-Cat Scan, [facility] Start: 01-16-2022 End: 01-16-[address] [facility] Start: 12-21-2021 End: 12-21-[address] Viktor Tam Work Phone: [facility] Start: 11-11-2021 End: 11-11-[address] Viktor Tam Work Phone: [facility]-Laboratory Start: 11-02-[address] Viktor Tam Work Phone: [facility] Start: 11-02-2021 End: 11-02-2021 Encounter for general adult medical examination without abnormal findings Dr. Viktor aTm Work Phone: [facility] Start: 11-02-2021 End: 11-02-[address] Viktor Tam Work Phone: [facility] Start: 10-16-2021 End: 10-16-[address] [facility] Start: 10-02-2021 End: 10-02-[address] [facility] [place] Start: 05-04-[address] Viktor Tam Work Phone: [facility] Procedures Date Procedure Procedure Detail Performing Clinician Start: 10-12-2024 Complete x-ray serie s of lumbosacral spine including bending views Dr. Mignon Mon DO Work Phone: Start: 05-01-2024 Radiologic exam ches t 2 views Sharon Stiles APRN.TAX CLERK Work Phone: Start: 10-30-2023 Radiologic exam ches [...] Adult depression scr eening assessment Donita Kay [employer]WA[employer] BLEACHER.TAX CLERK Work Phone: Start: 07-06-2011 Colonoscopy Donita marshall BEESWAX BLEACHER.TAX CLERK Work Phone: Plan of Treatment Date Care Activity Detail Author Start: 05-03-2024 Influenza vaccination [facility] Start: 2024 RSV Vaccine (1 - 1-dose 60+ series) RSV Vaccine (1 - 1-dose 60+ series) [facility] Start: 09-02-2023 Behavioral Health Screening Behavioral Health Screening [facility] Start: 09-02-2023 Depression Assessment Depression Assessment [facility] Start: 05-03-2023 Influenza vaccination [facility] Start: 01-18-2023 Lipid panel Lipid Screening [facility] Start: 01-18-2023 LIPID SCREEN LIPID SCREEN [facility] Start: 05-03-2022 Influenza vaccination INFLUENZA (#1) [facility] Start: 07-06-2021 Colonoscopy COLONOSCOPY [facility] Start: 07-06-2021 COLORECTAL CANCER SCREENING COLORECTAL CANCER SCREENING [facility] Start: 07-06-2021 Screening for malignant neoplasm of colon [facility] Start: 02-15-2021 COVID-19 VACCINE (2 - Ju risk series) COVID-19 VACCINE (2 - Ju risk series) [facility] Start: 01-18-2021 DIABETES SCREEN DIABETES SCREEN [facility] Start: 01-18-2021 Diabetes Screening Diabetes Screening [facility] Start: 2019 PROSTATE CANCER SCREENING DISCUSSION PROSTATE CANCER SCREENING DISCUSSION [facility] Start: 2019 Prostate specific antigen measurement Prostate Cancer Screening Discussion [facility] Start: 12-30-2018 Adult depression screening assessment DEPRESSION SCREENING [facility] Start: 2009 COLOGUARD (FIT-DNA) COLOGUARD (FIT-DNA) [facility] Start: [address] COLONOGRAPHY [facility] Start: 2009 FECAL OCCULT BLOOD FECAL OCCULT BLOOD [facility] Start: 2009 Screening for malignant neoplasm of colon [facility] Start: 2009 SIGMOIDOSCOPY SIGMOIDOSCOPY [facility] Start: 1983 SHINGRIX VACCINE (1 of 2) SHINGRIX VACCINE (1 of 2) [facility] Start: 1983 Urine microalbumin profile [facility] Start: 1982 Anxiety Screening Anxiety Screening [facility] Start: 1982 Depression Screening Depression Screening [facility] Start: 1982 HEPATITIS C SCREENING HEPATITIS C SCREENING [facility] Start: 1982 Hepatitis C screening Hepatitis C Screening [facility] Start: 1982 HIV SCREENING HIV SCREENING [facility] Start: 1982 HIV screening HIV Screening [facility] Start: 1970 PNEUMOCOCCAL (1 - PCV) PNEUMOCOCCAL (1 - PCV) [facility] Start: 1970 Pneumococcal vaccination Pneumococcal Vaccine (1 of 2 - PCV) [facility] Start: 1964 HEPATITIS B (1 of 3 - 3-dose series) HEPATITIS B (1 of 3 - 3-dose series) [facility] Patient Education [facility] Work Phone: Patient referral [facility] Work Phone: Immunizations Immunization Date Immunization Notes Care Provider Jaycee ford 01-13-2021 Covid ([facility]) Dr. Viktor Tam Work Phone: [facility] 07-01-2017 influenza virus vaccine, unspecified formulation Valeria CABRERA Work Phone: [facility] Payers Date Payer Category Payer Self-pay 2019 Unknown [id number] 2019 Unknown [id number] Self-pay SELF PAY INSURANCE [id number] Unknown [id number] Unknown [id number] [id number] Unknown [id number] 2.16.8 [id number] Unknown [id number] 2.16.8 [id number] Unknown [id number] 2.16.8 [id number] Unknown [id number] 2.16.8 [id number] Unknown [id number] 2.16.8 [id number] Unknown [id number] 2.16.8 [id number] Unknown [id number] [id number] [id number] Social History Date Type Detail Facility Start: 11-02-2021 End: 05-08-2023 Tobacco smoking status IAIS Unknown if ever smoked [facility] Start: 1965 Sex Assigned At Male [facility] Start: 07-30-2016 End: 05-08-2023 Tobacco smoking status IAIS Never smoked tobacco [facility] Start: 07-30-2016 Tobacco use and exposure Smokeless tobacco non-user [facility] Start: 04-20-2022 End: 10-30-2023 Alcohol intake Current non-drinker of alcohol (finding) [facility] Start: 1965 Sex Assigned At Not on file [facility] Start: 04-10-2022 End: 04-20-2022 Exposure to SARS-CoV-2 (event) Not sure [facility] Start: 08-07-2020 End: 10-30-2023 History of Social function [facility] Start: 08-07-2020 End: 10-30-2023 Tobacco use panel [facility] Adult Depression Screening Assessment 0 [facility] Start: 11-19-2024 Sex Male (finding) [facility] Mental Status Date Assessment Result Facility 10-13-2022 Cognitive function Level Of Cons ciousness Awake;Alert;Appropriate;Follow s Commands [facility] Work Phone: Clinical Notes 04-15-2020 to 05-01-2024 Nayana Renee RT(R) - 05/01/2024 10:00 AM Sharon Dumont APRN.TAX CLERK - 05/01/2024 9:38 AM Maricel Jernigan APRN.TAX CLERK - 02/02/2024 11:50 AM Nayana Jim RT(R) [...] PATIENT PRESENTS WITH AN IMPLANTABLE OR ATTACHED FARM CONTRACTOR: No RADIOLOGY DEPARTMENT: General X-ray: Exam(s) Completed: Chest X-Ray PERIPHERAL IV DATA: Not applicable SIGNED BY: RT Dhara(R) May 01, 2024 9:51 AM documented in this encounter [facility] 05-01-2024 History of Present illness Narrative [...] Status: He is alert. PAST MEDICAL HISTORY 2014: Aspiration pneumonia (HCC) No date: External hemorrhoids [...] (FLONASE) 50 mcg/actuation nasal spray Use 1 [place] in each nostril once daily. PSYLLIUM SEED, [...] Unremarkable. IMPRESSION IMPRESSION: No acute radiographic abnormality. Bit Grinder: ROBSON Transcribe Date/Time: May 01 2024 10:07A [...] Patient agreeable to treatment plan. Sharon Stiles APRN.TAX CLERK documented in this encounter [facility] 02-02-2024 Note HNO ID: [id number] Author: MARICEL CARSON APRN.TAX CLERK Service: ? Author Type: Nurse Practitioner Type: Progress Notes Filed: 02/02/2024 11:59 Note Text: This note was created using [employer]. Subjective Lito Vu is a 58 year [...] DOXYCYCLINE MONOHYDRATE 100 MG TABLET Maricel Carson APRN.CNP [facility] 02-02-2024 History of Present illness Narrative This note was created using [employer]. Subjective Lito Vu is a 58 year [...] DOXYCYCLINE MONOHYDRATE 100 MG TABLET Maricel Carson APRN.CNP documented in this encounter [facility] 10-30-2023 History of Present illness Narrative [...] PATIENT PRESENTS WITH AN IMPLANTABLE OR ATTACHED FARM CONTRACTOR: No RADIOLOGY DEPARTMENT: General X-ray: Exam(s) Completed: Chest X-Ray PERIPHERAL IV DATA: Not applicable SIGNED BY: RT Dhara(Barney) October 30, 2023 2:25 PM documented in this encounter [facility] 10-30-2023 Note HNO ID: [id number] Author: NAYANA RENEE RT(Barney) Service: ? Author Type: Procurement Intern Type: Progress Notes Filed: 10/30/2023 14:32 Note [...] PATIENT PRESENTS WITH AN IMPLANTABLE OR ATTACHED FARM CONTRACTOR: No RADIOLOGY DEPARTMENT: General X-ray: Exam(s) Completed: Chest X-Ray PERIPHERAL IV DATA: Not applicable SIGNED BY: Nayana Renee RT(R) October 30, 2023 2:25 PM [facility] 10-30-2023 Instructions Valeria Hood PA - 10/30/2023 2:19 PM EST [facility] PATIENT INFO INFLUENZA INTRODUCTION Influenza (commonly called the flu) is a highly contagious illness that can occur in children or adults of any age. It occurs more often in the winter months because people spend more time in close contact with one another. The flu is spread easily from dyesbi-lc-cavksu by coughing, sneezing, or touching surfaces. Every [...] age of 65, people who live in terminologist care facilities (nursing homes), and those with [...] do not become dehydrated. One way to criminal court judge if you are drinking enough is [...] of antibiotic resistance. documented in this encounter [facility] 10-30-2023 Note HNO ID: [id number] Author: VALERIA HOOD PA Service: ? Author Type: Physician Bullet Casting Operator Type: Progress Notes Filed: 10/30/2023 14:49 Note Text: This note was created using [employer]. Subjective Lito Vu is a 58 year [...] (FLONASE) 50 mcg/actuation nasal spray Use 1 [place] in each nostril once daily. PSYLLIUM SEED, [...] detail warranting prompt ER evaluation. DEBORAH Rene [facility] 10-30-2023 History of Present illness Narrative This note was created using [employer]. Subjective Lito Vu is a 58 year [...] (FLONASE) 50 mcg/actuation nasal spray Use 1 [place] in each nostril once daily. PSYLLIUM SEED, [...] evaluation. DEBORAH Rene documented in this encounter [facility] 04-20-2022 History of Present illness Narrative [...] BMI 20.98 kg/m documented in this encounter [facility] 01-02-2021 Note HNO ID: [id number] Author: Rosemary Wynne OT/Cesia Service: ? Author Type: Occupational Therapist Type: Progress Notes Filed: 01/02/2021 11:46 AM Note Text: 01/02/2021 REHABILITATION AND SPORTS THERAPY OCCUPATIONAL THERAPY DISCONTINUANCE OF CARE Plan of Care Period: Start of Care Date: 05/12/20 Last Visit Date: 06/02/2020 Therapy Program: The following is a summary of the interventions provided for this episode of care; Therapeutic exercise, Manual therapy and Self-half-way management Assessment: Based on most recent visit, patient was progressing as expected toward functional goals based on documented subjective information on progress. Unable to formally assess goal achievement due to non-compliance with therapy plan of care. Reason for Discontinuation of Care: Patient has not returned to therapy or scheduled additional follow-up appointments. Rosemary Wynne OT/L [facility] 06-02-2020 Note HNO ID: [id number] Author: Rosemary Wynne Service: ? Author Type: [...] FUNCTION: Hand Wrist AROM: Right Limitation Strength: Cleaning Porter Position 2 Hand Strength R Cleaning Porter Position 2 (lbs): 45 lbs L Cleaning Porter Position 2 (lbs): 105 lbs UE AROM [...] and precautions 5: with medium soft putty brand director, digit extension roll and digit flexion and [...] custom orthotic fabrication and wearing schedule Billing: Lala: Therapeutic Exercise (31698): 1:1 time:35 minutes (2 units: 23-37 mins) Orthosis: Custom: L3913 HFO custom w/o joints (oppon/ hand hurtado/ hand trigger/ other) Total time / Length of visit: 40 minutes Rosemary Wynne OT/[facility] 05-12-2020 Note HNO ID: [id number] Author: Rosemary (Ot) Roderick Service: ? Author Type: Occupational Therapist Type: Progress Notes Filed: 05/12/2020 12:30 PM Note Text: Episode Visit Count: 1 Therapist That Will Oversee The Plan Of Care: Roderick Riley Start of Care Date: 05/12/20 Onset Date: 04/15/20 Plan of Care Certification Date: 05/12/20 Next Certification Due Date: 08/11/20 Patient Identified by Name and Date of : Yes [facility] REHABILITATION AND SPORTS THERAPY OCCUPATIONAL THERAPY EVALUATION [...] Interventions: Custom orthosis fabrication;Prefabricated orthosis fitting;Therapeutic exercise;Manual therapy;Modalities;Self-half-way managementFluidotherapy PLAN FOR NEXT VISIT: wean splint [...] 4: fabricated fore (more content not included)... [facility] 04-15-2020 Note HNO ID: [id number] Author: Johann Anderson Service: ? Author Type: [...] April 15, 2020 TIME: 2:36 PM CSN: [id number] [facility] Discharge summary Note Date/Time October 13, 2022 7:28am [facility] Medical Records Department [address] [place] [address] Emergency Department Summary 10/13/22 MR#: [id number] Acct: [id number] Name: LITO VU Rep #:[id number] : 1965 57 From: Maynor Werner MD PCP: Dr. Mignon Mon, DO Status:REG ER Location: ED HPI History of [...] Mon is his physician. Outside records from [facility] were reviewed. Patient had a lipid profile performed by Dr. Santiago January 18, 2018. His LDH was slightly elevated at 121. His LDL to HDL ratio is 1.89-1. Patient had a colonoscopy performed June 2011 and revealed source of lower GI bleed to be internal hemorrhoids. [facility] Medical History Arthritis Dystonia Health [...] 10/20/20 [History Last Taken Unknown] glucosamine 750 ne-vrbozbgqfzf-klf no1 644 mg-C 30 mg-santos 1 mg [...] or dysrhythmia. Patient's has not seen a community pharmacist or had an echo cardiogram inthe past. [...] the patient's lab results. Lab results narrative: MarkableBasic metabolic panel is. BUN to creatinine ratio [...] rate is 89. The EKG is normal. SC interval is 154 ms. QRS duration 86 ms. QT duration 362 ms. [place] is normal. There are no premature beats [...] 200 MG tablet 300 mg PO DAILYCM ynrmjckp-ipfk-efg3-C-santos-bosw 1 EACH tablet 1 each PO DAILY amoxicillin-pot clavulanate 875-125 mg tablet 1 tab PO Q12H Qty: 14 0RF trihexyphenidyl 2 mg tablet 2 mg PO .QID Qty: 360 3RF baclofen 10 mg tablet 10 mg PO Q6H Qty: 480 2RF Rx Instructions: take 2 tablets PO every 6 hours Primary Care Provider: Mignon Mon Referrals: Mignon Mon DO [Primary Care Provider] - 3-5 Days if not improving Disposition Disposition: Home, Self Care What to do if you have Problems For any increased pain, shortness of breath, bleeding, nausea or vomiting, chestpain, or any unexpected problems, contact your Primary Care Provider. Call [facility] ([phone]) or report to the closest Emergency Room. Call 911 if necessary. 10/13/22 0753 <Electronically signed by Maynor Werner MD> Cosigner Signature (if applicable): CC: Dr. Mignon Mon DO ~ Signed [facility] Work Phone: Evaluation note* Diagnosis Onset Date Resolution Status Hematuria acute Health care maintenance acut e Dystonia chronic Hypertension chronic Rheumatoid arthritis [facility] Work Phone: Evaluation note* Diagnosis Onset Date Resolution Status Health care maintenance acut e Dystonia chronic Hypertension chronic Rheumatoid arthritis [facility] Work Phone: Evaluation note* Diagnosis Aspiration into airway, initial encounter documented in this encounter [facility] noteNo assessment information [facility]WM[facility] Work Phone: Evaluation note* Diagnosis Onset Date Resolution Status Sebaceous cyst acute [facility] Work Phone: Evaluation note* Diagnosis Acute cough- Primary Flu-like symptoms Other general symptoms Influenza A Influenza with other respiratory manifestations documented in this encounter [facility] note* Diagnosis Bacterial pneumonia- Primary Bacterial pneumonia, unspecified documented in this encounter [facility] note* Diagnosis Pre-operative examination- Primary Preoperative examination, unspecified Osteoarthritis of right hand, 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 Muscle spasm- Primary Spasm of muscle Acute cough Acute cough documented in this encounter [facility] note* Diagnosis Pre-operative examination- Primary Preoperative examination, unspecified Osteoarthritis of right hand, 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 Acute cough documented in this encounter [facility] note* Diagnosis Pre-operative examination- Primary Preoperative examination, unspecified Osteoarthritis of right hand, 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 Flu-like symptoms Other general symptoms documented in this encounter [facility] for referral (narrative)No reason for referral information availableWMorrow County Hospital Work Phone: Summary Purpose Family History No Family History Records Found Relationship Condition Age at Onset Recorded Date/T joann mother Malignant neoplasm Unknown Hypertension Unknown Hyperlipidemia Unknown sister Malignant neoplasm of breast Unknown Advance Directives No Advanced Directives Records Found Advance Directive Response Recorded Date/ Time Living Will Yes November 20, 2020 6:46pm Power of Clinical Material Handler Yes November 20 6:46pm Advance Directive Response Recorded Date/ Time Living Will No April 20 6:06pm Power of Clinical Material Handler Yes April 20 022 6:06pm Name of Medical Power of Clinical Material Handler VANI GOMES- April 20, 2022 6:06pm Advance Directive Response Recorded Date/ Time Living Will No April 20 2 6:06pm Power of Clinical Material Handler Yes April 20, 022 6:06pm Advance Directive Response Recorded Date/ Time Living Will No October 13 023 6:34am Power of Clinical Material Handler No October 13, 2022 6:34am Advance Directive Response Recorded Date/ Time Living Will No October 13, 023 7:34am Power of Clinical Material Handler No October 13, 2022 7:34am Chief Complaint [...] COPY PCP November 06, 2024 4:35 pm Chief Complaint Admit Date S/O- PAIN COPY PCP November 06, 2024 4:[address] February 06, 2025 9:04a m Additional Source Comments (unrecognized sect ion and content) No Status Records FoundNo Status Records FoundNo Status Records Found INFORMATION SOURCE (unrecogn ized section and content) DATE CREATED AUTHOR 01/03/2021 [facility] DATE CREATED AUTHOR AUTHOR'S ORGANIZ ATION 02/02/2024 [facility] DATE CREATED AUTHOR AUTHOR'S ORGANIZ ATION [facility]/12/2025 [facility] Goals (unrecognized section and content) Goals may [...] or prosecute any alcohol or drug abuse patient.[facility] Hospital[facility] the event this information is protected by the Federal Confidentiality of Alcohol and Drug Abuse Patient Records regulations: The Federal rules restrict any use of the information to criminally investigate or prosecute any alcohol or drug abuse patient.[facility] HospitalIn the event this information is protected by the Federal Confidentiality of Alcohol and Drug Abuse Patient Records regulations: The Federal rules restrict any use of the information to criminally investigate or prosecute any alcohol or drug abuse patient.[facility] HospitalIn the event this information is protected by the Federal Confidentiality of Alcohol and Drug Abuse Patient Records regulations: The Federal rules restrict any use of the information to criminally investigate or prosecute any alcohol or drug abuse patient.[facility] HospitalIn the event this information is protected by the Federal Confidentiality of Alcohol and Drug Abuse Patient Records regulations: The Federal rules restrict any use of the information to criminally investigate or prosecute any alcohol or drug abuse patient.[facility] HospitalIn the event this information is protected by the Federal Confidentiality of Alcohol and Drug Abuse Patient Records regulations: The Federal rules restrict any use of the information to criminally investigate or prosecute any alcohol or drug abuse patient.[facility] Reason for Visit (unrecogniz ed section and content) Reason Comments Follow Up Pt reported swallowi ng pills (Advil gel caps AM) cough, denied chest pain, SOB Specialty Diagnoses / Procedures Referred By Contnerissa t Referred To Contact Internal Medicine / [facility] Diagnoses Aspiration into airway aspirated when he took pills Procedures OFFICE/OUTPATIENT NEW MODERATE MDM 45-59 MINUTES NEW SAME DAY Self, [facility] [address] [place] [address] Referral ID Status Reason Start Date Expiration Date Visits Re quested Visits Authorized [id number] Closed 04/20/2022 09/01/2022 1 1 Reason Comments Cough Fever, congestion, b arvind aches started this morning Reason Comments Cough Congestion x2 weeks Reason Comments Pain Choked on Celebrex c apsule at 0530 this morning, feels upper back spasms, denies SOB or chest pain Specialty Diagnoses / Procedures Referred By Contac t Referred To Contact Radiology / [facility] Diagnoses Acute cough Acute cough [R05.1] Procedures RADIOLOGIC EXAM CHEST 2 VIEWS XR CHEST Sharon Stiles, BEESWAX BLEACHER.TAX CLERK [address] [place] [address] [facility] [address] [place] [address] Referral ID Status Reason Start Date Expiration Date Visits Re quested Visits Authorized [id number] Closed 05/01/2024 09/01/2024 1 1 Care Teams (unrecognized sec tion and content) [employer] Relationship Specialty Start Date End Date Viktor Tam MD PCP - General Internal Medicine 10/09/19 Team Status: Active Member Role Status Dates Dr. Janice Martin DO Family Provider Active Dr. Mignon Mon DO Primary Care Provider Active Team Status: Inactive Member Role Status Dates Dr. Mignon Mon DO Primary Care Prov ider, Attending Provider, Referring Provider Active Team Status: Inactive Member Role Status Dates Dr. Mignon Mon DO Primary Care Provider Active Dr. Thao Moulton MD Attending Provider, Referring Provider Active Team Status: Inactive Member Role Status Dates Dr. Mignon Mon DO Primary Care Provider Active Dr. Maynor Werner MD Emergency Provider Active Team Status: Inactive Member Role Status Dates Dr. Mignon Mon DO Primary Care Provider Active Dr. Maynor Werner MD Attending Provider, Emergency Provi davida Active Team Status: Inactive Member Role Status Dates Dr. Mignon Mon DO Primary Care Prov ider, Attending Provider, Referring Provider Active Dr. Thao Moulton MD Other Provider Active Team Status: Inactive Member Role Status Dates Dr. Mignon Mon DO Primary Care Provider, Referrin g Provider Active Dr. Nigel Markham MD Attending Provider Active Team Status: Inactive Member Role Status Dates Dr. Mignon Mon DO Primary Care Provider Active Dr. Thao Moulton MD Attending Provider Active [employer] Relationship Specialty Start Date End Date Viktor Tam MD PCP - General Internal Medicine 10/09/19 [employer] Relationship Specialty Start Date End Date Mignon Mon DO [address] [place] [address] PCP - General Family Medicine 02/02/24 [employer] Relationship Specialty Start Date End Date Mignon Mon DO [address] [place] [address] PCP - General Family Medicine 02/02/24 [employer] Relationship Specialty Start Date End Date Mignon Mon DO [address] [place] [id number] PCP - General Family Medicine 02/02/24 [employer] Relationship Specialty Start Date End Date Viktor [...] November 06, 2024 End: November 06, 2024 Team Status: Inactive Member Role Status Dates Dr. Mignon Mon DO Primary Care Provider Active Start: February 06, 2025 End: February 06, 2025 Dr. Thao Moulton MD Attending Provider Active Start: February 06, 2025 End: February 06, 2025 Dr. Thao Moulton MD Referring Provider Active Start: February 06, 2025 End: February 06, 2025 FOR RECORDS PERTAINING TO PATIENTS WHO ARE [...] BE BASED ON THE PRIMARY CLINICAL RECORDS. [employer] provides no warranty or guarantee of the accuracy or completeness of information in this document.
[2025-02-27 09:01] LABS: PSA,Total - Annual Screen 0.63 ng/mL (0.02-4.00)
== END | disposition home or self-care (01) ==
LOC: LAB 07:14
PROVIDERS: PCP Family Medicine; Referring Provider Family Medicine; Visit Provider Family Medicine
DX: Z12.5 Encounter for screening for malignant neoplasm of prostate (principal)
CPT/HCPCS: 36415; 84153; G0103

== ENCOUNTER → 2025-06-01 | Outpatient (CLI) | payer OTHER, SELFPAY ==
--- NOTE | 2025-06-01 16:41 | RAD_ITS ---
PROCEDURE: ELBOW MIN 3 VIEWS 06/01/2025 REASON FOR EXAM: LATERAL EPICONDYLE PAIN, HIT IT 2 WEEKS AGO TECHNIQUE: Procedure Code: RADRAFAEL Modality: DX Procedure: ELBOW MIN 3 VIEWS Laterality: Left COMPARISON: None. RAD/Elbow min 3 Views IMPRESSION: No left elbow joint effusion is seen. Mild degenerative changes are seen of the humeroulnar articulation, most promin ent medially. No fracture or dislocation is seen. Reading Location: [id number]
--- NOTE | 2025-06-01 16:41 | RAD_ITS ---
PROCEDURE: CHEST PA AND LATERAL 06/01/2025 REASON FOR EXAM: COUGH, WHEEZE-HAS DYSTONIA-AT RISK FOR ASPIRATION TECHNIQUE: Procedure Code: RADCXR Modality: DX Procedure: CHEST PA AND LATERAL COMPARISON: Two-view chest, 10/17/2019. FINDINGS: There are findings of emphysema. There is postinflammatory scarring in the left lung. There is no lobar consolidation or pleural effusion. The heart size is normal. The upper abdominal bowel gas pattern is normal. There are no bony abnormalities of the chest. RAD/Chest PA and Lateral IMPRESSION: Emphysema. Postinflammatory scarring in the left lung. Reading Location: [place] [id number]
== END | disposition home or self-care (01) ==
PROVIDERS: PCP Family Medicine; Referring Provider Family Medicine; Visit Provider Family Medicine
DX: M25.522 Pain in left elbow (principal); R05.9 Cough, unspecified; R06.2 Wheezing
CPT/HCPCS: 71046; 73080

== ENCOUNTER → 2025-06-02 | Outpatient (CLI) | payer OTHER, SELFPAY ==
[2025-06-02 18:00] LABS: Hematocrit 43.6 % (40-54); Hemoglobin 14.8 g/dL (13.0-16.5); Immature Granulocytes Count 0.010 X10^3/uL (0.0-0.0); Mean Corp Hgb Conc 33.9 g/dL (32-36); Mean Corpuscular Volume 88.4 fL (80-94); Mean Platelet Vol. 10.3 fl (6.2-12.0); NRBC Flagged by Analyzer 0 % (0-5); Platelet Count 258 K/mm3 (150-450); RBC Distribution Width CV 12.6 % (11.6-14.6); RBC Distribution Width SD 40.7 fl (35.1-43.9); Red Blood Count 4.93 M/mm3 (4.6-6.2); White Blood Count 8.7 K/mm3 (4.4-11.0)
[2025-06-02 18:18] LABS: AST(SGOT) 27 U/L (<=37); Alanine Aminotransfer ALT/SGPT 22 U/L (<=46); Albumin, Serum 4.2 g/dL (3.4-4.8); Alkaline Phosphatase 86 U/L (40-129); Anion Gap 12 (5-15); BUN 25 mg/dL (4-19); BUN/Creat Ratio 23.6 RATIO (10-20); Calcium,Total 9.2 mg/dL (7.6-11.0); Carbon Dioxide 25.9 mmol/L (21.0-32.0); Chloride 102 mmol/L (98-108); Globulin 3.2 g/dL (2.2-4.2); Glucose 101 mg/dL (70-99); Potassium 3.9 mmol/L (3.3-5.1)
== END | disposition home or self-care (01) ==
LOC: MTLAB 16:39
PROVIDERS: PCP Family Medicine; Referring Provider Family Medicine; Visit Provider Family Medicine
DX: M06.4 Inflammatory polyarthropathy (principal); Z79.899 Other long term (current) drug therapy; R05.9 Cough, unspecified
CPT/HCPCS: 36415; 80053; 85025; 87070; 87077; 87205

== ENCOUNTER → 2025-08-30 | Outpatient (CLI) | payer OTHER, SELFPAY ==
[2025-08-30 12:10] LABS: Hematocrit 47.3 % (40-54); Hemoglobin 15.9 g/dL (13.0-16.5); Immature Granulocytes Count 0.020 X10^3/uL (0.0-0.0); Mean Corp Hgb Conc 33.6 g/dL (32-36); Mean Corpuscular Volume 87.9 fL (80-94); Mean Platelet Vol. 10.3 fl (6.2-12.0); NRBC Flagged by Analyzer 0 % (0-5); Platelet Count 239 K/mm3 (150-450); RBC Distribution Width CV 12.4 % (11.6-14.6); RBC Distribution Width SD 39.8 fl (35.1-43.9); Red Blood Count 5.38 M/mm3 (4.6-6.2); White Blood Count 6.8 K/mm3 (4.4-11.0)
[2025-08-30 12:28] LABS: AST(SGOT) 32 U/L (<=37); Alanine Aminotransfer ALT/SGPT 41 U/L (<=46); Albumin, Serum 4.3 g/dL (3.4-4.8); Alkaline Phosphatase 89 U/L (40-129); Anion Gap 9 (7-18); BUN 21 mg/dL (4-19); BUN/Creat Ratio 23.8 RATIO (10-20); Calcium,Total 9.9 mg/dL (7.6-11.0); Carbon Dioxide 30.0 mmol/L (20.0-29.0); Chloride 103 mmol/L (96-106); Globulin 3.2 g/dL (2.2-4.2); Glucose 85 mg/dL (70-99); Potassium 4.1 mmol/L (3.5-5.1)
== END | disposition home or self-care (01) ==
LOC: MTLAB 10:48
PROVIDERS: PCP Family Medicine; Referring Provider Internal Medicine Rheumatology; Visit Provider Internal Medicine Rheumatology
DX: M06.4 Inflammatory polyarthropathy (principal); G24.9 Dystonia, unspecified; Z79.899 Other long term (current) drug therapy
CPT/HCPCS: 36415; 80053; 85025